=== PATIENT | male | born 1990 | race Caucasian/White ===

== ENCOUNTER 2020-04-12 13:21 | Inpatient (IN) | payer OTHER ==
--- NOTE | 2020-04-12 18:51 | HP ---
COWS - Scale Resting Pulse: 0= TX 80 or Below Sweatin= No chills or Flushing Restless Observation: 0= Sits Still Bone or Joint Aches: 0= None Runny Nose/ Eye Tearin= None GI Upset > 30mins: 0= None Tremor Observation: 0= None Yawning Observation: 0= None Anxiety or Irritability: 1=Feels Anxious/Irritable Goose Flesh Skin: 0=Smooth Skin CIWA Score Nausea/Vomitin Muscle Tremors: 1-None Visible, but [place] Anxiety: 2 Agitation: 1-Slight > Activity Paroxysmal Sweats: 1-Minimal Palms Moist Orientation: 1-Uncertain about Date Tacttile Disturbances: 1-Very Mild Itch/Numbness Auditory Disturbances: 0-None Visual Disturbances: 0-None Headache: 3-Moderate CIWA-Ar Total Score: 12 - Admission Criteria OASAS Guidelines: Admission for Medically Managed Detox: Requires at least one of the followin. CIWA greater than 12 2. Seizures within the past 24 hours 3. Delirium tremens within the past 24 hours 4. Hallucinations within the past 24 hours 5. Acute intervention needed for co occurring medical disorder 6. Acute intervention needed for co occurring psychiatric disorder 7. Severe withdrawal that cannot be handled at a lower level of care (continued vomiting, continued diarrhea, abnormal vital signs) requiring intravenous medication and/or fluids 8. Patient presents the following: CIWA greater than 12 Admission Criteria Met: Admission criteria met Admitting History and Physical - Admission Chief Complaint: Patient is a 30 year old male with history of schizophrenia, depression, benzodiazepine use disorder, opiate use disorder, cocaine dependence, marijuana dependence, nicotine dependence, asthma, presents for detox History of Present Illness: Patient is a 30 year old male with history of schizophrenia, depression, benzodiazepine use disorder, opiate use disorder, cocaine dependence, marijuana dependence, nicotine dependence, asthma, presents for detox PMH: asthma PSH: denies Social: lives in apartment with sister in law. on disability Psych: depression, schizophrenia Legal: denies History Source: Patient Limitations to Obtaining History: No Limitations - Past Medical History Pulmonary: Yes: Asthma - Smoking History Smoking history: Current every day smoker Have you smoked in the past 12 months: Yes Aproximately how many cigarettes per day: 20 - Alcohol/Substance Use Hx Alcohol Use: No History of Substance Use: reports: Cocaine, Heroin, Marijuana Date of Last Use: 04/12/20 - Social History Usual Living Arrangement: Yes: Other (in apartment, with sister in law) ADL: Independent Occupation: on disability History of Recent Travel: No Admission [facility] Chief Complaint: Patient is a 30 year old male with history of schizophrenia, depression, benzodiazepine use disorder, opiate use disorder, cocaine dependence, marijuana dependence, nicotine dependence, asthma, presents for detox History of Present Illness: Patient is a 30 year old male with history of schizophrenia, depression, benzodiazepine use disorder, opiate use disorder, cocaine dependence, marijuana dependence, nicotine dependence, asthma, presents for Detox Patient states that he is in methadone program [facility] [place]. Endorses current dose at 80mg, last taken 04/11. Patient endorses prior detox in [place] one month ago. PMH: asthma PSH: denies Social: lives in apartment with sister in law. on disability Psych: depression, schizophrenia Legal: denies See Medical history for detailed substance use history. Urine toxicology: THC, KASIA, MET, AMP, MOP Exam Limitations: No Limitations - Ebola screening Have you traveled outside of the country in the last 21 days: No Have you been sick,other than usual withdrawal symptoms: No Do you have a fever: No - Review of Systems Constitutional: No Symptoms Reported EENT: denies: Blurred Vision, Hearing Loss Respiratory: denies: Cough, Shortness of Breath Cardiac: denies: Chest Pain, Lightheadedness, Palpitations GI: denies: Nausea, Vomiting, Abdominal cramping : denies: Burning, Dysuria Musculoskeletal: denies: Back Pain, Joint Pain, Joint Swelling Integumentary: denies: Bruising, Lesions, Rash Neuro: denies: Headache, Numbness, Paresthesia, Weakness Hematology: denies: Blood Clots, Easy Bleeding Psychiatric: reports: Depressed (denies suicida, homicidal ideation) Patient History - Patient Medical History Hx Anemia: No Hx Asthma: Yes Hx Chronic Obstructive Pulmonary Disease (COPD): No Hx Cancer: No Hx Cardiac Disorders: No Hx Congestive Heart Failure: No Hx Hypertension: No Hx Hypercholesterolemia: No Hx Pacemaker: No HX Cerebrovascular Accident: No Hx Seizures: Yes (at 13 years old) Hx Dementia: No Hx Diabetes: No Hx Gastrointestinal Disorders: No Hx Liver Disease: No Hx Genitourinary Disorders: No Hx Sexually Transmitted Disorders: No Hx Renal Disease (ESRD): No Hx Thyroid Disease: No Hx Human Immunodeficiency Virus (HIV): No Hx Hepatitis C: No Hx Depression: Yes Hx Suicide Attempt: No Hx Bipolar Disorder: No Hx Schizophrenia: Yes - Patient Surgical History Past Surgical History: No Hx Neurologic Surgery: No Hx Cataract Extraction: No Hx Cardiac Surgery: No Hx Lung Surgery: No Hx Breast Surgery: No Hx Breast Biopsy: No Hx Abdominal Surgery: No Hx Appendectomy: No Hx Cholecystectomy: No Hx Genitourinary Surgery: No Hx Section: No Hx Orthopedic Surgery: No Hx Hysterectomy: No - PPD History Previous Implant?: Yes Documented Results: Negative w/o proof Implanted On Prior [facility] Admission?: No PPD to be Administered?: Yes - Reproductive History Patient is a Female of Child Bearing Age (11 -55 yrs old): No - Smoking Cessation Smoking history: Smoker current status UNK Have you smoked in the past 12 months: No Hx Chewing Tobacco Use: No Initiated information on smoking cessation: Yes 'Breaking Loose' booklet given: 04/12/20 - Substance & Tx. History Hx Alcohol Use: No Hx Substance Use: Yes Substance Use Type: Cocaine, Heroin, Marijuana, Opiates, Tranquilizers Hx Substance Use Treatment: Yes (endorses last detox one month ago in [place]) - Substances abused Alprazolam (Xanax) Substance route: Oral Frequency: Daily Amount used: 5mg x 3 (bars) Age of first use: 25 Date of last use: 04/12/20 Benzodiazepine (Klonopin) Substance route: Oral Frequency: Daily Amount used: 2mg x 10 Age of first use: 25 Date of last use: 04/12/20 Crystal meth Substance route: Injection Frequency: 3-6 times per week Amount used: $20 every two- three days Age of first use: 29 Date of last use: 04/11/20 Heroin Substance route: Injection Frequency: Daily Amount used: 2 bags Age of first use: 26 Date of last use: 04/12/20 Marijuana/Hashish Substance route: Smoking Frequency: Daily Amount used: $10 Age of first use: 13 Date of last use: 04/11/20 Crack Substance route: Smoking Frequency: Daily Amount used: $50 Age of first use: 27 Date of last use: 04/12/20 Admission Physical Exam [facility] - Physical General Appearance: Yes: No Apparent Distress, Nourished HEENTM: Yes: EOMI, Hearing grossly Normal, Normocephalic, TIGRE Respiratory: Yes: Lungs Clear, Normal Breath Sounds, No Respiratory Distress, No Accessory Muscle Use Neck: Yes: Supple Breast: Yes: Breast Exam Deferred Cardiology: Yes: Regular Rhythm, Regular Rate, S1, S2 Abdominal: Yes: Normal Bowel Sounds, Non Tender, Flat, Soft Musculoskeletal: Yes: Within Normal Limits, full range of Motion Extremities: Yes: Within Normal Limits, Normal Range of Motion Neurological: Yes: Alert, Motor Strength 5/5, Normal Response Integumentary: Yes: Dry, Warm - Diagnostic (1) Opiate dependence Current Visit: Yes Status: Chronic Qualifiers: Substance use status: uncomplicated Qualified Code(s): F11.20 - Opioid dependence, uncomplicated (2) Nicotine dependence Current Visit: Yes Status: Chronic Qualifiers: Nicotine product type: cigarettes Substance use status: uncomplicated Qualified Code(s): F17.210 - Nicotine dependence, cigarettes, uncomplicated (3) Cocaine dependence Current Visit: Yes Status: Chronic Qualifiers: Substance use status: uncomplicated Qualified Code(s): F14.20 - Cocaine dependence, uncomplicated (4) Marijuana dependence Current Visit: Yes Status: Acute (5) Methamphetamine dependence Current Visit: Yes Status: Acute (6) Asthma Current Visit: Yes Status: Chronic Qualifiers: Asthma severity: unspecified severity Asthma persistence: unspecified Asthma complication type: unspecified Qualified Code(s): J45.909 - Unspecified asthma, uncomplicated (7) Schizophrenia Current Visit: No Status: Chronic Qualifiers: Schizophrenia type: unspecified Qualified Code(s): F20.9 - Schizophrenia, unspecified (8) Depression Current Visit: No Status: Chronic Qualifiers: Depression Type: unspecified Qualified Code(s): F32.9 - Major depressive disorder, single episode, unspecified (9) Sedative, hypnotic or anxiolytic dependence with withdrawal, uncomplicated Current Visit: Yes Status: Acute (10) Methadone maintenance therapy patient Current Visit: Yes Status: Chronic Cleared for Admission [facility] - Detox or Rehab S Level of Care: Medically Managed Detox Regimen/Protocol: Valium Claeared for Rehab Admission: No Screened but not Admitted - Documentation of Visit Screened but not Admitted: No Inpatient Rehab Admission - Rehab Decision to Admit Inpatient rehab admission?: No
[2020-04-12] MEDS ORDERED: P-EPHED 60MG/TRIPROLIDI 2.5MG TABLET PO PRN (19:13)
[2020-04-12] MEDS ORDERED: ACETAMINOPHEN 325 MG TABLET (FP) PO PRN ×3 (19:13→19:27)
[2020-04-12] MEDS ORDERED: MAG HYDROX/AL HYDROX/SIMETH 30 ML UNIT-DOSE CUP PO PRN ×2 (19:13→19:27)
[2020-04-12] MEDS ORDERED: MAGNESIUM HYDROX 2400MG/30ML ORAL SUSPENSION 30 ML CUP PO PRN ×2 (19:13→19:27)
[2020-04-12] MEDS ORDERED: LOPERAMIDE HCL 2 MG CAPSULE PO PRN (19:13)
[2020-04-12] MEDS ORDERED: MAGNESIUM CITRATE 300 ML BOTTLE PO PRN ×2 (19:13→19:27)
[2020-04-12] MEDS ORDERED: IBUPROFEN 400 MG TABLET (FP) PO PRN ×2 (19:13→19:27)
[2020-04-12] MEDS ORDERED: guaiFENesin 200 MG/10 ML 10 ML UNIT-DOSE CUPS PO PRN (19:13)
[2020-04-12] MEDS ORDERED: NICOTINE POLACRILEX 2 MG GUM BC PRN (19:13)
[2020-04-12] MEDS ORDERED: ALBUTEROL SO4 HFA INHALER IH PRN ×2 (19:14→19:38)
[2020-04-12] MEDS ORDERED: NICOTINE 21 MG/24 HOURS TOPICAL PATCH TD SCH (19:15)
[2020-04-12] MEDS ORDERED: BISMUTH SUBSALICYLATE 524 MG/30 ML UD PO PRN (19:27)
[2020-04-12] MEDS ORDERED: MENTHOL/PHENOL 1 EACH UD MM PRN (19:27)
[2020-04-12] MEDS ORDERED: NICOTINE POLACRILEX 2 MG GUM BUC PRN (19:27)
[2020-04-12] MEDS ORDERED: ONDANSETRON *ODT* 4 MG TABLET SL PRN (19:27)
[2020-04-12 20:21] VITALS: BMI 24.3
[2020-04-12] MEDS ORDERED: PNEUMOC 13-VAL CONJ-DIP CRM/PF 0.5 ML DISP.SYRIN IM ONE (20:39)
[2020-04-12] MEDS: diazePAM 5 MG TABLET PO SCH (21:40)
[2020-04-12] MEDS: hydrOXYzine PAMOATE 25 MG CAPSULE (FP) PO SCH (21:40)
[2020-04-12] MEDS: MELATONIN 5 MG TABLETS PO SCH (21:41)
[2020-04-12] MEDS: THIAMINE HCL 100 MG TABLET (FP) PO SCH (21:41)
[2020-04-12] MEDS: NICOTINE 21 MG/24 HOURS TOPICAL PATCH TD SCH (21:43)
[2020-04-12] MEDS ORDERED: hydrOXYzine PAMOATE 25 MG CAPSULE (FP) PO SCH (22:00)
[2020-04-12] MEDS ORDERED: MELATONIN 5 MG TABLETS PO SCH (22:00)
[2020-04-12] MEDS ORDERED: THIAMINE HCL 100 MG TABLET (FP) PO SCH (22:00)
[2020-04-13] MEDS: hydrOXYzine PAMOATE 25 MG CAPSULE (FP) PO SCH (06:04)
[2020-04-13] MEDS: diazePAM 5 MG TABLET PO SCH ×3 (06:04→22:20)
[2020-04-13] MEDS ORDERED: PRENATAL VITAMINS W/ FOLIC ACID TABLET (FP) PO SCH (10:00)
[2020-04-13] MEDS: PRENATAL VITAMINS W/ FOLIC ACID TABLET (FP) PO SCH (11:04)
[2020-04-13] MEDS: NICOTINE 21 MG/24 HOURS TOPICAL PATCH TD SCH (11:04)
[2020-04-13] MEDS ORDERED: METHADONE HCL 40 MG DISPERSABLE TABLET PO ONE (11:08)
--- NOTE | 2020-04-13 11:50 | PN ---
[facility] CIWA - CIWA Score Nausea/Vomitin-No Nausea/No Vomiting Muscle Tremors: 3 Anxiety: 3 Agitation: 2 Paroxysmal Sweats: 2 Orientation: 0-Oriented Tacttile Disturbances: 0-None Auditory Disturbances: 0-None Visual Disturbances: 0-None Headache: 0-None Present CIWA-Ar Total Score: 10 [facility] Progress Note (SOAP) Subjective: shakes sweats interrupted sleep chills Objective: 04/13/20 11:49 Vital Signs Temperature 97.1 F L 04/13/20 06:36 Pulse Rate 47 L 04/13/20 06:36 Respiratory Rate 20 04/13/20 06:36 Blood Pressure 126/63 04/13/20 06:36 O2 Sat by Pulse Oximetry (%) 99 04/13/20 06:36 labs noted aaox3 ambulating no acute distress Assessment: 04/13/20 11:49 withdrawals Plan: continue detox increase fluids pending labs
[2020-04-13 11:58] LABS: HEMOGLOBIN 13.2 GM/dL (11.7-16.9); MCH 29.4 pg (25.7-33.7); MCHC 32.1 g/dl (32.0-35.9); MEAN CELL VOLUME 91.5 fl (80-96); MEAN PLT VOLUME 9.2 fl (7.5-11.1); PLATELET COUNT 215 K/MM3 (134-434); RBC 4.48 M/mm3 (4.00-5.60); RDW 13.9 % (11.9-15.9); WHITE BLOOD COUNT 6.2 K/mm3 (4.0-10.0)
[2020-04-13] MEDS ORDERED: PNEUMOC 13-VAL CONJ-DIP CRM/PF 0.5 ML DISP.SYRIN IM ONE (12:00)
[2020-04-13] MEDS ORDERED: PNEUMOCOCCAL 23 VACCINE 0.5 ML VIAL IM ONE (12:00)
[2020-04-13 12:06] LABS: ALBUMIN 3.4 g/dl (3.4-5.0); BILIRUBIN,TOTAL 0.2 mg/dL (0.2-1); BLOOD UREA NITROGEN 13.7 mg/dL (7-18); CALCIUM 8.7 mg/dL (8.5-10.1); CREATININE 0.9 mg/dL (0.55-1.3); POTASSIUM 4.6 mmol/L (3.5-5.1); TOT PROT 6.9 g/dl (6.4-8.2)
[2020-04-13] MEDS: METHOCARBAMOL 500 MG TABLET PO PRN (12:31)
[2020-04-13] MEDS: NICOTINE POLACRILEX 4 MG GUM BUC PRN ×2 (13:26→17:54)
--- NOTE | 2020-04-13 14:56 | EKG ---
Test Reason : Blood Pressure : / mmHG Vent. Rate : 055 BPM Atrial Rate : 055 BPM P-R Int : 110 ms QRS Dur : 082 ms QT Int : 432 ms P-R-T Axes : 031 069 027 degrees QTc Int : 413 ms SINUS BRADYCARDIA WITH SHORT MT OTHERWISE NORMAL ECG NO PREVIOUS ECGS AVAILABLE Confirmed by KARLOS ANTONY MD ([id number]) on 04/13/2020 2:56:14 PM Referred By: Confirmed By:KARLOS ANTONY MD
[2020-04-13] MEDS: hydrOXYzine PAMOATE 25 MG CAPSULE (FP) PO PRN (17:08)
[2020-04-13] MEDS: MELATONIN 5 MG TABLETS PO SCH (22:20)
[2020-04-13] MEDS: THIAMINE HCL 100 MG TABLET (FP) PO SCH (22:20)
[2020-04-14] MEDS: METHADONE HCL 40 MG DISPERSABLE TABLET PO SCH (05:53)
[2020-04-14] MEDS: diazePAM 5 MG TABLET PO SCH ×2 (05:53→17:58)
[2020-04-14] MEDS: NICOTINE POLACRILEX 4 MG GUM BUC PRN ×2 (07:35→22:44)
[2020-04-14] MEDS: NICOTINE 21 MG/24 HOURS TOPICAL PATCH TD SCH (10:22)
[2020-04-14] MEDS: PRENATAL VITAMINS W/ FOLIC ACID TABLET (FP) PO SCH (10:22)
[2020-04-14] MEDS: METHOCARBAMOL 500 MG TABLET PO PRN (10:24)
[2020-04-14] MEDS: diazePAM 5 MG TABLET PO PRN ×2 (10:24→22:08)
--- NOTE | 2020-04-14 10:53 | PN ---
S CIWA - CIWA Score Nausea/Vomitin-No Nausea/No Vomiting Muscle Tremors: 3 Anxiety: 2 Agitation: 2 Paroxysmal Sweats: No Perspiration Orientation: 0-Oriented Tacttile Disturbances: 0-None Auditory Disturbances: 0-None Visual Disturbances: 0-None Headache: 0-None Present CIWA-Ar Total Score: 7 [facility] Progress Note (SOAP) Subjective: muscle aches sweats Objective: 04/14/20 10:52 Vital Signs Temperature 97.3 F L 04/14/20 05:39 Pulse Rate 76 04/14/20 05:39 Respiratory Rate 20 04/14/20 05:39 Blood Pressure 108/71 04/14/20 05:39 O2 Sat by Pulse Oximetry (%) 98 04/14/20 05:39 Laboratory Tests 04/12/20 04/13/20 04/13/20 21:45 08:05 08:05 WBC 6.2 RBC 4.48 Hgb 13.2 Hct 41.0 MCV 91.5 MCH 29.4 MCHC 32.1 RDW 13.9 Plt Count 215 MPV 9.2 Sodium Potassium Chloride Carbon Dioxide Anion Gap BUN Creatinine Est GFR (CKD-EPI)AfAm Est GFR (CKD-EPI)NonAf Random Glucose Calcium Total Bilirubin AST ALT Alkaline Phosphatase Total Protein Albumin Syphilis Serology Non-reactive COVID-19 ([facility]) Not detected 04/13/20 08:05 WBC RBC Hgb Hct MCV MCH MCHC RDW Plt Count MPV Sodium 139 Potassium 4.6 Chloride 106 Carbon Dioxide 31 Anion Gap 3 L BUN 13.7 Creatinine 0.9 Est GFR (CKD-EPI)AfAm 130.52 Est GFR (CKD-EPI)NonAf 112.62 Random Glucose 90 Calcium 8.7 Total Bilirubin 0.2 AST 18 ALT 19 Alkaline Phosphatase 78 Total Protein 6.9 Albumin 3.4 Syphilis Serology COVID-19 ([facility]) aaox3 ambulating no acute distress Assessment: 04/14/20 10:53 withdrawals Plan: continue detox
[2020-04-14] MEDS: hydrOXYzine PAMOATE 25 MG CAPSULE (FP) PO PRN (15:28)
[2020-04-14] MEDS: MELATONIN 5 MG TABLETS PO SCH (22:08)
[2020-04-14] MEDS: THIAMINE HCL 100 MG TABLET (FP) PO SCH (22:08)
[2020-04-15] MEDS: METHADONE HCL 40 MG DISPERSABLE TABLET PO SCH (05:50)
[2020-04-15] MEDS ORDERED: diazePAM 5 MG TABLET PO ONE (06:00)
[2020-04-15] MEDS: METHOCARBAMOL 500 MG TABLET PO PRN ×2 (07:55→15:11)
[2020-04-15] MEDS: hydrOXYzine PAMOATE 25 MG CAPSULE (FP) PO PRN (07:56)
[2020-04-15] MEDS: NICOTINE POLACRILEX 4 MG GUM BUC PRN ×2 (07:56→15:11)
[2020-04-15] MEDS: PRENATAL VITAMINS W/ FOLIC ACID TABLET (FP) PO SCH (12:11)
[2020-04-15] MEDS: NICOTINE 21 MG/24 HOURS TOPICAL PATCH TD SCH (12:11)
--- NOTE | 2020-04-15 12:17 | PN ---
[facility] CIWA - CIWA Score Nausea/Vomitin-No Nausea/No Vomiting Muscle Tremors: None Anxiety: 1-Mildly Anxious Agitation: 0-Normal Activity Paroxysmal Sweats: No Perspiration Orientation: 0-Oriented Tacttile Disturbances: 0-None Auditory Disturbances: 0-None Visual Disturbances: 0-None Headache: 0-None Present CIWA-Ar Total Score: 1 S Progress Note (SOAP) Subjective: Complaints of mild anxiety. Objective: 04/15/20 12:13 Vital Signs 04/15/20 04/15/20 05:45 08:59 Temperature 97.1 F L 98.8 F Pulse Rate 51 L 85 Respiratory 20 20 Rate Blood Pressure 114/60 104/61 O2 Sat by Pulse 98 98 Oximetry (%) Laboratory Last Values WBC 6.2 K/mm3 (4.0-10.0) 04/13/20 08:05 RBC 4.48 M/mm3 (4.00-5.60) 04/13/20 08:05 Hgb 13.2 GM/dL (11.7-16.9) 04/13/20 08:05 Hct 41.0 % (35.4-49) 04/13/20 08:05 MCV 91.5 fl (80-96) 04/13/20 08:05 MCH 29.4 pg (25.7-33.7) 04/13/20 08:05 MCHC 32.1 g/dl (32.0-35.9) 04/13/20 08:05 RDW 13.9 % (11.9-15.9) 04/13/20 08:05 Plt Count 215 K/MM3 (134-434) 04/13/20 08:05 MPV 9.2 fl (7.5-11.1) 04/13/20 08:05 Sodium 139 mmol/L (136-145) 04/13/20 08:05 Potassium 4.6 mmol/L (3.5-5.1) 04/13/20 08:05 Chloride 106 mmol/L (98-107) 04/13/20 08:05 Carbon Dioxide 31 mmol/L (21-32) 04/13/20 08:05 Anion Gap 3 MMOL/L (8-16) L 04/13/20 08:05 BUN 13.7 mg/dL (7-18) 04/13/20 08:05 Creatinine 0.9 mg/dL (0.55-1.3) 04/13/20 08:05 Est GFR (CKD-EPI)AfAm 130.52 04/13/20 08:05 Est GFR (CKD-EPI)NonAf 112.62 04/13/20 08:05 Random Glucose 90 mg/dL (74-106) 04/13/20 08:05 Calcium 8.7 mg/dL (8.5-10.1) 04/13/20 08:05 Total Bilirubin 0.2 mg/dL (0.2-1) 04/13/20 08:05 AST 18 U/L (15-37) 04/13/20 08:05 ALT 19 U/L (13-61) 04/13/20 08:05 Alkaline Phosphatase 78 U/L (45-117) 04/13/20 08:05 Total Protein 6.9 g/dl (6.4-8.2) 04/13/20 08:05 Albumin 3.4 g/dl (3.4-5.0) 04/13/20 08:05 Syphilis Serology Non-reactive (NONREACTIVE) 04/13/20 08:05 COVID-19 ([facility]) Not detected (Not Detected) 04/12/20 21:45 Labs noted. Assessment: 04/15/20 12:13 Alert and oriented x3, in no acute respiratory distress. Full ROM, ambulating in hallway with assistance. Skin warm to touch with no lesions noted. For D/C in AM. Plan: Detox protocol completed, patient was scheduled for discharge to rehab today, however no bed available and patient MMTP is closed for today. D/C in AM after methadone administration.
--- NOTE | 2020-04-15 15:45 | DS ---
[facility] Detox Discharge Summary Admission Date: 04/12/20 Discharge Date: 04/15/20 - History Present History: Alcohol Dependence, Cannabis Dependence, Cocaine Dependence, MMTP Additional Comments: Alert and oriented x3, in no acute respiratory distress. Full ROM, ambulating in hallway without assistance. Skin warm to touch with no lesions noted. Detox protocol completed, patient stable for discharge to rehab today. Pertinent Past History: History of asthma , benzo, cocaine opiates, cannabis use disorder. - Physical Exam Results Vital Signs: Vital Signs Temperature 97.1 F L 04/15/20 12:49 Pulse Rate 67 04/15/20 12:49 Respiratory Rate 18 04/15/20 12:49 Blood Pressure 103/60 04/15/20 12:49 O2 Sat by Pulse Oximetry (%) 97 04/15/20 12:49 Vital Signs 04/15/20 04/15/20 08:59 12:49 Temperature 98.8 F 97.1 F L Pulse Rate 85 67 Respiratory 20 18 Rate Blood Pressure 104/61 103/60 O2 Sat by Pulse 98 97 Oximetry (%) Laboratory Last Values WBC 6.2 K/mm3 (4.0-10.0) 04/13/20 08:05 RBC 4.48 M/mm3 (4.00-5.60) 04/13/20 08:05 Hgb 13.2 GM/dL (11.7-16.9) 04/13/20 08:05 Hct 41.0 % (35.4-49) 04/13/20 08:05 MCV 91.5 fl (80-96) 04/13/20 08:05 MCH 29.4 pg (25.7-33.7) 04/13/20 08:05 MCHC 32.1 g/dl (32.0-35.9) 04/13/20 08:05 RDW 13.9 % (11.9-15.9) 04/13/20 08:05 Plt Count 215 K/MM3 (134-434) 04/13/20 08:05 MPV 9.2 fl (7.5-11.1) 04/13/20 08:05 Sodium 139 mmol/L (136-145) 04/13/20 08:05 Potassium 4.6 mmol/L (3.5-5.1) 04/13/20 08:05 Chloride 106 mmol/L (98-107) 04/13/20 08:05 Carbon Dioxide 31 mmol/L (21-32) 04/13/20 08:05 Anion Gap 3 MMOL/L (8-16) L 04/13/20 08:05 BUN 13.7 mg/dL (7-18) 04/13/20 08:05 Creatinine 0.9 mg/dL (0.55-1.3) 04/13/20 08:05 Est GFR (CKD-EPI)AfAm 130.52 04/13/20 08:05 Est GFR (CKD-EPI)NonAf 112.62 04/13/20 08:05 Random Glucose 90 mg/dL (74-106) 04/13/20 08:05 Calcium 8.7 mg/dL (8.5-10.1) 04/13/20 08:05 Total Bilirubin 0.2 mg/dL (0.2-1) 04/13/20 08:05 AST 18 U/L (15-37) 04/13/20 08:05 ALT 19 U/L (13-61) 04/13/20 08:05 Alkaline Phosphatase 78 U/L (45-117) 04/13/20 08:05 Total Protein 6.9 g/dl (6.4-8.2) 04/13/20 08:05 Albumin 3.4 g/dl (3.4-5.0) 04/13/20 08:05 Syphilis Serology Non-reactive (NONREACTIVE) 04/13/20 08:05 COVID-19 ([facility]) Not detected (Not Detected) 04/12/20 21:45 Labs noted. Pertinent Admission Physical Exam Findings: Withdrawal symptoms - Treatment Hospital Course: Detox Protocol Followed, Detoxed Safely, Responded well, Discharged Condition Good, Rehab Referral Accepted Patient has Accepted a Rehab Referral to: [facility] ([facility]) - Medication Discharge Medications: Ambulatory Orders Gabapentin 400 mg PO BID 04/12/20 Oxcarbazepine [Trileptal] 300 mg PO BID 04/12/20 Quetiapine Fumarate [Seroquel -] 400 mg PO HS 04/12/20 - Diagnosis (1) Marijuana dependence Current Visit: Yes Status: Chronic (2) Asthma Current Visit: Yes Status: Chronic Qualifiers: Asthma severity: unspecified severity Asthma persistence: unspecified Asthma complication type: unspecified Qualified Code(s): J45.909 - Unspecified asthma, uncomplicated (3) Cocaine dependence Current Visit: Yes Status: Chronic Qualifiers: Substance use status: uncomplicated Qualified Code(s): F14.20 - Cocaine dependence, uncomplicated (4) Methadone maintenance therapy patient Current Visit: Yes Status: Chronic (5) Nicotine dependence Current Visit: Yes Status: Chronic Qualifiers: Nicotine product type: cigarettes Substance use status: uncomplicated Qualified Code(s): F17.210 - Nicotine dependence, cigarettes, uncomplicated (6) Opiate dependence Current Visit: Yes Status: Chronic Qualifiers: Substance use status: uncomplicated Qualified Code(s): F11.20 - Opioid dependence, uncomplicated (7) Alcohol withdrawal Current Visit: Yes Status: Acute - AMA Did Patient Leave Against Medical Advice: No
[2020-04-15 17:49] VITALS: BP 100/58; PULSE 58; TEMP 97.3
== END 2020-04-15 18:41 | disposition other institution (70) | DRG 897 ==
LOC: YASAS 13:21 → Y6N 19:20
PROVIDERS: ADMIT Allergy & Immunology; ATTEND Allergy & Immunology
PROC: HZ2ZZZZ Detoxification Services for Substance Abuse Treatment (ICD-10-PCS; principal; 2020-04-12)
DX: F10.230 Alcohol dependence with withdrawal, uncomplicated (principal); F11.20 Opioid dependence, uncomplicated; F13.20 Sedative, hypnotic or anxiolytic dependence, uncomplicated; F14.20 Cocaine dependence, uncomplicated; F12.20 Cannabis dependence, uncomplicated; F17.210 Nicotine dependence, cigarettes, uncomplicated; F20.9 Schizophrenia, unspecified; J45.909 Unspecified asthma, uncomplicated; Z86.69 Personal history of other diseases of the nervous system and sense organs
CPT/HCPCS: 36415; 80053; 85027; 86780; 90732; 93005; 93010; G0009; U0003

== ENCOUNTER 2020-04-15 18:54 | Inpatient (IN) | payer OTHER ==
[2020-04-15 19:30] VITALS: BMI 24.0
[2020-04-15] MEDS ORDERED: P-EPHED 60MG/TRIPROLIDI 2.5MG TABLET PO PRN (20:39)
[2020-04-15] MEDS ORDERED: MENTHOL/PHENOL 1 EACH UD MM PRN (20:39)
[2020-04-15] MEDS ORDERED: MAGNESIUM CITRATE 300 ML BOTTLE PO PRN (20:39)
[2020-04-15] MEDS ORDERED: MAG HYDROX/AL HYDROX/SIMETH 30 ML UNIT-DOSE CUP PO PRN (20:39)
[2020-04-15] MEDS ORDERED: guaiFENesin 200 MG/10 ML 10 ML UNIT-DOSE CUPS PO PRN (20:39)
[2020-04-15] MEDS ORDERED: LOPERAMIDE HCL 2 MG CAPSULE PO PRN (20:39)
[2020-04-15] MEDS ORDERED: MAGNESIUM HYDROX 2400MG/30ML ORAL SUSPENSION 30 ML CUP PO PRN (20:39)
--- NOTE | 2020-04-15 20:39 | HP ---
[facility] Rehab Assess/Revision - Admission History Admitted to Rehab from: [address] Date of Admission to Rehab: 04/15/2020 - Vital signs Vital Signs: Vital Signs Period Temp Pulse Resp BP Sys/Jeronimo Pulse Ox Last 24 Hr 96.9 F 72 18 107/66 - Findings Detox History & Physical reviewed: Yes (labs noted- covid neg) Concur with findings: Yes Comments/Additional Findings: transfer from [facility]n after completing alcohol detox safely. client also has hx of cannabis, neda and and opi dep. client is currently on mmtp 80 mg. ldm today on 6n. pmhx- nicotine dep, asthma,. client is a/o x3 nad, vss Inpatient Rehab Admission - Rehab Decision to Admit Inpatient rehab admission?: Yes - Initial Determination Are CD services needed?: Yes Free of communicable disease: Yes Not in need of hospitalization: Yes - Rehab Admission Criteria Previous failed treatment: Yes Poor recovery environment: Yes Comorbidities: Yes Lacks judgement: No Patient is meeting Inpatient Rehab admission criteria:: Yes
[2020-04-15] MEDS: hydrOXYzine PAMOATE 25 MG CAPSULE (FP) PO PRN (21:45)
[2020-04-15] MEDS: MELATONIN 5 MG TABLETS PO SCH (21:45)
[2020-04-15] MEDS: IBUPROFEN 400 MG TABLET (FP) PO PRN (21:45)
[2020-04-15] MEDS: NICOTINE POLACRILEX 2 MG GUM BUC PRN (21:46)
[2020-04-15] MEDS: THIAMINE HCL 100 MG TABLET (FP) PO SCH (22:04)
[2020-04-15] MEDS ORDERED: MASKS NR ONE (22:21)
[2020-04-16] MEDS: METHADONE HCL 40 MG DISPERSABLE TABLET PO SCH (06:21)
[2020-04-16] MEDS: NICOTINE 14 MG/24 HOURS TOPICAL PATCH TD SCH (09:42)
[2020-04-16] MEDS: PRENATAL VITAMINS W/ FOLIC ACID TABLET (FP) PO SCH (09:43)
[2020-04-16] MEDS: hydrOXYzine PAMOATE 25 MG CAPSULE (FP) PO PRN ×2 (09:44→21:38)
--- NOTE | 2020-04-16 09:52 | CONSULT ---
[facility] Psychiatric Consult - Data Date of interview: 04/16/20 Admission source: [facility] Identifying data: Patient is a 30 year old single male, without children, unemployed, domiciled and is supported by [facility]. This is one of multiple admissions for patient. Patient admitted to rehab for treatment of opiate, cocaine, marijuana, and methamphetamine dependence. Substance Abuse History: Smoking Cessation. Smoking history: Smoker current status UNK. Have you smoked in the past 12 months: No. Hx Chewing Tobacco Use: No. Initiated information on smoking cessation: Yes. 'Breaking Loose' booklet given: 04/12/20. - Substance & Tx. History. Hx Alcohol Use: No. Hx Substance Use: Yes. Substance Use Type: Cocaine, Heroin, Marijuana, Opiates, Tranquilizers. Hx Substance Use Treatment: Yes (endorses last detox one month ago in [place]). - Substances abused. Alprazolam (Xanax). Substance route: Oral. Frequency: Daily. Amount used: 5mg x 3 (bars). Age of first use: 25. Date of last use: 04/12/20. Benzodiazepine (Klonopin). Substance route: Oral. Frequency: Daily. Amount used: 2mg x 10. Age of first use: 25. Date of last use: 04/12/20. Crystal meth. Substance route: Injection. Frequency: 3-6 times per week. Amount used: $20 every two- three days. Age of first use: 29. Date of last use: 04/11/20. Heroin. Substance route: Injection. Frequency: Daily. Amount used: 2 bags. Age of first use: 26. Date of last use: 04/12/20. Marijuana/Hashish. Substance route: Smoking. Frequency: Daily. Amount used: $10. Age of first use: 13. Date of last use: 04/11/20. Crack. Substance route: Smoking. Frequency: Daily. Amount used: $50. Age of first use: 27. Date of last use: 04/12/20 Medical History: asthma Psychiatric History: Mr. Ta's first psychiatric contact was in 2013 due to depressed mood, aggressive behavior, and hearing voices. He was admitted to [facility], diagnosed with schizophrenia, and treated with seroquel a nd other psychotropic agents. Mr. Ta reports additional hospitalizations at [facility] and most recently two weeks ago at [facility] for continously removing blood from his anticubital with a syringe although denies it being a suicide attempt and denies hearing voices during that time. Stated that he would remove his blood because he enjoyed it. While at [facility] he reports being treated with seroquel 300mg HS + Gabapentin 400mg BID + trileptal ( for seizures). Stated that he has not taken the medications since discharge. [facility] contacted at [phone] but typewriter tester was unsuccessul in speaking to pharmacy staff. Mr. Ta reports history of several suicide attempts via overdose of illicit substance. At present patient denies suicidal/ homicidal ideation, auditory/ visual hallucinations. No psychosis noted. Physical/Sexual Abuse/Trauma History: Not discussed. Mental Status Exam - Mental Status Exam Alert and Oriented to: Time, Place, Person Cognitive Function: Good Patient Appearance: Well Groomed Mood: Hopeful Affect: Appropriate Patient Behavior: Appropriate, Cooperative Speech Pattern: Appropriate Voice Loudness: Normal Thought Process: Goal Oriented Thought Disorder: Not Present Hallucinations: Denies Suicidal Ideation: Denies Homicidal Ideation: Denies Insight/Judgement: Poor Sleep: Poorly Appetite: Fair Muscle strength/Tone: Normal Gait/Station: Normal Psychiatric Findings - Problem List ([place] 1, 2,3) (1) Methamphetamine dependence Current Visit: Yes Status: Chronic (2) Cocaine dependence Current Visit: Yes Status: Chronic Qualifiers: Substance use status: uncomplicated Qualified Code(s): F14.20 - Cocaine dependence, uncomplicated (3) Marijuana dependence Current Visit: Yes Status: Chronic (4) Nicotine dependence Current Visit: Yes Status: Chronic Qualifiers: Nicotine product type: cigarettes Substance use status: uncomplicated Qualified Code(s): F17.210 - Nicotine dependence, cigarettes, uncomplicated (5) Opiate dependence Current Visit: Yes Status: Chronic Qualifiers: Substance use status: uncomplicated Qualified Code(s): F11.20 - Opioid dependence, uncomplicated (6) Schizophrenia Current Visit: Yes Status: Chronic Qualifiers: Schizophrenia type: unspecified Qualified Code(s): F20.9 - Schizophrenia, unspecified Comment: self reports (7) Methadone maintenance therapy patient Current Visit: Yes Status: Chronic - Initial Treatment Plan Initial Treatment Plan: Psychoeducation provided. Rehab in progress. Will order Seroquel 100mg HS + Gabapentin 300mg BID (Reduced dose for seroquel + Gabapentin. Unable to verify dose. [facility] contacted but unable to speak to pharmacy staff). Benefits and side effects discussed. Verbal consent given.
[2020-04-16] MEDS: GABAPENTIN 300 MG CAPSULE PO SCH (21:36)
[2020-04-16] MEDS: MELATONIN 5 MG TABLETS PO SCH (21:38)
[2020-04-16] MEDS: THIAMINE HCL 100 MG TABLET (FP) PO SCH (21:38)
[2020-04-16] MEDS: QUEtiapine FUMARATE 100 MG TABLET (FP) PO SCH (21:38)
[2020-04-16] MEDS: NICOTINE POLACRILEX 2 MG GUM BUC PRN (21:39)
[2020-04-16] MEDS ORDERED: QUEtiapine FUMARATE 100 MG TABLET (FP) PO SCH (22:00)
[2020-04-17] MEDS: METHADONE HCL 40 MG DISPERSABLE TABLET PO SCH (05:56)
[2020-04-17] MEDS: NICOTINE 14 MG/24 HOURS TOPICAL PATCH TD SCH (09:26)
[2020-04-17] MEDS: PRENATAL VITAMINS W/ FOLIC ACID TABLET (FP) PO SCH (09:26)
[2020-04-17] MEDS: GABAPENTIN 300 MG CAPSULE PO SCH ×2 (09:26→21:35)
[2020-04-17] MEDS: NICOTINE POLACRILEX 2 MG GUM BUC PRN ×4 (09:30→21:37)
[2020-04-17] MEDS: hydrOXYzine PAMOATE 25 MG CAPSULE (FP) PO PRN ×2 (12:04→18:48)
[2020-04-17] MEDS ORDERED: PT OWN MED DRAWER 7, Y5N ONE (21:34)
[2020-04-17] MEDS: MELATONIN 5 MG TABLETS PO SCH (21:35)
[2020-04-17] MEDS: QUEtiapine FUMARATE 100 MG TABLET (FP) PO SCH (21:35)
[2020-04-17] MEDS: THIAMINE HCL 100 MG TABLET (FP) PO SCH (21:35)
[2020-04-17] MEDS: ALBUTEROL SO4 HFA INHALER IH PRN (21:36)
[2020-04-18] MEDS: hydrOXYzine PAMOATE 25 MG CAPSULE (FP) PO PRN ×3 (05:14→21:21)
[2020-04-18] MEDS: METHADONE HCL 40 MG DISPERSABLE TABLET PO SCH (06:09)
[2020-04-18] MEDS: NICOTINE POLACRILEX 2 MG GUM BUC PRN ×3 (07:24→15:06)
[2020-04-18] MEDS: GABAPENTIN 300 MG CAPSULE PO SCH ×2 (09:58→21:22)
[2020-04-18] MEDS: PRENATAL VITAMINS W/ FOLIC ACID TABLET (FP) PO SCH (09:58)
[2020-04-18] MEDS: NICOTINE 14 MG/24 HOURS TOPICAL PATCH TD SCH (09:58)
[2020-04-18] MEDS: IBUPROFEN 400 MG TABLET (FP) PO PRN (09:59)
--- NOTE | 2020-04-18 10:12 | PN ---
[facility] Progress Note Note: Pt states he takes Trileptal for psych and also maybe seizure(not sure as he says his psych provider orders it). Pt is s/p detox 6 north admitted to rehab on 04/15/20. This designer/writer called his home pharmacy and spoke to Mr Sang,[facility] who confirmed Trileptal 300 mg po BID and last prescribed by Dr. Brandin Gonzalez ph:[phone](efforts to contact doctor by phone was unsuccessful as no one picked up). Pharmacist reports pt last picked up on 11/08/19. As per pt's verbal account, he reports he stopped taking it a month ago. As per H/P and pt's verbal report today, pt states last seizure at 13 years old and doesn't think he needs it. But still wants to speak with psych MD today. Vital Signs - 24 hr 04/17/20 04/17/20 04/18/20 15:08 20:32 06:00 Temperature 97.5 F L Pulse Rate 74 Respiratory 18 Rate Blood Pressure 108/69 O2 Sat by Pulse 96 97 100 Oximetry (%) Alert o x 3 nad oob ambulating with steady gait. s/p detox Rehab pt Follow up with psych re-evaluation.
[2020-04-18] MEDS: METHOCARBAMOL 500 MG TABLET PO PRN (15:54)
[2020-04-18] MEDS: MELATONIN 5 MG TABLETS PO SCH (21:20)
[2020-04-18] MEDS: THIAMINE HCL 100 MG TABLET (FP) PO SCH (21:20)
[2020-04-18] MEDS: QUEtiapine FUMARATE 100 MG TABLET (FP) PO SCH (21:21)
[2020-04-19] MEDS: METHADONE HCL 40 MG DISPERSABLE TABLET PO SCH (06:04)
[2020-04-19] MEDS: GABAPENTIN 300 MG CAPSULE PO SCH ×2 (10:24→21:20)
[2020-04-19] MEDS: METHOCARBAMOL 500 MG TABLET PO PRN (10:24)
[2020-04-19] MEDS: PRENATAL VITAMINS W/ FOLIC ACID TABLET (FP) PO SCH (10:24)
[2020-04-19] MEDS: NICOTINE 14 MG/24 HOURS TOPICAL PATCH TD SCH (10:25)
[2020-04-19] MEDS: NICOTINE POLACRILEX 2 MG GUM BUC PRN (10:27)
[2020-04-19] MEDS: QUEtiapine FUMARATE 100 MG TABLET (FP) PO SCH (21:20)
[2020-04-19] MEDS: THIAMINE HCL 100 MG TABLET (FP) PO SCH (21:20)
[2020-04-19] MEDS: MELATONIN 5 MG TABLETS PO SCH (21:20)
[2020-04-20] MEDS: METHADONE HCL 40 MG DISPERSABLE TABLET PO SCH (05:58)
[2020-04-20] MEDS: GABAPENTIN 300 MG CAPSULE PO SCH ×2 (10:48→21:13)
[2020-04-20] MEDS: PRENATAL VITAMINS W/ FOLIC ACID TABLET (FP) PO SCH (10:49)
[2020-04-20] MEDS: NICOTINE 14 MG/24 HOURS TOPICAL PATCH TD SCH (10:50)
[2020-04-20] MEDS: hydrOXYzine PAMOATE 50 MG CAPSULE (FP) PO PRN ×3 (11:30→21:12)
[2020-04-20] MEDS: NICOTINE POLACRILEX 2 MG GUM BUC PRN (19:29)
[2020-04-20] MEDS: ALBUTEROL SO4 HFA INHALER IH PRN (19:29)
[2020-04-20] MEDS: METHOCARBAMOL 500 MG TABLET PO PRN (21:12)
[2020-04-20] MEDS: MELATONIN 5 MG TABLETS PO SCH (21:13)
[2020-04-20] MEDS: THIAMINE HCL 100 MG TABLET (FP) PO SCH (21:13)
[2020-04-20] MEDS: QUEtiapine FUMARATE 100 MG TABLET (FP) PO SCH (21:13)
[2020-04-21] MEDS: hydrOXYzine PAMOATE 50 MG CAPSULE (FP) PO PRN ×4 (05:56→21:02)
[2020-04-21] MEDS: METHADONE HCL 40 MG DISPERSABLE TABLET PO SCH (05:56)
[2020-04-21] MEDS: METHOCARBAMOL 500 MG TABLET PO PRN ×2 (05:58→12:02)
[2020-04-21] MEDS: NICOTINE POLACRILEX 2 MG GUM BUC PRN ×2 (08:42→17:33)
[2020-04-21] MEDS: PRENATAL VITAMINS W/ FOLIC ACID TABLET (FP) PO SCH (10:38)
[2020-04-21] MEDS: GABAPENTIN 300 MG CAPSULE PO SCH (10:38)
[2020-04-21] MEDS: NICOTINE 14 MG/24 HOURS TOPICAL PATCH TD SCH (10:38)
[2020-04-21] MEDS: ACETAMINOPHEN 325 MG TABLET (FP) PO PRN ×2 (10:39→13:32)
--- NOTE | 2020-04-21 17:23 | PN ---
Psychiatric Progress Note Vital Signs: Vital Signs Period Temp Pulse Resp BP Sys/Jeronimo Pulse Ox Last 24 Hr 97.7 F 78 18 102/62 95-98 Date of Session: 04/21/20 Chief Complaint:: " Can i get an increase in seroquel." HPI: Patient admitted to rehab opiate, cocaine, marijuana, and methamphetamine dependence co-morbid schizophrenia disorder. Consultation ordered due to patient requesting an increase in seroquel and worsening anxiety. ROS: Patient is ambulatory, alert +oriented X3. Current Medications: Active Medications Generic Name Dose Route Start Last Admin Trade Name Freq PRN Reason Stop Dose Admin Acetaminophen 650 mg 04/15/20 20:39 04/21/20 13:32 Tylenol - PO 650 mg Q4H PRN Administration FEVER Al Hydroxide/Mg Hydroxide 30 ml 04/15/20 20:39 Mylanta Oral Suspension - PO Q6H PRN DYSPEPSIA Albuterol Sulfate 2 puff 04/15/20 20:41 04/20/20 19:29 Ventolin Hfa Inhaler - IH 2 puff Q4H PRN Administration SHORT OF BREATH/WHEEZING Eucalyptus/Menthol/Phenol/Sorbitol 1 each 04/15/20 20:39 Cepastat Lozenge - MM Q4H PRN SORE THROAT Gabapentin 400 mg 04/21/20 22:00 Neurontin - PO BID ANATOLIY Guaifenesin 10 ml 04/15/20 20:39 Robitussin - PO Q6H PRN COUGH Hydroxyzine Pamoate 50 mg 04/20/20 10:57 04/21/20 16:01 Vistaril - PO 50 mg Q4H PRN Administration ANXIETY Ibuprofen 400 mg 04/15/20 20:39 04/18/20 09:59 Motrin - PO 400 mg Q6H PRN Administration Pain Level 4-6 Loperamide HCl 4 mg 04/15/20 20:39 Imodium - PO Q6H PRN DIARRHEA Magnesium Citrate 300 ml 04/15/20 20:39 Citroma - PO Q48H PRN CONSTIPATION Magnesium Hydroxide 30 ml 04/15/20 20:39 Milk Of Magnesia - PO DAILY PRN CONSTIPATION Melatonin 5 mg 04/15/20 22:00 04/20/20 21:13 Melatonin PO 5 mg HS ANATOLIY Administration Methadone HCl 80 mg 04/22/20 06:00 Dolophine - PO 04/28/20 05:59 DAILY@0600 ANATOLIY Methocarbamol 500 mg 04/18/20 15:06 04/21/20 12:02 Robaxin - PO 500 mg TID PRN Administration MUSCLE SPASMS Nicotine 14 mg 04/16/20 10:00 04/21/20 10:38 Nicoderm Patch - TD 14 mg DAILY ANATOLIY Administration Nicotine Polacrilex 2 mg 04/15/20 20:39 04/21/20 08:42 Nicorette Gum - BUC 2 mg Q2H PRN Administration NICOTINE REPLACEMENT RX Multivit/Folic Acid/Iron 1 tab 04/16/20 10:00 04/21/20 10:38 Vitamins (Sjr) - PO 1 tab DAILY ANATOLIY Administration Pseudoephedrine/Triprolidine 1 combo 04/15/20 20:39 Actifed - PO TID PRN NASAL CONGESTION Quetiapine Fumarate 200 mg 04/21/20 17:19 Seroquel - PO HS ANATOLIY Thiamine HCl 100 mg 04/15/20 22:00 04/20/20 21:13 Vitamin B1 - PO 100 mg HS ANATOLIY Administration Medication(s) Change(s): Yes. 1) Will d/c Seroquel 100mg + Gabapentin 300mg BID. 2) Will order Seroquel 200mg + Gabapentin 400mg BID. Current Side Effect: No Lab tests ordered: No Lab tests reviewed: Yes Provider note:: Mr. Ta reports a history of schizophrenia. Reports receiving Seroquel 300mg + Gabapentin 400mg BID at the rehab program at [facility] several weeks ago. Upon admision seroquel and gabapentin was reduced due to risk of oversedation. At present patient reports worsening anxiety and poor sleep and is requesting an increase in seroquel. Patient denies auditory/ visual hallucinations although did report hearing voices before admission to detox. Seroquel and gabapentin to be increase ( noted on medication changes section). Patient in agreement with plan. Benefits and side effects discussed. Verbal consent given. Total face to face time:: 25 Mental Status Exam - Mental Status Exam Alert and Oriented to: Time, Place, Person Cognitive Function: Good Patient Appearance: Well Groomed Mood: Hopeful Affect: Appropriate Patient Behavior: Appropriate, Cooperative Speech Pattern: Appropriate Voice Loudness: Normal Thought Process: Goal Oriented Hallucinations: Denies Suicidal Ideation: Denies Homicidal Ideation: Denies Insight/Judgement: Poor Sleep: Poorly Appetite: Fair Muscle strength/Tone: Normal Gait/Station: Normal Psychiatric Treatment Plan - Problem List (1) Methamphetamine dependence Current Visit: Yes (2) Cocaine dependence Current Visit: Yes Qualifiers: Substance use status: uncomplicated Qualified Code(s): F14.20 - Cocaine dependence, uncomplicated (3) Marijuana dependence Current Visit: Yes (4) Nicotine dependence Current Visit: Yes Qualifiers: Nicotine product type: cigarettes Substance use status: uncomplicated Qualified Code(s): F17.210 - Nicotine dependence, cigarettes, uncomplicated (5) Opiate dependence Current Visit: Yes Qualifiers: Substance use status: uncomplicated Qualified Code(s): F11.20 - Opioid dependence, uncomplicated (6) Schizophrenia Current Visit: Yes Qualifiers: Schizophrenia type: unspecified Qualified Code(s): F20.9 - Schizophrenia, unspecified Comment: self reports (7) Methadone maintenance therapy patient Current Visit: Yes (8) Insomnia Current Visit: Yes
[2020-04-21] MEDS: QUEtiapine FUMARATE 200 MG TABLET PO SCH (21:00)
[2020-04-21] MEDS: THIAMINE HCL 100 MG TABLET (FP) PO SCH (21:00)
[2020-04-21] MEDS: MELATONIN 5 MG TABLETS PO SCH (22:53)
[2020-04-21] MEDS: GABAPENTIN 400 MG CAPSULE PO SCH (22:54)
[2020-04-22] MEDS: METHADONE HCL 40 MG DISPERSABLE TABLET PO SCH (06:22)
[2020-04-22] MEDS: hydrOXYzine PAMOATE 50 MG CAPSULE (FP) PO PRN ×5 (06:22→22:48)
[2020-04-22] MEDS: NICOTINE POLACRILEX 2 MG GUM BUC PRN ×2 (06:22→19:33)
[2020-04-22] MEDS: PRENATAL VITAMINS W/ FOLIC ACID TABLET (FP) PO SCH (10:16)
[2020-04-22] MEDS: GABAPENTIN 400 MG CAPSULE PO SCH ×2 (10:16→21:26)
[2020-04-22] MEDS: NICOTINE 14 MG/24 HOURS TOPICAL PATCH TD SCH (10:17)
[2020-04-22] MEDS: METHOCARBAMOL 500 MG TABLET PO PRN ×3 (14:40→21:26)
[2020-04-22] MEDS: ACETAMINOPHEN 325 MG TABLET (FP) PO PRN (14:40)
[2020-04-22] MEDS: MELATONIN 5 MG TABLETS PO SCH (21:26)
[2020-04-22] MEDS: THIAMINE HCL 100 MG TABLET (FP) PO SCH (21:26)
[2020-04-22] MEDS: QUEtiapine FUMARATE 200 MG TABLET PO SCH (21:26)
[2020-04-23] MEDS: NICOTINE POLACRILEX 2 MG GUM BUC PRN ×4 (06:35→21:39)
[2020-04-23] MEDS: METHADONE HCL 40 MG DISPERSABLE TABLET PO SCH (06:35)
[2020-04-23] MEDS: GABAPENTIN 400 MG CAPSULE PO SCH ×2 (10:14→21:39)
[2020-04-23] MEDS: hydrOXYzine PAMOATE 50 MG CAPSULE (FP) PO PRN ×3 (10:14→21:39)
[2020-04-23] MEDS: PRENATAL VITAMINS W/ FOLIC ACID TABLET (FP) PO SCH (10:14)
[2020-04-23] MEDS: NICOTINE 14 MG/24 HOURS TOPICAL PATCH TD SCH (10:14)
[2020-04-23] MEDS: METHOCARBAMOL 500 MG TABLET PO PRN ×2 (10:15→18:03)
[2020-04-23] MEDS: ACETAMINOPHEN 325 MG TABLET (FP) PO PRN ×2 (12:35→18:03)
[2020-04-23] MEDS: THIAMINE HCL 100 MG TABLET (FP) PO SCH (21:39)
[2020-04-23] MEDS: QUEtiapine FUMARATE 200 MG TABLET PO SCH (21:39)
[2020-04-23] MEDS: MELATONIN 5 MG TABLETS PO SCH (21:39)
[2020-04-24] MEDS: hydrOXYzine PAMOATE 50 MG CAPSULE (FP) PO PRN ×4 (06:15→21:57)
[2020-04-24] MEDS: METHOCARBAMOL 500 MG TABLET PO PRN ×4 (06:15→17:44)
[2020-04-24] MEDS: METHADONE HCL 40 MG DISPERSABLE TABLET PO SCH (06:15)
[2020-04-24] MEDS: NICOTINE 14 MG/24 HOURS TOPICAL PATCH TD SCH (10:31)
[2020-04-24] MEDS: GABAPENTIN 400 MG CAPSULE PO SCH ×2 (10:31→21:56)
[2020-04-24] MEDS: PRENATAL VITAMINS W/ FOLIC ACID TABLET (FP) PO SCH (10:31)
[2020-04-24] MEDS: NICOTINE POLACRILEX 2 MG GUM BUC PRN ×4 (10:33→21:58)
[2020-04-24] MEDS: ACETAMINOPHEN 325 MG TABLET (FP) PO PRN ×2 (10:33→17:44)
[2020-04-24] MEDS: ALBUTEROL SO4 HFA INHALER IH PRN (21:56)
[2020-04-24] MEDS: MELATONIN 5 MG TABLETS PO SCH (21:56)
[2020-04-24] MEDS: THIAMINE HCL 100 MG TABLET (FP) PO SCH (21:56)
[2020-04-24] MEDS: QUEtiapine FUMARATE 200 MG TABLET PO SCH (21:56)
[2020-04-25] MEDS: METHADONE HCL 40 MG DISPERSABLE TABLET PO SCH (06:42)
[2020-04-25] MEDS: NICOTINE POLACRILEX 2 MG GUM BUC PRN ×4 (08:46→21:50)
[2020-04-25] MEDS: hydrOXYzine PAMOATE 50 MG CAPSULE (FP) PO PRN ×4 (08:46→21:47)
[2020-04-25] MEDS: PRENATAL VITAMINS W/ FOLIC ACID TABLET (FP) PO SCH (10:38)
[2020-04-25] MEDS: NICOTINE 14 MG/24 HOURS TOPICAL PATCH TD SCH (10:38)
[2020-04-25] MEDS: GABAPENTIN 400 MG CAPSULE PO SCH ×2 (10:38→21:45)
[2020-04-25] MEDS: ACETAMINOPHEN 325 MG TABLET (FP) PO PRN (10:39)
[2020-04-25] MEDS: METHOCARBAMOL 500 MG TABLET PO PRN ×3 (10:39→21:47)
[2020-04-25] MEDS: THIAMINE HCL 100 MG TABLET (FP) PO SCH (21:44)
[2020-04-25] MEDS: MELATONIN 5 MG TABLETS PO SCH (21:44)
[2020-04-25] MEDS: QUEtiapine FUMARATE 200 MG TABLET PO SCH (21:45)
[2020-04-26] MEDS: METHADONE HCL 40 MG DISPERSABLE TABLET PO SCH (06:14)
[2020-04-26] MEDS: NICOTINE POLACRILEX 2 MG GUM BUC PRN ×5 (06:16→21:39)
[2020-04-26] MEDS: METHOCARBAMOL 500 MG TABLET PO PRN ×3 (06:16→21:37)
[2020-04-26] MEDS: hydrOXYzine PAMOATE 50 MG CAPSULE (FP) PO PRN ×3 (10:21→21:37)
[2020-04-26] MEDS: GABAPENTIN 400 MG CAPSULE PO SCH ×2 (10:21→21:37)
[2020-04-26] MEDS: PRENATAL VITAMINS W/ FOLIC ACID TABLET (FP) PO SCH (10:21)
[2020-04-26] MEDS: NICOTINE 14 MG/24 HOURS TOPICAL PATCH TD SCH (10:22)
--- NOTE | 2020-04-26 15:01 | PN ---
S Progress Note Note: Psychiatric nurse practitioner note: Patient reports taking seroquel 300mg while at home. Patient is currently accepting seroquel 200mg. No complaints of oversedation. Will d/c seroquel 200mg HS and will order seroquel 300mg HS. Verbal consent given.
[2020-04-26] MEDS: ALBUTEROL SO4 HFA INHALER IH PRN (21:36)
[2020-04-26] MEDS: MELATONIN 5 MG TABLETS PO SCH (21:37)
[2020-04-26] MEDS: THIAMINE HCL 100 MG TABLET (FP) PO SCH (21:37)
[2020-04-26] MEDS: QUEtiapine FUMARATE 300 MG TABLET PO SCH (21:38)
[2020-04-27] MEDS: METHOCARBAMOL 500 MG TABLET PO PRN ×3 (06:33→21:23)
[2020-04-27] MEDS: METHADONE HCL 40 MG DISPERSABLE TABLET PO SCH (06:33)
[2020-04-27] MEDS: NICOTINE POLACRILEX 2 MG GUM BUC PRN ×4 (06:35→21:58)
[2020-04-27] MEDS: PRENATAL VITAMINS W/ FOLIC ACID TABLET (FP) PO SCH (10:43)
[2020-04-27] MEDS: hydrOXYzine PAMOATE 50 MG CAPSULE (FP) PO PRN ×3 (10:43→21:23)
[2020-04-27] MEDS: GABAPENTIN 400 MG CAPSULE PO SCH ×2 (10:43→21:23)
[2020-04-27] MEDS: NICOTINE 14 MG/24 HOURS TOPICAL PATCH TD SCH (10:44)
[2020-04-27] MEDS: THIAMINE HCL 100 MG TABLET (FP) PO SCH (21:23)
[2020-04-27] MEDS: QUEtiapine FUMARATE 300 MG TABLET PO SCH (21:23)
[2020-04-27] MEDS: MELATONIN 5 MG TABLETS PO SCH (21:23)
[2020-04-28] MEDS ORDERED: METHADONE HCL 40 MG DISPERSABLE TABLET PO SCH (06:00)
[2020-04-28] MEDS: METHOCARBAMOL 500 MG TABLET PO PRN (06:36)
[2020-04-28 07:00] VITALS: BP 119/77; PULSE 70; TEMP 97.1
--- NOTE | 2020-04-28 08:27 | DS ---
[facility] Rehab Discharge Summary - [facility] Rehab Discharge Summary Admission Date: 04/15/20 Discharge Date: 04/28/20 - History Present History: Alcohol dependence, Cannabis dependence, MMTP, Sedative dependence Pertinent Past History: Asthma Depression schizophrenia - Discharge Physical Exam Vital Signs: Vital Signs Temperature 97.1 F L 04/28/20 06:24 Pulse Rate 70 04/28/20 06:24 Respiratory Rate 18 04/28/20 06:24 Blood Pressure 119/77 04/28/20 06:24 O2 Sat by Pulse Oximetry (%) 96 04/28/20 06:24 Alert o x 3 nad,no resp difficulty oob ambulating with steady gait cardiac:s1 s2, rrr lungs:ctab abdomen;soft,+bs,nt,nd Extremities:no edema, skin intact;active FROM, all. Pertinent Admission Physical Exam Findings: Unremarkable and stable on admission from detox - Treatment Discharge Condition: Discharge condition good Hospital Course: Pt referred back to [facility] for [facility] aftercare - Medication Discharge Medications: Ambulatory Orders Gabapentin [Neurontin -] 400 mg PO BID #60 capsule 04/28/20 Quetiapine Fumarate [Seroquel -] 300 mg PO HS #30 tablet 04/28/20 - Medication-Assisted Treatment (MAT) Medication-Assisted Treatment (MAT): No - Discharge Instructions Diet, activity, other medical instructions: Diet:Regular Activity:oob ad johan Other medical instructions:follow up with primary care provider at [facility] for medical management. - Diagnosis (1) Alcohol dependence Status: Chronic Qualifiers: Substance use status: uncomplicated Qualified Code(s): F10.20 - Alcohol dependence, uncomplicated (2) Asthma Status: Chronic Qualifiers: Asthma severity: unspecified severity Asthma persistence: unspecified Asthma complication type: unspecified Qualified Code(s): J45.909 - Unspecified asthma, uncomplicated (3) Cocaine dependence Status: Chronic Qualifiers: Substance use status: uncomplicated Qualified Code(s): F14.20 - Cocaine dependence, uncomplicated (4) Methadone maintenance therapy patient Status: Chronic (5) Nicotine dependence Status: Chronic Qualifiers: Nicotine product type: cigarettes Substance use status: uncomplicated Qualified Code(s): F17.210 - Nicotine dependence, cigarettes, uncomplicated (6) Sedative dependence Status: Chronic (7) Marijuana dependence Status: Chronic (8) Methadone maintenance therapy patient Status: Chronic (9) Methamphetamine dependence Status: Chronic (10) Depression Status: Chronic Qualifiers: Depression Type: unspecified Qualified Code(s): F32.9 - Major depressive disorder, single episode, unspecified (11) Schizophrenia Status: Chronic Qualifiers: Schizophrenia type: unspecified Qualified Code(s): F20.9 - Schizophrenia, unspecified - Follow-up Referral Minutes to complete discharge: 20 - AMA Did Patient Leave Against Medical Advice: No
--- NOTE | 2020-04-28 08:48 | PN ---
[facility] Progress Note Note: Patient is scheduled for discharge today. Scripts for 30 days supply of medications(Seroquel 300 mg/hs, Gabapentin 400 mg/bid) are electronically transmitted to [facility], [address] [place] [id number]
== END 2020-04-28 09:05 | disposition home or self-care (01) | DRG 895 ==
LOC: YASAS 18:54 → Y3E 18:56 → Y5N 04-18 14:32
PROVIDERS: ADMIT Allergy & Immunology; ATTEND Allergy & Immunology
PROC: HZ42ZZZ Group Counseling for Substance Abuse Treatment, Cognitive-Behavioral (ICD-10-PCS; principal; 2020-04-15)
DX: F10.20 Alcohol dependence, uncomplicated (principal); F11.20 Opioid dependence, uncomplicated; F14.20 Cocaine dependence, uncomplicated; F15.20 Other stimulant dependence, uncomplicated; F12.20 Cannabis dependence, uncomplicated; F20.9 Schizophrenia, unspecified; F32.9 Major depressive disorder, single episode, unspecified; J45.909 Unspecified asthma, uncomplicated; Z86.69 Personal history of other diseases of the nervous system and sense organs; Z91.5 Personal history of self-harm

== ENCOUNTER 2020-05-19 11:58 | Inpatient (IN) | payer OTHER ==
--- NOTE | 2020-05-19 13:07 | BHS.RME ---
Substance Use & Tx History - Substance Use History Heroin Substance amount: 1 bundle Frequency of use: Daily Substance route: Injection (ex: intravenous or skin popping) Xanax Substance amount: 2mg tabs- 2 tabs Frequency of use: Daily Substance route: Oral Date of Last Use: 05/18/20 Alcohol Substance amount: 3 beers 16 oz Frequency of use: Daily Substance route: Oral Date of Last Use: 05/19/20 (10am) Physical/Psych/Mental Status - Behavior General Behavior: Increased activity (restlessness, agitation) Eye Contact: Normal - Cooperativeness Cooperativeness: Cooperative - Thinking Thought Processes: Tight, Logical, Goal Directed Thought content: Future oriented - Physical Health Problems Is patient presently having any pain?: No Does patient presently have any injuries (include location): No Does patient currently have a fever: No Is patient : No CIWA Nausea/Vomitin Muscle Tremors: 3 Anxiety: 3 Agitation: 3 Paroxysmal Sweats: 4-Forehead w/Sweat Beads Orientation: 0-Oriented Tacttile Disturbances: 0-None Auditory Disturbances: 0-None Visual Disturbances: 0-None Headache: 1-Very Mild CIWA-Ar Total Score: 17
--- NOTE | 2020-05-19 13:34 | HP ---
COWS - Scale Resting Pulse: 0= UT 80 or Below Sweatin= Beads of Sweat on Face Restless Observation: 1= Difficult to Sit Still Pupil Size: 1= Pupils >than Normal Bone or Joint Aches: 2= Severe Diffuse Aches Runny Nose/ Eye Tearin= None GI Upset > 30mins: 1= Stomach Cramp Tremor Observation: 2= Slight Tremor Visible Yawning Observation: 1= 1-2x During Session Anxiety or Irritability: 2=Irritable/Anxious Goose Flesh Skin: 3=Piloerection COWS Score: 16 CIWA Score Nausea/Vomitin Muscle Tremors: 3 Anxiety: 3 Agitation: 3 Paroxysmal Sweats: 4-Forehead w/Sweat Beads Orientation: 0-Oriented Tacttile Disturbances: 0-None Auditory Disturbances: 0-None Visual Disturbances: 0-None Headache: 1-Very Mild CIWA-Ar Total Score: 17 - Admission Criteria OASAS Guidelines: Admission for Medically Managed Detox: Requires at least one of the followin. CIWA greater than 12 2. Seizures within the past 24 hours 3. Delirium tremens within the past 24 hours 4. Hallucinations within the past 24 hours 5. Acute intervention needed for co occurring medical disorder 6. Acute intervention needed for co occurring psychiatric disorder 7. Severe withdrawal that cannot be handled at a lower level of care (continued vomiting, continued diarrhea, abnormal vital signs) requiring intravenous medication and/or fluids 8. Admitting History and Physical - Admission Chief Complaint: Mr. Ta is a 30 yo gentleman who presents to [facility] requesting detox for alcohol, heroin and Xanax use. History of Present Illness: Mr. Ta is a 30 yo gentleman who presents to [facility] requesting detox for alcohol, heroin and Xanax use. He was last here between April 15 and for detox and rehab. He relapsed almost immediately. PMH: seizure disorder on Trileptal, last seizure 2000 at the age of 11y he states due to low blood sugar, asthma PSH: none Psych: schizophrenia: gabapentin, Seroquel for "sleeping", Invega injection one month ago SOC: lives in his own place in [facility] Legal: none Substance Use History Heroin Substance amount: 1 bundle Frequency of use: Daily Substance route: Injection (ex: intravenous or skin popping) First use age 27y No hx OD Has narcan at home Xanax Substance amount: 2mg tabs- 2 tabs Frequency of use: Daily Substance route: Oral Date of Last Use: 05/18/20 Alcohol Substance amount: 3 beers 16 oz Frequency of use: Daily Substance route: Oral Date of Last Use: 05/19/20 (10am) First use age 29 y No seizures related to alcohol withdrawal No blackout 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: 1990 Address: [place] [address] Sex: Male Rx Written Rx Dispensed Drug Quantity Days Supply Prescriber Name 03/02/2020 03/02/2020 chlordiazepoxide 25 mg capsule 10 2 Irma De Jesus MD History Source: Patient Limitations to Obtaining History: No Limitations - Past Medical History Pulmonary: Yes: Asthma - Smoking History Smoking history: Current every day smoker Have you smoked in the past 12 months: No Aproximately how many cigarettes per day: 20 - Alcohol/Substance Use Hx Alcohol Use: No History of Substance Use: reports: Cocaine, Heroin, Marijuana Date of Last Use: 04/12/20 - Social History ADL: Independent Occupation: on disability History of Recent Travel: No Admission [facility] Allergies/Adverse Reactions: Allergies Allergy/AdvReac Type Severity Reaction Status Date / Time No Known Allergies Allergy Verified 05/19/20 13:34 Exam Limitations: No Limitations - Ebola screening Have you traveled outside of the country in the last 21 days: No Have you been sick,other than usual withdrawal symptoms: No Do you have a fever: No - Review of Systems Constitutional: No Symptoms Reported EENT: reports: No Symptoms Reported Respiratory: reports: No Symptoms reported Cardiac: reports: No Symptoms Reported GI: reports: Nausea : reports: No Symptoms Reported Musculoskeletal: reports: No Symptoms Reported Integumentary: reports: No Symptoms Reported Neuro: reports: No Symptoms reported Endocrine: reports: No Symptoms Reported Hematology: reports: No Symptoms Reported Psychiatric: reports: Anxious Patient History - Patient Medical History Hx Anemia: No Hx Asthma: Yes Hx Chronic Obstructive Pulmonary Disease (COPD): No Hx Cancer: No Hx Cardiac Disorders: No Hx Congestive Heart Failure: No Hx Hypertension: No Hx Hypercholesterolemia: No Hx Pacemaker: No HX Cerebrovascular Accident: No Hx Seizures: Yes (last episode @13yrs old.) Hx Dementia: No Hx Diabetes: No Hx Gastrointestinal Disorders: No Hx Liver Disease: No Hx Genitourinary Disorders: No Hx Sexually Transmitted Disorders: No Hx Renal Disease (ESRD): No Hx Thyroid Disease: No Hx Human Immunodeficiency Virus (HIV): No Hx Hepatitis C: No Hx Depression: Yes Hx Suicide Attempt: No Hx Bipolar Disorder: No Hx Schizophrenia: Yes - Patient Surgical History Past Surgical History: No Hx Neurologic Surgery: No Hx Cataract Extraction: No Hx Cardiac Surgery: No Hx Lung Surgery: No Hx Breast Surgery: No Hx Breast Biopsy: No Hx Abdominal Surgery: No Hx Appendectomy: No Hx Cholecystectomy: No Hx Genitourinary Surgery: No Hx Section: No Hx Orthopedic Surgery: No Hx Hysterectomy: No - PPD History Date: 04/14/20 - Smoking Cessation Smoking history: Current every day smoker Have you smoked in the past 12 months: No Aproximately how many cigarettes per day: 40 Hx Chewing Tobacco Use: No Initiated information on smoking cessation: Yes 'Breaking Loose' booklet given: 05/19/20 Admission Physical Exam S - Physical General Appearance: Yes: No Apparent Distress, Nourished, Sweating, Anxious HEENTM: Yes: EOMI, Hearing grossly Normal, Normocephalic, Normal Voice Respiratory: Yes: Lungs Clear, No Respiratory Distress, No Accessory Muscle Use Neck: Yes: Within Normal Limits, Supple Breast: Yes: Breast Exam Deferred Cardiology: Yes: Regular Rhythm, Regular Rate Abdominal: Yes: Normal Bowel Sounds, Non Tender, Flat, Soft Genitourinary: Yes: Other (deferred) Back: Yes: Normal Inspection Musculoskeletal: Yes: Gait Steady Extremities: Yes: Normal Inspection, Non-Tender Neurological: Yes: Alert, Normal Response Integumentary: Yes: Normal Color, Dry, Warm - Diagnostic (1) Alcohol dependence with withdrawal, uncomplicated Current Visit: Yes Status: Acute Comment: 1. admit for alcohol detox 2. plan Librium, prior LFTs normal 3. routine labs pending 4. comfort medication (2) Cocaine dependence Current Visit: No Status: Chronic Qualifiers: Substance use status: uncomplicated Qualified Code(s): F14.20 - Cocaine dependence, uncomplicated Comment: 1. substance use education (3) Methadone maintenance therapy patient Current Visit: No Status: Chronic Comment: 1. program was called and dose verified, has been medicated today, resume dose in am (4) Nicotine dependence Current Visit: No Status: Chronic Qualifiers: Nicotine product type: cigarettes Substance use status: uncomplicated Qualified Code(s): F17.210 - Nicotine dependence, cigarettes, uncomplicated (5) Schizophrenia Current Visit: No Status: Chronic Qualifiers: Schizophrenia type: unspecified Qualified Code(s): F20.9 - Schizophrenia, unspecified Comment: 1. Psychiatry evaluation for med management, pt states he is due for his inje ction of Invega (6) Seizure Current Visit: Yes Status: Chronic Comment: 1. pt states last seizure was years ago, will continue Trileptal Cleared for Admission S - Detox or Rehab [facility] Level of Care: Medically Managed Detox Regimen/Protocol: Librium Breathalyzer - Breathalyzer Breathalyzer: 0 Urine Drug Screen - Test Device Lot number: [id number] Expiration date: 12/14/21 - Control Is test valid?: Yes - Results Drug screen NEGATIVE: No Urine drug screen results: KASIA-Cocaine, MTD-Methadone Inpatient Rehab Admission - Rehab Decision to Admit Inpatient rehab admission?: No
[2020-05-19] MEDS ORDERED: IBUPROFEN 400 MG TABLET (FP) PO PRN (13:56)
[2020-05-19] MEDS ORDERED: MAGNESIUM CITRATE 300 ML BOTTLE PO PRN (13:56)
[2020-05-19] MEDS ORDERED: chlordiazePOXIDE HCL 25 MG CAPSULE PO PRN (13:56)
[2020-05-19] MEDS ORDERED: ONDANSETRON *ODT* 4 MG TABLET SL PRN (13:56)
[2020-05-19] MEDS ORDERED: BISMUTH SUBSALICYLATE 524 MG/30 ML UD PO PRN (13:56)
[2020-05-19] MEDS ORDERED: MENTHOL/PHENOL 1 EACH UD MM PRN (13:56)
[2020-05-19] MEDS ORDERED: MAG HYDROX/AL HYDROX/SIMETH 30 ML UNIT-DOSE CUP PO PRN (13:56)
[2020-05-19] MEDS ORDERED: MAGNESIUM HYDROX 2400MG/30ML ORAL SUSPENSION 30 ML CUP PO PRN (13:56)
[2020-05-19] MEDS ORDERED: ACETAMINOPHEN 325 MG TABLET (FP) PO PRN ×2 (13:56)
[2020-05-19] MEDS ORDERED: hydrOXYzine PAMOATE 25 MG CAPSULE (FP) PO SCH (14:00)
[2020-05-19 14:02] VITALS: BMI 24.7
[2020-05-19] MEDS: GABAPENTIN 400 MG CAPSULE PO SCH ×2 (14:54→22:49)
[2020-05-19] MEDS: hydrOXYzine PAMOATE 25 MG CAPSULE (FP) PO PRN ×2 (14:57→22:48)
[2020-05-19] MEDS: NICOTINE POLACRILEX 2 MG GUM BUC PRN (14:57)
[2020-05-19 16:41] LABS: HEMATOCRIT 40.2 % (35.4-49); HEMOGLOBIN 13.5 GM/dL (11.7-16.9); MCH 30.5 pg (25.7-33.7); MCHC 33.5 g/dl (32.0-35.9); MEAN CELL VOLUME 90.8 fl (80-96); MEAN PLT VOLUME 8.7 fl (7.5-11.1); PLATELET COUNT 267 K/MM3 (134-434); RBC 4.43 M/mm3 (4.00-5.60)
[2020-05-19 16:46] LABS: ALBUMIN 3.9 g/dl (3.4-5.0); BILIRUBIN,TOTAL 0.3 mg/dL (0.2-1); BLOOD UREA NITROGEN 13.4 mg/dL (7-18); CALCIUM 8.7 mg/dL (8.5-10.1); CREATININE 0.9 mg/dL (0.55-1.3); POTASSIUM 4.3 mmol/L (3.5-5.1)
[2020-05-19] MEDS: chlordiazePOXIDE HCL 25 MG CAPSULE PO SCH ×2 (18:06→22:48)
[2020-05-19] MEDS: THIAMINE HCL 100 MG TABLET (FP) PO SCH (22:49)
[2020-05-19] MEDS: MELATONIN 5 MG TABLETS PO SCH (22:49)
[2020-05-20] MEDS ORDERED: METHADONE HCL 10 MG TABLET PO SCH (06:00)
[2020-05-20] MEDS ORDERED: METHADONE HCL 40 MG DISPERSABLE TABLET PO SCH (06:01)
[2020-05-20] MEDS: chlordiazePOXIDE HCL 25 MG CAPSULE PO SCH ×4 (06:01→22:30)
[2020-05-20] MEDS: METHADONE HCL 40 MG DISPERSABLE TABLET PO SCH (06:07)
[2020-05-20] MEDS: hydrOXYzine PAMOATE 25 MG CAPSULE (FP) PO PRN ×2 (10:28→17:43)
[2020-05-20] MEDS: PRENATAL VITAMINS W/ FOLIC ACID TABLET (FP) PO SCH (10:28)
[2020-05-20] MEDS: NICOTINE 7 MG/24 HOURS TOPICAL PATCH TD SCH (10:29)
[2020-05-20] MEDS: GABAPENTIN 400 MG CAPSULE PO SCH ×2 (10:29→22:30)
[2020-05-20] MEDS: NICOTINE POLACRILEX 2 MG GUM BUC PRN (10:29)
--- NOTE | 2020-05-20 11:43 | CONSULT ---
[facility] Psychiatric Consult - Data Date of interview: 05/20/20 Admission source: [facility] Identifying data: Revisit to [facility] and admission to [address] [place] [address] for this 30 y/o male self-referred for detoxification treatment. SCOTTY issues : alcohol, cannabis, cocaine, heroin, benzodiazepine (xanax). Patient is single, no dependents, domiciled, unemployed and supported on [facility] benefits (self-report). Substance Abuse History: Discussed with the patient. SCOTTY profile as follows : Heroin. Substance amount: 1 bundle. Frequency of use: Daily. Substance route: Injection (ex: intravenous or skin popping). First use age 27y. No hx OD. Has narcan at home. Xanax. Substance amount: 2mg tabs- 2 tabs. Frequency of use: Daily. Substance route: Oral. Date of Last Use: 05/18/20. Alcohol. Substance amount: 3 beers 16 oz. Frequency of use: Daily. Substance route: Oral. Date of Last Use: 05/19/20 (10am). First use age 29 y. No seizures related to alcohol withdrawal. No blackout. History of prior SCOTTY treatment failures. Medical History: Medical profile is remarkable for bronchial asthma and history of seizures. Psychiatric History: Recent onset of psychiatric disturbances (2013) : agg ressive behavior, auditory hallucinations and paranoia. Patient got admitted to [facility] where he received the diagnosis of Schizophrenia. History of multiple psychiatric hospitalizations ([facility], [facility], [facility] and other unnamed facilities). Mr Ta indicates that he is currently on methadone maintenance (80 mg/day) at [facility] ([facility]) in [facility]. Current maintenance medications consist of seroquel 300 mg/hs + gabapentin 400 mg/bid + trileptal 300 mg/bid (seizure disorder) + monthly invega injections (not found in [facility] files). Patient is known for a background of non-adherence to OPD care + psychotropic medications. He states that he has been discharged from the [facility] mental health clinic (reason not disclosed) and that he is currently waiting for " intake evaluation " before assignment to a psychiatrist at [facility] program. Patient presents also with a history of several suicide attempts (overdoses). Physical/Sexual Abuse/Trauma History: Patient denies history of abuse. Additional Comment: Urine drug screen results: KASIA-Cocaine, MTD-Methadone. Noted. Mental Status Exam - Mental Status Exam Alert and Oriented to: Time, Place, Person Cognitive Function: Good Patient Appearance: Well Groomed (tattoos seen on upper extremities) Mood: Hopeful Affect: Appropriate, Normal Range Patient Behavior: Fatigued, Appropriate, Cooperative Speech Pattern: Clear, Appropriate Voice Loudness: Normal Thought Process: Intact, Goal Oriented Thought Disorder: Not Present Hallucinations: Denies Suicidal Ideation: Denies Homicidal Ideation: Denies Insight/Judgement: Poor Sleep: Poorly, Difficulty falling asleep Appetite: Good Gait/Station: Normal Psychiatric Findings - Problem List ([place] 1, 2,3) (1) Alcohol dependence Current Visit: Yes Status: Chronic Qualifiers: Substance use status: uncomplicated Qualified Code(s): F10.20 - Alcohol dependence, uncomplicated (2) 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 Current Visit: Yes Status: Chronic (3) Cocaine dependence Current Visit: Yes Status: Chronic Qualifiers: Substance use status: uncomplicated Qualified Code(s): F14.20 - Cocaine dependence, uncomplicated Comment: 1. substance use education (4) Nicotine dependence Current Visit: Yes Status: Chronic Qualifiers: Nicotine product type: cigarettes Substance use status: uncomplicated Qualified Code(s): F17.210 - Nicotine dependence, cigarettes, uncomplicated (5) Schizophrenia Current Visit: Yes Status: Chronic Qualifiers: Schizophrenia type: unspecified Qualified Code(s): F20.9 - Schizophrenia, unspecified (6) Insomnia Current Visit: Yes Status: Chronic (7) Non-compliance Current Visit: Yes Status: Chronic - Initial Treatment Plan Initial Treatment Plan: Psychoeducation. Sleep hygiene. Support. Detoxification in progress. Machinery Engineer spoke to pharmacist ([phone]) at [facility] : seroquel, gabapentin, trilpeptal are confirmed but Invega is not found in the records (paliperidone 6 mg/day is listed as last dispensed in April 2019). Medications are resumed as follows : seroquel 300 mg po hs + gabapentin 400 mg po bid. Side effects/benefits are discussed with the patient. Mr Ta is in agreement with this plan of care. Consent (verbal) granted to MD. Galeano.
--- NOTE | 2020-05-20 15:12 | PN ---
S CIWA - CIWA Score Nausea/Vomitin-No Nausea/No Vomiting Muscle Tremors: 3 Anxiety: 2 Agitation: 1-Slight > Activity Paroxysmal Sweats: No Perspiration Orientation: 0-Oriented Tacttile Disturbances: 0-None Auditory Disturbances: 0-None Visual Disturbances: 2-Mild Sensitivity Headache: 0-None Present CIWA-Ar Total Score: 8 BHS COWS - Scale Resting Pulse: 1= NE 81-100 Sweatin= Chills/Flushing Restless Observation: 1= Difficult to Sit Still Pupil Size: 0= Normal to Room Light Bone or Joint Aches: 1= Mild Discomfort Runny Nose/ Eye Tearin= Nasal Congestion GI Upset > 30mins: 0= None Tremor Observation of Outstretched Hands: 2= Slight Tremor Visible Yawning Observation: 1= 1-2x During Session Anxiety or Irritability: 2=Irritable/Anxious Goose Flesh Skin: 0=Smooth Skin COWS Score: 10 BHS Progress Note (SOAP) Subjective: Anxious, Sweating, Tremors, Poor Appetite, Body Aches. Objective: Patient A & O X 3, Observed Ambulating on Detox Unit Unassisted. In No Acute Distress. 05/20/20 15:14 Vital Signs Temperature 97.7 F 05/20/20 08:58 Pulse Rate 84 05/20/20 08:58 Respiratory Rate 18 05/20/20 08:58 Blood Pressure 123/73 05/20/20 08:58 O2 Sat by Pulse Oximetry (%) 98 05/20/20 05:51 Laboratory Tests 05/19/20 05/19/20 05/19/20 14:00 14:00 14:00 WBC 6.0 RBC 4.43 Hgb 13.5 Hct 40.2 MCV 90.8 MCH 30.5 MCHC 33.5 RDW 15.0 Plt Count 267 D MPV 8.7 Sodium 139 Potassium 4.3 Chloride 104 Carbon Dioxide 29 Anion Gap 5 L BUN 13.4 Creatinine 0.9 Est GFR (CKD-EPI)AfAm 130.52 Est GFR (CKD-EPI)NonAf 112.62 Random Glucose 82 Calcium 8.7 Total Bilirubin 0.3 AST 16 ALT 22 Alkaline Phosphatase 89 Total Protein 8.0 Albumin 3.9 Syphilis Serology Non-reactive COVID-19 ([facility]) 05/19/20 14:15 WBC RBC Hgb Hct MCV MCH MCHC RDW Plt Count MPV Sodium Potassium Chloride Carbon Dioxide Anion Gap BUN Creatinine Est GFR (CKD-EPI)AfAm Est GFR (CKD-EPI)NonAf Random Glucose Calcium Total Bilirubin AST ALT Alkaline Phosphatase Total Protein Albumin Syphilis Serology COVID-19 ([facility]) Not detected Lab Results noted. Assessment: 05/20/20 15:15 WITHDRAWAL SYMPTOMS. Plan: Continue Detox. Ensure for caloric supplementation.
[2020-05-20] MEDS: METHOCARBAMOL 500 MG TABLET PO PRN (17:43)
[2020-05-20] MEDS: MELATONIN 5 MG TABLETS PO SCH (22:30)
[2020-05-20] MEDS: QUEtiapine FUMARATE 300 MG TABLET PO SCH (22:30)
[2020-05-20] MEDS: THIAMINE HCL 100 MG TABLET (FP) PO SCH (22:30)
[2020-05-21] MEDS: chlordiazePOXIDE HCL 25 MG CAPSULE PO SCH ×4 (06:35→22:40)
[2020-05-21] MEDS: METHADONE HCL 40 MG DISPERSABLE TABLET PO SCH (06:35)
[2020-05-21] MEDS: GABAPENTIN 400 MG CAPSULE PO SCH ×2 (11:11→22:39)
[2020-05-21] MEDS: PRENATAL VITAMINS W/ FOLIC ACID TABLET (FP) PO SCH (11:11)
[2020-05-21] MEDS: NICOTINE 7 MG/24 HOURS TOPICAL PATCH TD SCH (11:12)
[2020-05-21] MEDS: hydrOXYzine PAMOATE 25 MG CAPSULE (FP) PO PRN (15:35)
[2020-05-21] MEDS: METHOCARBAMOL 500 MG TABLET PO PRN (15:35)
--- NOTE | 2020-05-21 19:59 | PN ---
S CIWA - CIWA Score Nausea/Vomitin-Mild Nausea/No Vomiting Muscle Tremors: 2 Anxiety: 2 Agitation: 2 Paroxysmal Sweats: 2 Orientation: 0-Oriented Tacttile Disturbances: 1-Very Mild Itch/Numbness Auditory Disturbances: 0-None Visual Disturbances: 0-None Headache: 0-None Present CIWA-Ar Total Score: 10 BHS Progress Note (SOAP) Subjective: Feels ok Objective: 05/21/20 19:58 Last Vital Signs Temp Pulse Resp BP Pulse Ox 97.8 F 96 H 20 105/65 97 05/21/20 09:28 05/21/20 09:28 05/21/20 09:28 05/21/20 09:28 05/21/20 01:29 Laboratory Tests 05/19/20 05/19/20 05/19/20 14:00 14:00 14:00 WBC 6.0 RBC 4.43 Hgb 13.5 Hct 40.2 MCV 90.8 MCH 30.5 MCHC 33.5 RDW 15.0 Plt Count 267 D MPV 8.7 Sodium 139 Potassium 4.3 Chloride 104 Carbon Dioxide 29 Anion Gap 5 L BUN 13.4 Creatinine 0.9 Est GFR (CKD-EPI)AfAm 130.52 Est GFR (CKD-EPI)NonAf 112.62 Random Glucose 82 Calcium 8.7 Total Bilirubin 0.3 AST 16 ALT 22 Alkaline Phosphatase 89 Total Protein 8.0 Albumin 3.9 Syphilis Serology Non-reactive COVID-19 ([facility]) 05/19/20 14:15 WBC RBC Hgb Hct MCV MCH MCHC RDW Plt Count MPV Sodium Potassium Chloride Carbon Dioxide Anion Gap BUN Creatinine Est GFR (CKD-EPI)AfAm Est GFR (CKD-EPI)NonAf Random Glucose Calcium Total Bilirubin AST ALT Alkaline Phosphatase Total Protein Albumin Syphilis Serology COVID-19 ([facility]) Not detected Labs reviewed Assessment: 05/21/20 19:59 Withdrawal sxs Plan: Continue detox Encourage PO water intake
[2020-05-21] MEDS: MELATONIN 5 MG TABLETS PO SCH (22:40)
[2020-05-21] MEDS: QUEtiapine FUMARATE 300 MG TABLET PO SCH (22:40)
[2020-05-21] MEDS: THIAMINE HCL 100 MG TABLET (FP) PO SCH (22:40)
[2020-05-22] MEDS ORDERED: chlordiazePOXIDE HCL 10 MG CAPSULE PO PRN
[2020-05-22] MEDS: METHADONE HCL 40 MG DISPERSABLE TABLET PO SCH (06:03)
[2020-05-22] MEDS: chlordiazePOXIDE HCL 10 MG CAPSULE PO SCH ×4 (06:03→22:29)
[2020-05-22] MEDS: hydrOXYzine PAMOATE 25 MG CAPSULE (FP) PO PRN (06:05)
[2020-05-22] MEDS: NICOTINE 7 MG/24 HOURS TOPICAL PATCH TD SCH (10:35)
[2020-05-22] MEDS: GABAPENTIN 400 MG CAPSULE PO SCH ×2 (10:35→22:29)
[2020-05-22] MEDS: PRENATAL VITAMINS W/ FOLIC ACID TABLET (FP) PO SCH (10:36)
[2020-05-22] MEDS: NICOTINE POLACRILEX 2 MG GUM BUC PRN ×2 (11:12→18:03)
--- NOTE | 2020-05-22 11:45 | EKG ---
Test Reason : Blood Pressure : / mmHG Vent. Rate : 071 BPM Atrial Rate : 071 BPM P-R Int : 126 ms QRS Dur : 088 ms QT Int : 406 ms P-R-T Axes : 071 061 018 degrees QTc Int : 441 ms NORMAL SINUS RHYTHM NORMAL ECG WHEN COMPARED WITH ECG OF 12-APR-2020 19:36, NO SIGNIFICANT CHANGE WAS FOUND Confirmed by MIRIAN ELLIOTT MD ([id number]) on 05/22/2020 11:44:28 AM Referred By: Confirmed By:MIRIAN ELLIOTT MD
--- NOTE | 2020-05-22 12:17 | PN ---
BHS CIWA - CIWA Score Nausea/Vomitin-No Nausea/No Vomiting Muscle Tremors: 2 Anxiety: 1-Mildly Anxious Agitation: 1-Slight > Activity Paroxysmal Sweats: 1-Minimal Palms Moist Orientation: 0-Oriented Tacttile Disturbances: 0-None Auditory Disturbances: 0-None Visual Disturbances: 0-None Headache: 0-None Present CIWA-Ar Total Score: 5 BHS Progress Note (SOAP) Subjective: sweats shakes interrupted sleep Objective: 05/22/20 12:16 Vital Signs Temperature 97.3 F L 05/22/20 09:22 Pulse Rate 98 H 05/22/20 09:22 Respiratory Rate 18 05/22/20 09:22 Blood Pressure 108/63 05/22/20 09:22 O2 Sat by Pulse Oximetry (%) 98 05/22/20 09:22 Laboratory Tests 05/19/20 05/19/20 05/19/20 14:00 14:00 14:00 WBC 6.0 RBC 4.43 Hgb 13.5 Hct 40.2 MCV 90.8 MCH 30.5 MCHC 33.5 RDW 15.0 Plt Count 267 D MPV 8.7 Sodium 139 Potassium 4.3 Chloride 104 Carbon Dioxide 29 Anion Gap 5 L BUN 13.4 Creatinine 0.9 Est GFR (CKD-EPI)AfAm 130.52 Est GFR (CKD-EPI)NonAf 112.62 Random Glucose 82 Calcium 8.7 Total Bilirubin 0.3 AST 16 ALT 22 Alkaline Phosphatase 89 Total Protein 8.0 Albumin 3.9 Syphilis Serology Non-reactive COVID-19 ([facility]) 05/19/20 14:15 WBC RBC Hgb Hct MCV MCH MCHC RDW Plt Count MPV Sodium Potassium Chloride Carbon Dioxide Anion Gap BUN Creatinine Est GFR (CKD-EPI)AfAm Est GFR (CKD-EPI)NonAf Random Glucose Calcium Total Bilirubin AST ALT Alkaline Phosphatase Total Protein Albumin Syphilis Serology COVID-19 ([facility]) Not detected labs noted aaox3 ambulating no acute distress Assessment: 05/22/20 12:16 withdrawal sx Plan: continue detox
[2020-05-22] MEDS: METHOCARBAMOL 500 MG TABLET PO PRN (14:38)
[2020-05-22] MEDS: QUEtiapine FUMARATE 300 MG TABLET PO SCH (22:29)
[2020-05-22] MEDS: THIAMINE HCL 100 MG TABLET (FP) PO SCH (22:29)
[2020-05-22] MEDS: MELATONIN 5 MG TABLETS PO SCH (22:30)
[2020-05-23] MEDS: METHADONE HCL 40 MG DISPERSABLE TABLET PO SCH (06:05)
[2020-05-23] MEDS: chlordiazePOXIDE HCL 10 MG CAPSULE PO SCH ×2 (06:05→17:54)
[2020-05-23] MEDS: GABAPENTIN 400 MG CAPSULE PO SCH ×2 (10:37→22:06)
[2020-05-23] MEDS: NICOTINE 7 MG/24 HOURS TOPICAL PATCH TD SCH (10:37)
[2020-05-23] MEDS: PRENATAL VITAMINS W/ FOLIC ACID TABLET (FP) PO SCH (10:38)
[2020-05-23] MEDS: NICOTINE POLACRILEX 2 MG GUM BUC PRN ×2 (10:44→14:26)
--- NOTE | 2020-05-23 11:11 | PN ---
S CIWA - CIWA Score Nausea/Vomitin-No Nausea/No Vomiting Muscle Tremors: None Anxiety: 1-Mildly Anxious Agitation: 0-Normal Activity Paroxysmal Sweats: 1-Minimal Palms Moist Orientation: 0-Oriented Tacttile Disturbances: 0-None Auditory Disturbances: 0-None Visual Disturbances: 0-None Headache: 0-None Present CIWA-Ar Total Score: 2 BHS Progress Note (SOAP) Subjective: little anxiety tired Objective: 05/23/20 11:10 Vital Signs Temperature 97.8 F 05/23/20 08:58 Pulse Rate 86 05/23/20 08:58 Respiratory Rate 16 05/23/20 08:58 Blood Pressure 106/58 L 05/23/20 08:58 O2 Sat by Pulse Oximetry (%) 99 05/23/20 08:58 aaox3 ambulating no acute distress Assessment: 05/23/20 11:10 withdrawals Plan: continue detox d/c in am
[2020-05-23] MEDS: hydrOXYzine PAMOATE 25 MG CAPSULE (FP) PO PRN (14:29)
[2020-05-23] MEDS: METHOCARBAMOL 500 MG TABLET PO PRN (14:31)
[2020-05-23] MEDS: QUEtiapine FUMARATE 300 MG TABLET PO SCH (22:06)
[2020-05-23] MEDS: THIAMINE HCL 100 MG TABLET (FP) PO SCH (22:06)
[2020-05-23] MEDS: MELATONIN 5 MG TABLETS PO SCH (22:06)
[2020-05-24] MEDS ORDERED: chlordiazePOXIDE 5 MG CAPSULE ONE (04:22)
[2020-05-24] MEDS ORDERED: chlordiazePOXIDE HCL 10 MG CAPSULE PO ONE (05:00)
[2020-05-24] MEDS: METHADONE HCL 40 MG DISPERSABLE TABLET PO SCH (05:51)
--- NOTE | 2020-05-24 09:25 | DS ---
[facility] Detox Discharge Summary Admission Date: 05/19/20 Discharge Date: 05/24/20 - History Present History: Alcohol Dependence, Sedative Dependence, MMTP - Physical Exam Results Vital Signs: Vital Signs Temperature 95.8 F L 05/24/20 05:45 Pulse Rate 91 H 05/24/20 05:45 Respiratory Rate 05/24/20 05:45 Blood Pressure 116/65 05/24/20 05:45 O2 Sat by Pulse Oximetry (%) 96 05/24/20 05:45 Pertinent Admission Physical Exam Findings: Vital Signs Temperature 95.8 F L 05/24/20 05:45 Pulse Rate 91 H 05/24/20 05:45 Respiratory Rate 05/24/20 05:45 Blood Pressure 116/65 05/24/20 05:45 O2 Sat by Pulse Oximetry (%) 96 05/24/20 05:45 Laboratory Tests 05/19/20 05/19/20 05/19/20 14:00 14:00 14:00 WBC 6.0 RBC 4.43 Hgb 13.5 Hct 40.2 MCV 90.8 MCH 30.5 MCHC 33.5 RDW 15.0 Plt Count 267 D MPV 8.7 Sodium 139 Potassium 4.3 Chloride 104 Carbon Dioxide 29 Anion Gap 5 L BUN 13.4 Creatinine 0.9 Est GFR (CKD-EPI)AfAm 130.52 Est GFR (CKD-EPI)NonAf 112.62 Random Glucose 82 Calcium 8.7 Total Bilirubin 0.3 AST 16 ALT 22 Alkaline Phosphatase 89 Total Protein 8.0 Albumin 3.9 Syphilis Serology Non-reactive COVID-19 ([facility]) 05/19/20 14:15 WBC RBC Hgb Hct MCV MCH MCHC RDW Plt Count MPV Sodium Potassium Chloride Carbon Dioxide Anion Gap BUN Creatinine Est GFR (CKD-EPI)AfAm Est GFR (CKD-EPI)NonAf Random Glucose Calcium Total Bilirubin AST ALT Alkaline Phosphatase Total Protein Albumin Syphilis Serology COVID-19 ([facility]) Not detected aaox3 ambulating no acute distress lungs CTA - Treatment Hospital Course: Detox Protocol Followed, Detoxed Safely, Responded well, Discharged Condition Good, Rehab Referral Accepted - Medication Discharge Medications: Ambulatory Orders Gabapentin [Neurontin -] 400 mg PO BID #60 capsule 04/28/20 Quetiapine Fumarate [Seroquel -] 300 mg PO HS #30 tablet 04/28/20 - Diagnosis (1) Alcohol dependence with withdrawal, uncomplicated Current Visit: Yes Status: Chronic (2) Cocaine dependence Current Visit: Yes Status: Chronic Qualifiers: Substance use status: uncomplicated Qualified Code(s): F14.20 - Cocaine dependence, uncomplicated (3) Insomnia Current Visit: Yes Status: Chronic (4) Nicotine dependence Current Visit: Yes Status: Chronic Qualifiers: Nicotine product type: cigarettes Substance use status: uncomplicated Qualified Code(s): F17.210 - Nicotine dependence, cigarettes, uncomplicated (5) Non-compliance Current Visit: Yes Status: Chronic (6) 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 Current Visit: Yes Status: Chronic (7) Schizophrenia Current Visit: Yes Status: Chronic Qualifiers: Schizophrenia type: unspecified Qualified Code(s): F20.9 - Schizophrenia, unspecified (8) Seizure Current Visit: Yes Status: Chronic (9) Sedative, hypnotic or anxiolytic dependence with withdrawal, uncomplicated Current Visit: No Status: Acute (10) Asthma Current Visit: No Status: Chronic Qualifiers: Asthma severity: unspecified severity Asthma persistence: unspecified Asthma complication type: unspecified Qualified Code(s): J45.909 - Unspecified asthma, uncomplicated (11) Depression Current Visit: No Status: Chronic Qualifiers: Depression Type: unspecified Qualified Code(s): F32.9 - Major depressive disorder, single episode, unspecified (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
[2020-05-24 09:30] VITALS: BP 119/69; PULSE 77; TEMP 98.1
== END 2020-05-24 13:10 | disposition home or self-care (01) | DRG 897 ==
LOC: YASAS 11:58 → Y6N 13:52
PROVIDERS: ADMIT Allergy & Immunology; ATTEND Allergy & Immunology
PROC: HZ2ZZZZ Detoxification Services for Substance Abuse Treatment (ICD-10-PCS; principal; 2020-05-19)
DX: F10.230 Alcohol dependence with withdrawal, uncomplicated (principal); F14.20 Cocaine dependence, uncomplicated; F11.20 Opioid dependence, uncomplicated; F13.230 Sedative, hypnotic or anxiolytic dependence with withdrawal, uncomplicated; F17.210 Nicotine dependence, cigarettes, uncomplicated; F20.9 Schizophrenia, unspecified; F32.9 Major depressive disorder, single episode, unspecified; G47.00 Insomnia, unspecified; G40.909 Epilepsy, unspecified, not intractable, without status epilepticus; J45.909 Unspecified asthma, uncomplicated; Z91.19 Patient's noncompliance with other medical treatment and regimen
CPT/HCPCS: 36415; 80053; 85027; 86780; 93005; 93010; U0003

== ENCOUNTER 2020-06-26 11:46 | Inpatient (IN) | payer OTHER ==
[2020-06-26 12:33] VITALS: BMI 25.1
[2020-06-26] MEDS ORDERED: chlordiazePOXIDE HCL 25 MG CAPSULE PO PRN (13:19)
[2020-06-26] MEDS ORDERED: BISMUTH SUBSALICYLATE 524 MG/30 ML UD PO PRN (13:19)
[2020-06-26] MEDS ORDERED: ONDANSETRON *ODT* 4 MG TABLET SL PRN (13:19)
[2020-06-26] MEDS ORDERED: MENTHOL/PHENOL 1 EACH UD MM PRN (13:19)
[2020-06-26] MEDS ORDERED: MAGNESIUM CITRATE 300 ML BOTTLE PO PRN (13:19)
[2020-06-26] MEDS ORDERED: MAGNESIUM HYDROX 2400MG/30ML ORAL SUSPENSION 30 ML CUP PO PRN (13:19)
[2020-06-26] MEDS ORDERED: ACETAMINOPHEN 325 MG TABLET (FP) PO PRN ×2 (13:19)
[2020-06-26] MEDS ORDERED: MAG HYDROX/AL HYDROX/SIMETH 30 ML UNIT-DOSE CUP PO PRN (13:19)
[2020-06-26] MEDS ORDERED: IBUPROFEN 400 MG TABLET (FP) PO PRN (13:19)
[2020-06-26] MEDS ORDERED: ALBUTEROL SO4 HFA INHALER IH PRN (13:27)
[2020-06-26] MEDS: hydrOXYzine PAMOATE 25 MG CAPSULE (FP) PO SCH ×3 (14:05→22:13)
[2020-06-26] MEDS: chlordiazePOXIDE HCL 25 MG CAPSULE PO SCH ×3 (14:06→22:13)
[2020-06-26] MEDS: PRENATAL VITAMINS W/ FOLIC ACID TABLET (FP) PO SCH (14:06)
[2020-06-26] MEDS: NICOTINE 7 MG/24 HOURS TOPICAL PATCH TD SCH (14:08)
[2020-06-26] MEDS: NICOTINE POLACRILEX 2 MG GUM BUC PRN (14:08)
[2020-06-26 17:09] LABS: HEMATOCRIT 42.9 % (35.4-49); MCH 30.3 pg (25.7-33.7); MCHC 32.6 g/dl (32.0-35.9); PLATELET COUNT 243 K/MM3 (134-434); RBC 4.61 M/mm3 (4.00-5.60); RDW 15.5 % (11.9-15.9); WHITE BLOOD COUNT 6.1 K/mm3 (4.0-10.0)
[2020-06-26 17:13] LABS: POTASSIUM 4.1 mmol/L (3.5-5.1)
[2020-06-26 17:16] LABS: CALCIUM 8.9 mg/dL (8.5-10.1)
[2020-06-26 17:17] LABS: ALBUMIN 3.9 g/dl (3.4-5.0); BLOOD UREA NITROGEN 16.7 mg/dL (7-18)
[2020-06-26 17:20] LABS: CREATININE 0.9 mg/dL (0.55-1.3)
[2020-06-26 17:22] LABS: BILIRUBIN,TOTAL 0.6 mg/dL (0.2-1); TOT PROT 7.8 g/dl (6.4-8.2)
[2020-06-26 18:10] LABS: HIV INTERPRETATION NEGATIVE (NEGATIVE)
[2020-06-26] MEDS: MELATONIN 5 MG TABLETS PO SCH (22:13)
[2020-06-26] MEDS: THIAMINE HCL 100 MG TABLET (FP) PO SCH (22:14)
[2020-06-26] MEDS: BUDESONIDE/FORMETEROL FUMARATE 160/4.5 mcg INHALER IH SCH (22:14)
[2020-06-27] MEDS ORDERED: METHADONE HCL 40 MG DISPERSABLE TABLET ONE (04:04)
[2020-06-27] MEDS ORDERED: METHADONE HCL 10 MG TABLET ONE (04:04)
[2020-06-27] MEDS: METHADONE 80 MG, METHADONE 20 MG PO SCH (05:17)
[2020-06-27] MEDS: chlordiazePOXIDE HCL 25 MG CAPSULE PO SCH ×4 (05:17→22:22)
[2020-06-27] MEDS: hydrOXYzine PAMOATE 25 MG CAPSULE (FP) PO SCH ×5 (05:17→22:22)
[2020-06-27] MEDS ORDERED: METHADONE HCL 10 MG TABLET PO SCH (06:00)
[2020-06-27] MEDS: PRENATAL VITAMINS W/ FOLIC ACID TABLET (FP) PO SCH (10:15)
[2020-06-27] MEDS: BUDESONIDE/FORMETEROL FUMARATE 160/4.5 mcg INHALER IH SCH ×2 (10:15→22:36)
[2020-06-27] MEDS: OXcarbazepine 300 MG TABLET (UD) PO SCH (10:15)
[2020-06-27] MEDS: NICOTINE 7 MG/24 HOURS TOPICAL PATCH TD SCH (10:17)
[2020-06-27] MEDS ORDERED: FLU VACCINE (FLULAVAL) PF 60 MCG/0.5 ML SYRINGE 2020-2021 IM ONE (12:00)
[2020-06-27] MEDS: MELATONIN 5 MG TABLETS PO SCH (22:22)
[2020-06-27] MEDS: THIAMINE HCL 100 MG TABLET (FP) PO SCH (22:22)
[2020-06-27] MEDS: QUEtiapine FUMARATE 200 MG TABLET PO SCH (22:22)
[2020-06-28] MEDS ORDERED: METHADONE HCL 40 MG DISPERSABLE TABLET ONE (04:25)
[2020-06-28] MEDS ORDERED: METHADONE HCL 10 MG TABLET ONE (04:25)
[2020-06-28] MEDS: chlordiazePOXIDE HCL 25 MG CAPSULE PO SCH ×4 (05:31→22:11)
[2020-06-28] MEDS: METHADONE 80 MG, METHADONE 20 MG PO SCH (05:31)
[2020-06-28] MEDS: hydrOXYzine PAMOATE 25 MG CAPSULE (FP) PO SCH ×5 (05:31→22:11)
[2020-06-28] MEDS: BUDESONIDE/FORMETEROL FUMARATE 160/4.5 mcg INHALER IH SCH ×2 (10:11→22:10)
[2020-06-28] MEDS: PRENATAL VITAMINS W/ FOLIC ACID TABLET (FP) PO SCH (10:12)
[2020-06-28] MEDS: OXcarbazepine 300 MG TABLET (UD) PO SCH (10:12)
[2020-06-28] MEDS: NICOTINE 7 MG/24 HOURS TOPICAL PATCH TD SCH (10:15)
[2020-06-28] MEDS: NICOTINE POLACRILEX 2 MG GUM BUC PRN ×3 (15:29→22:24)
[2020-06-28] MEDS: METHOCARBAMOL 500 MG TABLET PO PRN (15:33)
[2020-06-28] MEDS ORDERED: MASKS NR ONE (18:35)
[2020-06-28] MEDS: MELATONIN 5 MG TABLETS PO SCH (22:11)
[2020-06-28] MEDS: QUEtiapine FUMARATE 200 MG TABLET PO SCH (22:11)
[2020-06-28] MEDS: THIAMINE HCL 100 MG TABLET (FP) PO SCH (22:11)
[2020-06-29] MEDS ORDERED: chlordiazePOXIDE HCL 10 MG CAPSULE PO PRN
[2020-06-29] MEDS ORDERED: METHADONE HCL 10 MG TABLET ONE (04:02)
[2020-06-29] MEDS ORDERED: METHADONE HCL 40 MG DISPERSABLE TABLET ONE (04:02)
[2020-06-29] MEDS: hydrOXYzine PAMOATE 25 MG CAPSULE (FP) PO SCH ×2 (05:36→10:48)
[2020-06-29] MEDS: METHADONE 80 MG, METHADONE 20 MG PO SCH (05:36)
[2020-06-29] MEDS: chlordiazePOXIDE HCL 10 MG CAPSULE PO SCH ×4 (05:36→22:10)
[2020-06-29] MEDS ORDERED: LOPERAMIDE HCL 2 MG CAPSULE PO ONE (10:03)
[2020-06-29] MEDS: PRENATAL VITAMINS W/ FOLIC ACID TABLET (FP) PO SCH (10:29)
[2020-06-29] MEDS: NICOTINE 7 MG/24 HOURS TOPICAL PATCH TD SCH (10:30)
[2020-06-29] MEDS: BUDESONIDE/FORMETEROL FUMARATE 160/4.5 mcg INHALER IH SCH ×2 (10:30→22:10)
[2020-06-29] MEDS: hydrOXYzine PAMOATE 50 MG CAPSULE (FP) PO SCH ×4 (10:30→22:10)
[2020-06-29] MEDS: OXcarbazepine 300 MG TABLET (UD) PO SCH (10:30)
[2020-06-29] MEDS: NICOTINE POLACRILEX 2 MG GUM BUC PRN ×2 (10:34→15:54)
[2020-06-29] MEDS: METHOCARBAMOL 500 MG TABLET PO PRN ×2 (10:52→17:24)
[2020-06-29] MEDS: THIAMINE HCL 100 MG TABLET (FP) PO SCH (22:10)
[2020-06-29] MEDS: MELATONIN 5 MG TABLETS PO SCH (22:10)
[2020-06-29] MEDS: QUEtiapine FUMARATE 200 MG TABLET PO SCH (22:10)
[2020-06-30] MEDS ORDERED: METHADONE HCL 10 MG TABLET ONE (05:03)
[2020-06-30] MEDS ORDERED: METHADONE HCL 40 MG DISPERSABLE TABLET ONE (05:03)
[2020-06-30] MEDS: METHADONE 80 MG, METHADONE 20 MG PO SCH (05:13)
[2020-06-30] MEDS: hydrOXYzine PAMOATE 50 MG CAPSULE (FP) PO SCH ×5 (05:14→22:18)
[2020-06-30] MEDS: chlordiazePOXIDE HCL 10 MG CAPSULE PO SCH ×2 (05:14→17:29)
[2020-06-30] MEDS: PRENATAL VITAMINS W/ FOLIC ACID TABLET (FP) PO SCH (10:13)
[2020-06-30] MEDS: NICOTINE 7 MG/24 HOURS TOPICAL PATCH TD SCH (10:13)
[2020-06-30] MEDS: OXcarbazepine 300 MG TABLET (UD) PO SCH (10:14)
[2020-06-30] MEDS: BUDESONIDE/FORMETEROL FUMARATE 160/4.5 mcg INHALER IH SCH ×2 (10:14→22:17)
[2020-06-30] MEDS: MELATONIN 5 MG TABLETS PO SCH (22:18)
[2020-06-30] MEDS: QUEtiapine FUMARATE 200 MG TABLET PO SCH (22:18)
[2020-06-30] MEDS: THIAMINE HCL 100 MG TABLET (FP) PO SCH (22:18)
[2020-07-01] MEDS ORDERED: METHADONE HCL 40 MG DISPERSABLE TABLET ONE (03:43)
[2020-07-01] MEDS ORDERED: METHADONE HCL 10 MG TABLET ONE (03:43)
[2020-07-01] MEDS ORDERED: chlordiazePOXIDE HCL 10 MG CAPSULE PO ONE (05:00)
[2020-07-01] MEDS: METHADONE 80 MG, METHADONE 20 MG PO SCH (05:42)
[2020-07-01] MEDS: hydrOXYzine PAMOATE 50 MG CAPSULE (FP) PO SCH ×3 (05:42→13:54)
[2020-07-01 09:19] VITALS: PULSE 96
[2020-07-01] MEDS: OXcarbazepine 300 MG TABLET (UD) PO SCH (09:44)
[2020-07-01] MEDS: PRENATAL VITAMINS W/ FOLIC ACID TABLET (FP) PO SCH (09:44)
[2020-07-01] MEDS: BUDESONIDE/FORMETEROL FUMARATE 160/4.5 mcg INHALER IH SCH (09:44)
[2020-07-01] MEDS: NICOTINE 7 MG/24 HOURS TOPICAL PATCH TD SCH (09:45)
[2020-07-01 13:09] VITALS: BP 129/72; TEMP 97.1
== END 2020-07-01 13:54 | disposition other institution (70) | DRG 897 ==
LOC: YASAS 11:46 → Y3N 13:17
PROVIDERS: ADMIT Allergy & Immunology; ATTEND Allergy & Immunology
PROC: HZ2ZZZZ Detoxification Services for Substance Abuse Treatment (ICD-10-PCS; principal; 2020-06-26)
DX: F10.230 Alcohol dependence with withdrawal, uncomplicated (principal); F14.20 Cocaine dependence, uncomplicated; F11.20 Opioid dependence, uncomplicated; F12.20 Cannabis dependence, uncomplicated; F17.210 Nicotine dependence, cigarettes, uncomplicated; F20.9 Schizophrenia, unspecified; F32.9 Major depressive disorder, single episode, unspecified; J45.909 Unspecified asthma, uncomplicated; G40.909 Epilepsy, unspecified, not intractable, without status epilepticus; G47.00 Insomnia, unspecified; Z86.12 Personal history of poliomyelitis; Z91.19 Patient's noncompliance with other medical treatment and regimen; Z56.0 Unemployment, unspecified; Z59.0 Homelessness
CPT/HCPCS: 36415; 71046-TC-FY; 80053; 85027; 86780; 87389; C9803; G0008; Q2036; U0003

== ENCOUNTER 2020-09-11 11:22 | Inpatient (IN) | payer OTHER ==
[2020-09-11 14:35] VITALS: BMI 24.7
[2020-09-11] MEDS ORDERED: MAGNESIUM CITRATE 300 ML BOTTLE PO PRN (14:38)
[2020-09-11] MEDS ORDERED: ACETAMINOPHEN 325 MG TABLET (FP) PO PRN ×2 (14:38)
[2020-09-11] MEDS ORDERED: chlordiazePOXIDE HCL 25 MG CAPSULE PO PRN (14:38)
[2020-09-11] MEDS ORDERED: MAGNESIUM HYDROX 2400MG/30ML ORAL SUSPENSION 30 ML CUP PO PRN (14:38)
[2020-09-11] MEDS ORDERED: MENTHOL/PHENOL 1 EACH UD MM PRN (14:38)
[2020-09-11] MEDS ORDERED: IBUPROFEN 400 MG TABLET (FP) PO PRN (14:38)
[2020-09-11] MEDS ORDERED: cloNIDine HCL 0.1 MG TABLET PO PRN (14:38)
[2020-09-11] MEDS ORDERED: ONDANSETRON *ODT* 4 MG TABLET SL PRN (14:38)
[2020-09-11] MEDS ORDERED: MAG HYDROX/AL HYDROX/SIMETH 30 ML UNIT-DOSE CUP PO PRN (14:38)
[2020-09-11] MEDS ORDERED: methaDONE HCL 10 MG TABLET (FOR DETOX USE ONLY) PO ONE (14:38)
[2020-09-11] MEDS ORDERED: BISMUTH SUBSALICYLATE 524 MG/30 ML PO PRN (14:38)
[2020-09-11] MEDS: hydrOXYzine PAMOATE 25 MG CAPSULE (FP) PO SCH ×2 (17:31→22:06)
[2020-09-11] MEDS: chlordiazePOXIDE HCL 25 MG CAPSULE PO SCH ×2 (17:31→22:06)
[2020-09-11] MEDS: NICOTINE POLACRILEX 2 MG GUM BUC PRN ×2 (17:31→22:09)
[2020-09-11 18:17] LABS: CALCIUM 7.9 mg/dL (8.5-10.1)
[2020-09-11 18:18] LABS: ALBUMIN 3.8 g/dl (3.4-5.0); BLOOD UREA NITROGEN 23.5 mg/dL (7-18)
[2020-09-11 18:21] LABS: CREATININE 0.9 mg/dL (0.55-1.3)
[2020-09-11 18:23] LABS: BILIRUBIN,TOTAL 0.2 mg/dL (0.2-1); TOT PROT 7.1 g/dl (6.4-8.2)
[2020-09-11 18:25] LABS: HEMATOCRIT 40.6 % (35.4-49); HEMOGLOBIN 13.5 GM/dL (11.7-16.9); MCH 31.1 pg (25.7-33.7); MCHC 33.2 g/dl (32.0-35.9); MEAN CELL VOLUME 93.7 fl (80-96); MEAN PLT VOLUME 9.7 fl (7.5-11.1); PLATELET COUNT 225 K/MM3 (134-434); RBC 4.33 M/mm3 (4.00-5.60); RDW 14.3 % (11.9-15.9); WHITE BLOOD COUNT 6.7 K/mm3 (4.0-10.0)
[2020-09-11] MEDS: MELATONIN 5 MG TABLETS PO SCH (22:06)
[2020-09-11] MEDS: THIAMINE HCL 100 MG TABLET (FP) PO SCH (22:06)
[2020-09-12] MEDS: hydrOXYzine PAMOATE 25 MG CAPSULE (FP) PO SCH (05:27)
[2020-09-12] MEDS: METHOCARBAMOL 500 MG TABLET PO PRN ×2 (05:27→17:16)
[2020-09-12] MEDS: chlordiazePOXIDE HCL 25 MG CAPSULE PO SCH ×4 (05:27→22:10)
[2020-09-12] MEDS ORDERED: methaDONE HCL 40 MG DISPERSABLE TABLET PO ONE (09:05)
[2020-09-12] MEDS: PRENATAL VITAMINS W/ FOLIC ACID TABLET (FP) PO SCH (10:12)
[2020-09-12] MEDS: hydrOXYzine PAMOATE 25 MG CAPSULE (FP) PO PRN (10:12)
[2020-09-12] MEDS: NICOTINE 14 MG/24 HOURS TOPICAL PATCH TD SCH (10:13)
[2020-09-12 12:23] LABS: HIV INTERPRETATION NEGATIVE (NEGATIVE)
[2020-09-12] MEDS: THIAMINE HCL 100 MG TABLET (FP) PO SCH (22:10)
[2020-09-12] MEDS: QUEtiapine FUMARATE 50 MG TABLET PO SCH (22:10)
[2020-09-12] MEDS: MELATONIN 5 MG TABLETS PO SCH (22:10)
[2020-09-12] MEDS: GABAPENTIN 100 MG CAPSULE PO SCH (22:10)
[2020-09-13] MEDS: chlordiazePOXIDE HCL 25 MG CAPSULE PO SCH ×4 (05:48→22:11)
[2020-09-13] MEDS: methaDONE HCL 40 MG DISPERSABLE TABLET PO SCH (05:48)
[2020-09-13] MEDS ORDERED: methaDONE HCL 10 MG TABLET (FOR DETOX USE ONLY) PO ONE (10:00)
[2020-09-13] MEDS: GABAPENTIN 100 MG CAPSULE PO SCH ×2 (10:18→22:12)
[2020-09-13] MEDS: NICOTINE POLACRILEX 2 MG GUM BUC PRN ×2 (10:18→22:14)
[2020-09-13] MEDS: NICOTINE 14 MG/24 HOURS TOPICAL PATCH TD SCH (10:18)
[2020-09-13] MEDS: PRENATAL VITAMINS W/ FOLIC ACID TABLET (FP) PO SCH (10:18)
[2020-09-13] MEDS ORDERED: FLU VACCINE (FLULAVAL) PF 60 MCG/0.5 ML SYRINGE 2020-2021 IM ONE (12:00)
[2020-09-13] MEDS: hydrOXYzine PAMOATE 25 MG CAPSULE (FP) PO PRN ×2 (17:16→22:12)
[2020-09-13] MEDS: METHOCARBAMOL 500 MG TABLET PO PRN (17:17)
[2020-09-13] MEDS: QUEtiapine FUMARATE 50 MG TABLET PO SCH (22:11)
[2020-09-13] MEDS: THIAMINE HCL 100 MG TABLET (FP) PO SCH (22:12)
[2020-09-13] MEDS: MELATONIN 5 MG TABLETS PO SCH (22:13)
[2020-09-14] MEDS ORDERED: chlordiazePOXIDE HCL 10 MG CAPSULE PO PRN
[2020-09-14] MEDS: methaDONE HCL 40 MG DISPERSABLE TABLET PO SCH (05:26)
[2020-09-14] MEDS: chlordiazePOXIDE HCL 10 MG CAPSULE PO SCH ×4 (05:27→22:04)
[2020-09-14] MEDS: METHOCARBAMOL 500 MG TABLET PO PRN ×2 (05:27→14:34)
[2020-09-14] MEDS: hydrOXYzine PAMOATE 25 MG CAPSULE (FP) PO PRN ×3 (09:33→17:43)
[2020-09-14] MEDS: GABAPENTIN 100 MG CAPSULE PO SCH ×2 (10:13→22:01)
[2020-09-14] MEDS: PRENATAL VITAMINS W/ FOLIC ACID TABLET (FP) PO SCH (10:13)
[2020-09-14] MEDS: NICOTINE 14 MG/24 HOURS TOPICAL PATCH TD SCH (10:14)
[2020-09-14 11:19] LABS: BLOOD UREA NITROGEN 9.3 mg/dL (7-18)
[2020-09-14 11:20] LABS: ALBUMIN 3.6 g/dl (3.4-5.0); CALCIUM 8.7 mg/dL (8.5-10.1)
[2020-09-14 11:23] LABS: CREATININE 0.8 mg/dL (0.55-1.3)
[2020-09-14 11:24] LABS: BILIRUBIN,TOTAL 0.4 mg/dL (0.2-1); TOT PROT 7.3 g/dl (6.4-8.2)
[2020-09-14] MEDS ORDERED: ALBUTEROL SO4 HFA INHALER IH PRN (14:18)
[2020-09-14] MEDS: OXcarbazepine 300 MG TABLET (UD) PO SCH (15:42)
[2020-09-14] MEDS: THIAMINE HCL 100 MG TABLET (FP) PO SCH (22:00)
[2020-09-14] MEDS: MELATONIN 5 MG TABLETS PO SCH (22:00)
[2020-09-14] MEDS: QUEtiapine FUMARATE 50 MG TABLET PO SCH (22:03)
[2020-09-14] MEDS: BUDESONIDE/FORMETEROL FUMARATE 160/4.5 mcg INHALER IH SCH (22:03)
[2020-09-15] MEDS: chlordiazePOXIDE HCL 10 MG CAPSULE PO SCH ×2 (05:36→17:21)
[2020-09-15] MEDS: methaDONE HCL 40 MG DISPERSABLE TABLET PO SCH (05:36)
[2020-09-15] MEDS ORDERED: methaDONE HCL 10 MG TABLET (FOR DETOX USE ONLY) PO ONE (10:00)
[2020-09-15] MEDS: NICOTINE 14 MG/24 HOURS TOPICAL PATCH TD SCH (10:08)
[2020-09-15] MEDS: OXcarbazepine 300 MG TABLET (UD) PO SCH (10:08)
[2020-09-15] MEDS: GABAPENTIN 100 MG CAPSULE PO SCH ×2 (10:08→22:01)
[2020-09-15] MEDS: PRENATAL VITAMINS W/ FOLIC ACID TABLET (FP) PO SCH (10:08)
[2020-09-15] MEDS: BUDESONIDE/FORMETEROL FUMARATE 160/4.5 mcg INHALER IH SCH ×2 (10:09→22:02)
[2020-09-15] MEDS: NICOTINE POLACRILEX 2 MG GUM BUC PRN ×3 (10:10→22:04)
[2020-09-15] MEDS: hydrOXYzine PAMOATE 25 MG CAPSULE (FP) PO PRN (17:21)
[2020-09-15] MEDS: METHOCARBAMOL 500 MG TABLET PO PRN (17:21)
[2020-09-15 21:50] VITALS: TEMP 97.5
[2020-09-15] MEDS: MELATONIN 5 MG TABLETS PO SCH (22:01)
[2020-09-15] MEDS: QUEtiapine FUMARATE 50 MG TABLET PO SCH (22:01)
[2020-09-15] MEDS: THIAMINE HCL 100 MG TABLET (FP) PO SCH (22:02)
[2020-09-16] MEDS: hydrOXYzine PAMOATE 25 MG CAPSULE (FP) PO PRN (01:23)
[2020-09-16] MEDS ORDERED: chlordiazePOXIDE HCL 10 MG CAPSULE PO ONE (05:00)
[2020-09-16] MEDS: METHOCARBAMOL 500 MG TABLET PO PRN (05:18)
[2020-09-16] MEDS: methaDONE HCL 40 MG DISPERSABLE TABLET PO SCH (05:18)
[2020-09-16] MEDS: GABAPENTIN 100 MG CAPSULE PO SCH (09:39)
[2020-09-16] MEDS: PRENATAL VITAMINS W/ FOLIC ACID TABLET (FP) PO SCH (09:39)
[2020-09-16] MEDS: OXcarbazepine 300 MG TABLET (UD) PO SCH (09:39)
[2020-09-16] MEDS: BUDESONIDE/FORMETEROL FUMARATE 160/4.5 mcg INHALER IH SCH (09:40)
[2020-09-16] MEDS: NICOTINE 14 MG/24 HOURS TOPICAL PATCH TD SCH (09:40)
[2020-09-16 10:59] VITALS: BP 107/62; PULSE 72
== END 2020-09-16 13:18 | disposition other institution (70) | DRG 897 ==
LOC: YASAS 11:22 → Y3N 14:46
PROVIDERS: ADMIT Allergy & Immunology; ATTEND Allergy & Immunology
PROC: HZ2ZZZZ Detoxification Services for Substance Abuse Treatment (ICD-10-PCS; principal; 2020-09-11)
DX: F10.230 Alcohol dependence with withdrawal, uncomplicated (principal); F11.20 Opioid dependence, uncomplicated; F14.20 Cocaine dependence, uncomplicated; F13.20 Sedative, hypnotic or anxiolytic dependence, uncomplicated; F15.10 Other stimulant abuse, uncomplicated; F12.20 Cannabis dependence, uncomplicated; F17.210 Nicotine dependence, cigarettes, uncomplicated; F20.9 Schizophrenia, unspecified; F41.9 Anxiety disorder, unspecified; F32.9 Major depressive disorder, single episode, unspecified; G40.909 Epilepsy, unspecified, not intractable, without status epilepticus; J45.909 Unspecified asthma, uncomplicated; R79.89 Other specified abnormal findings of blood chemistry; Z86.2 Personal history of diseases of the blood and blood-forming organs and certain disorders involving the immune mechanism; Z91.5 Personal history of self-harm
CPT/HCPCS: 36415; 80053; 82947; 85027; 86780; 87389; C9803; U0003

== ENCOUNTER 2020-09-16 12:38 | Inpatient (IN) | payer OTHER ==
[2020-09-16] MEDS ORDERED: P-EPHED 60MG/TRIPROLIDI 2.5MG TABLET PO PRN (14:41)
[2020-09-16] MEDS ORDERED: MAG HYDROX/AL HYDROX/SIMETH 30 ML UNIT-DOSE CUP PO PRN (14:41)
[2020-09-16] MEDS ORDERED: MENTHOL/PHENOL 1 EACH UD MM PRN (14:41)
[2020-09-16] MEDS ORDERED: MAGNESIUM HYDROX 2400MG/30ML ORAL SUSPENSION 30 ML CUP PO PRN (14:41)
[2020-09-16] MEDS ORDERED: MAGNESIUM CITRATE 300 ML BOTTLE PO PRN (14:41)
[2020-09-16] MEDS ORDERED: LOPERAMIDE HCL 2 MG CAPSULE PO PRN (14:41)
[2020-09-16] MEDS ORDERED: guaiFENesin 200 MG/10 ML 10 ML UNIT-DOSE CUPS PO PRN (14:41)
[2020-09-16] MEDS ORDERED: ALBUTEROL SO4 HFA INHALER IH PRN (14:43)
[2020-09-16] MEDS: QUEtiapine FUMARATE 300 MG TABLET PO SCH (21:27)
[2020-09-16] MEDS: THIAMINE HCL 100 MG TABLET (FP) PO SCH (21:27)
[2020-09-16] MEDS: GABAPENTIN 100 MG CAPSULE PO SCH (21:28)
[2020-09-16] MEDS: MELATONIN 5 MG TABLETS PO SCH (21:28)
[2020-09-16] MEDS: BUDESONIDE/FORMETEROL FUMARATE 160/4.5 mcg INHALER IH SCH (21:28)
[2020-09-16] MEDS: NICOTINE POLACRILEX 2 MG GUM BUC PRN (21:29)
[2020-09-16] MEDS: hydrOXYzine PAMOATE 25 MG CAPSULE (FP) PO PRN (21:29)
[2020-09-17] MEDS: IBUPROFEN 400 MG TABLET (FP) PO PRN ×2 (06:16→17:42)
[2020-09-17] MEDS: hydrOXYzine PAMOATE 25 MG CAPSULE (FP) PO PRN ×2 (06:16→17:42)
[2020-09-17] MEDS: METHADONE HCL 40 MG DISPERSABLE TABLET PO SCH (06:18)
[2020-09-17] MEDS: NICOTINE POLACRILEX 2 MG GUM BUC PRN ×3 (06:19→21:27)
[2020-09-17] MEDS: GABAPENTIN 100 MG CAPSULE PO SCH ×2 (09:29→21:25)
[2020-09-17] MEDS: NICOTINE 14 MG/24 HOURS TOPICAL PATCH TD SCH (09:29)
[2020-09-17] MEDS: PRENATAL VITAMINS W/ FOLIC ACID TABLET (FP) PO SCH (09:29)
[2020-09-17] MEDS: BUDESONIDE/FORMETEROL FUMARATE 160/4.5 mcg INHALER IH SCH ×2 (09:30→21:26)
[2020-09-17] MEDS: OXcarbazepine 300 MG TABLET (UD) PO SCH (09:30)
[2020-09-17] MEDS: ACETAMINOPHEN 325 MG TABLET (FP) PO PRN (09:31)
[2020-09-17] MEDS: THIAMINE HCL 100 MG TABLET (FP) PO SCH (21:25)
[2020-09-17] MEDS: QUEtiapine FUMARATE 300 MG TABLET PO SCH (21:25)
[2020-09-17] MEDS: MELATONIN 5 MG TABLETS PO SCH (21:26)
[2020-09-18] MEDS: METHADONE HCL 40 MG DISPERSABLE TABLET PO SCH (06:33)
[2020-09-18] MEDS: hydrOXYzine PAMOATE 25 MG CAPSULE (FP) PO PRN (06:33)
[2020-09-18] MEDS: NICOTINE POLACRILEX 2 MG GUM BUC PRN ×4 (06:33→21:26)
[2020-09-18] MEDS: IBUPROFEN 400 MG TABLET (FP) PO PRN (06:34)
[2020-09-18] MEDS: GABAPENTIN 100 MG CAPSULE PO SCH ×2 (09:53→21:25)
[2020-09-18] MEDS: PRENATAL VITAMINS W/ FOLIC ACID TABLET (FP) PO SCH (09:54)
[2020-09-18] MEDS: NICOTINE 14 MG/24 HOURS TOPICAL PATCH TD SCH (09:55)
[2020-09-18] MEDS: ACETAMINOPHEN 325 MG TABLET (FP) PO PRN (09:56)
[2020-09-18] MEDS: BUDESONIDE/FORMETEROL FUMARATE 160/4.5 mcg INHALER IH SCH ×2 (09:56→21:25)
[2020-09-18] MEDS: OXcarbazepine 300 MG TABLET (UD) PO SCH (09:56)
[2020-09-18] MEDS: hydrOXYzine PAMOATE 50 MG CAPSULE (FP) PO PRN (17:46)
[2020-09-18] MEDS: METHOCARBAMOL 500 MG TABLET PO PRN (17:46)
[2020-09-18] MEDS ORDERED: QUEtiapine FUMARATE 50 MG TABLET PO SCH (17:50)
[2020-09-18] MEDS: MELATONIN 5 MG TABLETS PO SCH (21:25)
[2020-09-18] MEDS: THIAMINE HCL 100 MG TABLET (FP) PO SCH (21:25)
[2020-09-19] MEDS: hydrOXYzine PAMOATE 50 MG CAPSULE (FP) PO PRN ×3 (01:30→13:11)
[2020-09-19] MEDS: METHADONE HCL 40 MG DISPERSABLE TABLET PO SCH (06:22)
[2020-09-19] MEDS ORDERED: MASKS NR ONE (06:22)
[2020-09-19] MEDS: METHOCARBAMOL 500 MG TABLET PO PRN ×3 (06:23→21:32)
[2020-09-19] MEDS: PRENATAL VITAMINS W/ FOLIC ACID TABLET (FP) PO SCH (09:53)
[2020-09-19] MEDS: NICOTINE 14 MG/24 HOURS TOPICAL PATCH TD SCH (09:53)
[2020-09-19] MEDS: BUDESONIDE/FORMETEROL FUMARATE 160/4.5 mcg INHALER IH SCH ×2 (09:53→21:29)
[2020-09-19] MEDS: OXcarbazepine 300 MG TABLET (UD) PO SCH (09:55)
[2020-09-19] MEDS: NICOTINE POLACRILEX 2 MG GUM BUC PRN ×2 (09:56→13:11)
[2020-09-19] MEDS: MELATONIN 5 MG TABLETS PO SCH (21:29)
[2020-09-19] MEDS: THIAMINE HCL 100 MG TABLET (FP) PO SCH (21:29)
[2020-09-19] MEDS ORDERED: QUEtiapine FUMARATE 50 MG TABLET ONE (21:30)
[2020-09-19] MEDS ORDERED: QUEtiapine FUMARATE 200 MG TABLET ONE (21:30)
[2020-09-19] MEDS: QUETIAPINE FUMARATE 50 MG, QUETIAPINE FUMARATE 200 MG PO SCH (21:31)
[2020-09-19] MEDS: GABAPENTIN 400 MG CAPSULE PO SCH (21:31)
[2020-09-19] MEDS ORDERED: QUEtiapine FUMARATE 50 MG TABLET PO SCH (22:00)
[2020-09-20] MEDS: hydrOXYzine PAMOATE 50 MG CAPSULE (FP) PO PRN ×3 (03:52→21:13)
[2020-09-20] MEDS: METHADONE HCL 40 MG DISPERSABLE TABLET PO SCH (06:05)
[2020-09-20] MEDS: METHOCARBAMOL 500 MG TABLET PO PRN ×3 (06:06→21:12)
[2020-09-20] MEDS: NICOTINE POLACRILEX 2 MG GUM BUC PRN ×5 (06:07→21:14)
[2020-09-20] MEDS: BUDESONIDE/FORMETEROL FUMARATE 160/4.5 mcg INHALER IH SCH ×2 (09:49→21:12)
[2020-09-20] MEDS: GABAPENTIN 400 MG CAPSULE PO SCH ×2 (09:49→21:13)
[2020-09-20] MEDS: PRENATAL VITAMINS W/ FOLIC ACID TABLET (FP) PO SCH (09:49)
[2020-09-20] MEDS: NICOTINE 14 MG/24 HOURS TOPICAL PATCH TD SCH (09:49)
[2020-09-20] MEDS: OXcarbazepine 300 MG TABLET (UD) PO SCH (09:50)
[2020-09-20] MEDS: IBUPROFEN 400 MG TABLET (FP) PO PRN (17:27)
[2020-09-20] MEDS ORDERED: QUEtiapine FUMARATE 50 MG TABLET ONE (19:19)
[2020-09-20] MEDS ORDERED: QUEtiapine FUMARATE 200 MG TABLET ONE (19:19)
[2020-09-20] MEDS: QUETIAPINE FUMARATE 50 MG, QUETIAPINE FUMARATE 200 MG PO SCH (21:13)
[2020-09-20] MEDS: THIAMINE HCL 100 MG TABLET (FP) PO SCH (21:13)
[2020-09-20] MEDS: MELATONIN 5 MG TABLETS PO SCH (21:13)
[2020-09-21] MEDS: METHOCARBAMOL 500 MG TABLET PO PRN ×3 (06:10→21:30)
[2020-09-21] MEDS: METHADONE HCL 40 MG DISPERSABLE TABLET PO SCH (06:10)
[2020-09-21] MEDS: IBUPROFEN 400 MG TABLET (FP) PO PRN (06:12)
[2020-09-21] MEDS: hydrOXYzine PAMOATE 50 MG CAPSULE (FP) PO PRN ×3 (06:12→18:38)
[2020-09-21] MEDS: NICOTINE POLACRILEX 2 MG GUM BUC PRN ×5 (06:14→21:32)
[2020-09-21] MEDS: PRENATAL VITAMINS W/ FOLIC ACID TABLET (FP) PO SCH (09:45)
[2020-09-21] MEDS: OXcarbazepine 300 MG TABLET (UD) PO SCH (09:46)
[2020-09-21] MEDS: BUDESONIDE/FORMETEROL FUMARATE 160/4.5 mcg INHALER IH SCH ×2 (09:46→21:30)
[2020-09-21] MEDS: NICOTINE 14 MG/24 HOURS TOPICAL PATCH TD SCH (09:46)
[2020-09-21] MEDS: GABAPENTIN 400 MG CAPSULE PO SCH ×2 (09:46→21:30)
[2020-09-21] MEDS: ACETAMINOPHEN 325 MG TABLET (FP) PO PRN (09:47)
[2020-09-21] MEDS: QUEtiapine FUMARATE 300 MG TABLET PO SCH (21:30)
[2020-09-21] MEDS: MELATONIN 5 MG TABLETS PO SCH (21:30)
[2020-09-21] MEDS: THIAMINE HCL 100 MG TABLET (FP) PO SCH (21:30)
[2020-09-22] MEDS ORDERED: MASKS NR ONE (06:11)
[2020-09-22] MEDS: hydrOXYzine PAMOATE 50 MG CAPSULE (FP) PO PRN ×3 (06:30→21:33)
[2020-09-22] MEDS: METHADONE HCL 40 MG DISPERSABLE TABLET PO SCH (06:30)
[2020-09-22] MEDS: METHOCARBAMOL 500 MG TABLET PO PRN ×3 (06:30→21:33)
[2020-09-22] MEDS: IBUPROFEN 400 MG TABLET (FP) PO PRN ×3 (06:31→23:20)
[2020-09-22] MEDS: NICOTINE POLACRILEX 2 MG GUM BUC PRN ×4 (06:32→21:35)
[2020-09-22] MEDS: NICOTINE 14 MG/24 HOURS TOPICAL PATCH TD SCH (10:06)
[2020-09-22] MEDS: PRENATAL VITAMINS W/ FOLIC ACID TABLET (FP) PO SCH (10:06)
[2020-09-22] MEDS: BUDESONIDE/FORMETEROL FUMARATE 160/4.5 mcg INHALER IH SCH ×2 (10:07→21:33)
[2020-09-22] MEDS: GABAPENTIN 400 MG CAPSULE PO SCH ×2 (10:07→21:34)
[2020-09-22] MEDS: OXcarbazepine 300 MG TABLET (UD) PO SCH (10:07)
[2020-09-22] MEDS: ACETAMINOPHEN 325 MG TABLET (FP) PO PRN ×2 (10:08→19:07)
[2020-09-22] MEDS: THIAMINE HCL 100 MG TABLET (FP) PO SCH (21:33)
[2020-09-22] MEDS: QUEtiapine FUMARATE 300 MG TABLET PO SCH (21:33)
[2020-09-22] MEDS: MELATONIN 5 MG TABLETS PO SCH (21:34)
[2020-09-23] MEDS: hydrOXYzine PAMOATE 50 MG CAPSULE (FP) PO PRN ×2 (06:08→17:34)
[2020-09-23] MEDS: METHADONE HCL 40 MG DISPERSABLE TABLET PO SCH (06:08)
[2020-09-23] MEDS: METHOCARBAMOL 500 MG TABLET PO PRN ×2 (06:08→21:44)
[2020-09-23] MEDS: IBUPROFEN 400 MG TABLET (FP) PO PRN ×2 (06:09→17:34)
[2020-09-23] MEDS: PRENATAL VITAMINS W/ FOLIC ACID TABLET (FP) PO SCH (09:46)
[2020-09-23] MEDS: GABAPENTIN 400 MG CAPSULE PO SCH ×2 (09:47→21:39)
[2020-09-23] MEDS: BUDESONIDE/FORMETEROL FUMARATE 160/4.5 mcg INHALER IH SCH ×2 (09:47→21:41)
[2020-09-23] MEDS: NICOTINE 14 MG/24 HOURS TOPICAL PATCH TD SCH (09:48)
[2020-09-23] MEDS: NICOTINE POLACRILEX 2 MG GUM BUC PRN ×3 (09:50→21:43)
[2020-09-23] MEDS: OXcarbazepine 300 MG TABLET (UD) PO SCH (09:50)
[2020-09-23] MEDS: ACETAMINOPHEN 325 MG TABLET (FP) PO PRN (09:53)
[2020-09-23] MEDS: QUEtiapine FUMARATE 300 MG TABLET PO SCH (21:39)
[2020-09-23] MEDS: THIAMINE HCL 100 MG TABLET (FP) PO SCH (21:40)
[2020-09-23] MEDS: MELATONIN 5 MG TABLETS PO SCH (21:40)
[2020-09-24] MEDS: hydrOXYzine PAMOATE 50 MG CAPSULE (FP) PO PRN ×3 (02:52→17:22)
[2020-09-24] MEDS: METHOCARBAMOL 500 MG TABLET PO PRN ×2 (06:20→14:44)
[2020-09-24] MEDS: METHADONE HCL 40 MG DISPERSABLE TABLET PO SCH (06:20)
[2020-09-24] MEDS: ACETAMINOPHEN 325 MG TABLET (FP) PO PRN (06:21)
[2020-09-24] MEDS: NICOTINE POLACRILEX 2 MG GUM BUC PRN ×4 (06:22→21:41)
[2020-09-24] MEDS: BUDESONIDE/FORMETEROL FUMARATE 160/4.5 mcg INHALER IH SCH ×2 (09:58→21:40)
[2020-09-24] MEDS: GABAPENTIN 400 MG CAPSULE PO SCH ×2 (09:58→21:39)
[2020-09-24] MEDS: NICOTINE 14 MG/24 HOURS TOPICAL PATCH TD SCH (09:59)
[2020-09-24] MEDS: OXcarbazepine 300 MG TABLET (UD) PO SCH (09:59)
[2020-09-24] MEDS: PRENATAL VITAMINS W/ FOLIC ACID TABLET (FP) PO SCH (09:59)
[2020-09-24] MEDS: THIAMINE HCL 100 MG TABLET (FP) PO SCH (21:39)
[2020-09-24] MEDS: QUEtiapine FUMARATE 300 MG TABLET PO SCH (21:39)
[2020-09-24] MEDS: MELATONIN 5 MG TABLETS PO SCH (21:39)
[2020-09-25] MEDS: METHADONE HCL 40 MG DISPERSABLE TABLET PO SCH (06:38)
[2020-09-25] MEDS: ACETAMINOPHEN 325 MG TABLET (FP) PO PRN (06:38)
[2020-09-25] MEDS: hydrOXYzine PAMOATE 50 MG CAPSULE (FP) PO PRN ×3 (06:38→18:06)
[2020-09-25] MEDS: NICOTINE POLACRILEX 2 MG GUM BUC PRN ×4 (06:38→21:23)
[2020-09-25] MEDS: OXcarbazepine 300 MG TABLET (UD) PO SCH (09:50)
[2020-09-25] MEDS: GABAPENTIN 400 MG CAPSULE PO SCH ×2 (09:50→21:22)
[2020-09-25] MEDS: BUDESONIDE/FORMETEROL FUMARATE 160/4.5 mcg INHALER IH SCH ×2 (09:50→21:21)
[2020-09-25] MEDS: PRENATAL VITAMINS W/ FOLIC ACID TABLET (FP) PO SCH (09:50)
[2020-09-25] MEDS: NICOTINE 14 MG/24 HOURS TOPICAL PATCH TD SCH (09:51)
[2020-09-25] MEDS: METHOCARBAMOL 500 MG TABLET PO PRN (09:52)
[2020-09-25] MEDS: IBUPROFEN 400 MG TABLET (FP) PO PRN (09:52)
[2020-09-25] MEDS: QUEtiapine FUMARATE 300 MG TABLET PO SCH (21:21)
[2020-09-25] MEDS: MELATONIN 5 MG TABLETS PO SCH (21:22)
[2020-09-25] MEDS: THIAMINE HCL 100 MG TABLET (FP) PO SCH (21:22)
[2020-09-26] MEDS: METHOCARBAMOL 500 MG TABLET PO PRN ×2 (01:18→06:24)
[2020-09-26] MEDS: hydrOXYzine PAMOATE 50 MG CAPSULE (FP) PO PRN ×4 (01:18→21:29)
[2020-09-26] MEDS: METHADONE HCL 40 MG DISPERSABLE TABLET PO SCH (06:24)
[2020-09-26] MEDS: ACETAMINOPHEN 325 MG TABLET (FP) PO PRN (06:24)
[2020-09-26] MEDS: NICOTINE POLACRILEX 2 MG GUM BUC PRN ×4 (06:25→21:31)
[2020-09-26] MEDS: OXcarbazepine 300 MG TABLET (UD) PO SCH (10:05)
[2020-09-26] MEDS: NICOTINE 14 MG/24 HOURS TOPICAL PATCH TD SCH (10:05)
[2020-09-26] MEDS: BUDESONIDE/FORMETEROL FUMARATE 160/4.5 mcg INHALER IH SCH ×2 (10:05→21:29)
[2020-09-26] MEDS: GABAPENTIN 400 MG CAPSULE PO SCH ×2 (10:05→21:29)
[2020-09-26] MEDS: PRENATAL VITAMINS W/ FOLIC ACID TABLET (FP) PO SCH (10:05)
[2020-09-26] MEDS: QUEtiapine FUMARATE 400 MG TABLET PO SCH (21:29)
[2020-09-26] MEDS: MELATONIN 5 MG TABLETS PO SCH (21:29)
[2020-09-26] MEDS: THIAMINE HCL 100 MG TABLET (FP) PO SCH (21:29)
[2020-09-26] MEDS: IBUPROFEN 400 MG TABLET (FP) PO PRN (21:30)
[2020-09-27] MEDS: METHOCARBAMOL 500 MG TABLET PO PRN ×2 (06:25→21:22)
[2020-09-27] MEDS: ACETAMINOPHEN 325 MG TABLET (FP) PO PRN (06:25)
[2020-09-27] MEDS: METHADONE HCL 40 MG DISPERSABLE TABLET PO SCH (06:25)
[2020-09-27] MEDS: hydrOXYzine PAMOATE 50 MG CAPSULE (FP) PO PRN ×3 (06:25→19:02)
[2020-09-27] MEDS: BUDESONIDE/FORMETEROL FUMARATE 160/4.5 mcg INHALER IH SCH ×2 (10:23→21:23)
[2020-09-27] MEDS: PRENATAL VITAMINS W/ FOLIC ACID TABLET (FP) PO SCH (10:23)
[2020-09-27] MEDS: GABAPENTIN 400 MG CAPSULE PO SCH ×2 (10:23→21:22)
[2020-09-27] MEDS: NICOTINE 14 MG/24 HOURS TOPICAL PATCH TD SCH (10:24)
[2020-09-27] MEDS: OXcarbazepine 300 MG TABLET (UD) PO SCH (10:24)
[2020-09-27] MEDS: NICOTINE POLACRILEX 2 MG GUM BUC PRN (12:52)
[2020-09-27] MEDS: THIAMINE HCL 100 MG TABLET (FP) PO SCH (21:20)
[2020-09-27] MEDS: MELATONIN 5 MG TABLETS PO SCH (21:20)
[2020-09-27] MEDS: QUEtiapine FUMARATE 400 MG TABLET PO SCH (21:22)
[2020-09-28] MEDS: hydrOXYzine PAMOATE 50 MG CAPSULE (FP) PO PRN ×4 (03:11→21:33)
[2020-09-28] MEDS: METHADONE HCL 40 MG DISPERSABLE TABLET PO SCH (06:24)
[2020-09-28] MEDS: ACETAMINOPHEN 325 MG TABLET (FP) PO PRN (06:24)
[2020-09-28] MEDS: NICOTINE POLACRILEX 2 MG GUM BUC PRN ×4 (09:10→21:34)
[2020-09-28] MEDS: GABAPENTIN 400 MG CAPSULE PO SCH ×2 (10:08→21:33)
[2020-09-28] MEDS: BUDESONIDE/FORMETEROL FUMARATE 160/4.5 mcg INHALER IH SCH ×2 (10:08→21:32)
[2020-09-28] MEDS: PRENATAL VITAMINS W/ FOLIC ACID TABLET (FP) PO SCH (10:08)
[2020-09-28] MEDS: OXcarbazepine 300 MG TABLET (UD) PO SCH (10:09)
[2020-09-28] MEDS: NICOTINE 14 MG/24 HOURS TOPICAL PATCH TD SCH (10:09)
[2020-09-28] MEDS: METHOCARBAMOL 500 MG TABLET PO PRN (17:30)
[2020-09-28] MEDS: MELATONIN 5 MG TABLETS PO SCH (21:32)
[2020-09-28] MEDS: QUEtiapine FUMARATE 400 MG TABLET PO SCH (21:33)
[2020-09-28] MEDS: THIAMINE HCL 100 MG TABLET (FP) PO SCH (21:33)
[2020-09-29] MEDS: ACETAMINOPHEN 325 MG TABLET (FP) PO PRN (06:30)
[2020-09-29] MEDS: METHADONE HCL 40 MG DISPERSABLE TABLET PO SCH (06:30)
[2020-09-29] MEDS: hydrOXYzine PAMOATE 50 MG CAPSULE (FP) PO PRN (06:30)
[2020-09-29] MEDS: METHOCARBAMOL 500 MG TABLET PO PRN (06:33)
[2020-09-29] MEDS: NICOTINE POLACRILEX 2 MG GUM BUC PRN ×2 (06:34→09:08)
[2020-09-29 07:08] VITALS: BP 115/79; PULSE 88; TEMP 98
[2020-09-29] MEDS: BUDESONIDE/FORMETEROL FUMARATE 160/4.5 mcg INHALER IH SCH (09:05)
[2020-09-29] MEDS: GABAPENTIN 400 MG CAPSULE PO SCH (09:05)
[2020-09-29] MEDS: PRENATAL VITAMINS W/ FOLIC ACID TABLET (FP) PO SCH (09:05)
[2020-09-29] MEDS: NICOTINE 14 MG/24 HOURS TOPICAL PATCH TD SCH (09:05)
[2020-09-29] MEDS: OXcarbazepine 300 MG TABLET (UD) PO SCH (09:06)
== END 2020-09-29 09:54 | disposition home or self-care (01) | DRG 895 ==
LOC: YASAS 12:38 → Y5N 12:39
PROVIDERS: ADMIT Allergy & Immunology; ATTEND Allergy & Immunology
PROC: HZ42ZZZ Group Counseling for Substance Abuse Treatment, Cognitive-Behavioral (ICD-10-PCS; principal; 2020-09-16)
DX: F10.20 Alcohol dependence, uncomplicated (principal); F11.20 Opioid dependence, uncomplicated; F14.20 Cocaine dependence, uncomplicated; F12.20 Cannabis dependence, uncomplicated; F29 Unspecified psychosis not due to a substance or known physiological condition; G40.909 Epilepsy, unspecified, not intractable, without status epilepticus; J45.909 Unspecified asthma, uncomplicated

== ENCOUNTER 2020-11-08 13:39 | Inpatient (IN) | payer OTHER ==
[2020-11-08 14:47] VITALS: BMI 23.9
[2020-11-08] MEDS ORDERED: MAG HYDROX/AL HYDROX/SIMETH 30 ML UNIT-DOSE CUP PO PRN (18:04)
[2020-11-08] MEDS ORDERED: ONDANSETRON *ODT* 4 MG TABLET SL PRN (18:04)
[2020-11-08] MEDS ORDERED: MAGNESIUM CITRATE 300 ML BOTTLE PO PRN (18:04)
[2020-11-08] MEDS ORDERED: MENTHOL/PHENOL 1 EACH UD MM PRN (18:04)
[2020-11-08] MEDS ORDERED: MAGNESIUM HYDROX 2400MG/30ML ORAL SUSPENSION 30 ML CUP PO PRN (18:04)
[2020-11-08] MEDS ORDERED: BISMUTH SUBSALICYLATE 524 MG/30 ML UD PO PRN (18:04)
[2020-11-08] MEDS ORDERED: chlordiazePOXIDE HCL 25 MG CAPSULE PO PRN (18:04)
[2020-11-08] MEDS ORDERED: ACETAMINOPHEN 325 MG TABLET (FP) PO PRN (18:04)
[2020-11-08] MEDS: MELATONIN 5 MG TABLETS PO SCH (22:35)
[2020-11-08] MEDS: chlordiazePOXIDE HCL 25 MG CAPSULE PO SCH (22:36)
[2020-11-08] MEDS: THIAMINE HCL 100 MG TABLET (FP) PO SCH (22:36)
[2020-11-08] MEDS: NICOTINE POLACRILEX 2 MG GUM BUC PRN (22:37)
[2020-11-09] MEDS: chlordiazePOXIDE HCL 25 MG CAPSULE PO SCH ×4 (05:26→22:26)
[2020-11-09] MEDS ORDERED: METHADONE HCL 10 MG TABLET PO ONE (09:12)
[2020-11-09] MEDS ORDERED: METHADONE 80 MG, METHADONE 30 MG PO ONE (09:30)
[2020-11-09] MEDS ORDERED: METHADONE HCL 40 MG DISPERSABLE TABLET ONE (10:01)
[2020-11-09] MEDS ORDERED: METHADONE HCL 10 MG TABLET ONE (10:01)
[2020-11-09] MEDS: NICOTINE 21 MG/24 HOURS TOPICAL PATCH TD SCH (10:21)
[2020-11-09] MEDS: PRENATAL VITAMINS W/ FOLIC ACID TABLET (FP) PO SCH (10:21)
[2020-11-09] MEDS: NICOTINE POLACRILEX 2 MG GUM BUC PRN ×4 (10:24→22:32)
[2020-11-09] MEDS ORDERED: ALBUTEROL SO4 HFA INHALER IH PRN (11:02)
[2020-11-09 13:46] LABS: HEMATOCRIT 38.5 % (35.4-49); HEMOGLOBIN 12.6 GM/dL (11.7-16.9); MCH 30.3 pg (25.7-33.7); MCHC 32.7 g/dl (32.0-35.9); MEAN CELL VOLUME 92.6 fl (80-96); MEAN PLT VOLUME 9.3 fl (7.5-11.1); PLATELET COUNT 259 K/MM3 (134-434); POTASSIUM 4.4 mmol/L (3.5-5.1); RBC 4.15 M/mm3 (4.00-5.60); RDW 15.6 % (11.9-15.9); WHITE BLOOD COUNT 5.1 K/mm3 (4.0-10.0)
[2020-11-09 13:57] LABS: ALBUMIN 3.5 g/dl (3.4-5.0); BLOOD UREA NITROGEN 15.1 mg/dL (7-18)
[2020-11-09 13:59] LABS: CREATININE 0.7 mg/dL (0.55-1.3)
[2020-11-09 14:01] LABS: TOT PROT 6.8 g/dl (6.4-8.2)
[2020-11-09 14:08] LABS: BILIRUBIN,TOTAL 0.4 mg/dL (0.2-1); CALCIUM 8.6 mg/dL (8.5-10.1)
[2020-11-09] MEDS: OXcarbazepine 300 MG TABLET (UD) PO SCH (15:56)
[2020-11-09 16:51] LABS: HIV INTERPRETATION NEGATIVE (NEGATIVE)
[2020-11-09] MEDS: ACETAMINOPHEN 325 MG TABLET (FP) PO PRN (18:08)
[2020-11-09] MEDS: MELATONIN 5 MG TABLETS PO SCH (22:26)
[2020-11-09] MEDS: GABAPENTIN 100 MG CAPSULE PO SCH (22:26)
[2020-11-09] MEDS: THIAMINE HCL 100 MG TABLET (FP) PO SCH (22:26)
[2020-11-09] MEDS: QUEtiapine FUMARATE 100 MG TABLET (FP) PO SCH (22:26)
[2020-11-09] MEDS: IBUPROFEN 400 MG TABLET (FP) PO PRN (22:27)
[2020-11-10] MEDS ORDERED: METHADONE HCL 10 MG TABLET ONE (04:44)
[2020-11-10] MEDS ORDERED: METHADONE HCL 40 MG DISPERSABLE TABLET ONE (04:45)
[2020-11-10] MEDS: chlordiazePOXIDE HCL 25 MG CAPSULE PO SCH ×4 (05:38→22:33)
[2020-11-10] MEDS: IBUPROFEN 400 MG TABLET (FP) PO PRN (05:39)
[2020-11-10] MEDS: METHADONE 80 MG, METHADONE 30 MG PO SCH (05:41)
[2020-11-10] MEDS ORDERED: METHADONE HCL 40 MG DISPERSABLE TABLET PO SCH (06:00)
[2020-11-10] MEDS ORDERED: MASKS NR ONE (08:39)
[2020-11-10] MEDS: METHOCARBAMOL 500 MG TABLET PO PRN (10:19)
[2020-11-10] MEDS: OXcarbazepine 300 MG TABLET (UD) PO SCH (10:19)
[2020-11-10] MEDS: GABAPENTIN 100 MG CAPSULE PO SCH ×2 (10:19→22:33)
[2020-11-10] MEDS: PRENATAL VITAMINS W/ FOLIC ACID TABLET (FP) PO SCH (10:19)
[2020-11-10] MEDS: ACETAMINOPHEN 325 MG TABLET (FP) PO PRN (10:20)
[2020-11-10] MEDS: NICOTINE 21 MG/24 HOURS TOPICAL PATCH TD SCH (10:22)
[2020-11-10] MEDS: NICOTINE POLACRILEX 2 MG GUM BUC PRN ×3 (10:22→22:37)
[2020-11-10] MEDS: QUEtiapine FUMARATE 100 MG TABLET (FP) PO SCH (22:33)
[2020-11-10] MEDS: THIAMINE HCL 100 MG TABLET (FP) PO SCH (22:33)
[2020-11-10] MEDS: MELATONIN 5 MG TABLETS PO SCH (22:34)
[2020-11-11] MEDS ORDERED: chlordiazePOXIDE HCL 10 MG CAPSULE PO PRN
[2020-11-11] MEDS ORDERED: METHADONE HCL 10 MG TABLET ONE (04:39)
[2020-11-11] MEDS ORDERED: METHADONE HCL 40 MG DISPERSABLE TABLET ONE (04:40)
[2020-11-11] MEDS: chlordiazePOXIDE HCL 10 MG CAPSULE PO SCH ×4 (05:50→22:16)
[2020-11-11] MEDS: METHADONE 80 MG, METHADONE 30 MG PO SCH (05:50)
[2020-11-11] MEDS: NICOTINE POLACRILEX 2 MG GUM BUC PRN ×3 (05:54→18:17)
[2020-11-11] MEDS: OXcarbazepine 300 MG TABLET (UD) PO SCH (10:30)
[2020-11-11] MEDS: NICOTINE 21 MG/24 HOURS TOPICAL PATCH TD SCH (10:30)
[2020-11-11] MEDS: GABAPENTIN 100 MG CAPSULE PO SCH ×2 (10:30→22:16)
[2020-11-11] MEDS: PRENATAL VITAMINS W/ FOLIC ACID TABLET (FP) PO SCH (10:30)
[2020-11-11] MEDS: METHOCARBAMOL 500 MG TABLET PO PRN ×2 (10:31→18:17)
[2020-11-11] MEDS: ACETAMINOPHEN 325 MG TABLET (FP) PO PRN (18:15)
[2020-11-11] MEDS: MELATONIN 5 MG TABLETS PO SCH (22:16)
[2020-11-11] MEDS: QUEtiapine FUMARATE 100 MG TABLET (FP) PO SCH (22:16)
[2020-11-11] MEDS: THIAMINE HCL 100 MG TABLET (FP) PO SCH (22:17)
[2020-11-11] MEDS: IBUPROFEN 400 MG TABLET (FP) PO PRN (22:18)
[2020-11-12] MEDS ORDERED: METHADONE HCL 10 MG TABLET ONE (03:26)
[2020-11-12] MEDS ORDERED: METHADONE HCL 40 MG DISPERSABLE TABLET ONE (03:26)
[2020-11-12] MEDS: METHADONE 80 MG, METHADONE 30 MG PO SCH (05:27)
[2020-11-12] MEDS: chlordiazePOXIDE HCL 10 MG CAPSULE PO SCH ×2 (05:27→18:04)
[2020-11-12] MEDS: NICOTINE POLACRILEX 2 MG GUM BUC PRN ×3 (05:28→22:32)
[2020-11-12] MEDS: GABAPENTIN 100 MG CAPSULE PO SCH ×2 (10:23→22:31)
[2020-11-12] MEDS: OXcarbazepine 300 MG TABLET (UD) PO SCH (10:23)
[2020-11-12] MEDS: PRENATAL VITAMINS W/ FOLIC ACID TABLET (FP) PO SCH (10:23)
[2020-11-12] MEDS: NICOTINE 21 MG/24 HOURS TOPICAL PATCH TD SCH (10:25)
[2020-11-12] MEDS: THIAMINE HCL 100 MG TABLET (FP) PO SCH (22:31)
[2020-11-12] MEDS: QUEtiapine FUMARATE 100 MG TABLET (FP) PO SCH (22:31)
[2020-11-12] MEDS: MELATONIN 5 MG TABLETS PO SCH (22:31)
[2020-11-13] MEDS ORDERED: METHADONE HCL 10 MG TABLET ONE (04:39)
[2020-11-13] MEDS ORDERED: METHADONE HCL 40 MG DISPERSABLE TABLET ONE (04:39)
[2020-11-13] MEDS ORDERED: chlordiazePOXIDE HCL 10 MG CAPSULE PO ONE (05:00)
[2020-11-13] MEDS: METHADONE 80 MG, METHADONE 30 MG PO SCH (05:47)
[2020-11-13] MEDS: ACETAMINOPHEN 325 MG TABLET (FP) PO PRN (05:47)
[2020-11-13] MEDS: NICOTINE POLACRILEX 2 MG GUM BUC PRN ×2 (05:48→10:23)
[2020-11-13 09:35] VITALS: BP 110/68; PULSE 81; TEMP 98
[2020-11-13] MEDS: GABAPENTIN 100 MG CAPSULE PO SCH (10:17)
[2020-11-13] MEDS: PRENATAL VITAMINS W/ FOLIC ACID TABLET (FP) PO SCH (10:17)
[2020-11-13] MEDS: NICOTINE 21 MG/24 HOURS TOPICAL PATCH TD SCH (10:18)
[2020-11-13] MEDS: IBUPROFEN 400 MG TABLET (FP) PO PRN (10:21)
[2020-11-13] MEDS: OXcarbazepine 300 MG TABLET (UD) PO SCH (12:33)
== END 2020-11-13 12:36 | disposition other institution (70) | DRG 897 ==
LOC: YASAS 13:39 → Y3N 17:46
PROVIDERS: ADMIT Allergy & Immunology; ATTEND Allergy & Immunology
PROC: HZ2ZZZZ Detoxification Services for Substance Abuse Treatment (ICD-10-PCS; principal; 2020-11-08)
DX: F10.230 Alcohol dependence with withdrawal, uncomplicated (principal); F11.20 Opioid dependence, uncomplicated; F14.20 Cocaine dependence, uncomplicated; F15.20 Other stimulant dependence, uncomplicated; F19.280 Other psychoactive substance dependence with psychoactive substance-induced anxiety disorder; F13.230 Sedative, hypnotic or anxiolytic dependence with withdrawal, uncomplicated; F12.20 Cannabis dependence, uncomplicated; F17.210 Nicotine dependence, cigarettes, uncomplicated; F19.24 Other psychoactive substance dependence with psychoactive substance-induced mood disorder; F32.9 Major depressive disorder, single episode, unspecified; F20.9 Schizophrenia, unspecified; F41.9 Anxiety disorder, unspecified; D64.9 Anemia, unspecified; G47.00 Insomnia, unspecified; G40.909 Epilepsy, unspecified, not intractable, without status epilepticus; J45.909 Unspecified asthma, uncomplicated
CPT/HCPCS: 36415; 80053; 85027; 86780; 87389; 93005; 93010; C9803; U0003

== ENCOUNTER 2020-11-13 12:49 | Inpatient (IN) | payer OTHER ==
[2020-11-13] MEDS ORDERED: ACETAMINOPHEN 325 MG TABLET (FP) PO PRN (14:15)
[2020-11-13] MEDS ORDERED: MAG HYDROX/AL HYDROX/SIMETH 30 ML UNIT-DOSE CUP PO PRN (14:15)
[2020-11-13] MEDS ORDERED: MAGNESIUM HYDROX 2400MG/30ML ORAL SUSPENSION 30 ML CUP PO PRN (14:15)
[2020-11-13] MEDS ORDERED: LOPERAMIDE HCL 2 MG CAPSULE PO PRN (14:15)
[2020-11-13] MEDS ORDERED: guaiFENesin 200 MG/10 ML 10 ML UNIT-DOSE CUPS PO PRN (14:15)
[2020-11-13] MEDS ORDERED: MAGNESIUM CITRATE 300 ML BOTTLE PO PRN (14:15)
[2020-11-13] MEDS ORDERED: MENTHOL/PHENOL 1 EACH UD MM PRN (14:15)
[2020-11-13] MEDS ORDERED: P-EPHED 60MG/TRIPROLIDI 2.5MG TABLET PO PRN (14:15)
[2020-11-13] MEDS ORDERED: ALBUTEROL SO4 HFA INHALER IH PRN (14:16)
[2020-11-13] MEDS: QUEtiapine FUMARATE 100 MG TABLET (FP) PO SCH (21:35)
[2020-11-13] MEDS: METHOCARBAMOL 500 MG TABLET PO SCH (21:35)
[2020-11-13] MEDS: GABAPENTIN 100 MG CAPSULE PO SCH (21:35)
[2020-11-13] MEDS: MELATONIN 5 MG TABLETS PO SCH (21:36)
[2020-11-13] MEDS: NICOTINE POLACRILEX 2 MG GUM BUC PRN (21:36)
[2020-11-13] MEDS: THIAMINE HCL 100 MG TABLET (FP) PO SCH (21:36)
[2020-11-14] MEDS ORDERED: METHADONE HCL 40 MG DISPERSABLE TABLET ONE (05:37)
[2020-11-14] MEDS ORDERED: METHADONE HCL 10 MG TABLET ONE (05:38)
[2020-11-14] MEDS: METHADONE 80 MG, METHADONE 30 MG PO SCH (05:44)
[2020-11-14] MEDS ORDERED: METHADONE 80 MG, METHADONE 10 MG PO SCH (06:00)
[2020-11-14] MEDS ORDERED: METHADONE HCL 5 MG TABLET PO SCH (06:00)
[2020-11-14] MEDS ORDERED: METHADONE 80 MG, METHADONE 30 MG PO SCH (06:00)
[2020-11-14] MEDS: METHOCARBAMOL 500 MG TABLET PO SCH ×3 (06:01→21:06)
[2020-11-14] MEDS: OXcarbazepine 300 MG TABLET (UD) PO SCH (09:45)
[2020-11-14] MEDS: NICOTINE 21 MG/24 HOURS TOPICAL PATCH TD SCH (09:45)
[2020-11-14] MEDS: PRENATAL VITAMINS W/ FOLIC ACID TABLET (FP) PO SCH (09:45)
[2020-11-14] MEDS: hydrOXYzine PAMOATE 25 MG CAPSULE (FP) PO PRN ×3 (09:45→21:07)
[2020-11-14] MEDS: GABAPENTIN 100 MG CAPSULE PO SCH ×2 (09:45→21:06)
[2020-11-14] MEDS: IBUPROFEN 400 MG TABLET (FP) PO PRN (09:46)
[2020-11-14] MEDS: NICOTINE POLACRILEX 2 MG GUM BUC PRN ×4 (09:48→21:07)
[2020-11-14] MEDS ORDERED: NICOTINE 7 MG/24 HOURS TOPICAL PATCH TD SCH (10:00)
[2020-11-14] MEDS: THIAMINE HCL 100 MG TABLET (FP) PO SCH (21:06)
[2020-11-14] MEDS: QUEtiapine FUMARATE 100 MG TABLET (FP) PO SCH (21:06)
[2020-11-14] MEDS: MELATONIN 5 MG TABLETS PO SCH (21:06)
[2020-11-15] MEDS ORDERED: METHADONE HCL 40 MG DISPERSABLE TABLET ONE (03:05)
[2020-11-15] MEDS ORDERED: METHADONE HCL 10 MG TABLET ONE (03:06)
[2020-11-15] MEDS: METHOCARBAMOL 500 MG TABLET PO SCH ×3 (06:10→21:30)
[2020-11-15] MEDS: METHADONE 80 MG, METHADONE 30 MG PO SCH (06:10)
[2020-11-15] MEDS: hydrOXYzine PAMOATE 25 MG CAPSULE (FP) PO PRN ×4 (06:12→19:01)
[2020-11-15] MEDS: NICOTINE POLACRILEX 2 MG GUM BUC PRN ×6 (06:13→21:32)
[2020-11-15] MEDS: GABAPENTIN 100 MG CAPSULE PO SCH ×2 (09:43→21:32)
[2020-11-15] MEDS: PRENATAL VITAMINS W/ FOLIC ACID TABLET (FP) PO SCH (09:43)
[2020-11-15] MEDS: OXcarbazepine 300 MG TABLET (UD) PO SCH (09:43)
[2020-11-15] MEDS: NICOTINE 21 MG/24 HOURS TOPICAL PATCH TD SCH (09:43)
[2020-11-15] MEDS ORDERED: GABAPENTIN 100 MG CAPSULE PO ONE (10:00)
[2020-11-15] MEDS: IBUPROFEN 400 MG TABLET (FP) PO PRN (11:31)
[2020-11-15] MEDS: MELATONIN 5 MG TABLETS PO SCH (21:30)
[2020-11-15] MEDS: THIAMINE HCL 100 MG TABLET (FP) PO SCH (21:30)
[2020-11-15] MEDS: QUEtiapine FUMARATE 200 MG TABLET PO SCH (21:31)
[2020-11-16] MEDS ORDERED: METHADONE HCL 40 MG DISPERSABLE TABLET ONE (03:06)
[2020-11-16] MEDS ORDERED: METHADONE HCL 10 MG TABLET ONE (03:06)
[2020-11-16] MEDS: METHOCARBAMOL 500 MG TABLET PO SCH ×3 (06:16→21:44)
[2020-11-16] MEDS: IBUPROFEN 400 MG TABLET (FP) PO PRN ×2 (06:16→13:59)
[2020-11-16] MEDS: hydrOXYzine PAMOATE 25 MG CAPSULE (FP) PO PRN ×2 (06:16→09:39)
[2020-11-16] MEDS: METHADONE 80 MG, METHADONE 30 MG PO SCH (06:16)
[2020-11-16] MEDS: PRENATAL VITAMINS W/ FOLIC ACID TABLET (FP) PO SCH (09:38)
[2020-11-16] MEDS: NICOTINE 21 MG/24 HOURS TOPICAL PATCH TD SCH (09:39)
[2020-11-16] MEDS: GABAPENTIN 100 MG CAPSULE PO SCH ×2 (09:39→21:44)
[2020-11-16] MEDS: OXcarbazepine 300 MG TABLET (UD) PO SCH (09:39)
[2020-11-16] MEDS: NICOTINE POLACRILEX 2 MG GUM BUC PRN ×2 (09:39→21:46)
[2020-11-16] MEDS: MELATONIN 5 MG TABLETS PO SCH (21:44)
[2020-11-16] MEDS: QUEtiapine FUMARATE 200 MG TABLET PO SCH (21:44)
[2020-11-16] MEDS: THIAMINE HCL 100 MG TABLET (FP) PO SCH (21:44)
[2020-11-17] MEDS ORDERED: METHADONE HCL 40 MG DISPERSABLE TABLET ONE (03:20)
[2020-11-17] MEDS ORDERED: METHADONE HCL 10 MG TABLET ONE (03:20)
[2020-11-17] MEDS: METHADONE 80 MG, METHADONE 30 MG PO SCH (06:22)
[2020-11-17] MEDS: hydrOXYzine PAMOATE 25 MG CAPSULE (FP) PO PRN ×4 (06:22→18:27)
[2020-11-17] MEDS: METHOCARBAMOL 500 MG TABLET PO SCH ×3 (06:22→22:27)
[2020-11-17] MEDS: IBUPROFEN 400 MG TABLET (FP) PO PRN (06:23)
[2020-11-17] MEDS: NICOTINE POLACRILEX 2 MG GUM BUC PRN ×3 (08:17→22:34)
[2020-11-17] MEDS: GABAPENTIN 100 MG CAPSULE PO SCH (11:01)
[2020-11-17] MEDS: PRENATAL VITAMINS W/ FOLIC ACID TABLET (FP) PO SCH (11:01)
[2020-11-17] MEDS: OXcarbazepine 300 MG TABLET (UD) PO SCH (11:02)
[2020-11-17] MEDS: NICOTINE 21 MG/24 HOURS TOPICAL PATCH TD SCH (11:02)
[2020-11-17] MEDS: THIAMINE HCL 100 MG TABLET (FP) PO SCH (22:27)
[2020-11-17] MEDS: QUEtiapine FUMARATE 300 MG TABLET PO SCH (22:28)
[2020-11-17] MEDS: MELATONIN 5 MG TABLETS PO SCH (22:28)
[2020-11-17] MEDS: GABAPENTIN 400 MG CAPSULE PO SCH (22:29)
[2020-11-18] MEDS ORDERED: METHADONE HCL 40 MG DISPERSABLE TABLET ONE (03:16)
[2020-11-18] MEDS ORDERED: METHADONE HCL 10 MG TABLET ONE (03:17)
[2020-11-18] MEDS: METHOCARBAMOL 500 MG TABLET PO SCH ×3 (06:38→21:47)
[2020-11-18] MEDS: IBUPROFEN 400 MG TABLET (FP) PO PRN ×2 (06:38→14:46)
[2020-11-18] MEDS: METHADONE 80 MG, METHADONE 30 MG PO SCH (06:38)
[2020-11-18] MEDS: NICOTINE POLACRILEX 2 MG GUM BUC PRN ×3 (06:39→21:52)
[2020-11-18] MEDS: hydrOXYzine PAMOATE 25 MG CAPSULE (FP) PO PRN ×4 (06:39→18:56)
[2020-11-18] MEDS: NICOTINE 21 MG/24 HOURS TOPICAL PATCH TD SCH (10:35)
[2020-11-18] MEDS: GABAPENTIN 400 MG CAPSULE PO SCH ×2 (10:35→21:47)
[2020-11-18] MEDS: PRENATAL VITAMINS W/ FOLIC ACID TABLET (FP) PO SCH (10:35)
[2020-11-18] MEDS: OXcarbazepine 300 MG TABLET (UD) PO SCH (10:35)
[2020-11-18] MEDS ORDERED: QUEtiapine FUMARATE 100 MG TABLET (FP) ONE (18:54)
[2020-11-18] MEDS: MELATONIN 5 MG TABLETS PO SCH (21:47)
[2020-11-18] MEDS: THIAMINE HCL 100 MG TABLET (FP) PO SCH (21:48)
[2020-11-18] MEDS: QUEtiapine FUMARATE 300 MG TABLET PO SCH (21:49)
[2020-11-19] MEDS ORDERED: METHADONE HCL 40 MG DISPERSABLE TABLET ONE (03:40)
[2020-11-19] MEDS ORDERED: METHADONE HCL 10 MG TABLET ONE (03:41)
[2020-11-19] MEDS: METHOCARBAMOL 500 MG TABLET PO SCH ×3 (06:56→21:52)
[2020-11-19] MEDS: METHADONE 80 MG, METHADONE 30 MG PO SCH (06:56)
[2020-11-19] MEDS: hydrOXYzine PAMOATE 25 MG CAPSULE (FP) PO PRN ×4 (06:56→18:52)
[2020-11-19] MEDS: IBUPROFEN 400 MG TABLET (FP) PO PRN (06:57)
[2020-11-19] MEDS: GABAPENTIN 400 MG CAPSULE PO SCH ×2 (09:34→21:52)
[2020-11-19] MEDS: NICOTINE POLACRILEX 2 MG GUM BUC PRN ×4 (09:34→22:49)
[2020-11-19] MEDS: NICOTINE 21 MG/24 HOURS TOPICAL PATCH TD SCH (09:34)
[2020-11-19] MEDS: OXcarbazepine 300 MG TABLET (UD) PO SCH (09:34)
[2020-11-19] MEDS: PRENATAL VITAMINS W/ FOLIC ACID TABLET (FP) PO SCH (09:34)
[2020-11-19] MEDS ORDERED: QUEtiapine FUMARATE 100 MG TABLET (FP) ONE (18:49)
[2020-11-19] MEDS: QUEtiapine FUMARATE 300 MG TABLET PO SCH (21:51)
[2020-11-19] MEDS: MELATONIN 5 MG TABLETS PO SCH (21:52)
[2020-11-19] MEDS: THIAMINE HCL 100 MG TABLET (FP) PO SCH (21:52)
[2020-11-20] MEDS ORDERED: METHADONE HCL 40 MG DISPERSABLE TABLET ONE (03:13)
[2020-11-20] MEDS ORDERED: METHADONE HCL 10 MG TABLET ONE (03:14)
[2020-11-20] MEDS: METHADONE 80 MG, METHADONE 30 MG PO SCH (06:52)
[2020-11-20] MEDS: NICOTINE POLACRILEX 2 MG GUM BUC PRN ×2 (06:53→09:45)
[2020-11-20] MEDS: METHOCARBAMOL 500 MG TABLET PO SCH (06:53)
[2020-11-20] MEDS: hydrOXYzine PAMOATE 25 MG CAPSULE (FP) PO PRN ×2 (06:54→09:38)
[2020-11-20] MEDS: GABAPENTIN 400 MG CAPSULE PO SCH (09:38)
[2020-11-20] MEDS: PRENATAL VITAMINS W/ FOLIC ACID TABLET (FP) PO SCH (09:38)
[2020-11-20] MEDS: OXcarbazepine 300 MG TABLET (UD) PO SCH (09:38)
[2020-11-20] MEDS: NICOTINE 21 MG/24 HOURS TOPICAL PATCH TD SCH (09:38)
[2020-11-20] MEDS: IBUPROFEN 400 MG TABLET (FP) PO PRN (09:44)
[2020-11-20 14:42] VITALS: BP 120/69; PULSE 105; TEMP 97.2
== END 2020-11-20 12:55 | disposition home or self-care (01) | DRG 895 ==
LOC: YASAS 12:49 → Y3W 12:51
PROVIDERS: ADMIT Allergy & Immunology; ATTEND Allergy & Immunology
PROC: HZ42ZZZ Group Counseling for Substance Abuse Treatment, Cognitive-Behavioral (ICD-10-PCS; principal; 2020-11-13)
DX: F10.20 Alcohol dependence, uncomplicated (principal); F11.20 Opioid dependence, uncomplicated; F14.20 Cocaine dependence, uncomplicated; F15.20 Other stimulant dependence, uncomplicated; F19.280 Other psychoactive substance dependence with psychoactive substance-induced anxiety disorder; F12.20 Cannabis dependence, uncomplicated; F17.210 Nicotine dependence, cigarettes, uncomplicated; F19.24 Other psychoactive substance dependence with psychoactive substance-induced mood disorder; F20.9 Schizophrenia, unspecified; F32.9 Major depressive disorder, single episode, unspecified; D64.9 Anemia, unspecified; G40.909 Epilepsy, unspecified, not intractable, without status epilepticus; J45.909 Unspecified asthma, uncomplicated
CPT/HCPCS: C9803; U0003

== ENCOUNTER 2020-12-20 12:33 | Inpatient (IN) | payer OTHER ==
[2020-12-20 13:37] VITALS: BMI 23.9
[2020-12-20] MEDS ORDERED: ALBUTEROL SO4 HFA INHALER IH PRN (14:18)
[2020-12-20] MEDS ORDERED: chlordiazePOXIDE HCL 25 MG CAPSULE PO PRN (14:19)
[2020-12-20] MEDS ORDERED: NALOXONE (NARCAN) HCL 4 MG/0.1 ML SPRAY NS PRN (14:19)
[2020-12-20] MEDS ORDERED: BISMUTH SUBSALICYLATE 524 MG/30 ML UD PO PRN (14:19)
[2020-12-20] MEDS ORDERED: MENTHOL/PHENOL 1 EACH UD MM PRN (14:19)
[2020-12-20] MEDS ORDERED: MAG HYDROX/AL HYDROX/SIMETH 30 ML UNIT-DOSE CUP PO PRN (14:19)
[2020-12-20] MEDS ORDERED: MAGNESIUM HYDROX 2400MG/30ML ORAL SUSPENSION 30 ML CUP PO PRN (14:19)
[2020-12-20] MEDS ORDERED: MAGNESIUM CITRATE 300 ML BOTTLE PO PRN (14:19)
[2020-12-20] MEDS ORDERED: ONDANSETRON *ODT* 4 MG TABLET SL PRN (14:19)
[2020-12-20] MEDS ORDERED: ACETAMINOPHEN 325 MG TABLET (FP) PO PRN (14:19)
[2020-12-20] MEDS: PRENATAL VITAMINS W/ FOLIC ACID TABLET (FP) PO SCH (15:56)
[2020-12-20] MEDS: ACETAMINOPHEN 325 MG TABLET (FP) PO PRN (15:56)
[2020-12-20] MEDS: NICOTINE 21 MG/24 HOURS TOPICAL PATCH TD SCH (15:57)
[2020-12-20] MEDS: NICOTINE POLACRILEX 2 MG GUM BUC PRN (15:58)
[2020-12-20] MEDS: chlordiazePOXIDE HCL 25 MG CAPSULE PO SCH ×2 (17:55→22:08)
[2020-12-20] MEDS: METHOCARBAMOL 500 MG TABLET PO PRN (17:59)
[2020-12-20] MEDS: hydrOXYzine PAMOATE 25 MG CAPSULE (FP) PO SCH ×2 (18:51→22:10)
[2020-12-20] MEDS: THIAMINE HCL 100 MG TABLET (FP) PO SCH (22:08)
[2020-12-20] MEDS: GABAPENTIN 400 MG CAPSULE PO SCH (22:08)
[2020-12-20] MEDS: MELATONIN 5 MG TABLETS PO SCH (22:09)
[2020-12-20] MEDS: BUDESONIDE/FORMETEROL FUMARATE 160/4.5 mcg INHALER IH SCH (22:09)
[2020-12-21] MEDS: chlordiazePOXIDE HCL 25 MG CAPSULE PO SCH ×4 (05:57→22:35)
[2020-12-21] MEDS: METHOCARBAMOL 500 MG TABLET PO PRN ×2 (05:57→18:32)
[2020-12-21] MEDS: hydrOXYzine PAMOATE 25 MG CAPSULE (FP) PO SCH ×6 (05:58→22:36)
[2020-12-21] MEDS: NICOTINE POLACRILEX 2 MG GUM BUC PRN ×5 (05:59→22:36)
[2020-12-21] MEDS ORDERED: METHADONE HCL 10 MG TABLET PO SCH (09:00)
[2020-12-21] MEDS ORDERED: METHADONE 120 MG, METHADONE 10 MG PO ONE (09:15)
[2020-12-21] MEDS ORDERED: METHADONE HCL 10 MG TABLET ONE (09:52)
[2020-12-21] MEDS ORDERED: METHADONE HCL 40 MG DISPERSABLE TABLET ONE (09:54)
[2020-12-21] MEDS: BUDESONIDE/FORMETEROL FUMARATE 160/4.5 mcg INHALER IH SCH ×2 (10:36→22:36)
[2020-12-21] MEDS: OXcarbazepine 300 MG TABLET (UD) PO SCH (10:36)
[2020-12-21] MEDS: GABAPENTIN 400 MG CAPSULE PO SCH ×2 (10:36→22:35)
[2020-12-21] MEDS: PRENATAL VITAMINS W/ FOLIC ACID TABLET (FP) PO SCH (10:37)
[2020-12-21] MEDS: NICOTINE 21 MG/24 HOURS TOPICAL PATCH TD SCH (10:37)
[2020-12-21 11:11] LABS: HEMATOCRIT 40.6 % (35.4-49); HEMOGLOBIN 13.8 GM/dL (11.7-16.9); MCHC 34.1 g/dl (32.0-35.9); MEAN CELL VOLUME 90.9 fl (80-96); MEAN PLT VOLUME 9.2 fl (7.5-11.1); PLATELET COUNT 302 K/MM3 (134-434); RBC 4.46 M/mm3 (4.00-5.60); RDW 14.5 % (11.9-15.9); WHITE BLOOD COUNT 6.5 K/mm3 (4.0-10.0)
[2020-12-21 11:21] LABS: CALCIUM 8.9 mg/dL (8.5-10.1)
[2020-12-21 11:22] LABS: ALBUMIN 3.8 g/dl (3.4-5.0)
[2020-12-21 11:23] LABS: BLOOD UREA NITROGEN 14.5 mg/dL (7-18)
[2020-12-21 11:24] LABS: BILIRUBIN,TOTAL 0.2 mg/dL (0.2-1)
[2020-12-21 11:25] LABS: TOT PROT 7.7 g/dl (6.4-8.2)
[2020-12-21 11:26] LABS: CREATININE 0.8 mg/dL (0.55-1.3)
[2020-12-21 13:21] LABS: HIV INTERPRETATION NEGATIVE (NEGATIVE)
[2020-12-21] MEDS: ACETAMINOPHEN 325 MG TABLET (FP) PO PRN (14:41)
[2020-12-21] MEDS: THIAMINE HCL 100 MG TABLET (FP) PO SCH (22:34)
[2020-12-21] MEDS: QUEtiapine FUMARATE 200 MG TABLET PO SCH (22:34)
[2020-12-21] MEDS: MELATONIN 5 MG TABLETS PO SCH (22:35)
[2020-12-22] MEDS ORDERED: METHADONE HCL 10 MG TABLET ONE (04:16)
[2020-12-22] MEDS ORDERED: METHADONE HCL 40 MG DISPERSABLE TABLET ONE (04:17)
[2020-12-22] MEDS: METHADONE 120 MG, METHADONE 10 MG PO SCH (06:28)
[2020-12-22] MEDS: chlordiazePOXIDE HCL 25 MG CAPSULE PO SCH ×4 (06:29→22:47)
[2020-12-22] MEDS: hydrOXYzine PAMOATE 25 MG CAPSULE (FP) PO SCH ×5 (06:29→22:47)
[2020-12-22] MEDS: OXcarbazepine 300 MG TABLET (UD) PO SCH (10:40)
[2020-12-22] MEDS: PRENATAL VITAMINS W/ FOLIC ACID TABLET (FP) PO SCH (10:40)
[2020-12-22] MEDS: BUDESONIDE/FORMETEROL FUMARATE 160/4.5 mcg INHALER IH SCH ×2 (10:40→22:52)
[2020-12-22] MEDS: GABAPENTIN 400 MG CAPSULE PO SCH ×2 (10:41→22:47)
[2020-12-22] MEDS: NICOTINE 21 MG/24 HOURS TOPICAL PATCH TD SCH (10:41)
[2020-12-22] MEDS: NICOTINE POLACRILEX 2 MG GUM BUC PRN ×3 (15:21→21:03)
[2020-12-22] MEDS: METHOCARBAMOL 500 MG TABLET PO PRN ×2 (15:22→22:49)
[2020-12-22] MEDS: IBUPROFEN 400 MG TABLET (FP) PO PRN (18:34)
[2020-12-22] MEDS: QUEtiapine FUMARATE 200 MG TABLET PO SCH (22:47)
[2020-12-22] MEDS: MELATONIN 5 MG TABLETS PO SCH (22:48)
[2020-12-22] MEDS: THIAMINE HCL 100 MG TABLET (FP) PO SCH (22:48)
[2020-12-22] MEDS: ACETAMINOPHEN 325 MG TABLET (FP) PO PRN (22:49)
[2020-12-23] MEDS ORDERED: chlordiazePOXIDE HCL 10 MG CAPSULE PO PRN
[2020-12-23] MEDS ORDERED: METHADONE HCL 10 MG TABLET ONE (04:58)
[2020-12-23] MEDS ORDERED: METHADONE HCL 40 MG DISPERSABLE TABLET ONE (05:00)
[2020-12-23] MEDS: hydrOXYzine PAMOATE 25 MG CAPSULE (FP) PO SCH ×5 (05:47→22:38)
[2020-12-23] MEDS: chlordiazePOXIDE HCL 10 MG CAPSULE PO SCH ×4 (05:47→22:35)
[2020-12-23] MEDS: METHADONE 120 MG, METHADONE 10 MG PO SCH (05:48)
[2020-12-23] MEDS: NICOTINE POLACRILEX 2 MG GUM BUC PRN ×4 (05:51→21:19)
[2020-12-23] MEDS ORDERED: chlordiazePOXIDE 5 MG CAPSULE ONE (10:01)
[2020-12-23 10:07] LABS: SARS-CoV-2 NAA Not Detected (Not Detected)
[2020-12-23] MEDS: PRENATAL VITAMINS W/ FOLIC ACID TABLET (FP) PO SCH (12:23)
[2020-12-23] MEDS: BUDESONIDE/FORMETEROL FUMARATE 160/4.5 mcg INHALER IH SCH ×2 (12:23→22:37)
[2020-12-23] MEDS: OXcarbazepine 300 MG TABLET (UD) PO SCH (12:24)
[2020-12-23] MEDS: GABAPENTIN 400 MG CAPSULE PO SCH ×2 (12:24→22:34)
[2020-12-23] MEDS: ACETAMINOPHEN 325 MG TABLET (FP) PO PRN ×2 (12:27→21:16)
[2020-12-23] MEDS: METHOCARBAMOL 500 MG TABLET PO PRN ×2 (12:27→21:17)
[2020-12-23] MEDS: NICOTINE 21 MG/24 HOURS TOPICAL PATCH TD SCH (12:30)
[2020-12-23] MEDS: IBUPROFEN 400 MG TABLET (FP) PO PRN ×2 (18:01→23:29)
[2020-12-23] MEDS: THIAMINE HCL 100 MG TABLET (FP) PO SCH (22:34)
[2020-12-23] MEDS: QUEtiapine FUMARATE 200 MG TABLET PO SCH (22:34)
[2020-12-23] MEDS: MELATONIN 5 MG TABLETS PO SCH (22:38)
[2020-12-24] MEDS ORDERED: METHADONE HCL 10 MG TABLET ONE (03:57)
[2020-12-24] MEDS ORDERED: METHADONE HCL 40 MG DISPERSABLE TABLET ONE (04:00)
[2020-12-24] MEDS: METHADONE 120 MG, METHADONE 10 MG PO SCH (05:41)
[2020-12-24] MEDS: chlordiazePOXIDE HCL 10 MG CAPSULE PO SCH ×2 (05:42→18:08)
[2020-12-24] MEDS: METHOCARBAMOL 500 MG TABLET PO PRN ×2 (05:44→15:52)
[2020-12-24] MEDS: hydrOXYzine PAMOATE 25 MG CAPSULE (FP) PO SCH ×5 (05:44→22:25)
[2020-12-24] MEDS: BUDESONIDE/FORMETEROL FUMARATE 160/4.5 mcg INHALER IH SCH ×2 (10:51→22:25)
[2020-12-24] MEDS: GABAPENTIN 400 MG CAPSULE PO SCH ×2 (10:52→22:25)
[2020-12-24] MEDS: PRENATAL VITAMINS W/ FOLIC ACID TABLET (FP) PO SCH (10:52)
[2020-12-24] MEDS: OXcarbazepine 300 MG TABLET (UD) PO SCH (10:52)
[2020-12-24] MEDS: NICOTINE 21 MG/24 HOURS TOPICAL PATCH TD SCH (10:53)
[2020-12-24] MEDS: IBUPROFEN 400 MG TABLET (FP) PO PRN ×2 (10:55→18:09)
[2020-12-24] MEDS: NICOTINE POLACRILEX 2 MG GUM BUC PRN ×4 (10:56→22:28)
[2020-12-24] MEDS: QUEtiapine FUMARATE 200 MG TABLET PO SCH (22:25)
[2020-12-24] MEDS: THIAMINE HCL 100 MG TABLET (FP) PO SCH (22:25)
[2020-12-24] MEDS: MELATONIN 5 MG TABLETS PO SCH (22:25)
[2020-12-25] MEDS ORDERED: METHADONE HCL 40 MG DISPERSABLE TABLET ONE (04:12)
[2020-12-25] MEDS ORDERED: METHADONE HCL 10 MG TABLET ONE (04:12)
[2020-12-25] MEDS ORDERED: chlordiazePOXIDE HCL 10 MG CAPSULE PO ONE (05:00)
[2020-12-25] MEDS: METHOCARBAMOL 500 MG TABLET PO PRN (05:42)
[2020-12-25] MEDS: hydrOXYzine PAMOATE 25 MG CAPSULE (FP) PO SCH ×2 (05:42→11:00)
[2020-12-25] MEDS: METHADONE 120 MG, METHADONE 10 MG PO SCH (05:42)
[2020-12-25] MEDS: NICOTINE POLACRILEX 2 MG GUM BUC PRN ×2 (05:46→12:09)
[2020-12-25 09:35] VITALS: BP 118/82; PULSE 98; TEMP 98.3
[2020-12-25] MEDS: NICOTINE 21 MG/24 HOURS TOPICAL PATCH TD SCH (11:00)
[2020-12-25] MEDS: PRENATAL VITAMINS W/ FOLIC ACID TABLET (FP) PO SCH (11:00)
[2020-12-25] MEDS: OXcarbazepine 300 MG TABLET (UD) PO SCH (11:00)
[2020-12-25] MEDS: GABAPENTIN 400 MG CAPSULE PO SCH (11:00)
[2020-12-25] MEDS: BUDESONIDE/FORMETEROL FUMARATE 160/4.5 mcg INHALER IH SCH (11:01)
[2020-12-25] MEDS: IBUPROFEN 400 MG TABLET (FP) PO PRN (11:04)
== END 2020-12-25 12:16 | disposition other institution (70) | DRG 897 ==
LOC: YASAS 12:33 → Y6N 15:12
PROVIDERS: ADMIT Allergy & Immunology; ATTEND Allergy & Immunology
PROC: HZ2ZZZZ Detoxification Services for Substance Abuse Treatment (ICD-10-PCS; principal; 2020-12-20)
DX: F10.230 Alcohol dependence with withdrawal, uncomplicated (principal); F11.20 Opioid dependence, uncomplicated; F14.20 Cocaine dependence, uncomplicated; F15.20 Other stimulant dependence, uncomplicated; F13.230 Sedative, hypnotic or anxiolytic dependence with withdrawal, uncomplicated; F12.20 Cannabis dependence, uncomplicated; F17.210 Nicotine dependence, cigarettes, uncomplicated; F20.9 Schizophrenia, unspecified; F19.24 Other psychoactive substance dependence with psychoactive substance-induced mood disorder; G40.909 Epilepsy, unspecified, not intractable, without status epilepticus; J45.909 Unspecified asthma, uncomplicated; Z62.810 Personal history of physical and sexual abuse in childhood; Z86.2 Personal history of diseases of the blood and blood-forming organs and certain disorders involving the immune mechanism; Z86.69 Personal history of other diseases of the nervous system and sense organs
CPT/HCPCS: 36415; 80053; 85027; 86780; 87389; C9803; U0003; U0005

== ENCOUNTER 2020-12-25 11:52 | Inpatient (IN) | payer OTHER ==
[2020-12-25] MEDS ORDERED: MAG HYDROX/AL HYDROX/SIMETH 30 ML UNIT-DOSE CUP PO PRN (14:05)
[2020-12-25] MEDS ORDERED: MAGNESIUM CITRATE 300 ML BOTTLE PO PRN (14:05)
[2020-12-25] MEDS ORDERED: P-EPHED 60MG/TRIPROLIDI 2.5MG TABLET PO PRN (14:05)
[2020-12-25] MEDS ORDERED: LOPERAMIDE HCL 2 MG CAPSULE PO PRN (14:05)
[2020-12-25] MEDS ORDERED: MAGNESIUM HYDROX 2400MG/30ML ORAL SUSPENSION 30 ML CUP PO PRN (14:05)
[2020-12-25] MEDS ORDERED: guaiFENesin 200 MG/10 ML 10 ML UNIT-DOSE CUPS PO PRN (14:05)
[2020-12-25] MEDS ORDERED: MENTHOL/PHENOL 1 EACH UD MM PRN (14:05)
[2020-12-25] MEDS ORDERED: ALBUTEROL SO4 HFA INHALER IH PRN (14:06)
[2020-12-25] MEDS: hydrOXYzine PAMOATE 25 MG CAPSULE (FP) PO PRN ×2 (17:19→21:18)
[2020-12-25] MEDS: IBUPROFEN 400 MG TABLET (FP) PO PRN (19:27)
[2020-12-25] MEDS: MELATONIN 5 MG TABLETS PO SCH (21:18)
[2020-12-25] MEDS: THIAMINE HCL 100 MG TABLET (FP) PO SCH (21:18)
[2020-12-25] MEDS: GABAPENTIN 400 MG CAPSULE PO SCH (21:19)
[2020-12-25] MEDS: BUDESONIDE/FORMETEROL FUMARATE 80/4.5 mcg INHALER IH SCH (21:19)
[2020-12-25] MEDS: QUEtiapine FUMARATE 200 MG TABLET PO SCH (21:19)
[2020-12-26] MEDS ORDERED: METHADONE HCL 10 MG TABLET PO SCH (06:00)
[2020-12-26] MEDS: METHADONE 120 MG, METHADONE 10 MG PO SCH (06:22)
[2020-12-26] MEDS ORDERED: METHADONE HCL 40 MG DISPERSABLE TABLET ONE (06:22)
[2020-12-26] MEDS ORDERED: METHADONE HCL 10 MG TABLET ONE (06:22)
[2020-12-26] MEDS: hydrOXYzine PAMOATE 25 MG CAPSULE (FP) PO PRN ×3 (06:23→19:09)
[2020-12-26] MEDS: IBUPROFEN 400 MG TABLET (FP) PO PRN ×2 (06:23→14:51)
[2020-12-26] MEDS: NICOTINE POLACRILEX 2 MG GUM BUC PRN ×3 (06:25→14:51)
[2020-12-26] MEDS ORDERED: PT OWN MED DRAWER 7, Y5N ONE ×2 (08:55→14:49)
[2020-12-26] MEDS: ACETAMINOPHEN 325 MG TABLET (FP) PO PRN (09:17)
[2020-12-26] MEDS: PRENATAL VITAMINS W/ FOLIC ACID TABLET (FP) PO SCH (09:18)
[2020-12-26] MEDS: BUDESONIDE/FORMETEROL FUMARATE 80/4.5 mcg INHALER IH SCH ×2 (09:18→21:16)
[2020-12-26] MEDS: GABAPENTIN 400 MG CAPSULE PO SCH ×2 (09:18→21:15)
[2020-12-26] MEDS: OXcarbazepine 300 MG TABLET (UD) PO SCH (09:19)
[2020-12-26] MEDS: NICOTINE 21 MG/24 HOURS TOPICAL PATCH TD SCH (09:20)
[2020-12-26] MEDS ORDERED: METHADONE HCL 5 MG TABLET (FOR DETOX USE ONLY) PO SCH (10:00)
[2020-12-26] MEDS ORDERED: NICOTINE 7 MG/24 HOURS TOPICAL PATCH TD SCH (10:00)
[2020-12-26] MEDS: QUEtiapine FUMARATE 200 MG TABLET PO SCH (21:15)
[2020-12-26] MEDS: THIAMINE HCL 100 MG TABLET (FP) PO SCH (21:15)
[2020-12-26] MEDS: MELATONIN 5 MG TABLETS PO SCH (21:15)
[2020-12-27] MEDS: NICOTINE POLACRILEX 2 MG GUM BUC PRN ×4 (02:09→13:47)
[2020-12-27] MEDS ORDERED: METHADONE HCL 10 MG TABLET ONE (06:04)
[2020-12-27] MEDS ORDERED: METHADONE HCL 40 MG DISPERSABLE TABLET ONE (06:05)
[2020-12-27] MEDS: METHADONE 120 MG, METHADONE 10 MG PO SCH (06:31)
[2020-12-27] MEDS ORDERED: PT OWN MED DRAWER 7, Y5N ONE (08:42)
[2020-12-27] MEDS: hydrOXYzine PAMOATE 25 MG CAPSULE (FP) PO PRN ×3 (08:49→21:10)
[2020-12-27] MEDS: BUDESONIDE/FORMETEROL FUMARATE 80/4.5 mcg INHALER IH SCH ×2 (09:38→21:11)
[2020-12-27] MEDS: OXcarbazepine 300 MG TABLET (UD) PO SCH (09:38)
[2020-12-27] MEDS: PRENATAL VITAMINS W/ FOLIC ACID TABLET (FP) PO SCH (09:38)
[2020-12-27] MEDS: NICOTINE 21 MG/24 HOURS TOPICAL PATCH TD SCH (09:39)
[2020-12-27] MEDS: GABAPENTIN 400 MG CAPSULE PO SCH ×2 (09:41→21:10)
[2020-12-27] MEDS: ACETAMINOPHEN 325 MG TABLET (FP) PO PRN (09:42)
[2020-12-27] MEDS: METHOCARBAMOL 500 MG TABLET PO SCH ×3 (13:46→21:10)
[2020-12-27] MEDS: QUEtiapine FUMARATE 200 MG TABLET PO SCH (21:10)
[2020-12-27] MEDS: THIAMINE HCL 100 MG TABLET (FP) PO SCH (21:10)
[2020-12-27] MEDS: MELATONIN 5 MG TABLETS PO SCH (21:10)
[2020-12-28] MEDS ORDERED: METHADONE HCL 10 MG TABLET ONE (03:13)
[2020-12-28] MEDS ORDERED: METHADONE HCL 40 MG DISPERSABLE TABLET ONE (03:14)
[2020-12-28] MEDS: METHADONE 120 MG, METHADONE 10 MG PO SCH (06:22)
[2020-12-28] MEDS: IBUPROFEN 400 MG TABLET (FP) PO PRN (06:23)
[2020-12-28] MEDS ORDERED: PT OWN MED DRAWER 7, Y5N ONE ×2 (08:12→19:14)
[2020-12-28] MEDS: BUDESONIDE/FORMETEROL FUMARATE 80/4.5 mcg INHALER IH SCH ×2 (09:05→21:24)
[2020-12-28] MEDS: OXcarbazepine 300 MG TABLET (UD) PO SCH (09:06)
[2020-12-28] MEDS: hydrOXYzine PAMOATE 25 MG CAPSULE (FP) PO PRN ×4 (09:06→21:26)
[2020-12-28] MEDS: GABAPENTIN 400 MG CAPSULE PO SCH ×2 (09:06→21:25)
[2020-12-28] MEDS: METHOCARBAMOL 500 MG TABLET PO SCH ×4 (09:06→21:25)
[2020-12-28] MEDS: NICOTINE 21 MG/24 HOURS TOPICAL PATCH TD SCH (09:06)
[2020-12-28] MEDS: PRENATAL VITAMINS W/ FOLIC ACID TABLET (FP) PO SCH (09:07)
[2020-12-28] MEDS: NICOTINE POLACRILEX 2 MG GUM BUC PRN ×4 (09:08→21:27)
[2020-12-28] MEDS: ACETAMINOPHEN 325 MG TABLET (FP) PO PRN ×2 (13:18→17:16)
[2020-12-28] MEDS: QUEtiapine FUMARATE 200 MG TABLET PO SCH (21:25)
[2020-12-28] MEDS: THIAMINE HCL 100 MG TABLET (FP) PO SCH (21:25)
[2020-12-28] MEDS: MELATONIN 5 MG TABLETS PO SCH (21:25)
[2020-12-29] MEDS ORDERED: METHADONE HCL 40 MG DISPERSABLE TABLET ONE (03:17)
[2020-12-29] MEDS ORDERED: METHADONE HCL 10 MG TABLET ONE (03:17)
[2020-12-29] MEDS: METHADONE 120 MG, METHADONE 10 MG PO SCH (06:35)
[2020-12-29] MEDS: IBUPROFEN 400 MG TABLET (FP) PO PRN (06:36)
[2020-12-29] MEDS ORDERED: PT OWN MED DRAWER 7, Y5N ONE (08:44)
[2020-12-29] MEDS: NICOTINE 21 MG/24 HOURS TOPICAL PATCH TD SCH (09:26)
[2020-12-29] MEDS: OXcarbazepine 300 MG TABLET (UD) PO SCH (09:27)
[2020-12-29] MEDS: GABAPENTIN 400 MG CAPSULE PO SCH ×2 (09:27→21:15)
[2020-12-29] MEDS: METHOCARBAMOL 500 MG TABLET PO SCH ×4 (09:27→21:15)
[2020-12-29] MEDS: PRENATAL VITAMINS W/ FOLIC ACID TABLET (FP) PO SCH (09:28)
[2020-12-29] MEDS: NICOTINE POLACRILEX 2 MG GUM BUC PRN ×2 (09:28→14:11)
[2020-12-29] MEDS: BUDESONIDE/FORMETEROL FUMARATE 80/4.5 mcg INHALER IH SCH ×2 (09:29→21:16)
[2020-12-29] MEDS: hydrOXYzine PAMOATE 25 MG CAPSULE (FP) PO PRN ×3 (09:29→21:15)
[2020-12-29 10:08] LABS: SARS-CoV-2 NAA Not Detected (Not Detected)
[2020-12-29] MEDS: THIAMINE HCL 100 MG TABLET (FP) PO SCH (21:15)
[2020-12-29] MEDS: MELATONIN 5 MG TABLETS PO SCH (21:15)
[2020-12-29] MEDS: QUEtiapine FUMARATE 200 MG TABLET PO SCH (21:15)
[2020-12-30] MEDS ORDERED: METHADONE HCL 40 MG DISPERSABLE TABLET ONE (03:57)
[2020-12-30] MEDS ORDERED: METHADONE HCL 10 MG TABLET ONE (03:57)
[2020-12-30] MEDS: METHADONE 120 MG, METHADONE 10 MG PO SCH (06:23)
[2020-12-30] MEDS: hydrOXYzine PAMOATE 25 MG CAPSULE (FP) PO PRN ×3 (06:26→21:02)
[2020-12-30] MEDS: NICOTINE POLACRILEX 2 MG GUM BUC PRN ×4 (06:28→21:03)
[2020-12-30] MEDS ORDERED: PT OWN MED DRAWER 7, Y5N ONE (08:41)
[2020-12-30] MEDS: METHOCARBAMOL 500 MG TABLET PO SCH ×4 (09:30→21:03)
[2020-12-30] MEDS: GABAPENTIN 400 MG CAPSULE PO SCH ×2 (09:30→21:03)
[2020-12-30] MEDS: BUDESONIDE/FORMETEROL FUMARATE 80/4.5 mcg INHALER IH SCH ×2 (09:31→21:02)
[2020-12-30] MEDS: IBUPROFEN 400 MG TABLET (FP) PO PRN (09:31)
[2020-12-30] MEDS: OXcarbazepine 300 MG TABLET (UD) PO SCH (09:31)
[2020-12-30] MEDS: NICOTINE 21 MG/24 HOURS TOPICAL PATCH TD SCH (09:31)
[2020-12-30] MEDS: PRENATAL VITAMINS W/ FOLIC ACID TABLET (FP) PO SCH (09:31)
[2020-12-30] MEDS: ACETAMINOPHEN 325 MG TABLET (FP) PO PRN (14:05)
[2020-12-30] MEDS: THIAMINE HCL 100 MG TABLET (FP) PO SCH (21:02)
[2020-12-30] MEDS: MELATONIN 5 MG TABLETS PO SCH (21:02)
[2020-12-30] MEDS: QUEtiapine FUMARATE 200 MG TABLET PO SCH (21:02)
[2020-12-31] MEDS ORDERED: METHADONE HCL 10 MG TABLET ONE (05:54)
[2020-12-31] MEDS ORDERED: METHADONE HCL 40 MG DISPERSABLE TABLET ONE (05:55)
[2020-12-31] MEDS: METHADONE 120 MG, METHADONE 10 MG PO SCH (06:21)
[2020-12-31] MEDS: hydrOXYzine PAMOATE 25 MG CAPSULE (FP) PO PRN ×4 (06:22→21:21)
[2020-12-31] MEDS: NICOTINE POLACRILEX 2 MG GUM BUC PRN ×4 (06:22→13:38)
[2020-12-31] MEDS ORDERED: PT OWN MED DRAWER 7, Y5N ONE ×2 (08:56→13:29)
[2020-12-31] MEDS: OXcarbazepine 300 MG TABLET (UD) PO SCH (09:36)
[2020-12-31] MEDS: PRENATAL VITAMINS W/ FOLIC ACID TABLET (FP) PO SCH (09:36)
[2020-12-31] MEDS: GABAPENTIN 400 MG CAPSULE PO SCH ×2 (09:36→21:21)
[2020-12-31] MEDS: IBUPROFEN 400 MG TABLET (FP) PO PRN (09:36)
[2020-12-31] MEDS: BUDESONIDE/FORMETEROL FUMARATE 80/4.5 mcg INHALER IH SCH ×2 (09:38→21:21)
[2020-12-31] MEDS: METHOCARBAMOL 500 MG TABLET PO SCH ×4 (09:38→21:20)
[2020-12-31] MEDS: NICOTINE 21 MG/24 HOURS TOPICAL PATCH TD SCH (09:38)
[2020-12-31] MEDS: MELATONIN 5 MG TABLETS PO SCH (21:20)
[2020-12-31] MEDS: THIAMINE HCL 100 MG TABLET (FP) PO SCH (21:20)
[2020-12-31] MEDS: QUEtiapine FUMARATE 200 MG TABLET PO SCH (21:21)
[2021-01-01] MEDS ORDERED: METHADONE HCL 10 MG TABLET ONE (03:55)
[2021-01-01] MEDS ORDERED: METHADONE HCL 40 MG DISPERSABLE TABLET ONE (03:55)
[2021-01-01] MEDS: METHADONE 120 MG, METHADONE 10 MG PO SCH (06:15)
[2021-01-01] MEDS: NICOTINE POLACRILEX 2 MG GUM BUC PRN ×4 (06:16→17:33)
[2021-01-01] MEDS: IBUPROFEN 400 MG TABLET (FP) PO PRN (06:16)
[2021-01-01] MEDS: hydrOXYzine PAMOATE 25 MG CAPSULE (FP) PO PRN ×3 (06:16→21:01)
[2021-01-01] MEDS ORDERED: PT OWN MED DRAWER 7, Y5N ONE ×2 (08:27→22:30)
[2021-01-01] MEDS: GABAPENTIN 400 MG CAPSULE PO SCH ×2 (09:37→21:01)
[2021-01-01] MEDS: NICOTINE 21 MG/24 HOURS TOPICAL PATCH TD SCH (09:37)
[2021-01-01] MEDS: BUDESONIDE/FORMETEROL FUMARATE 80/4.5 mcg INHALER IH SCH ×2 (09:38→21:02)
[2021-01-01] MEDS: PRENATAL VITAMINS W/ FOLIC ACID TABLET (FP) PO SCH (09:38)
[2021-01-01] MEDS: METHOCARBAMOL 500 MG TABLET PO SCH ×4 (09:38→21:01)
[2021-01-01] MEDS: OXcarbazepine 300 MG TABLET (UD) PO SCH (09:39)
[2021-01-01] MEDS: MELATONIN 5 MG TABLETS PO SCH (21:01)
[2021-01-01] MEDS: THIAMINE HCL 100 MG TABLET (FP) PO SCH (21:01)
[2021-01-01] MEDS: QUEtiapine FUMARATE 200 MG TABLET PO SCH (21:01)
[2021-01-02] MEDS ORDERED: METHADONE HCL 10 MG TABLET ONE (06:16)
[2021-01-02] MEDS ORDERED: METHADONE HCL 40 MG DISPERSABLE TABLET ONE (06:16)
[2021-01-02] MEDS: METHADONE 120 MG, METHADONE 10 MG PO SCH (06:20)
[2021-01-02] MEDS: NICOTINE POLACRILEX 2 MG GUM BUC PRN ×5 (06:22→21:28)
[2021-01-02] MEDS: hydrOXYzine PAMOATE 25 MG CAPSULE (FP) PO PRN ×3 (09:01→21:26)
[2021-01-02] MEDS: OXcarbazepine 300 MG TABLET (UD) PO SCH (09:23)
[2021-01-02] MEDS: NICOTINE 21 MG/24 HOURS TOPICAL PATCH TD SCH (09:23)
[2021-01-02] MEDS: PRENATAL VITAMINS W/ FOLIC ACID TABLET (FP) PO SCH (09:23)
[2021-01-02] MEDS: GABAPENTIN 400 MG CAPSULE PO SCH ×2 (09:23→21:30)
[2021-01-02] MEDS: BUDESONIDE/FORMETEROL FUMARATE 80/4.5 mcg INHALER IH SCH ×2 (09:24→21:26)
[2021-01-02] MEDS: METHOCARBAMOL 500 MG TABLET PO SCH ×4 (09:26→21:26)
[2021-01-02] MEDS: THIAMINE HCL 100 MG TABLET (FP) PO SCH (21:26)
[2021-01-02] MEDS: QUEtiapine FUMARATE 300 MG TABLET PO SCH (21:26)
[2021-01-02] MEDS: MELATONIN 5 MG TABLETS PO SCH (21:26)
[2021-01-02] MEDS ORDERED: PT OWN MED DRAWER 7, Y5N ONE (21:45)
[2021-01-03] MEDS ORDERED: METHADONE HCL 10 MG TABLET ONE (02:09)
[2021-01-03] MEDS ORDERED: METHADONE HCL 40 MG DISPERSABLE TABLET ONE (02:10)
[2021-01-03] MEDS: METHADONE 120 MG, METHADONE 10 MG PO SCH (06:06)
[2021-01-03] MEDS: hydrOXYzine PAMOATE 25 MG CAPSULE (FP) PO PRN ×3 (06:07→17:30)
[2021-01-03] MEDS: NICOTINE POLACRILEX 2 MG GUM BUC PRN ×5 (06:07→22:28)
[2021-01-03] MEDS ORDERED: PT OWN MED DRAWER 7, Y5N ONE (08:35)
[2021-01-03] MEDS: NICOTINE 21 MG/24 HOURS TOPICAL PATCH TD SCH (09:37)
[2021-01-03] MEDS: GABAPENTIN 400 MG CAPSULE PO SCH ×2 (09:37→21:13)
[2021-01-03] MEDS: OXcarbazepine 300 MG TABLET (UD) PO SCH (09:38)
[2021-01-03] MEDS: PRENATAL VITAMINS W/ FOLIC ACID TABLET (FP) PO SCH (09:38)
[2021-01-03] MEDS: METHOCARBAMOL 500 MG TABLET PO SCH ×4 (09:38→21:13)
[2021-01-03] MEDS: BUDESONIDE/FORMETEROL FUMARATE 80/4.5 mcg INHALER IH SCH ×2 (09:38→21:15)
[2021-01-03] MEDS: IBUPROFEN 400 MG TABLET (FP) PO PRN (17:31)
[2021-01-03] MEDS: THIAMINE HCL 100 MG TABLET (FP) PO SCH (21:12)
[2021-01-03] MEDS: QUEtiapine FUMARATE 300 MG TABLET PO SCH (21:12)
[2021-01-03] MEDS: MELATONIN 5 MG TABLETS PO SCH (21:13)
[2021-01-04] MEDS ORDERED: METHADONE HCL 40 MG DISPERSABLE TABLET ONE (03:09)
[2021-01-04] MEDS ORDERED: METHADONE HCL 10 MG TABLET ONE (03:09)
[2021-01-04] MEDS: METHADONE 120 MG, METHADONE 10 MG PO SCH (06:05)
[2021-01-04] MEDS: NICOTINE POLACRILEX 2 MG GUM BUC PRN ×4 (06:06→17:52)
[2021-01-04] MEDS: hydrOXYzine PAMOATE 25 MG CAPSULE (FP) PO PRN ×2 (06:06→12:50)
[2021-01-04] MEDS ORDERED: PT OWN MED DRAWER 7, Y5N ONE ×2 (08:35→09:30)
[2021-01-04] MEDS: NICOTINE 21 MG/24 HOURS TOPICAL PATCH TD SCH (09:32)
[2021-01-04] MEDS: GABAPENTIN 400 MG CAPSULE PO SCH ×2 (09:32→21:10)
[2021-01-04] MEDS: PRENATAL VITAMINS W/ FOLIC ACID TABLET (FP) PO SCH (09:32)
[2021-01-04] MEDS: BUDESONIDE/FORMETEROL FUMARATE 80/4.5 mcg INHALER IH SCH ×2 (09:33→21:11)
[2021-01-04] MEDS: OXcarbazepine 300 MG TABLET (UD) PO SCH (09:33)
[2021-01-04] MEDS: METHOCARBAMOL 500 MG TABLET PO SCH ×4 (09:33→21:10)
[2021-01-04] MEDS: QUEtiapine FUMARATE 300 MG TABLET PO SCH (21:10)
[2021-01-04] MEDS: MELATONIN 5 MG TABLETS PO SCH (21:10)
[2021-01-04] MEDS: THIAMINE HCL 100 MG TABLET (FP) PO SCH (21:10)
[2021-01-04] MEDS ORDERED: INSULIN (NOVOLOG) ASPART 100 UNITS/ML 10ML VIAL ONE (21:37)
[2021-01-05] MEDS ORDERED: METHADONE HCL 10 MG TABLET ONE (05:27)
[2021-01-05] MEDS ORDERED: METHADONE HCL 40 MG DISPERSABLE TABLET ONE (05:28)
[2021-01-05] MEDS: METHADONE 120 MG, METHADONE 10 MG PO SCH (06:31)
[2021-01-05] MEDS: BUDESONIDE/FORMETEROL FUMARATE 80/4.5 mcg INHALER IH SCH ×2 (09:33→21:06)
[2021-01-05] MEDS: PRENATAL VITAMINS W/ FOLIC ACID TABLET (FP) PO SCH (09:33)
[2021-01-05] MEDS: METHOCARBAMOL 500 MG TABLET PO SCH ×4 (09:33→21:06)
[2021-01-05] MEDS: GABAPENTIN 400 MG CAPSULE PO SCH ×2 (09:33→21:06)
[2021-01-05] MEDS: OXcarbazepine 300 MG TABLET (UD) PO SCH (09:33)
[2021-01-05] MEDS: NICOTINE 21 MG/24 HOURS TOPICAL PATCH TD SCH (09:34)
[2021-01-05] MEDS: NICOTINE POLACRILEX 2 MG GUM BUC PRN ×2 (09:37→13:00)
[2021-01-05] MEDS: hydrOXYzine PAMOATE 25 MG CAPSULE (FP) PO PRN ×2 (11:45→21:06)
[2021-01-05] MEDS ORDERED: PT OWN MED DRAWER 7, Y5N ONE (14:24)
[2021-01-05] MEDS: QUEtiapine FUMARATE 300 MG TABLET PO SCH (21:06)
[2021-01-05] MEDS: MELATONIN 5 MG TABLETS PO SCH (21:06)
[2021-01-05] MEDS: THIAMINE HCL 100 MG TABLET (FP) PO SCH (21:06)
[2021-01-06] MEDS ORDERED: METHADONE HCL 10 MG TABLET ONE (02:29)
[2021-01-06] MEDS ORDERED: METHADONE HCL 40 MG DISPERSABLE TABLET ONE (02:30)
[2021-01-06] MEDS: METHADONE 120 MG, METHADONE 10 MG PO SCH (06:08)
[2021-01-06] MEDS: NICOTINE POLACRILEX 2 MG GUM BUC PRN ×4 (06:09→21:01)
[2021-01-06] MEDS: hydrOXYzine PAMOATE 25 MG CAPSULE (FP) PO PRN ×3 (06:09→14:19)
[2021-01-06] MEDS ORDERED: PT OWN MED DRAWER 7, Y5N ONE (08:51)
[2021-01-06] MEDS: PRENATAL VITAMINS W/ FOLIC ACID TABLET (FP) PO SCH (09:30)
[2021-01-06] MEDS: OXcarbazepine 300 MG TABLET (UD) PO SCH (09:30)
[2021-01-06] MEDS: GABAPENTIN 400 MG CAPSULE PO SCH ×2 (09:30→20:59)
[2021-01-06] MEDS: METHOCARBAMOL 500 MG TABLET PO SCH ×5 (09:30→21:56)
[2021-01-06] MEDS: IBUPROFEN 400 MG TABLET (FP) PO PRN ×2 (09:30→21:58)
[2021-01-06] MEDS: NICOTINE 21 MG/24 HOURS TOPICAL PATCH TD SCH (09:31)
[2021-01-06] MEDS: BUDESONIDE/FORMETEROL FUMARATE 80/4.5 mcg INHALER IH SCH ×2 (10:03→21:00)
[2021-01-06] MEDS: QUEtiapine FUMARATE 300 MG TABLET PO SCH (20:59)
[2021-01-06] MEDS: THIAMINE HCL 100 MG TABLET (FP) PO SCH (20:59)
[2021-01-06] MEDS: MELATONIN 5 MG TABLETS PO SCH (20:59)
[2021-01-07] MEDS ORDERED: METHADONE HCL 10 MG TABLET ONE (03:17)
[2021-01-07] MEDS ORDERED: METHADONE HCL 40 MG DISPERSABLE TABLET ONE (03:18)
[2021-01-07] MEDS: METHADONE 120 MG, METHADONE 10 MG PO SCH (06:08)
[2021-01-07] MEDS: NICOTINE POLACRILEX 2 MG GUM BUC PRN ×5 (06:09→21:14)
[2021-01-07] MEDS: hydrOXYzine PAMOATE 25 MG CAPSULE (FP) PO PRN ×4 (06:09→21:09)
[2021-01-07] MEDS: NICOTINE 21 MG/24 HOURS TOPICAL PATCH TD SCH (09:37)
[2021-01-07] MEDS: GABAPENTIN 400 MG CAPSULE PO SCH ×2 (09:37→21:09)
[2021-01-07] MEDS: PRENATAL VITAMINS W/ FOLIC ACID TABLET (FP) PO SCH (09:37)
[2021-01-07] MEDS: BUDESONIDE/FORMETEROL FUMARATE 80/4.5 mcg INHALER IH SCH ×2 (09:37→21:09)
[2021-01-07] MEDS: METHOCARBAMOL 500 MG TABLET PO SCH ×4 (09:37→21:10)
[2021-01-07] MEDS: OXcarbazepine 300 MG TABLET (UD) PO SCH (09:39)
[2021-01-07] MEDS: IBUPROFEN 400 MG TABLET (FP) PO PRN (09:39)
[2021-01-07] MEDS ORDERED: PT OWN MED DRAWER 7, Y5N ONE (09:39)
[2021-01-07] MEDS ORDERED: MASKS NR ONE (15:28)
[2021-01-07] MEDS: QUEtiapine FUMARATE 300 MG TABLET PO SCH (21:09)
[2021-01-07] MEDS: MELATONIN 5 MG TABLETS PO SCH (21:10)
[2021-01-07] MEDS: THIAMINE HCL 100 MG TABLET (FP) PO SCH (21:10)
[2021-01-07] MEDS: ACETAMINOPHEN 325 MG TABLET (FP) PO PRN (21:11)
[2021-01-08] MEDS ORDERED: METHADONE HCL 40 MG DISPERSABLE TABLET ONE (02:24)
[2021-01-08] MEDS ORDERED: METHADONE HCL 10 MG TABLET ONE (02:24)
[2021-01-08] MEDS: METHADONE 120 MG, METHADONE 10 MG PO SCH (06:32)
[2021-01-08] MEDS: hydrOXYzine PAMOATE 25 MG CAPSULE (FP) PO PRN (06:34)
[2021-01-08] MEDS: NICOTINE POLACRILEX 2 MG GUM BUC PRN (06:34)
[2021-01-08 06:47] VITALS: BP 104/71; PULSE 91; TEMP 97.3
[2021-01-08] MEDS ORDERED: PT OWN MED DRAWER 7, Y5N ONE (08:25)
[2021-01-08] MEDS: GABAPENTIN 400 MG CAPSULE PO SCH (09:01)
[2021-01-08] MEDS: METHOCARBAMOL 500 MG TABLET PO SCH (09:02)
[2021-01-08] MEDS: NICOTINE 21 MG/24 HOURS TOPICAL PATCH TD SCH (09:02)
[2021-01-08] MEDS: BUDESONIDE/FORMETEROL FUMARATE 80/4.5 mcg INHALER IH SCH (09:02)
[2021-01-08] MEDS: OXcarbazepine 300 MG TABLET (UD) PO SCH (09:02)
[2021-01-08] MEDS: PRENATAL VITAMINS W/ FOLIC ACID TABLET (FP) PO SCH (09:02)
[2021-01-08] MEDS: IBUPROFEN 400 MG TABLET (FP) PO PRN (09:03)
== END 2021-01-08 09:12 | disposition home or self-care (01) | DRG 895 ==
LOC: YASAS 11:52 → Y3E 11:53
PROVIDERS: ADMIT Allergy & Immunology; ATTEND Allergy & Immunology
PROC: HZ42ZZZ Group Counseling for Substance Abuse Treatment, Cognitive-Behavioral (ICD-10-PCS; principal; 2020-12-25)
DX: F10.20 Alcohol dependence, uncomplicated (principal); F11.20 Opioid dependence, uncomplicated; F14.20 Cocaine dependence, uncomplicated; F13.20 Sedative, hypnotic or anxiolytic dependence, uncomplicated; F12.20 Cannabis dependence, uncomplicated; F17.210 Nicotine dependence, cigarettes, uncomplicated; F25.9 Schizoaffective disorder, unspecified; D64.9 Anemia, unspecified; J45.909 Unspecified asthma, uncomplicated; G40.909 Epilepsy, unspecified, not intractable, without status epilepticus; Z62.810 Personal history of physical and sexual abuse in childhood
CPT/HCPCS: C9803; U0003; U0005

== ENCOUNTER 2021-03-09 15:22 | Inpatient (IN) | payer OTHER ==
[2021-03-09 17:26] VITALS: BMI 27.6
[2021-03-09] MEDS ORDERED: MELATONIN 5 MG TABLETS PO SCH (22:00)
[2021-03-09] MEDS ORDERED: LOPERAMIDE HCL 2 MG CAPSULE PO PRN (23:50)
[2021-03-09] MEDS ORDERED: MAG HYDROX/AL HYDROX/SIMETH 30 ML UNIT-DOSE CUP PO PRN (23:50)
[2021-03-09] MEDS ORDERED: MAGNESIUM CITRATE 300 ML BOTTLE PO PRN (23:50)
[2021-03-09] MEDS ORDERED: ACETAMINOPHEN 325 MG TABLET (FP) PO PRN (23:50)
[2021-03-09] MEDS ORDERED: guaiFENesin 200 MG/10 ML 10 ML UNIT-DOSE CUPS PO PRN (23:50)
[2021-03-09] MEDS ORDERED: MAGNESIUM HYDROX 2400MG/30ML ORAL SUSPENSION 30 ML CUP PO PRN (23:50)
[2021-03-09] MEDS ORDERED: P-EPHED 60MG/TRIPROLIDI 2.5MG TABLET PO PRN (23:50)
[2021-03-10 10:06] LABS: HEMATOCRIT 41.7 % (35.4-49); HEMOGLOBIN 13.6 GM/dL (11.7-16.9); MCH 29.7 pg (25.7-33.7); MCHC 32.6 g/dl (32.0-35.9); MEAN PLT VOLUME 8.8 fl (7.5-11.1); PLATELET COUNT 254 10^3/uL (134-434); RBC 4.59 M/mm3 (4.00-5.60); RDW 14.9 % (11.9-15.9); WHITE BLOOD COUNT 7.3 K/mm3 (4.0-10.0)
[2021-03-10] MEDS: PRENATAL VITAMINS W/ FOLIC ACID TABLET (FP) PO SCH (10:12)
[2021-03-10] MEDS: NICOTINE 7 MG/24 HOURS TOPICAL PATCH TD SCH (10:12)
[2021-03-10] MEDS: NICOTINE 21 MG/24 HOURS TOPICAL PATCH TD SCH (10:13)
[2021-03-10 10:14] LABS: CALCIUM 8.2 mg/dL (8.5-10.1)
[2021-03-10 10:15] LABS: ALBUMIN 3.6 g/dl (3.4-5.0); BLOOD UREA NITROGEN 16.5 mg/dL (7-18)
[2021-03-10 10:17] LABS: CREATININE 0.7 mg/dL (0.55-1.3)
[2021-03-10 10:18] LABS: BILIRUBIN,TOTAL 0.9 mg/dL (0.2-1)
[2021-03-10 10:19] LABS: TOT PROT 7.1 g/dl (6.4-8.2)
[2021-03-10] MEDS ORDERED: ALBUTEROL SO4 HFA INHALER IH PRN (11:06)
[2021-03-10 11:10] LABS: HIV INTERPRETATION NEGATIVE (NEGATIVE)
[2021-03-10] MEDS ORDERED: METHADONE HCL 10 MG TABLET PO SCH ×2 (11:15→12:00)
[2021-03-10] MEDS ORDERED: METHADONE HCL 10 MG TABLET ONE (12:12)
[2021-03-10] MEDS ORDERED: METHADONE HCL 40 MG DISPERSABLE TABLET ONE (12:13)
[2021-03-10] MEDS: METHADONE 120 MG, METHADONE 10 MG PO SCH (12:16)
[2021-03-10] MEDS: IBUPROFEN 400 MG TABLET (FP) PO PRN (18:47)
[2021-03-10 19:36] LABS: PH,URINE 8.5 (5.0-8.0); URINE APPEARANCE Clear; URINE BILIRUBIN Negative (NEGATIVE); URINE COLOR Yellow; URINE GLUCOSE (UA) Negative (NEGATIVE); URINE KETONE Negative (NEGATIVE); URINE LEUK ESTERASE Negative (NEGATIVE); URINE NITRITE Negative (NEGATIVE); URINE PROTEIN Negative (NEGATIVE); URINE UROBILINOGEN 0.2 mg/dL (0.2-1.0)
[2021-03-10] MEDS: THIAMINE HCL 100 MG TABLET (FP) PO SCH (22:02)
[2021-03-10] MEDS: BUDESONIDE/FORMETEROL FUMARATE 80/4.5 mcg INHALER IH SCH (22:02)
[2021-03-10] MEDS: QUEtiapine FUMARATE 100 MG TABLET (FP) PO SCH (22:02)
[2021-03-11] MEDS ORDERED: METHADONE HCL 40 MG DISPERSABLE TABLET ONE (03:43)
[2021-03-11] MEDS ORDERED: METHADONE HCL 10 MG TABLET ONE (03:43)
[2021-03-11] MEDS: METHADONE 120 MG, METHADONE 10 MG PO SCH (06:17)
[2021-03-11] MEDS: PRENATAL VITAMINS W/ FOLIC ACID TABLET (FP) PO SCH (10:21)
[2021-03-11] MEDS: NICOTINE 7 MG/24 HOURS TOPICAL PATCH TD SCH (10:21)
[2021-03-11] MEDS: NICOTINE 21 MG/24 HOURS TOPICAL PATCH TD SCH (10:22)
[2021-03-11] MEDS: BUDESONIDE/FORMETEROL FUMARATE 80/4.5 mcg INHALER IH SCH ×2 (10:22→23:08)
[2021-03-11] MEDS: IBUPROFEN 400 MG TABLET (FP) PO PRN (10:23)
[2021-03-11] MEDS: NICOTINE POLACRILEX 2 MG GUM BUC PRN ×3 (10:24→21:31)
[2021-03-11] MEDS: hydrOXYzine PAMOATE 25 MG CAPSULE (FP) PO PRN ×2 (17:24→21:31)
[2021-03-11] MEDS: METHOCARBAMOL 500 MG TABLET PO PRN (19:16)
[2021-03-11] MEDS: QUEtiapine FUMARATE 100 MG TABLET (FP) PO SCH (21:29)
[2021-03-11] MEDS: THIAMINE HCL 100 MG TABLET (FP) PO SCH (21:29)
[2021-03-12] MEDS ORDERED: METHADONE HCL 40 MG DISPERSABLE TABLET ONE (06:17)
[2021-03-12] MEDS ORDERED: METHADONE HCL 10 MG TABLET ONE (06:17)
[2021-03-12] MEDS: hydrOXYzine PAMOATE 25 MG CAPSULE (FP) PO PRN ×4 (06:18→21:50)
[2021-03-12] MEDS: METHADONE 120 MG, METHADONE 10 MG PO SCH (06:18)
[2021-03-12] MEDS: NICOTINE POLACRILEX 2 MG GUM BUC PRN ×4 (06:20→20:17)
[2021-03-12] MEDS: NICOTINE 7 MG/24 HOURS TOPICAL PATCH TD SCH (10:12)
[2021-03-12] MEDS: PRENATAL VITAMINS W/ FOLIC ACID TABLET (FP) PO SCH (10:12)
[2021-03-12] MEDS: NICOTINE 21 MG/24 HOURS TOPICAL PATCH TD SCH (10:12)
[2021-03-12] MEDS: BUDESONIDE/FORMETEROL FUMARATE 80/4.5 mcg INHALER IH SCH ×2 (10:14→21:48)
[2021-03-12] MEDS: METHOCARBAMOL 500 MG TABLET PO PRN ×2 (10:16→20:16)
[2021-03-12] MEDS ORDERED: PT OWN MED DRAWER 7, Y5N ONE (19:19)
[2021-03-12] MEDS: THIAMINE HCL 100 MG TABLET (FP) PO SCH (21:49)
[2021-03-12] MEDS: QUEtiapine FUMARATE 100 MG TABLET (FP) PO SCH (21:49)
[2021-03-13] MEDS: METHADONE 120 MG, METHADONE 10 MG PO SCH (06:11)
[2021-03-13] MEDS ORDERED: METHADONE HCL 40 MG DISPERSABLE TABLET ONE (06:11)
[2021-03-13] MEDS: hydrOXYzine PAMOATE 25 MG CAPSULE (FP) PO PRN ×4 (06:11→22:32)
[2021-03-13] MEDS ORDERED: METHADONE HCL 10 MG TABLET ONE (06:11)
[2021-03-13] MEDS: PRENATAL VITAMINS W/ FOLIC ACID TABLET (FP) PO SCH (10:00)
[2021-03-13] MEDS: NICOTINE 21 MG/24 HOURS TOPICAL PATCH TD SCH (10:00)
[2021-03-13] MEDS: BUDESONIDE/FORMETEROL FUMARATE 80/4.5 mcg INHALER IH SCH ×2 (10:00→22:31)
[2021-03-13] MEDS: NICOTINE POLACRILEX 2 MG GUM BUC PRN ×3 (10:02→22:32)
[2021-03-13] MEDS: NICOTINE 7 MG/24 HOURS TOPICAL PATCH TD SCH (11:08)
[2021-03-13] MEDS: OXcarbazepine 300 MG TABLET (UD) PO SCH (12:08)
[2021-03-13] MEDS ORDERED: PT OWN MED DRAWER 7, Y5N ONE (18:56)
[2021-03-13] MEDS: METHOCARBAMOL 500 MG TABLET PO PRN (20:10)
[2021-03-13] MEDS: QUEtiapine FUMARATE 100 MG TABLET (FP) PO SCH (22:30)
[2021-03-13] MEDS: THIAMINE HCL 100 MG TABLET (FP) PO SCH (22:30)
[2021-03-14] MEDS ORDERED: METHADONE HCL 10 MG TABLET ONE (03:04)
[2021-03-14] MEDS ORDERED: METHADONE HCL 40 MG DISPERSABLE TABLET ONE (03:05)
[2021-03-14] MEDS: METHADONE 120 MG, METHADONE 10 MG PO SCH (06:20)
[2021-03-14] MEDS: hydrOXYzine PAMOATE 25 MG CAPSULE (FP) PO PRN ×4 (06:20→21:13)
[2021-03-14] MEDS: NICOTINE POLACRILEX 2 MG GUM BUC PRN ×4 (06:22→21:13)
[2021-03-14] MEDS ORDERED: MELATONIN 5 MG TABLETS PO PRN (09:34)
[2021-03-14] MEDS: OXcarbazepine 300 MG TABLET (UD) PO SCH (09:38)
[2021-03-14] MEDS: PRENATAL VITAMINS W/ FOLIC ACID TABLET (FP) PO SCH (09:38)
[2021-03-14] MEDS: BUDESONIDE/FORMETEROL FUMARATE 80/4.5 mcg INHALER IH SCH ×2 (09:39→21:13)
[2021-03-14] MEDS: NICOTINE 7 MG/24 HOURS TOPICAL PATCH TD SCH (09:40)
[2021-03-14] MEDS: NICOTINE 21 MG/24 HOURS TOPICAL PATCH TD SCH (09:40)
[2021-03-14] MEDS: METHOCARBAMOL 500 MG TABLET PO PRN ×2 (09:43→17:08)
[2021-03-14] MEDS: GABAPENTIN 100 MG CAPSULE PO SCH ×2 (09:43→21:13)
[2021-03-14] MEDS ORDERED: PT OWN MED DRAWER 7, Y5N ONE (18:30)
[2021-03-14] MEDS: QUEtiapine FUMARATE 300 MG TABLET PO SCH (21:13)
[2021-03-14] MEDS: THIAMINE HCL 100 MG TABLET (FP) PO SCH (21:13)
[2021-03-14] MEDS: HALOPERIDOL 5 MG TABLET PO SCH (21:22)
[2021-03-15] MEDS ORDERED: METHADONE HCL 10 MG TABLET ONE (02:31)
[2021-03-15] MEDS ORDERED: METHADONE HCL 40 MG DISPERSABLE TABLET ONE (02:31)
[2021-03-15 05:55] VITALS: BP 114/76
[2021-03-15] MEDS: METHADONE 120 MG, METHADONE 10 MG PO SCH (06:08)
[2021-03-15] MEDS: hydrOXYzine PAMOATE 25 MG CAPSULE (FP) PO PRN ×4 (06:08→18:31)
[2021-03-15] MEDS: NICOTINE POLACRILEX 2 MG GUM BUC PRN ×5 (06:10→21:15)
[2021-03-15] MEDS: PRENATAL VITAMINS W/ FOLIC ACID TABLET (FP) PO SCH (09:33)
[2021-03-15] MEDS: BUDESONIDE/FORMETEROL FUMARATE 80/4.5 mcg INHALER IH SCH ×2 (09:34→21:12)
[2021-03-15] MEDS: GABAPENTIN 100 MG CAPSULE PO SCH ×2 (09:34→21:13)
[2021-03-15] MEDS: DULoxetine HCL 20 MG CAPSULE.DR PO SCH (09:35)
[2021-03-15] MEDS: OXcarbazepine 300 MG TABLET (UD) PO SCH (09:35)
[2021-03-15] MEDS: NICOTINE 21 MG/24 HOURS TOPICAL PATCH TD SCH (09:36)
[2021-03-15] MEDS: QUEtiapine FUMARATE 300 MG TABLET PO SCH (21:13)
[2021-03-15] MEDS: THIAMINE HCL 100 MG TABLET (FP) PO SCH (21:13)
[2021-03-15] MEDS: HALOPERIDOL 5 MG TABLET PO SCH (21:13)
[2021-03-16] MEDS ORDERED: METHADONE HCL 10 MG TABLET ONE (04:11)
[2021-03-16] MEDS ORDERED: METHADONE HCL 40 MG DISPERSABLE TABLET ONE (04:12)
[2021-03-16] MEDS: hydrOXYzine PAMOATE 25 MG CAPSULE (FP) PO PRN ×2 (06:29→09:28)
[2021-03-16] MEDS: METHADONE 120 MG, METHADONE 10 MG PO SCH (06:29)
[2021-03-16] MEDS: NICOTINE POLACRILEX 2 MG GUM BUC PRN ×2 (06:32→09:29)
[2021-03-16 07:24] VITALS: PULSE 97; TEMP 97.3
[2021-03-16] MEDS: PRENATAL VITAMINS W/ FOLIC ACID TABLET (FP) PO SCH (09:27)
[2021-03-16] MEDS: GABAPENTIN 100 MG CAPSULE PO SCH (09:27)
[2021-03-16] MEDS: BUDESONIDE/FORMETEROL FUMARATE 80/4.5 mcg INHALER IH SCH (09:28)
[2021-03-16] MEDS: NICOTINE 21 MG/24 HOURS TOPICAL PATCH TD SCH (09:29)
[2021-03-16] MEDS: DULoxetine HCL 20 MG CAPSULE.DR PO SCH (09:29)
[2021-03-16] MEDS: OXcarbazepine 300 MG TABLET (UD) PO SCH (09:29)
== END 2021-03-16 10:25 | disposition home or self-care (01) | DRG 895 ==
LOC: YASAS 15:22 → Y5N 23:53
PROVIDERS: ADMIT Allergy & Immunology; ATTEND Allergy & Immunology
PROC: HZ42ZZZ Group Counseling for Substance Abuse Treatment, Cognitive-Behavioral (ICD-10-PCS; principal; 2021-03-09)
DX: F11.20 Opioid dependence, uncomplicated (principal); F14.20 Cocaine dependence, uncomplicated; F13.20 Sedative, hypnotic or anxiolytic dependence, uncomplicated; F15.20 Other stimulant dependence, uncomplicated; F19.280 Other psychoactive substance dependence with psychoactive substance-induced anxiety disorder; F10.20 Alcohol dependence, uncomplicated; F12.20 Cannabis dependence, uncomplicated; F17.210 Nicotine dependence, cigarettes, uncomplicated; F19.24 Other psychoactive substance dependence with psychoactive substance-induced mood disorder; F25.9 Schizoaffective disorder, unspecified; F41.8 Other specified anxiety disorders; F32.9 Major depressive disorder, single episode, unspecified; G40.909 Epilepsy, unspecified, not intractable, without status epilepticus; J45.909 Unspecified asthma, uncomplicated; Z91.19 Patient's noncompliance with other medical treatment and regimen
CPT/HCPCS: 36415; 80053; 81003; 85027; 86780; 87389; 93005; 93010; C9803; U0003; U0005

== ENCOUNTER 2021-04-27 12:58 | Inpatient (IN) | payer OTHER ==
[2021-04-27 13:06] VITALS: BMI 28.1
[2021-04-27] MEDS ORDERED: BISMUTH SUBSALICYLATE 524 MG/30 ML PO PRN (19:19)
[2021-04-27] MEDS ORDERED: ACETAMINOPHEN 325 MG TABLET (FP) PO PRN ×2 (19:19)
[2021-04-27] MEDS ORDERED: hydrOXYzine PAMOATE 25 MG CAPSULE (FP) PO PRN (19:19)
[2021-04-27] MEDS ORDERED: MAGNESIUM HYDROX 2400MG/30ML ORAL SUSPENSION 30 ML CUP PO PRN (19:19)
[2021-04-27] MEDS ORDERED: MAG HYDROX/AL HYDROX/SIMETH 30 ML UNIT-DOSE CUP PO PRN (19:19)
[2021-04-27] MEDS ORDERED: diazePAM 5 MG TABLET PO PRN (19:19)
[2021-04-27] MEDS ORDERED: MENTHOL/PHENOL 1 EACH UD MM PRN (19:19)
[2021-04-27] MEDS ORDERED: MAGNESIUM CITRATE 300 ML BOTTLE PO PRN (19:19)
[2021-04-27] MEDS ORDERED: IBUPROFEN 400 MG TABLET (FP) PO PRN (19:19)
[2021-04-27] MEDS ORDERED: NALOXONE HCL 0.4 MG/ML VIAL IM PRN (19:19)
[2021-04-27] MEDS ORDERED: NICOTINE 10 MG CARTRIDGE (INHALER) IH PRN (19:19)
[2021-04-27] MEDS ORDERED: ONDANSETRON *ODT* 4 MG TABLET SL PRN (19:19)
[2021-04-27] MEDS ORDERED: ALBUTEROL SO4 HFA INHALER IH PRN (19:23)
[2021-04-27] MEDS ORDERED: diazePAM 5 MG TABLET ONE (21:52)
[2021-04-27] MEDS: MELATONIN 5 MG TABLETS PO SCH (21:56)
[2021-04-27] MEDS: THIAMINE HCL 100 MG TABLET (FP) PO SCH (21:57)
[2021-04-27] MEDS: diazePAM 5 MG TABLET PO SCH (22:40)
[2021-04-27] MEDS: BUDESONIDE/FORMETEROL FUMARATE 80/4.5 mcg INHALER IH SCH (23:56)
[2021-04-27] MEDS: QUEtiapine FUMARATE 100 MG TABLET (FP) PO SCH (23:56)
[2021-04-28] MEDS: diazePAM 5 MG TABLET PO SCH ×4 (05:57→22:18)
[2021-04-28] MEDS ORDERED: methaDONE HCL 10 MG TABLET PO SCH (09:15)
[2021-04-28] MEDS ORDERED: methaDONE HCL 40 MG DISPERSABLE TABLET ONE (11:28)
[2021-04-28] MEDS ORDERED: methaDONE HCL 10 MG TABLET ONE (11:28)
[2021-04-28] MEDS: PRENATAL VITAMINS W/ FOLIC ACID TABLET (FP) PO SCH (11:36)
[2021-04-28] MEDS: BUDESONIDE/FORMETEROL FUMARATE 80/4.5 mcg INHALER IH SCH ×2 (11:37→22:19)
[2021-04-28] MEDS: NICOTINE POLACRILEX 4 MG GUM BUC PRN ×3 (11:41→19:31)
[2021-04-28] MEDS: DULoxetine HCL 20 MG CAPSULE.DR PO SCH (16:41)
[2021-04-28 18:37] LABS: HEMATOCRIT 38.7 % (35.4-49); HEMOGLOBIN 13.1 GM/dL (11.7-16.9); MCH 31.2 pg (25.7-33.7); MCHC 33.8 g/dl (32.0-35.9); MEAN CELL VOLUME 92.3 fl (80-96); MEAN PLT VOLUME 8.5 fl (7.5-11.1); PLATELET COUNT 240 10^3/uL (134-434); RDW 15.2 % (11.9-15.9)
[2021-04-28 19:04] LABS: CALCIUM 8.7 mg/dL (8.5-10.1)
[2021-04-28 19:05] LABS: ALBUMIN 3.7 g/dl (3.4-5.0); BLOOD UREA NITROGEN 13.6 mg/dL (7-18)
[2021-04-28 19:08] LABS: CREATININE 0.7 mg/dL (0.55-1.3)
[2021-04-28 19:09] LABS: BILIRUBIN,TOTAL 0.3 mg/dL (0.2-1)
[2021-04-28 19:10] LABS: TOT PROT 7.6 g/dl (6.4-8.2)
[2021-04-28] MEDS: METHOCARBAMOL 500 MG TABLET PO PRN (19:30)
[2021-04-28] MEDS: QUEtiapine FUMARATE 100 MG TABLET (FP) PO SCH (22:18)
[2021-04-28] MEDS: THIAMINE HCL 100 MG TABLET (FP) PO SCH (22:19)
[2021-04-28] MEDS: MELATONIN 5 MG TABLETS PO SCH (22:19)
[2021-04-29] MEDS ORDERED: methaDONE HCL 10 MG TABLET ONE (04:38)
[2021-04-29] MEDS ORDERED: methaDONE HCL 40 MG DISPERSABLE TABLET ONE (04:38)
[2021-04-29] MEDS: diazePAM 5 MG TABLET PO SCH ×3 (05:07→22:23)
[2021-04-29] MEDS: NICOTINE POLACRILEX 4 MG GUM BUC PRN ×4 (05:10→22:24)
[2021-04-29] MEDS: BUDESONIDE/FORMETEROL FUMARATE 80/4.5 mcg INHALER IH SCH ×2 (09:42→22:23)
[2021-04-29] MEDS: DULoxetine HCL 20 MG CAPSULE.DR PO SCH (09:42)
[2021-04-29] MEDS: PRENATAL VITAMINS W/ FOLIC ACID TABLET (FP) PO SCH (09:44)
[2021-04-29] MEDS: QUEtiapine FUMARATE 100 MG TABLET (FP) PO SCH (22:23)
[2021-04-29] MEDS: THIAMINE HCL 100 MG TABLET (FP) PO SCH (22:23)
[2021-04-29] MEDS: MELATONIN 5 MG TABLETS PO SCH (22:23)
[2021-04-30] MEDS ORDERED: methaDONE HCL 40 MG DISPERSABLE TABLET ONE (04:43)
[2021-04-30] MEDS ORDERED: methaDONE HCL 10 MG TABLET ONE (04:43)
[2021-04-30] MEDS: diazePAM 5 MG TABLET PO SCH ×2 (05:33→17:15)
[2021-04-30] MEDS: NICOTINE POLACRILEX 4 MG GUM BUC PRN ×4 (07:10→22:22)
[2021-04-30] MEDS: METHOCARBAMOL 500 MG TABLET PO PRN (07:10)
[2021-04-30] MEDS: PRENATAL VITAMINS W/ FOLIC ACID TABLET (FP) PO SCH (10:15)
[2021-04-30] MEDS: DULoxetine HCL 20 MG CAPSULE.DR PO SCH (10:15)
[2021-04-30] MEDS: BUDESONIDE/FORMETEROL FUMARATE 80/4.5 mcg INHALER IH SCH ×2 (10:16→22:22)
[2021-04-30] MEDS: LIDOCAINE 5% TOPICAL PATCH TP SCH (11:16)
[2021-04-30] MEDS ORDERED: LIDOCAINE PATCH REMOVAL MC SCH (22:00)
[2021-04-30] MEDS: THIAMINE HCL 100 MG TABLET (FP) PO SCH (22:22)
[2021-04-30] MEDS: QUEtiapine FUMARATE 100 MG TABLET (FP) PO SCH (22:22)
[2021-04-30] MEDS: MELATONIN 5 MG TABLETS PO SCH (22:22)
[2021-05-01] MEDS ORDERED: methaDONE HCL 10 MG TABLET ONE (04:15)
[2021-05-01] MEDS ORDERED: methaDONE HCL 40 MG DISPERSABLE TABLET ONE (04:15)
[2021-05-01] MEDS: NICOTINE POLACRILEX 4 MG GUM BUC PRN ×2 (05:12→10:08)
[2021-05-01] MEDS ORDERED: diazePAM 5 MG TABLET PO ONE (06:00)
[2021-05-01] MEDS: BUDESONIDE/FORMETEROL FUMARATE 80/4.5 mcg INHALER IH SCH (10:06)
[2021-05-01] MEDS: LIDOCAINE 5% TOPICAL PATCH TP SCH (10:06)
[2021-05-01] MEDS: DULoxetine HCL 20 MG CAPSULE.DR PO SCH (10:07)
[2021-05-01] MEDS: PRENATAL VITAMINS W/ FOLIC ACID TABLET (FP) PO SCH (10:07)
[2021-05-01] MEDS: METHOCARBAMOL 500 MG TABLET PO PRN (10:09)
[2021-05-01 13:07] VITALS: BP 120/65; PULSE 90; TEMP 96.4
== END 2021-05-01 16:25 | disposition home or self-care (01) | DRG 897 ==
LOC: YASAS 12:58 → Y3N 04-28 10:04
PROVIDERS: ADMIT Allergy & Immunology; ATTEND Allergy & Immunology
PROC: HZ2ZZZZ Detoxification Services for Substance Abuse Treatment (ICD-10-PCS; principal; 2021-04-28)
DX: F10.230 Alcohol dependence with withdrawal, uncomplicated (principal); F11.20 Opioid dependence, uncomplicated; F14.20 Cocaine dependence, uncomplicated; F13.20 Sedative, hypnotic or anxiolytic dependence, uncomplicated; F15.20 Other stimulant dependence, uncomplicated; F12.20 Cannabis dependence, uncomplicated; F17.210 Nicotine dependence, cigarettes, uncomplicated; F25.9 Schizoaffective disorder, unspecified; F19.24 Other psychoactive substance dependence with psychoactive substance-induced mood disorder; G40.909 Epilepsy, unspecified, not intractable, without status epilepticus; J45.909 Unspecified asthma, uncomplicated
CPT/HCPCS: 36415; 80053; 85027; 86780; 93005; 93010; C9803; U0003; U0005

== ENCOUNTER 2021-05-01 16:27 | Inpatient (IN) | payer OTHER ==
[2021-05-01] MEDS ORDERED: MENTHOL/PHENOL 1 EACH UD MM PRN (18:51)
[2021-05-01] MEDS ORDERED: ACETAMINOPHEN 325 MG TABLET (FP) PO PRN (18:51)
[2021-05-01] MEDS ORDERED: MAGNESIUM CITRATE 300 ML BOTTLE PO PRN (18:51)
[2021-05-01] MEDS ORDERED: LOPERAMIDE HCL 2 MG CAPSULE PO PRN (18:51)
[2021-05-01] MEDS ORDERED: MAG HYDROX/AL HYDROX/SIMETH 30 ML UNIT-DOSE CUP PO PRN (18:51)
[2021-05-01] MEDS ORDERED: P-EPHED 60MG/TRIPROLIDI 2.5MG TABLET PO PRN (18:51)
[2021-05-01] MEDS ORDERED: MAGNESIUM HYDROX 2400MG/30ML ORAL SUSPENSION 30 ML CUP PO PRN (18:51)
[2021-05-01] MEDS ORDERED: guaiFENesin 200 MG/10 ML 10 ML UNIT-DOSE CUPS PO PRN (18:51)
[2021-05-01] MEDS ORDERED: ALBUTEROL SO4 HFA INHALER IH PRN (18:52)
[2021-05-01] MEDS: MELATONIN 5 MG TABLETS PO SCH (21:07)
[2021-05-01] MEDS: THIAMINE HCL 100 MG TABLET (FP) PO SCH (21:07)
[2021-05-01] MEDS: hydrOXYzine PAMOATE 25 MG CAPSULE (FP) PO SCH (21:08)
[2021-05-01] MEDS: NICOTINE 10 MG CARTRIDGE (INHALER) IH PRN (21:08)
[2021-05-02] MEDS ORDERED: methaDONE HCL 10 MG TABLET PO SCH (06:00)
[2021-05-02] MEDS ORDERED: methaDONE HCL 10 MG TABLET ONE (06:23)
[2021-05-02] MEDS: hydrOXYzine PAMOATE 25 MG CAPSULE (FP) PO SCH ×5 (06:23→21:46)
[2021-05-02] MEDS ORDERED: methaDONE HCL 40 MG DISPERSABLE TABLET ONE (06:23)
[2021-05-02] MEDS: NICOTINE 10 MG CARTRIDGE (INHALER) IH PRN (06:24)
[2021-05-02] MEDS: PRENATAL VITAMINS W/ FOLIC ACID TABLET (FP) PO SCH (09:55)
[2021-05-02] MEDS: NICOTINE 7 MG/24 HOURS TOPICAL PATCH TD SCH (09:56)
[2021-05-02] MEDS ORDERED: cloNIDine HCL 0.1 MG TABLET PO PRN (10:29)
[2021-05-02] MEDS: DULoxetine HCL 60 MG CAPSULE.DR PO SCH (13:14)
[2021-05-02] MEDS: GABAPENTIN 100 MG CAPSULE PO SCH ×2 (13:16→21:46)
[2021-05-02] MEDS ORDERED: QUEtiapine FUMARATE 100 MG TABLET (FP) ONE (21:00)
[2021-05-02] MEDS: MELATONIN 5 MG TABLETS PO SCH (21:45)
[2021-05-02] MEDS: HALOPERIDOL 5 MG TABLET PO SCH (21:45)
[2021-05-02] MEDS: BENZTROPINE MESYLATE 1 MG TABLET PO SCH (21:47)
[2021-05-02] MEDS: THIAMINE HCL 100 MG TABLET (FP) PO SCH (21:48)
[2021-05-02] MEDS: QUEtiapine FUMARATE 300 MG TABLET PO SCH (21:48)
[2021-05-02] MEDS ORDERED: QUEtiapine FUMARATE 300 MG TABLET PO SCH (22:00)
[2021-05-03] MEDS ORDERED: methaDONE HCL 40 MG DISPERSABLE TABLET ONE (03:03)
[2021-05-03] MEDS ORDERED: methaDONE HCL 10 MG TABLET ONE (03:03)
[2021-05-03] MEDS: GABAPENTIN 100 MG CAPSULE PO SCH ×3 (06:29→21:05)
[2021-05-03] MEDS: hydrOXYzine PAMOATE 25 MG CAPSULE (FP) PO SCH ×5 (06:29→21:06)
[2021-05-03] MEDS: BENZTROPINE MESYLATE 1 MG TABLET PO SCH ×2 (10:25→21:06)
[2021-05-03] MEDS: DULoxetine HCL 60 MG CAPSULE.DR PO SCH (10:25)
[2021-05-03] MEDS: PRENATAL VITAMINS W/ FOLIC ACID TABLET (FP) PO SCH (10:26)
[2021-05-03] MEDS: NICOTINE 7 MG/24 HOURS TOPICAL PATCH TD SCH (10:26)
[2021-05-03] MEDS: NICOTINE 10 MG CARTRIDGE (INHALER) IH PRN ×2 (13:47→21:07)
[2021-05-03] MEDS: MELATONIN 5 MG TABLETS PO SCH (21:04)
[2021-05-03] MEDS: THIAMINE HCL 100 MG TABLET (FP) PO SCH (21:04)
[2021-05-03] MEDS ORDERED: QUEtiapine FUMARATE 100 MG TABLET (FP) ONE (21:05)
[2021-05-03] MEDS: QUEtiapine FUMARATE 300 MG TABLET PO SCH (21:06)
[2021-05-03] MEDS: HALOPERIDOL 5 MG TABLET PO SCH (21:06)
[2021-05-04] MEDS ORDERED: methaDONE HCL 40 MG DISPERSABLE TABLET ONE (03:09)
[2021-05-04] MEDS ORDERED: methaDONE HCL 10 MG TABLET ONE (03:09)
[2021-05-04] MEDS: hydrOXYzine PAMOATE 25 MG CAPSULE (FP) PO SCH ×5 (06:09→21:34)
[2021-05-04] MEDS: GABAPENTIN 100 MG CAPSULE PO SCH ×3 (06:09→21:34)
[2021-05-04] MEDS: PRENATAL VITAMINS W/ FOLIC ACID TABLET (FP) PO SCH (10:47)
[2021-05-04] MEDS: BENZTROPINE MESYLATE 1 MG TABLET PO SCH ×2 (10:47→21:34)
[2021-05-04] MEDS: DULoxetine HCL 60 MG CAPSULE.DR PO SCH (10:48)
[2021-05-04] MEDS: NICOTINE 7 MG/24 HOURS TOPICAL PATCH TD SCH (10:48)
[2021-05-04] MEDS: BUDESONIDE/FORMETEROL FUMARATE 80/4.5 mcg INHALER IH SCH ×2 (10:51→21:38)
[2021-05-04] MEDS: OXcarbazepine 300 MG TABLET (UD) PO SCH (12:27)
[2021-05-04] MEDS: NICOTINE POLACRILEX 2 MG GUM BUC PRN ×3 (12:28→21:35)
[2021-05-04] MEDS: IBUPROFEN 400 MG TABLET (FP) PO PRN (14:22)
[2021-05-04] MEDS ORDERED: QUEtiapine FUMARATE 100 MG TABLET (FP) ONE (18:57)
[2021-05-04] MEDS: QUEtiapine FUMARATE 300 MG TABLET PO SCH (21:34)
[2021-05-04] MEDS: THIAMINE HCL 100 MG TABLET (FP) PO SCH (21:34)
[2021-05-04] MEDS: MELATONIN 5 MG TABLETS PO SCH (21:34)
[2021-05-04] MEDS: HALOPERIDOL 5 MG TABLET PO SCH (21:34)
[2021-05-05] MEDS ORDERED: methaDONE HCL 40 MG DISPERSABLE TABLET ONE (03:28)
[2021-05-05] MEDS ORDERED: methaDONE HCL 10 MG TABLET ONE (03:29)
[2021-05-05] MEDS: GABAPENTIN 100 MG CAPSULE PO SCH ×3 (06:04→21:07)
[2021-05-05] MEDS: hydrOXYzine PAMOATE 25 MG CAPSULE (FP) PO SCH ×5 (06:04→21:07)
[2021-05-05] MEDS: NICOTINE POLACRILEX 2 MG GUM BUC PRN ×5 (06:07→21:09)
[2021-05-05] MEDS: PRENATAL VITAMINS W/ FOLIC ACID TABLET (FP) PO SCH (10:31)
[2021-05-05] MEDS: DULoxetine HCL 60 MG CAPSULE.DR PO SCH (10:31)
[2021-05-05] MEDS: NICOTINE 7 MG/24 HOURS TOPICAL PATCH TD SCH (10:32)
[2021-05-05] MEDS: OXcarbazepine 300 MG TABLET (UD) PO SCH (10:32)
[2021-05-05] MEDS: BUDESONIDE/FORMETEROL FUMARATE 80/4.5 mcg INHALER IH SCH ×2 (10:32→21:09)
[2021-05-05] MEDS: LIDOCAINE 5% TOPICAL PATCH TP SCH (10:32)
[2021-05-05] MEDS: BENZTROPINE MESYLATE 1 MG TABLET PO SCH ×2 (10:32→21:07)
[2021-05-05] MEDS ORDERED: QUEtiapine FUMARATE 100 MG TABLET (FP) ONE (19:18)
[2021-05-05] MEDS: THIAMINE HCL 100 MG TABLET (FP) PO SCH (21:06)
[2021-05-05] MEDS: HALOPERIDOL 5 MG TABLET PO SCH (21:07)
[2021-05-05] MEDS: QUEtiapine FUMARATE 300 MG TABLET PO SCH (21:07)
[2021-05-05] MEDS: MELATONIN 5 MG TABLETS PO SCH (21:08)
[2021-05-05] MEDS: LIDOCAINE PATCH REMOVAL MC SCH (21:08)
[2021-05-06] MEDS ORDERED: methaDONE HCL 40 MG DISPERSABLE TABLET ONE (05:26)
[2021-05-06] MEDS ORDERED: methaDONE HCL 10 MG TABLET ONE (05:26)
[2021-05-06] MEDS: GABAPENTIN 100 MG CAPSULE PO SCH ×3 (06:20→21:27)
[2021-05-06] MEDS: NICOTINE POLACRILEX 2 MG GUM BUC PRN ×4 (06:24→21:29)
[2021-05-06] MEDS: hydrOXYzine PAMOATE 25 MG CAPSULE (FP) PO SCH ×5 (07:03→21:27)
[2021-05-06] MEDS: LIDOCAINE 5% TOPICAL PATCH TP SCH (09:50)
[2021-05-06] MEDS: BUDESONIDE/FORMETEROL FUMARATE 80/4.5 mcg INHALER IH SCH ×2 (09:50→21:28)
[2021-05-06] MEDS: OXcarbazepine 300 MG TABLET (UD) PO SCH (09:50)
[2021-05-06] MEDS: NICOTINE 7 MG/24 HOURS TOPICAL PATCH TD SCH (09:50)
[2021-05-06] MEDS: BENZTROPINE MESYLATE 1 MG TABLET PO SCH ×2 (09:50→21:28)
[2021-05-06] MEDS: DULoxetine HCL 60 MG CAPSULE.DR PO SCH (09:50)
[2021-05-06] MEDS: PRENATAL VITAMINS W/ FOLIC ACID TABLET (FP) PO SCH (09:51)
[2021-05-06] MEDS: QUEtiapine FUMARATE 300 MG TABLET PO SCH (21:27)
[2021-05-06] MEDS: HALOPERIDOL 5 MG TABLET PO SCH (21:27)
[2021-05-06] MEDS: THIAMINE HCL 100 MG TABLET (FP) PO SCH (21:28)
[2021-05-06] MEDS: MELATONIN 5 MG TABLETS PO SCH (21:28)
[2021-05-06] MEDS: LIDOCAINE PATCH REMOVAL MC SCH (21:43)
[2021-05-07] MEDS ORDERED: methaDONE HCL 40 MG DISPERSABLE TABLET ONE (03:26)
[2021-05-07] MEDS ORDERED: methaDONE HCL 10 MG TABLET ONE (03:26)
[2021-05-07] MEDS: GABAPENTIN 100 MG CAPSULE PO SCH ×3 (06:22→21:20)
[2021-05-07] MEDS: hydrOXYzine PAMOATE 25 MG CAPSULE (FP) PO SCH ×5 (06:22→21:21)
[2021-05-07] MEDS: BUDESONIDE/FORMETEROL FUMARATE 80/4.5 mcg INHALER IH SCH ×2 (09:57→21:22)
[2021-05-07] MEDS: BENZTROPINE MESYLATE 1 MG TABLET PO SCH ×2 (09:57→21:20)
[2021-05-07] MEDS: LIDOCAINE 5% TOPICAL PATCH TP SCH (09:57)
[2021-05-07] MEDS: DULoxetine HCL 60 MG CAPSULE.DR PO SCH (09:57)
[2021-05-07] MEDS: OXcarbazepine 300 MG TABLET (UD) PO SCH (09:57)
[2021-05-07] MEDS: NICOTINE 7 MG/24 HOURS TOPICAL PATCH TD SCH (09:58)
[2021-05-07] MEDS: NICOTINE POLACRILEX 2 MG GUM BUC PRN ×4 (09:58→21:22)
[2021-05-07] MEDS: PRENATAL VITAMINS W/ FOLIC ACID TABLET (FP) PO SCH (09:58)
[2021-05-07] MEDS: IBUPROFEN 400 MG TABLET (FP) PO PRN ×2 (11:18→16:28)
[2021-05-07] MEDS ORDERED: QUEtiapine FUMARATE 100 MG TABLET (FP) ONE (18:52)
[2021-05-07] MEDS: QUEtiapine FUMARATE 300 MG TABLET PO SCH (21:20)
[2021-05-07] MEDS: THIAMINE HCL 100 MG TABLET (FP) PO SCH (21:20)
[2021-05-07] MEDS: MELATONIN 5 MG TABLETS PO SCH (21:20)
[2021-05-07] MEDS: HALOPERIDOL 5 MG TABLET PO SCH (21:20)
[2021-05-07] MEDS: LIDOCAINE PATCH REMOVAL MC SCH (21:22)
[2021-05-08] MEDS ORDERED: methaDONE HCL 10 MG TABLET ONE (03:07)
[2021-05-08] MEDS ORDERED: methaDONE HCL 40 MG DISPERSABLE TABLET ONE (03:07)
[2021-05-08] MEDS: GABAPENTIN 100 MG CAPSULE PO SCH ×3 (06:10→21:10)
[2021-05-08] MEDS: hydrOXYzine PAMOATE 25 MG CAPSULE (FP) PO SCH ×5 (06:10→21:10)
[2021-05-08] MEDS: NICOTINE 7 MG/24 HOURS TOPICAL PATCH TD SCH (10:05)
[2021-05-08] MEDS: BENZTROPINE MESYLATE 1 MG TABLET PO SCH ×2 (10:06→21:10)
[2021-05-08] MEDS: DULoxetine HCL 60 MG CAPSULE.DR PO SCH (10:06)
[2021-05-08] MEDS: OXcarbazepine 300 MG TABLET (UD) PO SCH (10:06)
[2021-05-08] MEDS: BUDESONIDE/FORMETEROL FUMARATE 80/4.5 mcg INHALER IH SCH ×2 (10:08→21:12)
[2021-05-08] MEDS: NICOTINE POLACRILEX 2 MG GUM BUC PRN ×4 (10:08→21:11)
[2021-05-08] MEDS: PRENATAL VITAMINS W/ FOLIC ACID TABLET (FP) PO SCH (10:09)
[2021-05-08] MEDS: LIDOCAINE 5% TOPICAL PATCH TP SCH (10:09)
[2021-05-08] MEDS ORDERED: QUEtiapine FUMARATE 100 MG TABLET (FP) ONE (18:54)
[2021-05-08] MEDS: HALOPERIDOL 5 MG TABLET PO SCH (21:10)
[2021-05-08] MEDS: QUEtiapine FUMARATE 300 MG TABLET PO SCH (21:10)
[2021-05-08] MEDS: MELATONIN 5 MG TABLETS PO SCH (21:10)
[2021-05-08] MEDS: THIAMINE HCL 100 MG TABLET (FP) PO SCH (21:10)
[2021-05-08] MEDS: IBUPROFEN 400 MG TABLET (FP) PO PRN (21:11)
[2021-05-08] MEDS: LIDOCAINE PATCH REMOVAL MC SCH (21:12)
[2021-05-09] MEDS ORDERED: methaDONE HCL 10 MG TABLET ONE (03:14)
[2021-05-09] MEDS ORDERED: methaDONE HCL 40 MG DISPERSABLE TABLET ONE (03:14)
[2021-05-09] MEDS: hydrOXYzine PAMOATE 25 MG CAPSULE (FP) PO SCH ×5 (06:02→21:41)
[2021-05-09] MEDS: GABAPENTIN 100 MG CAPSULE PO SCH ×3 (06:02→21:39)
[2021-05-09] MEDS: NICOTINE POLACRILEX 2 MG GUM BUC PRN ×5 (06:03→21:42)
[2021-05-09] MEDS ORDERED: PT OWN MED DRAWER 7, Y5N ONE ×2 (09:48→21:41)
[2021-05-09] MEDS: OXcarbazepine 300 MG TABLET (UD) PO SCH (10:15)
[2021-05-09] MEDS: BENZTROPINE MESYLATE 1 MG TABLET PO SCH ×2 (10:15→21:39)
[2021-05-09] MEDS: DULoxetine HCL 60 MG CAPSULE.DR PO SCH (10:15)
[2021-05-09] MEDS: LIDOCAINE 5% TOPICAL PATCH TP SCH (10:15)
[2021-05-09] MEDS: PRENATAL VITAMINS W/ FOLIC ACID TABLET (FP) PO SCH (10:15)
[2021-05-09] MEDS: NICOTINE 7 MG/24 HOURS TOPICAL PATCH TD SCH (10:15)
[2021-05-09] MEDS: BUDESONIDE/FORMETEROL FUMARATE 80/4.5 mcg INHALER IH SCH ×2 (10:18→21:41)
[2021-05-09] MEDS ORDERED: QUEtiapine FUMARATE 100 MG TABLET (FP) ONE (20:25)
[2021-05-09] MEDS: HALOPERIDOL 5 MG TABLET PO SCH (21:38)
[2021-05-09] MEDS: MELATONIN 5 MG TABLETS PO SCH (21:38)
[2021-05-09] MEDS: QUEtiapine FUMARATE 300 MG TABLET PO SCH (21:39)
[2021-05-09] MEDS: LIDOCAINE PATCH REMOVAL MC SCH (21:39)
[2021-05-09] MEDS: THIAMINE HCL 100 MG TABLET (FP) PO SCH (21:42)
[2021-05-10] MEDS ORDERED: methaDONE HCL 40 MG DISPERSABLE TABLET ONE (02:56)
[2021-05-10] MEDS ORDERED: methaDONE HCL 10 MG TABLET ONE (02:56)
[2021-05-10] MEDS: GABAPENTIN 100 MG CAPSULE PO SCH (06:08)
[2021-05-10] MEDS: hydrOXYzine PAMOATE 25 MG CAPSULE (FP) PO SCH ×2 (06:09→09:51)
[2021-05-10 06:56] VITALS: BP 98/68; PULSE 88; TEMP 97
[2021-05-10] MEDS ORDERED: PT OWN MED DRAWER 7, Y5N ONE (09:03)
[2021-05-10] MEDS: DULoxetine HCL 60 MG CAPSULE.DR PO SCH (09:50)
[2021-05-10] MEDS: PRENATAL VITAMINS W/ FOLIC ACID TABLET (FP) PO SCH (09:50)
[2021-05-10] MEDS: OXcarbazepine 300 MG TABLET (UD) PO SCH (09:51)
[2021-05-10] MEDS: NICOTINE POLACRILEX 2 MG GUM BUC PRN (09:52)
[2021-05-10] MEDS: BENZTROPINE MESYLATE 1 MG TABLET PO SCH (10:46)
[2021-05-10] MEDS: LIDOCAINE 5% TOPICAL PATCH TP SCH (10:46)
[2021-05-10] MEDS: BUDESONIDE/FORMETEROL FUMARATE 80/4.5 mcg INHALER IH SCH (10:46)
[2021-05-10] MEDS: NICOTINE 7 MG/24 HOURS TOPICAL PATCH TD SCH (10:46)
== END 2021-05-10 10:08 | disposition home or self-care (01) | DRG 895 ==
LOC: YASAS 16:27 → Y3W 16:29
PROVIDERS: ADMIT Allergy & Immunology; ATTEND Allergy & Immunology
PROC: HZ42ZZZ Group Counseling for Substance Abuse Treatment, Cognitive-Behavioral (ICD-10-PCS; principal; 2021-05-01)
DX: F10.20 Alcohol dependence, uncomplicated (principal); F11.20 Opioid dependence, uncomplicated; F14.20 Cocaine dependence, uncomplicated; F15.20 Other stimulant dependence, uncomplicated; F19.282 Other psychoactive substance dependence with psychoactive substance-induced sleep disorder; F12.20 Cannabis dependence, uncomplicated; F17.210 Nicotine dependence, cigarettes, uncomplicated; G40.909 Epilepsy, unspecified, not intractable, without status epilepticus; J45.909 Unspecified asthma, uncomplicated; G89.29 Other chronic pain; Z62.810 Personal history of physical and sexual abuse in childhood; Z56.0 Unemployment, unspecified

== ENCOUNTER 2021-06-08 12:45 | Inpatient (IN) | payer OTHER ==
[2021-06-08 13:46] VITALS: BMI 27.7
[2021-06-08] MEDS ORDERED: IBUPROFEN 400 MG TABLET (FP) PO PRN (14:17)
[2021-06-08] MEDS ORDERED: MAGNESIUM CITRATE 300 ML BOTTLE PO PRN (14:17)
[2021-06-08] MEDS ORDERED: MENTHOL/PHENOL 1 EACH UD MM PRN (14:17)
[2021-06-08] MEDS ORDERED: NICOTINE 10 MG CARTRIDGE (INHALER) IH PRN (14:17)
[2021-06-08] MEDS ORDERED: MAG HYDROX/AL HYDROX/SIMETH 30 ML UNIT-DOSE CUP PO PRN (14:17)
[2021-06-08] MEDS ORDERED: BISMUTH SUBSALICYLATE 524 MG/30 ML PO PRN (14:17)
[2021-06-08] MEDS ORDERED: MAGNESIUM HYDROX 2400MG/30ML ORAL SUSPENSION 30 ML CUP PO PRN (14:17)
[2021-06-08] MEDS ORDERED: ACETAMINOPHEN 325 MG TABLET (FP) PO PRN (14:17)
[2021-06-08] MEDS ORDERED: cloNIDine HCL 0.1 MG TABLET PO PRN (14:17)
[2021-06-08] MEDS ORDERED: methaDONE HCL 10 MG TABLET (FOR DETOX USE ONLY) PO ONE (15:00)
[2021-06-08] MEDS ORDERED: NICOTINE 21 MG/24 HOURS TOPICAL PATCH TD PRN (15:00)
[2021-06-08] MEDS: METHOCARBAMOL 500 MG TABLET PO PRN (15:51)
[2021-06-08] MEDS: diazePAM 5 MG TABLET PO PRN (15:51)
[2021-06-08 17:21] LABS: HEMATOCRIT 38.5 % (35.4-49); HEMOGLOBIN 13.1 GM/dL (11.7-16.9); MCHC 34.1 g/dl (32.0-35.9); MEAN CELL VOLUME 93.8 fl (80-96); MEAN PLT VOLUME 8.7 fl (7.5-11.1); PLATELET COUNT 289 10^3/uL (134-434); RDW 15.1 % (11.9-15.9); WHITE BLOOD COUNT 9.4 K/mm3 (4.0-10.0)
[2021-06-08 17:28] LABS: CALCIUM 8.2 mg/dL (8.5-10.1)
[2021-06-08 17:29] LABS: ALBUMIN 3.9 g/dl (3.4-5.0); BLOOD UREA NITROGEN 14.1 mg/dL (7-18)
[2021-06-08 17:32] LABS: CREATININE 0.9 mg/dL (0.55-1.3)
[2021-06-08] MEDS: hydrOXYzine PAMOATE 25 MG CAPSULE (FP) PO SCH ×2 (17:32→23:17)
[2021-06-08] MEDS: diazePAM 5 MG TABLET PO SCH ×2 (17:32→22:43)
[2021-06-08 17:33] LABS: BILIRUBIN,TOTAL 0.4 mg/dL (0.2-1)
[2021-06-08] MEDS ORDERED: QUEtiapine FUMARATE 200 MG TABLET PO SCH (22:00)
[2021-06-08] MEDS: THIAMINE HCL 100 MG TABLET (FP) PO SCH (22:43)
[2021-06-08] MEDS: QUEtiapine FUMARATE 100 MG TABLET (FP) PO SCH (22:44)
[2021-06-08] MEDS: MELATONIN 5 MG TABLETS PO SCH (22:45)
[2021-06-09] MEDS: hydrOXYzine PAMOATE 25 MG CAPSULE (FP) PO SCH (05:55)
[2021-06-09] MEDS: diazePAM 5 MG TABLET PO SCH ×4 (05:55→22:09)
[2021-06-09] MEDS: NICOTINE POLACRILEX 4 MG GUM BUC PRN ×3 (05:56→18:05)
[2021-06-09] MEDS ORDERED: methaDONE HCL 10 MG TABLET PO SCH (09:45)
[2021-06-09] MEDS ORDERED: PNEUMOC 13-VAL CONJ-DIP CRM/PF 0.5 ML DISP.SYRIN IM ONE (10:00)
[2021-06-09] MEDS ORDERED: methaDONE HCL 10 MG TABLET ONE (10:25)
[2021-06-09] MEDS ORDERED: methaDONE HCL 40 MG DISPERSABLE TABLET ONE (10:26)
[2021-06-09] MEDS: MELATONIN 5 MG TABLETS PO SCH (22:09)
[2021-06-09] MEDS: THIAMINE HCL 100 MG TABLET (FP) PO SCH (22:09)
[2021-06-09] MEDS: QUEtiapine FUMARATE 100 MG TABLET (FP) PO SCH (22:09)
[2021-06-10] MEDS ORDERED: methaDONE HCL 10 MG TABLET ONE (03:59)
[2021-06-10] MEDS ORDERED: methaDONE HCL 40 MG DISPERSABLE TABLET ONE (03:59)
[2021-06-10] MEDS: diazePAM 5 MG TABLET PO SCH ×3 (06:00→22:38)
[2021-06-10] MEDS: NICOTINE POLACRILEX 4 MG GUM BUC PRN ×3 (06:03→22:40)
[2021-06-10] MEDS ORDERED: methaDONE HCL 10 MG TABLET (FOR DETOX USE ONLY) PO ONE (10:00)
[2021-06-10] MEDS: diazePAM 5 MG TABLET PO PRN (11:15)
[2021-06-10] MEDS: METHOCARBAMOL 500 MG TABLET PO PRN (11:15)
[2021-06-10] MEDS ORDERED: ONDANSETRON *ODT* 4 MG TABLET SL ONE (15:42)
[2021-06-10 15:43] LABS: HIV INTERPRETATION NEGATIVE (NEGATIVE)
[2021-06-10] MEDS ORDERED: ALBUTEROL SO4 HFA INHALER IH PRN (15:43)
[2021-06-10] MEDS: ONDANSETRON *ODT* 4 MG TABLET SL PRN (16:02)
[2021-06-10] MEDS: QUEtiapine FUMARATE 100 MG TABLET (FP) PO SCH (22:37)
[2021-06-10] MEDS: THIAMINE HCL 100 MG TABLET (FP) PO SCH (22:37)
[2021-06-10] MEDS: MELATONIN 5 MG TABLETS PO SCH (22:38)
[2021-06-10] MEDS: BUDESONIDE/FORMETEROL FUMARATE 80/4.5 mcg INHALER IH SCH (22:38)
[2021-06-11] MEDS ORDERED: methaDONE HCL 10 MG TABLET ONE (05:02)
[2021-06-11] MEDS ORDERED: methaDONE HCL 40 MG DISPERSABLE TABLET ONE (05:02)
[2021-06-11] MEDS: diazePAM 5 MG TABLET PO SCH ×2 (06:20→18:06)
[2021-06-11] MEDS: NICOTINE POLACRILEX 4 MG GUM BUC PRN ×3 (06:23→21:54)
[2021-06-11] MEDS: ACETAMINOPHEN 325 MG TABLET (FP) PO PRN (10:19)
[2021-06-11] MEDS: BUDESONIDE/FORMETEROL FUMARATE 80/4.5 mcg INHALER IH SCH ×2 (10:20→22:07)
[2021-06-11] MEDS ORDERED: ONDANSETRON *ODT* 4 MG TABLET SL ONE (11:52)
[2021-06-11] MEDS ORDERED: MENTHOL/PHENOL 1 EACH UD MM ONE (11:53)
[2021-06-11] MEDS: ONDANSETRON *ODT* 4 MG TABLET SL PRN (12:22)
[2021-06-11] MEDS: THIAMINE HCL 100 MG TABLET (FP) PO SCH (22:06)
[2021-06-11] MEDS: MELATONIN 5 MG TABLETS PO SCH (22:07)
[2021-06-11] MEDS: QUEtiapine FUMARATE 100 MG TABLET (FP) PO SCH (22:07)
[2021-06-12] MEDS ORDERED: methaDONE HCL 10 MG TABLET ONE (04:16)
[2021-06-12] MEDS ORDERED: methaDONE HCL 40 MG DISPERSABLE TABLET ONE (04:16)
[2021-06-12] MEDS: NICOTINE POLACRILEX 4 MG GUM BUC PRN ×2 (05:51→10:07)
[2021-06-12] MEDS ORDERED: diazePAM 5 MG TABLET PO ONE (06:00)
[2021-06-12 09:50] VITALS: BP 118/62; PULSE 91; TEMP 96.9
[2021-06-12] MEDS ORDERED: methaDONE HCL 10 MG TABLET (FOR DETOX USE ONLY) PO ONE (10:00)
[2021-06-12] MEDS: BUDESONIDE/FORMETEROL FUMARATE 80/4.5 mcg INHALER IH SCH (10:04)
[2021-06-12] MEDS: ACETAMINOPHEN 325 MG TABLET (FP) PO PRN (10:05)
== END 2021-06-12 11:22 | disposition other institution (70) | DRG 897 ==
LOC: YASAS 12:45 → Y6N 14:28
PROVIDERS: ADMIT Allergy & Immunology; ATTEND Allergy & Immunology
PROC: HZ2ZZZZ Detoxification Services for Substance Abuse Treatment (ICD-10-PCS; principal; 2021-06-08)
DX: F10.230 Alcohol dependence with withdrawal, uncomplicated (principal); F11.20 Opioid dependence, uncomplicated; F15.20 Other stimulant dependence, uncomplicated; F14.20 Cocaine dependence, uncomplicated; F13.230 Sedative, hypnotic or anxiolytic dependence with withdrawal, uncomplicated; F12.20 Cannabis dependence, uncomplicated; F17.213 Nicotine dependence, cigarettes, with withdrawal; F25.9 Schizoaffective disorder, unspecified; F19.24 Other psychoactive substance dependence with psychoactive substance-induced mood disorder; G47.00 Insomnia, unspecified; G40.909 Epilepsy, unspecified, not intractable, without status epilepticus; Z91.51 Personal history of suicidal behavior
CPT/HCPCS: 36415; 80053; 85027; 86780; 87389; C9803; Q0162; U0003; U0005

== ENCOUNTER 2021-06-12 11:19 | Inpatient (IN) | payer OTHER ==
[2021-06-12] MEDS ORDERED: ACETAMINOPHEN 325 MG TABLET (FP) PO PRN (11:57)
[2021-06-12] MEDS ORDERED: P-EPHED 60MG/TRIPROLIDI 2.5MG TABLET PO PRN (11:57)
[2021-06-12] MEDS ORDERED: guaiFENesin 200 MG/10 ML 10 ML UNIT-DOSE CUPS PO PRN (11:57)
[2021-06-12] MEDS ORDERED: MENTHOL/PHENOL 1 EACH UD MM PRN (11:57)
[2021-06-12] MEDS ORDERED: NICOTINE POLACRILEX 2 MG GUM BUC PRN (11:57)
[2021-06-12] MEDS ORDERED: MAGNESIUM CITRATE 300 ML BOTTLE PO PRN (11:57)
[2021-06-12] MEDS ORDERED: IBUPROFEN 400 MG TABLET (FP) PO PRN (11:57)
[2021-06-12] MEDS ORDERED: MAGNESIUM HYDROX 2400MG/30ML ORAL SUSPENSION 30 ML CUP PO PRN (11:57)
[2021-06-12] MEDS ORDERED: MAG HYDROX/AL HYDROX/SIMETH 30 ML UNIT-DOSE CUP PO PRN (11:57)
[2021-06-12] MEDS ORDERED: LOPERAMIDE HCL 2 MG CAPSULE PO PRN (11:57)
[2021-06-12] MEDS ORDERED: ALBUTEROL SO4 HFA INHALER IH PRN (11:58)
[2021-06-12] MEDS: NICOTINE 10 MG CARTRIDGE (INHALER) IH PRN (19:07)
[2021-06-12] MEDS ORDERED: PT OWN MED DRAWER 7, Y5N ONE (21:12)
[2021-06-12] MEDS: THIAMINE HCL 100 MG TABLET (FP) PO SCH (21:13)
[2021-06-12] MEDS: hydrOXYzine PAMOATE 25 MG CAPSULE (FP) PO PRN (21:14)
[2021-06-12] MEDS: BUDESONIDE/FORMETEROL FUMARATE 80/4.5 mcg INHALER IH SCH (21:14)
[2021-06-12] MEDS ORDERED: BUDESONIDE/FORMETEROL FUMARATE 80/4.5 mcg INHALER IH SCH (22:00)
[2021-06-12] MEDS ORDERED: MELATONIN 5 MG TABLETS PO SCH (22:00)
[2021-06-12] MEDS ORDERED: QUEtiapine FUMARATE 50 MG TABLET PO SCH (22:00)
[2021-06-13] MEDS ORDERED: methaDONE HCL 40 MG DISPERSABLE TABLET PO SCH (06:00)
[2021-06-13] MEDS ORDERED: methaDONE HCL 40 MG DISPERSABLE TABLET ONE (06:15)
[2021-06-13] MEDS ORDERED: methaDONE HCL 10 MG TABLET ONE (06:15)
[2021-06-13] MEDS: hydrOXYzine PAMOATE 25 MG CAPSULE (FP) PO PRN ×2 (06:16→16:39)
[2021-06-13] MEDS: NICOTINE 10 MG CARTRIDGE (INHALER) IH PRN ×2 (09:35→21:21)
[2021-06-13] MEDS: BUDESONIDE/FORMETEROL FUMARATE 80/4.5 mcg INHALER IH SCH ×2 (09:35→21:20)
[2021-06-13] MEDS ORDERED: NICOTINE 21 MG/24 HOURS TOPICAL PATCH TD SCH (10:00)
[2021-06-13] MEDS ORDERED: PRENATAL VITAMINS W/ FOLIC ACID TABLET (FP) PO SCH (10:00)
[2021-06-13] MEDS: NICOTINE POLACRILEX 4 MG GUM BUC PRN ×2 (12:13→16:39)
[2021-06-13] MEDS: OXcarbazepine 300 MG TABLET (UD) PO SCH ×2 (14:03→21:19)
[2021-06-13] MEDS: GABAPENTIN 100 MG CAPSULE PO SCH ×2 (14:03→21:19)
[2021-06-13] MEDS ORDERED: PT OWN MED DRAWER 7, Y5N ONE (20:11)
[2021-06-13] MEDS: THIAMINE HCL 100 MG TABLET (FP) PO SCH (21:19)
[2021-06-13] MEDS ORDERED: BENZTROPINE MESYLATE 1 MG TABLET PO SCH (22:00)
[2021-06-13] MEDS ORDERED: DULoxetine HCL 30 MG CAPSULE.DR PO SCH (22:00)
[2021-06-13] MEDS ORDERED: QUEtiapine FUMARATE 200 MG TABLET PO SCH (22:00)
[2021-06-14] MEDS ORDERED: methaDONE HCL 10 MG TABLET ONE (06:10)
[2021-06-14] MEDS: GABAPENTIN 100 MG CAPSULE PO SCH (06:11)
[2021-06-14] MEDS ORDERED: methaDONE HCL 40 MG DISPERSABLE TABLET ONE (06:11)
[2021-06-14] MEDS: hydrOXYzine PAMOATE 25 MG CAPSULE (FP) PO PRN (06:11)
[2021-06-14 07:02] VITALS: BP 102/89; PULSE 89; TEMP 97.4
[2021-06-21] MEDS ORDERED: HALOPERIDOL DECANOATE 100 MG/ML IM ONE ×2 (10:00)
== END 2021-06-14 09:04 | disposition home or self-care (01) | DRG 895 ==
LOC: YASAS 11:19 → Y3E 11:20
PROVIDERS: ADMIT Allergy & Immunology; ATTEND Allergy & Immunology
PROC: HZ42ZZZ Group Counseling for Substance Abuse Treatment, Cognitive-Behavioral (ICD-10-PCS; principal; 2021-06-12)
DX: F10.20 Alcohol dependence, uncomplicated (principal); F11.20 Opioid dependence, uncomplicated; F14.20 Cocaine dependence, uncomplicated; F19.282 Other psychoactive substance dependence with psychoactive substance-induced sleep disorder; F17.210 Nicotine dependence, cigarettes, uncomplicated; F19.24 Other psychoactive substance dependence with psychoactive substance-induced mood disorder; F20.9 Schizophrenia, unspecified; F41.9 Anxiety disorder, unspecified; F32.9 Major depressive disorder, single episode, unspecified; Z86.69 Personal history of other diseases of the nervous system and sense organs; Z86.2 Personal history of diseases of the blood and blood-forming organs and certain disorders involving the immune mechanism

== ENCOUNTER 2021-07-13 13:16 | Inpatient (IN) | payer OTHER ==
[2021-07-13] MEDS ORDERED: MAGNESIUM CITRATE 300 ML BOTTLE PO PRN (15:04)
[2021-07-13] MEDS ORDERED: ACETAMINOPHEN 325 MG TABLET (FP) PO PRN (15:04)
[2021-07-13] MEDS ORDERED: MAGNESIUM HYDROX 2400MG/30ML ORAL SUSPENSION 30 ML CUP PO PRN (15:04)
[2021-07-13] MEDS ORDERED: MAG HYDROX/AL HYDROX/SIMETH 30 ML UNIT-DOSE CUP PO PRN (15:04)
[2021-07-13] MEDS ORDERED: BISMUTH SUBSALICYLATE 524 MG/30 ML PO PRN (15:04)
[2021-07-13] MEDS ORDERED: ONDANSETRON *ODT* 4 MG TABLET SL PRN (15:04)
[2021-07-13] MEDS ORDERED: diazePAM 5 MG TABLET PO PRN (15:04)
[2021-07-13] MEDS ORDERED: MENTHOL/PHENOL 1 EACH UD MM PRN (15:04)
[2021-07-13 15:27] VITALS: BMI 27.0
[2021-07-13] MEDS ORDERED: ALBUTEROL SO4 HFA INHALER IH PRN (16:54)
[2021-07-13] MEDS: NICOTINE 10 MG CARTRIDGE (INHALER) IH PRN (17:32)
[2021-07-13] MEDS: diazePAM 5 MG TABLET PO SCH ×2 (17:32→22:33)
[2021-07-13] MEDS: hydrOXYzine PAMOATE 25 MG CAPSULE (FP) PO SCH ×2 (17:33→22:33)
[2021-07-13] MEDS ORDERED: GABAPENTIN 300 MG CAPSULE PO SCH (22:00)
[2021-07-13] MEDS: BENZTROPINE MESYLATE 1 MG TABLET PO SCH (22:32)
[2021-07-13] MEDS: DULoxetine HCL 30 MG CAPSULE.DR PO SCH (22:32)
[2021-07-13] MEDS: THIAMINE HCL 100 MG TABLET (FP) PO SCH (22:33)
[2021-07-13] MEDS: QUEtiapine FUMARATE 50 MG TABLET PO SCH (22:33)
[2021-07-13] MEDS: GABAPENTIN 300 MG CAPSULE PO SCH (22:33)
[2021-07-13] MEDS: MELATONIN 5 MG TABLETS PO SCH (22:34)
[2021-07-13] MEDS: IBUPROFEN 400 MG TABLET (FP) PO PRN (22:36)
[2021-07-13] MEDS: BUDESONIDE/FORMETEROL FUMARATE 80/4.5 mcg INHALER IH SCH (22:36)
[2021-07-14] MEDS: diazePAM 5 MG TABLET PO SCH ×4 (05:36→22:05)
[2021-07-14] MEDS: GABAPENTIN 300 MG CAPSULE PO SCH ×3 (05:36→22:04)
[2021-07-14] MEDS: hydrOXYzine PAMOATE 25 MG CAPSULE (FP) PO SCH ×5 (05:36→22:05)
[2021-07-14] MEDS: METHOCARBAMOL 500 MG TABLET PO PRN ×2 (05:36→20:38)
[2021-07-14] MEDS ORDERED: methaDONE HCL 40 MG DISPERSABLE TABLET PO SCH (06:00)
[2021-07-14] MEDS ORDERED: methaDONE HCL 10 MG TABLET PO ONE (10:15)
[2021-07-14] MEDS ORDERED: methaDONE HCL 10 MG TABLET PO SCH (10:15)
[2021-07-14] MEDS ORDERED: methaDONE HCL 40 MG DISPERSABLE TABLET ONE (10:20)
[2021-07-14] MEDS ORDERED: methaDONE HCL 10 MG TABLET ONE (10:20)
[2021-07-14] MEDS: DULoxetine HCL 30 MG CAPSULE.DR PO SCH ×2 (10:21→22:04)
[2021-07-14] MEDS: PRENATAL VITAMINS W/ FOLIC ACID TABLET (FP) PO SCH (10:22)
[2021-07-14] MEDS: BENZTROPINE MESYLATE 1 MG TABLET PO SCH ×2 (10:22→22:05)
[2021-07-14] MEDS: BUDESONIDE/FORMETEROL FUMARATE 80/4.5 mcg INHALER IH SCH ×2 (10:25→22:08)
[2021-07-14] MEDS: NICOTINE POLACRILEX 2 MG GUM BUC PRN ×3 (13:58→20:39)
[2021-07-14] MEDS: QUEtiapine FUMARATE 50 MG TABLET PO SCH (22:04)
[2021-07-14] MEDS: MELATONIN 5 MG TABLETS PO SCH (22:05)
[2021-07-14] MEDS: THIAMINE HCL 100 MG TABLET (FP) PO SCH (22:05)
[2021-07-14] MEDS: ACETAMINOPHEN 325 MG TABLET (FP) PO PRN (22:08)
[2021-07-15] MEDS: NICOTINE POLACRILEX 2 MG GUM BUC PRN ×4 (02:10→22:26)
[2021-07-15] MEDS ORDERED: methaDONE HCL 10 MG TABLET ONE (04:49)
[2021-07-15] MEDS ORDERED: methaDONE HCL 40 MG DISPERSABLE TABLET ONE (04:49)
[2021-07-15] MEDS: GABAPENTIN 300 MG CAPSULE PO SCH ×3 (05:38→22:22)
[2021-07-15] MEDS: METHOCARBAMOL 500 MG TABLET PO PRN ×2 (05:38→18:36)
[2021-07-15] MEDS: diazePAM 5 MG TABLET PO SCH ×3 (05:38→22:23)
[2021-07-15] MEDS: hydrOXYzine PAMOATE 25 MG CAPSULE (FP) PO SCH ×5 (05:38→22:23)
[2021-07-15] MEDS: BUDESONIDE/FORMETEROL FUMARATE 80/4.5 mcg INHALER IH SCH ×2 (10:07→22:24)
[2021-07-15] MEDS: DULoxetine HCL 30 MG CAPSULE.DR PO SCH ×2 (10:07→22:25)
[2021-07-15] MEDS: BENZTROPINE MESYLATE 1 MG TABLET PO SCH ×2 (10:07→22:22)
[2021-07-15] MEDS: PRENATAL VITAMINS W/ FOLIC ACID TABLET (FP) PO SCH (10:07)
[2021-07-15 14:54] LABS: HEMATOCRIT 37.8 % (35.4-49); HEMOGLOBIN 12.9 GM/dL (11.7-16.9); MCHC 34.1 g/dl (32.0-35.9); MEAN CELL VOLUME 91.1 fl (80-96); MEAN PLT VOLUME 8.6 fl (7.5-11.1); PLATELET COUNT 283 10^3/uL (134-434); RBC 4.15 M/mm3 (4.00-5.60); RDW 14.6 % (11.9-15.9); WHITE BLOOD COUNT 4.6 K/mm3 (4.0-10.0)
[2021-07-15 14:57] LABS: CALCIUM 8.3 mg/dL (8.5-10.1)
[2021-07-15 14:58] LABS: ALBUMIN 3.3 g/dl (3.4-5.0); BLOOD UREA NITROGEN 3.5 mg/dL (7-18)
[2021-07-15 15:01] LABS: CREATININE 0.7 mg/dL (0.55-1.3)
[2021-07-15 15:02] LABS: BILIRUBIN,TOTAL 0.1 mg/dL (0.2-1)
[2021-07-15 15:04] LABS: TOT PROT 7.1 g/dl (6.4-8.2)
[2021-07-15] MEDS: NICOTINE 10 MG CARTRIDGE (INHALER) IH PRN (18:36)
[2021-07-15] MEDS: ACETAMINOPHEN 325 MG TABLET (FP) PO PRN (22:21)
[2021-07-15] MEDS: MELATONIN 5 MG TABLETS PO SCH (22:22)
[2021-07-15] MEDS: THIAMINE HCL 100 MG TABLET (FP) PO SCH (22:22)
[2021-07-15] MEDS: QUEtiapine FUMARATE 50 MG TABLET PO SCH (22:23)
[2021-07-15] MEDS: CALCIUM CARBONATE 650 MG TABLET PO SCH (23:04)
[2021-07-16] MEDS ORDERED: methaDONE HCL 10 MG TABLET ONE (04:34)
[2021-07-16] MEDS ORDERED: methaDONE HCL 40 MG DISPERSABLE TABLET ONE (04:34)
[2021-07-16] MEDS: GABAPENTIN 300 MG CAPSULE PO SCH ×3 (05:38→22:30)
[2021-07-16] MEDS: hydrOXYzine PAMOATE 25 MG CAPSULE (FP) PO SCH ×5 (05:38→22:30)
[2021-07-16] MEDS: ACETAMINOPHEN 325 MG TABLET (FP) PO PRN (05:39)
[2021-07-16] MEDS: diazePAM 5 MG TABLET PO SCH ×2 (05:39→17:44)
[2021-07-16] MEDS: PRENATAL VITAMINS W/ FOLIC ACID TABLET (FP) PO SCH (10:08)
[2021-07-16] MEDS: BUDESONIDE/FORMETEROL FUMARATE 80/4.5 mcg INHALER IH SCH ×2 (10:08→22:29)
[2021-07-16] MEDS: CALCIUM CARBONATE 650 MG TABLET PO SCH ×2 (10:08→22:29)
[2021-07-16] MEDS: BENZTROPINE MESYLATE 1 MG TABLET PO SCH ×2 (11:08→22:29)
[2021-07-16] MEDS: DULoxetine HCL 30 MG CAPSULE.DR PO SCH ×2 (11:08→22:30)
[2021-07-16] MEDS: METHOCARBAMOL 500 MG TABLET PO PRN (17:44)
[2021-07-16] MEDS: NICOTINE 10 MG CARTRIDGE (INHALER) IH PRN (17:46)
[2021-07-16] MEDS: NICOTINE POLACRILEX 2 MG GUM BUC PRN ×2 (17:47→22:31)
[2021-07-16] MEDS: THIAMINE HCL 100 MG TABLET (FP) PO SCH (22:29)
[2021-07-16] MEDS: MELATONIN 5 MG TABLETS PO SCH (22:29)
[2021-07-16] MEDS: QUEtiapine FUMARATE 50 MG TABLET PO SCH (22:30)
[2021-07-16] MEDS: IBUPROFEN 400 MG TABLET (FP) PO PRN (22:32)
[2021-07-17] MEDS ORDERED: methaDONE HCL 10 MG TABLET ONE (05:13)
[2021-07-17] MEDS ORDERED: methaDONE HCL 40 MG DISPERSABLE TABLET ONE (05:14)
[2021-07-17] MEDS: GABAPENTIN 300 MG CAPSULE PO SCH (05:38)
[2021-07-17] MEDS: hydrOXYzine PAMOATE 25 MG CAPSULE (FP) PO SCH ×2 (05:38→10:43)
[2021-07-17] MEDS: NICOTINE POLACRILEX 2 MG GUM BUC PRN ×2 (05:41→10:45)
[2021-07-17] MEDS ORDERED: diazePAM 5 MG TABLET PO ONE (06:00)
[2021-07-17 09:44] VITALS: BP 129/76; PULSE 100; TEMP 97.3
[2021-07-17] MEDS: PRENATAL VITAMINS W/ FOLIC ACID TABLET (FP) PO SCH (10:43)
[2021-07-17] MEDS: DULoxetine HCL 30 MG CAPSULE.DR PO SCH (10:43)
[2021-07-17] MEDS: CALCIUM CARBONATE 650 MG TABLET PO SCH (10:43)
[2021-07-17] MEDS: BUDESONIDE/FORMETEROL FUMARATE 80/4.5 mcg INHALER IH SCH (10:43)
[2021-07-17] MEDS: METHOCARBAMOL 500 MG TABLET PO PRN (10:43)
[2021-07-17] MEDS: BENZTROPINE MESYLATE 1 MG TABLET PO SCH (10:43)
== END 2021-07-17 12:50 | disposition other institution (70) | DRG 897 ==
LOC: YASAS 13:16 → Y3N 16:34
PROVIDERS: ADMIT Allergy & Immunology; ATTEND Allergy & Immunology
PROC: HZ2ZZZZ Detoxification Services for Substance Abuse Treatment (ICD-10-PCS; principal; 2021-07-13)
DX: F10.230 Alcohol dependence with withdrawal, uncomplicated (principal); F11.20 Opioid dependence, uncomplicated; F14.20 Cocaine dependence, uncomplicated; F15.20 Other stimulant dependence, uncomplicated; F19.282 Other psychoactive substance dependence with psychoactive substance-induced sleep disorder; F13.230 Sedative, hypnotic or anxiolytic dependence with withdrawal, uncomplicated; F17.210 Nicotine dependence, cigarettes, uncomplicated; F25.9 Schizoaffective disorder, unspecified; F19.24 Other psychoactive substance dependence with psychoactive substance-induced mood disorder; E88.09 Other disorders of plasma-protein metabolism, not elsewhere classified; G40.909 Epilepsy, unspecified, not intractable, without status epilepticus; J45.20 Mild intermittent asthma, uncomplicated; R73.9 Hyperglycemia, unspecified; R74.01 Elevation of levels of liver transaminase levels
CPT/HCPCS: 36415; 80053; 85027; 86780; C9803; U0003; U0005

== ENCOUNTER 2021-07-17 12:51 | Inpatient (IN) | payer OTHER ==
[2021-07-17] MEDS ORDERED: guaiFENesin 200 MG/10 ML 10 ML UNIT-DOSE CUPS PO PRN (14:04)
[2021-07-17] MEDS ORDERED: P-EPHED 60MG/TRIPROLIDI 2.5MG TABLET PO PRN (14:04)
[2021-07-17] MEDS ORDERED: MAGNESIUM CITRATE 300 ML BOTTLE PO PRN (14:04)
[2021-07-17] MEDS ORDERED: LOPERAMIDE HCL 2 MG CAPSULE PO PRN (14:04)
[2021-07-17] MEDS ORDERED: MAG HYDROX/AL HYDROX/SIMETH 30 ML UNIT-DOSE CUP PO PRN (14:04)
[2021-07-17] MEDS ORDERED: MAGNESIUM HYDROX 2400MG/30ML ORAL SUSPENSION 30 ML CUP PO PRN (14:04)
[2021-07-17] MEDS ORDERED: HALOPERIDOL DECANOATE 500 MG/5ML MDV IM ONE (15:17)
[2021-07-17] MEDS: BUDESONIDE/FORMETEROL FUMARATE 80/4.5 mcg INHALER IH SCH (21:14)
[2021-07-17] MEDS: DULoxetine HCL 30 MG CAPSULE.DR PO SCH (21:15)
[2021-07-17] MEDS: BENZTROPINE MESYLATE 1 MG TABLET PO SCH (21:15)
[2021-07-17] MEDS: GABAPENTIN 300 MG CAPSULE PO SCH (21:15)
[2021-07-17] MEDS: QUEtiapine FUMARATE 200 MG TABLET PO SCH (21:15)
[2021-07-17] MEDS ORDERED: MELATONIN 5 MG TABLETS PO SCH (22:00)
[2021-07-17] MEDS ORDERED: BUDESONIDE/FORMETEROL FUMARATE 80/4.5 mcg INHALER IH SCH (22:00)
[2021-07-17] MEDS: IBUPROFEN 400 MG TABLET (FP) PO PRN (22:26)
[2021-07-17] MEDS: THIAMINE HCL 100 MG TABLET (FP) PO SCH (22:26)
[2021-07-18] MEDS ORDERED: methaDONE HCL 40 MG DISPERSABLE TABLET PO SCH (06:00)
[2021-07-18] MEDS ORDERED: methaDONE HCL 10 MG TABLET ONE (06:25)
[2021-07-18] MEDS ORDERED: methaDONE HCL 40 MG DISPERSABLE TABLET ONE (06:25)
[2021-07-18] MEDS: GABAPENTIN 300 MG CAPSULE PO SCH ×3 (06:27→21:24)
[2021-07-18] MEDS: DULoxetine HCL 30 MG CAPSULE.DR PO SCH ×2 (09:34→21:23)
[2021-07-18] MEDS: BUDESONIDE/FORMETEROL FUMARATE 80/4.5 mcg INHALER IH SCH ×2 (09:35→21:26)
[2021-07-18] MEDS: BENZTROPINE MESYLATE 1 MG TABLET PO SCH ×2 (09:35→21:24)
[2021-07-18] MEDS: PRENATAL VITAMINS W/ FOLIC ACID TABLET (FP) PO SCH (09:35)
[2021-07-18] MEDS: OXcarbazepine 300 MG TABLET (UD) PO SCH ×2 (13:14→21:23)
[2021-07-18] MEDS: CALCIUM 500MG/VIT-D 200 UNITS COMBO TABLET (FP) PO SCH (13:14)
[2021-07-18] MEDS: MENTHOL/PHENOL 1 EACH UD MM PRN ×2 (13:15→16:57)
[2021-07-18] MEDS: NICOTINE POLACRILEX 2 MG GUM BUC PRN ×2 (16:57→21:26)
[2021-07-18] MEDS: QUEtiapine FUMARATE 200 MG TABLET PO SCH (21:23)
[2021-07-18] MEDS: THIAMINE HCL 100 MG TABLET (FP) PO SCH (21:24)
[2021-07-19] MEDS ORDERED: methaDONE HCL 10 MG TABLET ONE (04:10)
[2021-07-19] MEDS ORDERED: methaDONE HCL 40 MG DISPERSABLE TABLET ONE (04:10)
[2021-07-19] MEDS: GABAPENTIN 300 MG CAPSULE PO SCH ×3 (06:48→21:07)
[2021-07-19] MEDS: NICOTINE 10 MG CARTRIDGE (INHALER) IH PRN ×2 (06:50→09:51)
[2021-07-19] MEDS: NICOTINE 21 MG/24 HOURS TOPICAL PATCH TD SCH (09:52)
[2021-07-19] MEDS: BENZTROPINE MESYLATE 1 MG TABLET PO SCH ×2 (09:52→21:07)
[2021-07-19] MEDS: CALCIUM 500MG/VIT-D 200 UNITS COMBO TABLET (FP) PO SCH (09:52)
[2021-07-19] MEDS: OXcarbazepine 300 MG TABLET (UD) PO SCH ×2 (09:52→21:07)
[2021-07-19] MEDS: DULoxetine HCL 30 MG CAPSULE.DR PO SCH ×2 (09:52→21:07)
[2021-07-19] MEDS: PRENATAL VITAMINS W/ FOLIC ACID TABLET (FP) PO SCH (09:52)
[2021-07-19] MEDS: BUDESONIDE/FORMETEROL FUMARATE 80/4.5 mcg INHALER IH SCH ×2 (09:53→21:09)
[2021-07-19] MEDS: ACETAMINOPHEN 325 MG TABLET (FP) PO PRN (13:23)
[2021-07-19] MEDS: NICOTINE POLACRILEX 2 MG GUM BUC PRN ×2 (13:26→21:09)
[2021-07-19] MEDS: THIAMINE HCL 100 MG TABLET (FP) PO SCH (21:05)
[2021-07-19] MEDS ORDERED: PT OWN MED DRAWER 7, Y5N ONE (21:07)
[2021-07-19] MEDS: QUEtiapine FUMARATE 200 MG TABLET PO SCH (21:07)
[2021-07-20] MEDS ORDERED: methaDONE HCL 10 MG TABLET ONE (04:15)
[2021-07-20] MEDS ORDERED: methaDONE HCL 40 MG DISPERSABLE TABLET ONE (04:16)
[2021-07-20] MEDS: NICOTINE 10 MG CARTRIDGE (INHALER) IH PRN (06:41)
[2021-07-20] MEDS: GABAPENTIN 300 MG CAPSULE PO SCH ×3 (06:41→21:02)
[2021-07-20] MEDS: ACETAMINOPHEN 325 MG TABLET (FP) PO PRN (06:42)
[2021-07-20] MEDS ORDERED: PT OWN MED DRAWER 7, Y5N ONE ×2 (08:44→19:50)
[2021-07-20] MEDS: OXcarbazepine 300 MG TABLET (UD) PO SCH ×2 (09:56→21:02)
[2021-07-20] MEDS: BENZTROPINE MESYLATE 1 MG TABLET PO SCH ×2 (09:56→21:02)
[2021-07-20] MEDS: DULoxetine HCL 30 MG CAPSULE.DR PO SCH ×2 (09:56→21:02)
[2021-07-20] MEDS: PRENATAL VITAMINS W/ FOLIC ACID TABLET (FP) PO SCH (09:56)
[2021-07-20] MEDS: CALCIUM 500MG/VIT-D 200 UNITS COMBO TABLET (FP) PO SCH (09:56)
[2021-07-20] MEDS: NICOTINE 21 MG/24 HOURS TOPICAL PATCH TD SCH (09:57)
[2021-07-20] MEDS: BUDESONIDE/FORMETEROL FUMARATE 80/4.5 mcg INHALER IH SCH ×2 (09:57→21:12)
[2021-07-20] MEDS: MENTHOL/PHENOL 1 EACH UD MM PRN (12:14)
[2021-07-20] MEDS ORDERED: ONDANSETRON *ODT* 4 MG TABLET SL PRN (13:55)
[2021-07-20] MEDS: THIAMINE HCL 100 MG TABLET (FP) PO SCH (21:02)
[2021-07-20] MEDS: QUEtiapine FUMARATE 200 MG TABLET PO SCH (21:02)
[2021-07-20] MEDS: IBUPROFEN 400 MG TABLET (FP) PO PRN (21:08)
[2021-07-21] MEDS ORDERED: methaDONE HCL 10 MG TABLET ONE (03:51)
[2021-07-21] MEDS ORDERED: methaDONE HCL 40 MG DISPERSABLE TABLET ONE (03:51)
[2021-07-21] MEDS: GABAPENTIN 300 MG CAPSULE PO SCH ×3 (06:31→21:39)
[2021-07-21] MEDS: ACETAMINOPHEN 325 MG TABLET (FP) PO PRN ×2 (06:32→18:27)
[2021-07-21] MEDS: NICOTINE POLACRILEX 2 MG GUM BUC PRN ×2 (06:33→13:13)
[2021-07-21] MEDS: CALCIUM 500MG/VIT-D 200 UNITS COMBO TABLET (FP) PO SCH (09:24)
[2021-07-21] MEDS: BENZTROPINE MESYLATE 1 MG TABLET PO SCH ×2 (09:24→21:39)
[2021-07-21] MEDS: DULoxetine HCL 30 MG CAPSULE.DR PO SCH ×2 (09:24→21:39)
[2021-07-21] MEDS: NICOTINE 21 MG/24 HOURS TOPICAL PATCH TD SCH (09:24)
[2021-07-21] MEDS: OXcarbazepine 300 MG TABLET (UD) PO SCH ×2 (09:25→21:39)
[2021-07-21] MEDS: BUDESONIDE/FORMETEROL FUMARATE 80/4.5 mcg INHALER IH SCH ×2 (09:25→21:40)
[2021-07-21] MEDS: PRENATAL VITAMINS W/ FOLIC ACID TABLET (FP) PO SCH (09:25)
[2021-07-21] MEDS: IBUPROFEN 400 MG TABLET (FP) PO PRN (13:13)
[2021-07-21] MEDS: MENTHOL/PHENOL 1 EACH UD MM PRN (15:33)
[2021-07-21] MEDS ORDERED: MASKS NR ONE (18:49)
[2021-07-21] MEDS ORDERED: PT OWN MED DRAWER 7, Y5N ONE (19:31)
[2021-07-21] MEDS: QUEtiapine FUMARATE 200 MG TABLET PO SCH (21:39)
[2021-07-21] MEDS: THIAMINE HCL 100 MG TABLET (FP) PO SCH (21:40)
[2021-07-22] MEDS ORDERED: methaDONE HCL 10 MG TABLET ONE (02:47)
[2021-07-22] MEDS ORDERED: methaDONE HCL 40 MG DISPERSABLE TABLET ONE (02:48)
[2021-07-22] MEDS: GABAPENTIN 300 MG CAPSULE PO SCH ×3 (06:13→21:05)
[2021-07-22] MEDS: MENTHOL/PHENOL 1 EACH UD MM PRN ×3 (06:16→21:08)
[2021-07-22] MEDS: BENZTROPINE MESYLATE 1 MG TABLET PO SCH ×2 (09:53→21:05)
[2021-07-22] MEDS: PRENATAL VITAMINS W/ FOLIC ACID TABLET (FP) PO SCH (09:53)
[2021-07-22] MEDS: DULoxetine HCL 30 MG CAPSULE.DR PO SCH ×2 (09:53→21:05)
[2021-07-22] MEDS: BUDESONIDE/FORMETEROL FUMARATE 80/4.5 mcg INHALER IH SCH ×2 (09:53→21:04)
[2021-07-22] MEDS: CALCIUM 500MG/VIT-D 200 UNITS COMBO TABLET (FP) PO SCH (09:54)
[2021-07-22] MEDS: NICOTINE 21 MG/24 HOURS TOPICAL PATCH TD SCH (09:54)
[2021-07-22] MEDS: OXcarbazepine 300 MG TABLET (UD) PO SCH ×2 (09:54→21:05)
[2021-07-22] MEDS: NICOTINE 10 MG CARTRIDGE (INHALER) IH PRN (09:54)
[2021-07-22] MEDS: NICOTINE POLACRILEX 2 MG GUM BUC PRN ×3 (14:14→21:08)
[2021-07-22] MEDS: ACETAMINOPHEN 325 MG TABLET (FP) PO PRN (16:56)
[2021-07-22] MEDS ORDERED: PT OWN MED DRAWER 7, Y5N ONE (20:38)
[2021-07-22] MEDS: QUEtiapine FUMARATE 200 MG TABLET PO SCH (21:05)
[2021-07-22] MEDS: THIAMINE HCL 100 MG TABLET (FP) PO SCH (21:05)
[2021-07-22] MEDS: IBUPROFEN 400 MG TABLET (FP) PO PRN (21:07)
[2021-07-23] MEDS ORDERED: methaDONE HCL 40 MG DISPERSABLE TABLET ONE (03:31)
[2021-07-23] MEDS ORDERED: methaDONE HCL 10 MG TABLET ONE (03:31)
[2021-07-23] MEDS: GABAPENTIN 300 MG CAPSULE PO SCH ×3 (06:31→21:17)
[2021-07-23] MEDS: NICOTINE POLACRILEX 2 MG GUM BUC PRN ×2 (06:33→21:17)
[2021-07-23] MEDS ORDERED: PT OWN MED DRAWER 7, Y5N ONE ×2 (08:54→19:42)
[2021-07-23] MEDS: OXcarbazepine 300 MG TABLET (UD) PO SCH ×2 (09:55→21:17)
[2021-07-23] MEDS: BENZTROPINE MESYLATE 1 MG TABLET PO SCH ×2 (09:55→21:19)
[2021-07-23] MEDS: BUDESONIDE/FORMETEROL FUMARATE 80/4.5 mcg INHALER IH SCH ×2 (09:55→21:20)
[2021-07-23] MEDS: PRENATAL VITAMINS W/ FOLIC ACID TABLET (FP) PO SCH (09:56)
[2021-07-23] MEDS: DULoxetine HCL 30 MG CAPSULE.DR PO SCH ×2 (09:56→21:17)
[2021-07-23] MEDS: CALCIUM 500MG/VIT-D 200 UNITS COMBO TABLET (FP) PO SCH (09:56)
[2021-07-23] MEDS: MENTHOL/PHENOL 1 EACH UD MM PRN ×2 (09:57→14:06)
[2021-07-23] MEDS: NICOTINE 10 MG CARTRIDGE (INHALER) IH PRN (09:58)
[2021-07-23] MEDS: NICOTINE 21 MG/24 HOURS TOPICAL PATCH TD SCH (09:59)
[2021-07-23] MEDS: ACETAMINOPHEN 325 MG TABLET (FP) PO PRN (12:19)
[2021-07-23] MEDS: QUEtiapine FUMARATE 200 MG TABLET PO SCH (21:17)
[2021-07-23] MEDS: THIAMINE HCL 100 MG TABLET (FP) PO SCH (21:17)
[2021-07-24] MEDS ORDERED: methaDONE HCL 10 MG TABLET ONE (04:15)
[2021-07-24] MEDS ORDERED: methaDONE HCL 40 MG DISPERSABLE TABLET ONE (04:16)
[2021-07-24] MEDS: GABAPENTIN 300 MG CAPSULE PO SCH ×3 (06:28→21:16)
[2021-07-24] MEDS: NICOTINE POLACRILEX 2 MG GUM BUC PRN ×2 (06:29→12:15)
[2021-07-24] MEDS ORDERED: PT OWN MED DRAWER 7, Y5N ONE ×2 (09:11→19:41)
[2021-07-24] MEDS: NICOTINE 21 MG/24 HOURS TOPICAL PATCH TD SCH (09:56)
[2021-07-24] MEDS: BENZTROPINE MESYLATE 1 MG TABLET PO SCH ×2 (09:56→21:15)
[2021-07-24] MEDS: DULoxetine HCL 30 MG CAPSULE.DR PO SCH ×2 (09:56→21:15)
[2021-07-24] MEDS: CALCIUM 500MG/VIT-D 200 UNITS COMBO TABLET (FP) PO SCH (09:57)
[2021-07-24] MEDS: OXcarbazepine 300 MG TABLET (UD) PO SCH ×2 (09:57→21:16)
[2021-07-24] MEDS: BUDESONIDE/FORMETEROL FUMARATE 80/4.5 mcg INHALER IH SCH ×2 (09:58→21:16)
[2021-07-24] MEDS: PRENATAL VITAMINS W/ FOLIC ACID TABLET (FP) PO SCH (09:58)
[2021-07-24] MEDS: MENTHOL/PHENOL 1 EACH UD MM PRN (10:00)
[2021-07-24] MEDS: ACETAMINOPHEN 325 MG TABLET (FP) PO PRN (12:16)
[2021-07-24] MEDS ORDERED: hydrOXYzine PAMOATE 25 MG CAPSULE (FP) PO ONE (14:28)
[2021-07-24] MEDS: QUEtiapine FUMARATE 200 MG TABLET PO SCH (21:16)
[2021-07-24] MEDS: THIAMINE HCL 100 MG TABLET (FP) PO SCH (21:16)
[2021-07-25] MEDS ORDERED: methaDONE HCL 10 MG TABLET ONE (03:45)
[2021-07-25] MEDS ORDERED: methaDONE HCL 40 MG DISPERSABLE TABLET ONE (03:45)
[2021-07-25] MEDS: GABAPENTIN 300 MG CAPSULE PO SCH (06:23)
[2021-07-25 06:29] VITALS: BP 118/78; PULSE 89; TEMP 97.1
[2021-07-25] MEDS: PRENATAL VITAMINS W/ FOLIC ACID TABLET (FP) PO SCH (09:06)
[2021-07-25] MEDS: BENZTROPINE MESYLATE 1 MG TABLET PO SCH (09:06)
[2021-07-25] MEDS: CALCIUM 500MG/VIT-D 200 UNITS COMBO TABLET (FP) PO SCH (09:06)
[2021-07-25] MEDS: NICOTINE 21 MG/24 HOURS TOPICAL PATCH TD SCH (09:06)
[2021-07-25] MEDS: DULoxetine HCL 30 MG CAPSULE.DR PO SCH (09:06)
[2021-07-25] MEDS: OXcarbazepine 300 MG TABLET (UD) PO SCH (09:06)
[2021-07-25] MEDS: BUDESONIDE/FORMETEROL FUMARATE 80/4.5 mcg INHALER IH SCH (09:07)
[2021-07-25] MEDS: IBUPROFEN 400 MG TABLET (FP) PO PRN (09:08)
[2021-07-25] MEDS: NICOTINE POLACRILEX 2 MG GUM BUC PRN (09:09)
[2021-07-25] MEDS: NICOTINE 10 MG CARTRIDGE (INHALER) IH PRN (09:09)
== END 2021-07-25 10:42 | disposition home or self-care (01) | DRG 895 ==
LOC: YASAS 12:51 → Y3E 12:52
PROVIDERS: ADMIT Allergy & Immunology; ATTEND Allergy & Immunology
PROC: HZ42ZZZ Group Counseling for Substance Abuse Treatment, Cognitive-Behavioral (ICD-10-PCS; principal; 2021-07-17)
DX: F10.20 Alcohol dependence, uncomplicated (principal); F14.20 Cocaine dependence, uncomplicated; F11.20 Opioid dependence, uncomplicated; F15.20 Other stimulant dependence, uncomplicated; F19.282 Other psychoactive substance dependence with psychoactive substance-induced sleep disorder; F12.20 Cannabis dependence, uncomplicated; F17.210 Nicotine dependence, cigarettes, uncomplicated; F25.9 Schizoaffective disorder, unspecified; F41.9 Anxiety disorder, unspecified; F32.A Depression, unspecified; D64.9 Anemia, unspecified; G40.909 Epilepsy, unspecified, not intractable, without status epilepticus; J45.909 Unspecified asthma, uncomplicated; M54.50 Low back pain, unspecified; G89.29 Other chronic pain; Z91.19 Patient's noncompliance with other medical treatment and regimen
CPT/HCPCS: Q0162

== ENCOUNTER 2021-08-20 14:19 | Inpatient (IN) | payer OTHER ==
[2021-08-20] MEDS ORDERED: MAG HYDROX/AL HYDROX/SIMETH 30 ML UNIT-DOSE CUP PO PRN (17:44)
[2021-08-20] MEDS ORDERED: diazePAM 5 MG TABLET PO ONE (17:44)
[2021-08-20] MEDS ORDERED: MAGNESIUM HYDROX 2400MG/30ML ORAL SUSPENSION 30 ML CUP PO PRN (17:44)
[2021-08-20] MEDS ORDERED: IBUPROFEN 400 MG TABLET (FP) PO PRN (17:44)
[2021-08-20] MEDS ORDERED: MENTHOL/PHENOL 1 EACH UD MM PRN (17:44)
[2021-08-20] MEDS ORDERED: MAGNESIUM CITRATE 300 ML BOTTLE PO PRN (17:44)
[2021-08-20] MEDS ORDERED: diazePAM 5 MG TABLET PO PRN (17:44)
[2021-08-20] MEDS ORDERED: NICOTINE 10 MG CARTRIDGE (INHALER) IH PRN (17:44)
[2021-08-20] MEDS ORDERED: ACETAMINOPHEN 325 MG TABLET (FP) PO PRN (17:44)
[2021-08-20] MEDS ORDERED: ONDANSETRON *ODT* 4 MG TABLET SL PRN (17:44)
[2021-08-20] MEDS ORDERED: BISMUTH SUBSALICYLATE 524 MG/30 ML PO PRN (17:44)
[2021-08-20] MEDS ORDERED: ALBUTEROL SO4 HFA INHALER IH PRN (17:47)
[2021-08-20 18:56] VITALS: BMI 27.3
[2021-08-20] MEDS: hydrOXYzine PAMOATE 25 MG CAPSULE (FP) PO SCH ×2 (20:56→22:34)
[2021-08-20] MEDS: NICOTINE POLACRILEX 4 MG GUM BUC PRN (20:58)
[2021-08-20] MEDS: OXcarbazepine 300 MG TABLET (UD) PO SCH (22:34)
[2021-08-20] MEDS: BUDESONIDE/FORMETEROL FUMARATE 160/4.5 mcg INHALER IH SCH (22:34)
[2021-08-20] MEDS: THIAMINE HCL 100 MG TABLET (FP) PO SCH (22:34)
[2021-08-20] MEDS: MELATONIN 5 MG TABLETS PO SCH (22:34)
[2021-08-20] MEDS: GABAPENTIN 300 MG CAPSULE PO SCH (22:34)
[2021-08-20] MEDS: BENZTROPINE MESYLATE 1 MG TABLET PO SCH (22:35)
[2021-08-20] MEDS: diazePAM 5 MG TABLET PO SCH (22:36)
[2021-08-20] MEDS: DULoxetine HCL 30 MG CAPSULE.DR PO SCH (23:13)
[2021-08-20] MEDS: QUEtiapine FUMARATE 200 MG TABLET PO SCH (23:13)
[2021-08-21] MEDS: diazePAM 5 MG TABLET PO SCH ×4 (05:25→22:21)
[2021-08-21] MEDS: hydrOXYzine PAMOATE 25 MG CAPSULE (FP) PO SCH ×5 (05:26→22:21)
[2021-08-21] MEDS: GABAPENTIN 300 MG CAPSULE PO SCH ×3 (05:26→22:21)
[2021-08-21] MEDS: NICOTINE POLACRILEX 4 MG GUM BUC PRN ×2 (05:27→10:45)
[2021-08-21] MEDS ORDERED: methaDONE HCL 40 MG DISPERSABLE TABLET PO SCH (10:00)
[2021-08-21] MEDS ORDERED: methaDONE HCL 10 MG TABLET ONE (10:34)
[2021-08-21] MEDS ORDERED: methaDONE HCL 40 MG DISPERSABLE TABLET ONE (10:36)
[2021-08-21] MEDS: BENZTROPINE MESYLATE 1 MG TABLET PO SCH ×2 (10:39→22:21)
[2021-08-21] MEDS: DULoxetine HCL 30 MG CAPSULE.DR PO SCH ×2 (10:39→22:20)
[2021-08-21] MEDS: OXcarbazepine 300 MG TABLET (UD) PO SCH ×2 (10:39→22:21)
[2021-08-21] MEDS: PRENATAL VITAMINS W/ FOLIC ACID TABLET (FP) PO SCH (10:40)
[2021-08-21] MEDS: BUDESONIDE/FORMETEROL FUMARATE 160/4.5 mcg INHALER IH SCH ×2 (10:40→22:22)
[2021-08-21 12:19] LABS: ALBUMIN 3.5 g/dl (3.4-5.0); BLOOD UREA NITROGEN 11.8 mg/dL (7-18); CALCIUM 9.2 mg/dL (8.5-10.1)
[2021-08-21 12:20] LABS: HEMATOCRIT 36.6 % (35.4-49); HEMOGLOBIN 12.3 GM/dL (11.7-16.9); MCH 27.4 pg (25.7-33.7); MCHC 33.5 g/dl (32.0-35.9); MEAN CELL VOLUME 81.9 fl (80-96); MEAN PLT VOLUME 9.6 fl (7.5-11.1); PLATELET COUNT 276 10^3/uL (134-434); RBC 4.47 M/mm3 (4.00-5.60); RDW 16.2 % (11.9-15.9); WHITE BLOOD COUNT 5.6 K/mm3 (4.0-10.0)
[2021-08-21 12:22] LABS: CREATININE 0.9 mg/dL (0.55-1.3)
[2021-08-21 12:24] LABS: BILIRUBIN,TOTAL 0.4 mg/dL (0.2-1); TOT PROT 7.2 g/dl (6.4-8.2)
[2021-08-21] MEDS: THIAMINE HCL 100 MG TABLET (FP) PO SCH (22:20)
[2021-08-21] MEDS: MELATONIN 5 MG TABLETS PO SCH (22:20)
[2021-08-21] MEDS: QUEtiapine FUMARATE 200 MG TABLET PO SCH (22:21)
[2021-08-21] MEDS: METHOCARBAMOL 500 MG TABLET PO PRN (22:22)
[2021-08-22] MEDS ORDERED: methaDONE HCL 10 MG TABLET ONE (04:18)
[2021-08-22] MEDS ORDERED: methaDONE HCL 40 MG DISPERSABLE TABLET ONE (04:19)
[2021-08-22] MEDS: diazePAM 5 MG TABLET PO SCH ×3 (05:35→22:41)
[2021-08-22] MEDS: GABAPENTIN 300 MG CAPSULE PO SCH ×3 (05:35→22:42)
[2021-08-22] MEDS: hydrOXYzine PAMOATE 25 MG CAPSULE (FP) PO SCH ×5 (05:35→22:42)
[2021-08-22] MEDS: NICOTINE POLACRILEX 4 MG GUM BUC PRN ×5 (05:38→22:44)
[2021-08-22] MEDS: METHOCARBAMOL 500 MG TABLET PO PRN (10:52)
[2021-08-22] MEDS: DULoxetine HCL 30 MG CAPSULE.DR PO SCH ×2 (10:55→22:42)
[2021-08-22] MEDS: BUDESONIDE/FORMETEROL FUMARATE 160/4.5 mcg INHALER IH SCH ×2 (10:55→22:42)
[2021-08-22] MEDS: PRENATAL VITAMINS W/ FOLIC ACID TABLET (FP) PO SCH (10:55)
[2021-08-22] MEDS: BENZTROPINE MESYLATE 1 MG TABLET PO SCH ×2 (10:55→22:42)
[2021-08-22] MEDS: OXcarbazepine 300 MG TABLET (UD) PO SCH ×2 (13:43→22:42)
[2021-08-22] MEDS: ACETAMINOPHEN 325 MG TABLET (FP) PO PRN (17:53)
[2021-08-22] MEDS: MELATONIN 5 MG TABLETS PO SCH (22:42)
[2021-08-22] MEDS: QUEtiapine FUMARATE 200 MG TABLET PO SCH (22:42)
[2021-08-22] MEDS: THIAMINE HCL 100 MG TABLET (FP) PO SCH (22:42)
[2021-08-23] MEDS ORDERED: methaDONE HCL 10 MG TABLET ONE (04:20)
[2021-08-23] MEDS ORDERED: methaDONE HCL 40 MG DISPERSABLE TABLET ONE (04:21)
[2021-08-23] MEDS: hydrOXYzine PAMOATE 25 MG CAPSULE (FP) PO SCH ×5 (06:22→22:12)
[2021-08-23] MEDS: GABAPENTIN 300 MG CAPSULE PO SCH ×3 (06:23→22:12)
[2021-08-23] MEDS: diazePAM 5 MG TABLET PO SCH ×2 (06:23→18:09)
[2021-08-23] MEDS: BENZTROPINE MESYLATE 1 MG TABLET PO SCH ×2 (10:18→22:12)
[2021-08-23] MEDS: OXcarbazepine 300 MG TABLET (UD) PO SCH ×2 (10:18→22:12)
[2021-08-23] MEDS: PRENATAL VITAMINS W/ FOLIC ACID TABLET (FP) PO SCH (10:18)
[2021-08-23] MEDS: BUDESONIDE/FORMETEROL FUMARATE 160/4.5 mcg INHALER IH SCH ×2 (10:19→22:14)
[2021-08-23] MEDS: DULoxetine HCL 30 MG CAPSULE.DR PO SCH ×2 (10:59→22:13)
[2021-08-23] MEDS ORDERED: HALOPERIDOL DECANOATE 500 MG/5ML MDV IM ONE (13:40)
[2021-08-23] MEDS: ACETAMINOPHEN 325 MG TABLET (FP) PO PRN (18:10)
[2021-08-23] MEDS: NICOTINE POLACRILEX 4 MG GUM BUC PRN ×2 (18:11→21:08)
[2021-08-23] MEDS: THIAMINE HCL 100 MG TABLET (FP) PO SCH (22:12)
[2021-08-23] MEDS: QUEtiapine FUMARATE 200 MG TABLET PO SCH (22:12)
[2021-08-23] MEDS: MELATONIN 5 MG TABLETS PO SCH (22:13)
[2021-08-24] MEDS ORDERED: methaDONE HCL 40 MG DISPERSABLE TABLET ONE (04:15)
[2021-08-24] MEDS ORDERED: methaDONE HCL 10 MG TABLET ONE (04:15)
[2021-08-24] MEDS: GABAPENTIN 300 MG CAPSULE PO SCH (05:33)
[2021-08-24] MEDS: hydrOXYzine PAMOATE 25 MG CAPSULE (FP) PO SCH (05:33)
[2021-08-24] MEDS ORDERED: diazePAM 5 MG TABLET PO ONE (06:00)
[2021-08-24 09:53] VITALS: BP 121/69; PULSE 95; TEMP 96.9
== END 2021-08-24 09:58 | disposition home or self-care (01) | DRG 897 ==
LOC: YASAS 14:19 → Y3N 18:38
PROVIDERS: ADMIT Allergy & Immunology; ATTEND Allergy & Immunology
PROC: HZ2ZZZZ Detoxification Services for Substance Abuse Treatment (ICD-10-PCS; principal; 2021-08-20)
DX: F10.230 Alcohol dependence with withdrawal, uncomplicated (principal); F11.20 Opioid dependence, uncomplicated; F13.20 Sedative, hypnotic or anxiolytic dependence, uncomplicated; F15.20 Other stimulant dependence, uncomplicated; F14.20 Cocaine dependence, uncomplicated; F19.282 Other psychoactive substance dependence with psychoactive substance-induced sleep disorder; F12.20 Cannabis dependence, uncomplicated; F17.210 Nicotine dependence, cigarettes, uncomplicated; F20.9 Schizophrenia, unspecified; F19.24 Other psychoactive substance dependence with psychoactive substance-induced mood disorder; J45.909 Unspecified asthma, uncomplicated; G40.909 Epilepsy, unspecified, not intractable, without status epilepticus; G47.00 Insomnia, unspecified; M54.59 Other low back pain; G89.29 Other chronic pain; Z91.51 Personal history of suicidal behavior; Z56.0 Unemployment, unspecified
CPT/HCPCS: 36415; 80053; 82947; 85027; 86780; C9803; U0003; U0005

== ENCOUNTER 2021-10-17 12:16 | Inpatient (IN) | payer OTHER ==
[2021-10-17] MEDS ORDERED: IBUPROFEN 400 MG TABLET (FP) PO PRN (12:44)
[2021-10-17] MEDS ORDERED: ACETAMINOPHEN 325 MG TABLET (FP) PO PRN (12:44)
[2021-10-17] MEDS ORDERED: MAG HYDROX/AL HYDROX/SIMETH 30 ML UNIT-DOSE CUP PO PRN (12:44)
[2021-10-17] MEDS ORDERED: MAGNESIUM HYDROX 2400MG/30ML ORAL SUSPENSION 30 ML CUP PO PRN (12:44)
[2021-10-17] MEDS ORDERED: BISMUTH SUBSALICYLATE 524 MG/30 ML PO PRN (12:44)
[2021-10-17] MEDS ORDERED: NICOTINE 10 MG CARTRIDGE (INHALER) IH PRN (12:44)
[2021-10-17] MEDS ORDERED: ONDANSETRON *ODT* 4 MG TABLET SL PRN (12:44)
[2021-10-17] MEDS ORDERED: MENTHOL/PHENOL 1 EACH UD MM PRN (12:44)
[2021-10-17] MEDS ORDERED: MAGNESIUM CITRATE 300 ML BOTTLE PO PRN (12:44)
[2021-10-17 13:30] VITALS: BMI 24.3
[2021-10-17] MEDS ORDERED: ALBUTEROL SO4 HFA INHALER IH PRN (14:22)
[2021-10-17] MEDS ORDERED: GABAPENTIN 300 MG CAPSULE PO SCH (14:30)
[2021-10-17] MEDS ORDERED: hydrOXYzine PAMOATE 25 MG CAPSULE (FP) PO ONE (15:13)
[2021-10-17] MEDS ORDERED: NICOTINE 14 MG/24 HOURS TOPICAL PATCH TD ONE (15:14)
[2021-10-17] MEDS: NICOTINE 14 MG/24 HOURS TOPICAL PATCH TD SCH (15:16)
[2021-10-17] MEDS: PRENATAL VITAMINS W/ FOLIC ACID TABLET (FP) PO SCH (15:16)
[2021-10-17] MEDS: hydrOXYzine PAMOATE 25 MG CAPSULE (FP) PO SCH ×3 (15:16→22:30)
[2021-10-17] MEDS: METHOCARBAMOL 500 MG TABLET PO PRN (17:50)
[2021-10-17] MEDS: diazePAM 5 MG TABLET PO SCH ×2 (17:50→22:32)
[2021-10-17] MEDS ORDERED: DULoxetine HCL 60 MG CAPSULE.DR PO SCH (22:00)
[2021-10-17] MEDS ORDERED: OXcarbazepine 300 MG TABLET (UD) PO SCH (22:00)
[2021-10-17] MEDS ORDERED: QUEtiapine FUMARATE 200 MG TABLET PO SCH (22:00)
[2021-10-17] MEDS: THIAMINE HCL 100 MG TABLET (FP) PO SCH (22:30)
[2021-10-17] MEDS: MELATONIN 5 MG TABLETS PO SCH (22:30)
[2021-10-17] MEDS: BUDESONIDE/FORMETEROL FUMARATE 160/4.5 mcg INHALER IH SCH (22:31)
[2021-10-18] MEDS: hydrOXYzine PAMOATE 25 MG CAPSULE (FP) PO SCH ×5 (06:21→22:27)
[2021-10-18] MEDS: diazePAM 5 MG TABLET PO SCH ×4 (06:22→22:27)
[2021-10-18] MEDS ORDERED: methaDONE HCL 40 MG DISPERSABLE TABLET PO ONE (10:00)
[2021-10-18] MEDS ORDERED: methaDONE HCL 10 MG TABLET PO ONE (10:00)
[2021-10-18] MEDS: METHOCARBAMOL 500 MG TABLET PO PRN (10:44)
[2021-10-18] MEDS: PRENATAL VITAMINS W/ FOLIC ACID TABLET (FP) PO SCH (10:44)
[2021-10-18 10:45] LABS: HEMATOCRIT 40.3 % (35.4-49); HEMOGLOBIN 13.7 GM/dL (11.7-16.9); MCH 31.2 pg (25.7-33.7); MEAN CELL VOLUME 91.7 fl (80-96); MEAN PLT VOLUME 9.3 fl (7.5-11.1); PLATELET COUNT 252 10^3/uL (134-434); RDW 16.7 % (11.9-15.9); WHITE BLOOD COUNT 7.6 K/mm3 (4.0-10.0)
[2021-10-18] MEDS: BUDESONIDE/FORMETEROL FUMARATE 160/4.5 mcg INHALER IH SCH ×2 (10:45→22:28)
[2021-10-18] MEDS: NICOTINE 14 MG/24 HOURS TOPICAL PATCH TD SCH (10:46)
[2021-10-18 10:47] LABS: ALBUMIN 4.2 g/dl (3.4-5.0); BLOOD UREA NITROGEN 14.7 mg/dL (7-18)
[2021-10-18 10:50] LABS: CREATININE 0.9 mg/dL (0.55-1.3)
[2021-10-18 10:51] LABS: BILIRUBIN,TOTAL 0.2 mg/dL (0.2-1)
[2021-10-18] MEDS ORDERED: HALOPERIDOL 5 MG TABLET PO PRN (12:59)
[2021-10-18] MEDS ORDERED: OXcarbazepine 300 MG/5 ML UNIT DOSE CUPS PO SCH (14:00)
[2021-10-18] MEDS: GABAPENTIN 100 MG CAPSULE PO SCH ×2 (14:38→22:27)
[2021-10-18] MEDS: OXcarbazepine 300 MG TABLET (UD) PO SCH ×2 (14:39→22:29)
[2021-10-18] MEDS: DULoxetine HCL 30 MG CAPSULE.DR PO SCH ×2 (14:39→22:27)
[2021-10-18] MEDS: HALOPERIDOL 5 MG TABLET PO SCH ×2 (14:39→22:27)
[2021-10-18 15:31] LABS: HIV INTERPRETATION NEGATIVE (NEGATIVE)
[2021-10-18] MEDS: MELATONIN 5 MG TABLETS PO SCH (22:26)
[2021-10-18] MEDS: THIAMINE HCL 100 MG TABLET (FP) PO SCH (22:27)
[2021-10-18] MEDS: BENZTROPINE MESYLATE 1 MG TABLET PO SCH (22:28)
[2021-10-19] MEDS: hydrOXYzine PAMOATE 25 MG CAPSULE (FP) PO SCH ×5 (06:15→22:20)
[2021-10-19] MEDS: GABAPENTIN 100 MG CAPSULE PO SCH ×3 (06:15→22:20)
[2021-10-19] MEDS: diazePAM 5 MG TABLET PO SCH ×3 (06:15→22:20)
[2021-10-19] MEDS: methaDONE HCL 40 MG DISPERSABLE TABLET PO SCH (06:15)
[2021-10-19] MEDS: PRENATAL VITAMINS W/ FOLIC ACID TABLET (FP) PO SCH (10:35)
[2021-10-19] MEDS: diazePAM 5 MG TABLET PO PRN ×2 (10:36→17:32)
[2021-10-19] MEDS: METHOCARBAMOL 500 MG TABLET PO PRN (10:36)
[2021-10-19] MEDS: BENZTROPINE MESYLATE 1 MG TABLET PO SCH ×2 (10:36→22:21)
[2021-10-19] MEDS: DULoxetine HCL 30 MG CAPSULE.DR PO SCH ×2 (10:37→22:41)
[2021-10-19] MEDS: OXcarbazepine 300 MG TABLET (UD) PO SCH ×2 (10:38→22:22)
[2021-10-19] MEDS: BUDESONIDE/FORMETEROL FUMARATE 160/4.5 mcg INHALER IH SCH ×2 (10:38→22:41)
[2021-10-19] MEDS: HALOPERIDOL 5 MG TABLET PO SCH ×2 (10:38→22:21)
[2021-10-19] MEDS: NICOTINE 14 MG/24 HOURS TOPICAL PATCH TD SCH (10:38)
[2021-10-19] MEDS: ACETAMINOPHEN 325 MG TABLET (FP) PO PRN (17:32)
[2021-10-19] MEDS: THIAMINE HCL 100 MG TABLET (FP) PO SCH (22:20)
[2021-10-19] MEDS: MELATONIN 5 MG TABLETS PO SCH (22:20)
[2021-10-20] MEDS: GABAPENTIN 100 MG CAPSULE PO SCH ×3 (06:03→22:25)
[2021-10-20] MEDS: hydrOXYzine PAMOATE 25 MG CAPSULE (FP) PO SCH ×5 (06:03→22:26)
[2021-10-20] MEDS: methaDONE HCL 40 MG DISPERSABLE TABLET PO SCH (06:03)
[2021-10-20] MEDS: diazePAM 5 MG TABLET PO SCH ×2 (06:04→17:54)
[2021-10-20] MEDS: PRENATAL VITAMINS W/ FOLIC ACID TABLET (FP) PO SCH (10:33)
[2021-10-20] MEDS: BUDESONIDE/FORMETEROL FUMARATE 160/4.5 mcg INHALER IH SCH ×2 (10:33→22:30)
[2021-10-20] MEDS: HALOPERIDOL 5 MG TABLET PO SCH ×2 (10:33→22:26)
[2021-10-20] MEDS: OXcarbazepine 300 MG TABLET (UD) PO SCH ×2 (10:33→22:27)
[2021-10-20] MEDS: BENZTROPINE MESYLATE 1 MG TABLET PO SCH ×2 (10:34→22:25)
[2021-10-20] MEDS: METHOCARBAMOL 500 MG TABLET PO PRN (10:34)
[2021-10-20] MEDS: diazePAM 5 MG TABLET PO PRN (10:34)
[2021-10-20] MEDS: NICOTINE 14 MG/24 HOURS TOPICAL PATCH TD SCH (10:37)
[2021-10-20] MEDS: DULoxetine HCL 30 MG CAPSULE.DR PO SCH ×2 (11:04→22:26)
[2021-10-20] MEDS: THIAMINE HCL 100 MG TABLET (FP) PO SCH (22:26)
[2021-10-20] MEDS: MELATONIN 5 MG TABLETS PO SCH (22:27)
[2021-10-20] MEDS: ACETAMINOPHEN 325 MG TABLET (FP) PO PRN (22:28)
[2021-10-21] MEDS ORDERED: diazePAM 5 MG TABLET PO ONE (06:00)
[2021-10-21] MEDS: GABAPENTIN 100 MG CAPSULE PO SCH (06:11)
[2021-10-21] MEDS: hydrOXYzine PAMOATE 25 MG CAPSULE (FP) PO SCH ×2 (06:11→10:16)
[2021-10-21] MEDS: methaDONE HCL 40 MG DISPERSABLE TABLET PO SCH (06:11)
[2021-10-21 09:04] VITALS: BP 114/82; PULSE 97; TEMP 96.9
[2021-10-21] MEDS: BUDESONIDE/FORMETEROL FUMARATE 160/4.5 mcg INHALER IH SCH (10:13)
[2021-10-21] MEDS: OXcarbazepine 300 MG TABLET (UD) PO SCH (10:13)
[2021-10-21] MEDS: METHOCARBAMOL 500 MG TABLET PO PRN (10:13)
[2021-10-21] MEDS: BENZTROPINE MESYLATE 1 MG TABLET PO SCH (10:14)
[2021-10-21] MEDS: HALOPERIDOL 5 MG TABLET PO SCH (10:14)
[2021-10-21] MEDS: DULoxetine HCL 30 MG CAPSULE.DR PO SCH (10:14)
[2021-10-21] MEDS: PRENATAL VITAMINS W/ FOLIC ACID TABLET (FP) PO SCH (10:16)
[2021-10-21] MEDS: NICOTINE 14 MG/24 HOURS TOPICAL PATCH TD SCH (10:16)
== END 2021-10-21 10:58 | disposition home or self-care (01) | DRG 897 ==
LOC: YASAS 12:16 → Y6N 15:07
PROVIDERS: ADMIT Allergy & Immunology; ATTEND Allergy & Immunology
PROC: HZ2ZZZZ Detoxification Services for Substance Abuse Treatment (ICD-10-PCS; principal; 2021-10-17)
DX: F10.230 Alcohol dependence with withdrawal, uncomplicated (principal); F15.20 Other stimulant dependence, uncomplicated; F11.20 Opioid dependence, uncomplicated; F13.230 Sedative, hypnotic or anxiolytic dependence with withdrawal, uncomplicated; F12.20 Cannabis dependence, uncomplicated; F17.210 Nicotine dependence, cigarettes, uncomplicated; F20.9 Schizophrenia, unspecified; F41.8 Other specified anxiety disorders; F32.A Depression, unspecified; G40.909 Epilepsy, unspecified, not intractable, without status epilepticus; M54.50 Low back pain, unspecified; G89.29 Other chronic pain; Z62.810 Personal history of physical and sexual abuse in childhood; Z86.2 Personal history of diseases of the blood and blood-forming organs and certain disorders involving the immune mechanism
CPT/HCPCS: 36415; 80053; 85027; 86780; 87389; C9803; U0003; U0005

== ENCOUNTER 2021-11-20 12:58 | Inpatient (IN) | payer OTHER ==
[2021-11-20] MEDS ORDERED: MAG HYDROX/AL HYDROX/SIMETH 30 ML UNIT-DOSE CUP PO PRN (14:34)
[2021-11-20] MEDS ORDERED: NICOTINE 10 MG CARTRIDGE (INHALER) IH PRN (14:34)
[2021-11-20] MEDS ORDERED: MAGNESIUM CITRATE 300 ML BOTTLE PO PRN (14:34)
[2021-11-20] MEDS ORDERED: MAGNESIUM HYDROX 2400MG/30ML ORAL SUSPENSION 30 ML CUP PO PRN (14:34)
[2021-11-20] MEDS ORDERED: LOPERAMIDE HCL 2 MG CAPSULE PO PRN (14:34)
[2021-11-20] MEDS ORDERED: guaiFENesin 200 MG/10 ML 10 ML UNIT-DOSE CUPS PO PRN (14:34)
[2021-11-20] MEDS ORDERED: P-EPHED 60MG/TRIPROLIDI 2.5MG TABLET PO PRN (14:34)
[2021-11-20 19:48] VITALS: BMI 23.6
[2021-11-20] MEDS: MELATONIN 5 MG TABLETS PO SCH (22:06)
[2021-11-20] MEDS: THIAMINE HCL 100 MG TABLET (FP) PO SCH (22:06)
[2021-11-20] MEDS: hydrOXYzine PAMOATE 25 MG CAPSULE (FP) PO SCH ×2 (22:07)
[2021-11-21] MEDS: hydrOXYzine PAMOATE 25 MG CAPSULE (FP) PO SCH ×5 (06:32→21:29)
[2021-11-21] MEDS ORDERED: methaDONE HCL 40 MG DISPERSABLE TABLET PO SCH (07:45)
[2021-11-21] MEDS: IBUPROFEN 400 MG TABLET (FP) PO PRN (08:57)
[2021-11-21] MEDS ORDERED: methaDONE HCL 10 MG TABLET ONE (09:42)
[2021-11-21] MEDS ORDERED: methaDONE HCL 40 MG DISPERSABLE TABLET ONE (09:43)
[2021-11-21] MEDS ORDERED: OXcarbazepine 300 MG TABLET (UD) PO SCH (10:00)
[2021-11-21] MEDS: BENZTROPINE MESYLATE 1 MG TABLET PO SCH ×2 (10:07→21:28)
[2021-11-21] MEDS: DULoxetine HCL 30 MG CAPSULE.DR PO SCH ×2 (10:07→21:29)
[2021-11-21] MEDS: HALOPERIDOL 5 MG TABLET PO SCH ×2 (10:07→21:29)
[2021-11-21] MEDS: PRENATAL VITAMINS W/ FOLIC ACID TABLET (FP) PO SCH (10:07)
[2021-11-21] MEDS: NICOTINE 7 MG/24 HOURS TOPICAL PATCH TD SCH (10:08)
[2021-11-21] MEDS: ACETAMINOPHEN 325 MG TABLET (FP) PO PRN ×2 (10:08→17:40)
[2021-11-21 11:06] LABS: HEMATOCRIT 41.5 % (35.4-49); HEMOGLOBIN 13.5 GM/dL (11.7-16.9); MCH 30.1 pg (25.7-33.7); MCHC 32.6 g/dl (32.0-35.9); MEAN CELL VOLUME 92.2 fl (80-96); MEAN PLT VOLUME 9.1 fl (7.5-11.1); PLATELET COUNT 215 10^3/uL (134-434); RDW 15.3 % (11.9-15.9); WHITE BLOOD COUNT 4.5 K/mm3 (4.0-10.0)
[2021-11-21 11:15] LABS: ALBUMIN 3.7 g/dl (3.4-5.0); BLOOD UREA NITROGEN 11.2 mg/dL (7-18); CALCIUM 8.8 mg/dL (8.5-10.1)
[2021-11-21 11:18] LABS: BILIRUBIN,TOTAL 0.2 mg/dL (0.2-1); CREATININE 0.8 mg/dL (0.55-1.3)
[2021-11-21 11:19] LABS: TOT PROT 7.1 g/dl (6.4-8.2)
[2021-11-21] MEDS ORDERED: FLU VACC QS2021-22(6MOS UP)/PF 60 MCG/0.5 ML SYRINGE IM ONE (12:00)
[2021-11-21 12:05] LABS: SYPHILIS W/ RPR CONF NON-REACTIVE (NONREACTIVE)
[2021-11-21] MEDS: THIAMINE HCL 100 MG TABLET (FP) PO SCH (21:29)
[2021-11-21] MEDS: MELATONIN 5 MG TABLETS PO SCH (21:29)
[2021-11-22] MEDS ORDERED: methaDONE HCL 10 MG TABLET ONE (04:53)
[2021-11-22] MEDS ORDERED: methaDONE HCL 40 MG DISPERSABLE TABLET ONE (04:54)
[2021-11-22] MEDS: hydrOXYzine PAMOATE 25 MG CAPSULE (FP) PO SCH ×2 (05:46→10:25)
[2021-11-22] MEDS: PRENATAL VITAMINS W/ FOLIC ACID TABLET (FP) PO SCH (10:25)
[2021-11-22] MEDS: HALOPERIDOL 5 MG TABLET PO SCH ×2 (10:25→21:37)
[2021-11-22] MEDS: NICOTINE 7 MG/24 HOURS TOPICAL PATCH TD SCH (10:25)
[2021-11-22] MEDS: BENZTROPINE MESYLATE 1 MG TABLET PO SCH ×2 (10:25→21:37)
[2021-11-22] MEDS: DULoxetine HCL 30 MG CAPSULE.DR PO SCH ×2 (10:25→21:37)
[2021-11-22] MEDS: ACETAMINOPHEN 325 MG TABLET (FP) PO PRN (10:26)
[2021-11-22] MEDS ORDERED: ALBUTEROL SO4 HFA INHALER IH PRN (12:08)
[2021-11-22] MEDS: hydrOXYzine PAMOATE 25 MG CAPSULE (FP) PO PRN (14:22)
[2021-11-22] MEDS: OXcarbazepine 300 MG TABLET (UD) PO SCH ×2 (14:22→21:37)
[2021-11-22] MEDS: BUDESONIDE/FORMETEROL FUMARATE 160/4.5 mcg INHALER IH SCH (21:36)
[2021-11-22] MEDS: THIAMINE HCL 100 MG TABLET (FP) PO SCH (21:37)
[2021-11-22] MEDS: SUVOREXANT 10 MG TABLET PO PRN (21:38)
[2021-11-23] MEDS ORDERED: methaDONE HCL 10 MG TABLET ONE (03:58)
[2021-11-23] MEDS ORDERED: methaDONE HCL 40 MG DISPERSABLE TABLET ONE (03:58)
[2021-11-23] MEDS: HALOPERIDOL 5 MG TABLET PO SCH ×2 (09:40→21:33)
[2021-11-23] MEDS: BUDESONIDE/FORMETEROL FUMARATE 160/4.5 mcg INHALER IH SCH ×2 (09:40→21:32)
[2021-11-23] MEDS: OXcarbazepine 300 MG TABLET (UD) PO SCH ×2 (09:40→21:33)
[2021-11-23] MEDS: PRENATAL VITAMINS W/ FOLIC ACID TABLET (FP) PO SCH (09:40)
[2021-11-23] MEDS: DULoxetine HCL 30 MG CAPSULE.DR PO SCH ×2 (09:40→21:33)
[2021-11-23] MEDS: hydrOXYzine PAMOATE 25 MG CAPSULE (FP) PO PRN ×3 (09:40→21:32)
[2021-11-23] MEDS: BENZTROPINE MESYLATE 1 MG TABLET PO SCH ×2 (09:41→21:31)
[2021-11-23] MEDS: NICOTINE 7 MG/24 HOURS TOPICAL PATCH TD SCH (09:41)
[2021-11-23] MEDS: IBUPROFEN 400 MG TABLET (FP) PO PRN (11:09)
[2021-11-23] MEDS: METHOCARBAMOL 500 MG TABLET PO PRN (15:54)
[2021-11-23] MEDS: SUVOREXANT 10 MG TABLET PO PRN (21:31)
[2021-11-23] MEDS: THIAMINE HCL 100 MG TABLET (FP) PO SCH (21:33)
[2021-11-24] MEDS ORDERED: methaDONE HCL 10 MG TABLET ONE (02:54)
[2021-11-24] MEDS ORDERED: methaDONE HCL 40 MG DISPERSABLE TABLET ONE (02:55)
[2021-11-24] MEDS: BUDESONIDE/FORMETEROL FUMARATE 160/4.5 mcg INHALER IH SCH ×2 (09:49→21:16)
[2021-11-24] MEDS: PRENATAL VITAMINS W/ FOLIC ACID TABLET (FP) PO SCH (09:49)
[2021-11-24] MEDS: NICOTINE 7 MG/24 HOURS TOPICAL PATCH TD SCH (09:49)
[2021-11-24] MEDS: DULoxetine HCL 30 MG CAPSULE.DR PO SCH ×2 (09:50→21:17)
[2021-11-24] MEDS: BENZTROPINE MESYLATE 1 MG TABLET PO SCH ×2 (09:50→21:17)
[2021-11-24] MEDS: hydrOXYzine PAMOATE 25 MG CAPSULE (FP) PO PRN ×3 (09:50→18:19)
[2021-11-24] MEDS: OXcarbazepine 300 MG TABLET (UD) PO SCH ×2 (09:50→21:17)
[2021-11-24] MEDS: HALOPERIDOL 5 MG TABLET PO SCH ×2 (09:50→21:17)
[2021-11-24] MEDS: METHOCARBAMOL 500 MG TABLET PO PRN (21:17)
[2021-11-24] MEDS: THIAMINE HCL 100 MG TABLET (FP) PO SCH (21:17)
[2021-11-24] MEDS: SUVOREXANT 10 MG TABLET PO PRN (21:18)
[2021-11-25] MEDS ORDERED: methaDONE HCL 40 MG DISPERSABLE TABLET ONE (04:38)
[2021-11-25] MEDS ORDERED: methaDONE HCL 10 MG TABLET ONE (04:38)
[2021-11-25] MEDS: PRENATAL VITAMINS W/ FOLIC ACID TABLET (FP) PO SCH (09:43)
[2021-11-25] MEDS: HALOPERIDOL 5 MG TABLET PO SCH ×2 (09:44→21:19)
[2021-11-25] MEDS: BUDESONIDE/FORMETEROL FUMARATE 160/4.5 mcg INHALER IH SCH ×2 (09:44→21:17)
[2021-11-25] MEDS: OXcarbazepine 300 MG TABLET (UD) PO SCH ×2 (09:44→21:18)
[2021-11-25] MEDS: BENZTROPINE MESYLATE 1 MG TABLET PO SCH ×2 (09:44→21:19)
[2021-11-25] MEDS: DULoxetine HCL 30 MG CAPSULE.DR PO SCH ×2 (09:44→21:18)
[2021-11-25] MEDS: hydrOXYzine PAMOATE 25 MG CAPSULE (FP) PO PRN ×3 (09:44→21:19)
[2021-11-25] MEDS: NICOTINE 7 MG/24 HOURS TOPICAL PATCH TD SCH (10:51)
[2021-11-25] MEDS: SUVOREXANT 10 MG TABLET PO PRN (21:18)
[2021-11-25] MEDS: THIAMINE HCL 100 MG TABLET (FP) PO SCH (21:20)
[2021-11-25] MEDS ORDERED: SUVOREXANT 10 MG TABLET PO PRN (22:00)
[2021-11-26 00:06] LABS: SARS-CoV-2 NAA Not Detected (Not Detected)
[2021-11-26] MEDS ORDERED: methaDONE HCL 10 MG TABLET ONE (02:59)
[2021-11-26] MEDS ORDERED: methaDONE HCL 40 MG DISPERSABLE TABLET ONE (02:59)
[2021-11-26] MEDS: PRENATAL VITAMINS W/ FOLIC ACID TABLET (FP) PO SCH (09:55)
[2021-11-26] MEDS: BENZTROPINE MESYLATE 1 MG TABLET PO SCH ×2 (09:57→21:15)
[2021-11-26] MEDS: HALOPERIDOL 5 MG TABLET PO SCH ×2 (09:57→21:14)
[2021-11-26] MEDS: OXcarbazepine 300 MG TABLET (UD) PO SCH ×2 (09:57→21:14)
[2021-11-26] MEDS: ACETAMINOPHEN 325 MG TABLET (FP) PO PRN (09:57)
[2021-11-26] MEDS: BUDESONIDE/FORMETEROL FUMARATE 160/4.5 mcg INHALER IH SCH ×2 (09:58→21:14)
[2021-11-26] MEDS: NICOTINE 7 MG/24 HOURS TOPICAL PATCH TD SCH (09:58)
[2021-11-26] MEDS: DULoxetine HCL 30 MG CAPSULE.DR PO SCH ×2 (12:03→21:15)
[2021-11-26] MEDS ORDERED: BENZOCAINE/MENTH/CETYLPYRD CL 1 EACH LOZENGE MM PRN (14:13)
[2021-11-26] MEDS: hydrOXYzine PAMOATE 25 MG CAPSULE (FP) PO PRN (18:39)
[2021-11-26] MEDS: THIAMINE HCL 100 MG TABLET (FP) PO SCH (21:14)
[2021-11-27] MEDS ORDERED: methaDONE HCL 10 MG TABLET ONE (03:06)
[2021-11-27] MEDS ORDERED: methaDONE HCL 40 MG DISPERSABLE TABLET ONE (03:06)
[2021-11-27 07:32] VITALS: BP 103/64; PULSE 81; TEMP 98
[2021-11-27] MEDS: PRENATAL VITAMINS W/ FOLIC ACID TABLET (FP) PO SCH (09:06)
[2021-11-27] MEDS: BUDESONIDE/FORMETEROL FUMARATE 160/4.5 mcg INHALER IH SCH (09:06)
[2021-11-27] MEDS: HALOPERIDOL 5 MG TABLET PO SCH (09:07)
[2021-11-27] MEDS: DULoxetine HCL 30 MG CAPSULE.DR PO SCH (09:07)
[2021-11-27] MEDS: BENZTROPINE MESYLATE 1 MG TABLET PO SCH (09:07)
[2021-11-27] MEDS: NICOTINE 7 MG/24 HOURS TOPICAL PATCH TD SCH (09:07)
[2021-11-27] MEDS: OXcarbazepine 300 MG TABLET (UD) PO SCH (09:08)
== END 2021-11-27 10:05 | disposition home or self-care (01) | DRG 895 ==
LOC: YASAS 12:58 → Y5N 19:42
PROVIDERS: ADMIT Allergy & Immunology; ATTEND Allergy & Immunology
PROC: HZ42ZZZ Group Counseling for Substance Abuse Treatment, Cognitive-Behavioral (ICD-10-PCS; principal; 2021-11-20)
DX: F10.20 Alcohol dependence, uncomplicated (principal); F11.20 Opioid dependence, uncomplicated; F14.20 Cocaine dependence, uncomplicated; F15.20 Other stimulant dependence, uncomplicated; F12.20 Cannabis dependence, uncomplicated; F17.210 Nicotine dependence, cigarettes, uncomplicated; F25.9 Schizoaffective disorder, unspecified; F41.8 Other specified anxiety disorders; F32.A Depression, unspecified; G40.909 Epilepsy, unspecified, not intractable, without status epilepticus; J45.909 Unspecified asthma, uncomplicated; M54.50 Low back pain, unspecified; G89.29 Other chronic pain; Z86.2 Personal history of diseases of the blood and blood-forming organs and certain disorders involving the immune mechanism
CPT/HCPCS: 36415; 80053; 85027; 86780; 86803; 90686; C9803-CS; G0008; U0003; U0005

== ENCOUNTER 2022-01-29 13:27 | Inpatient (IN) | payer OTHER ==
[2022-01-29] MEDS ORDERED: BISMUTH SUBSALICYLATE 262 MG/15 ML BTL PO PRN (14:23)
[2022-01-29] MEDS ORDERED: NALOXONE HCL (KLOXXADO) 8 MG SPRAY NS PRN (14:23)
[2022-01-29] MEDS ORDERED: MAGNESIUM HYDROX 2400MG/30ML ORAL SUSPENSION 30 ML CUP PO PRN (14:23)
[2022-01-29] MEDS ORDERED: NICOTINE 10 MG CARTRIDGE (INHALER) IH PRN (14:23)
[2022-01-29] MEDS ORDERED: MAGNESIUM CITRATE 300 ML BOTTLE PO PRN (14:23)
[2022-01-29] MEDS ORDERED: LOPERAMIDE HCL 2 MG CAPSULE PO PRN (14:23)
[2022-01-29] MEDS ORDERED: chlordiazePOXIDE HCL 25 MG CAPSULE PO PRN (14:23)
[2022-01-29] MEDS ORDERED: ACETAMINOPHEN 325 MG TABLET (FP) PO PRN (14:23)
[2022-01-29] MEDS ORDERED: DICYCLOMINE HCL 10 MG CAPSULE PO PRN (14:23)
[2022-01-29] MEDS ORDERED: ONDANSETRON *ODT* 4 MG TABLET SL PRN (14:23)
[2022-01-29] MEDS ORDERED: IBUPROFEN 400 MG TABLET (FP) PO PRN (14:23)
[2022-01-29] MEDS ORDERED: BENZOCAINE/MENTHOL (CHLORASEPTIC ) LOZENGE MM PRN (14:23)
[2022-01-29] MEDS ORDERED: MAG HYDROX/AL HYDROX/SIMETH 30 ML UNIT-DOSE CUP PO PRN (14:23)
[2022-01-29] MEDS ORDERED: ALBUTEROL SO4 HFA INHALER IH PRN (14:27)
[2022-01-29 15:06] VITALS: BMI 25.8
[2022-01-29] MEDS: hydrOXYzine PAMOATE 25 MG CAPSULE (FP) PO SCH ×2 (18:24→22:57)
[2022-01-29] MEDS: chlordiazePOXIDE HCL 25 MG CAPSULE PO SCH ×2 (18:25→22:56)
[2022-01-29] MEDS: NICOTINE 21 MG/24 HOURS TOPICAL PATCH TD SCH (18:30)
[2022-01-29] MEDS ORDERED: QUEtiapine FUMARATE 200 MG TABLET PO ONE (22:00)
[2022-01-29] MEDS: THIAMINE HCL 100 MG TABLET (FP) PO SCH (22:57)
[2022-01-29] MEDS: MELATONIN 5 MG TABLETS PO SCH (22:57)
[2022-01-29] MEDS: BUDESONIDE/FORMETEROL FUMARATE 160/4.5 mcg INHALER IH SCH (22:58)
[2022-01-30] MEDS: chlordiazePOXIDE HCL 25 MG CAPSULE PO SCH ×4 (05:23→22:29)
[2022-01-30] MEDS: hydrOXYzine PAMOATE 25 MG CAPSULE (FP) PO SCH ×5 (05:23→22:26)
[2022-01-30] MEDS: METHOCARBAMOL 500 MG TABLET PO PRN (05:25)
[2022-01-30] MEDS: NICOTINE POLACRILEX 2 MG GUM BUC PRN ×4 (05:28→22:32)
[2022-01-30] MEDS ORDERED: methaDONE HCL 10 MG TABLET PO ONE (09:08)
[2022-01-30] MEDS ORDERED: methaDONE HCL 40 MG DISPERSABLE TABLET ONE (09:40)
[2022-01-30] MEDS ORDERED: methaDONE HCL 10 MG TABLET ONE (09:40)
[2022-01-30] MEDS: PRENATAL VITAMINS W/ FOLIC ACID TABLET (FP) PO SCH (10:33)
[2022-01-30] MEDS: BUDESONIDE/FORMETEROL FUMARATE 160/4.5 mcg INHALER IH SCH ×2 (10:33→22:26)
[2022-01-30] MEDS: NICOTINE 21 MG/24 HOURS TOPICAL PATCH TD SCH (10:37)
[2022-01-30 10:57] LABS: HEMATOCRIT 39.8 % (35.4-49); MCH 30.5 pg (25.7-33.7); MCHC 32.7 g/dl (32.0-35.9); MEAN CELL VOLUME 93.2 fl (80-96); MEAN PLT VOLUME 8.8 fl (7.5-11.1); PLATELET COUNT 217 10^3/uL (134-434); RBC 4.27 M/mm3 (4.00-5.60); RDW 14.2 % (11.9-15.9)
[2022-01-30 11:10] LABS: CALCIUM 8.8 mg/dL (8.5-10.1)
[2022-01-30 11:11] LABS: ALBUMIN 3.5 g/dl (3.4-5.0); BLOOD UREA NITROGEN 11.1 mg/dL (7-18)
[2022-01-30 11:14] LABS: CREATININE 0.6 mg/dL (0.55-1.3)
[2022-01-30 11:15] LABS: BILIRUBIN,TOTAL 0.4 mg/dL (0.2-1); TOT PROT 6.8 g/dl (6.4-8.2)
[2022-01-30] MEDS: ACETAMINOPHEN 325 MG TABLET (FP) PO PRN (17:58)
[2022-01-30] MEDS ORDERED: HALOPERIDOL 5 MG TABLET PO PRN (18:55)
[2022-01-30] MEDS: HALOPERIDOL 5 MG TABLET PO SCH (22:25)
[2022-01-30] MEDS: MELATONIN 5 MG TABLETS PO SCH (22:25)
[2022-01-30] MEDS: BENZTROPINE MESYLATE 0.5 MG TABLET (FP) PO SCH (22:25)
[2022-01-30] MEDS: OXcarbazepine 300 MG TABLET (UD) PO SCH (22:26)
[2022-01-30] MEDS: THIAMINE HCL 100 MG TABLET (FP) PO SCH (22:28)
[2022-01-31] MEDS ORDERED: methaDONE HCL 10 MG TABLET ONE (04:44)
[2022-01-31] MEDS ORDERED: methaDONE HCL 40 MG DISPERSABLE TABLET ONE (04:44)
[2022-01-31] MEDS: hydrOXYzine PAMOATE 25 MG CAPSULE (FP) PO SCH ×5 (05:47→22:18)
[2022-01-31] MEDS: chlordiazePOXIDE HCL 25 MG CAPSULE PO SCH ×4 (05:48→22:19)
[2022-01-31] MEDS: NICOTINE POLACRILEX 2 MG GUM BUC PRN ×4 (05:52→22:23)
[2022-01-31] MEDS ORDERED: methaDONE HCL 10 MG TABLET PO SCH (06:00)
[2022-01-31] MEDS: PRENATAL VITAMINS W/ FOLIC ACID TABLET (FP) PO SCH (10:05)
[2022-01-31] MEDS: HALOPERIDOL 5 MG TABLET PO SCH ×2 (10:05→22:18)
[2022-01-31] MEDS: BUDESONIDE/FORMETEROL FUMARATE 160/4.5 mcg INHALER IH SCH ×2 (10:05→22:17)
[2022-01-31] MEDS: BENZTROPINE MESYLATE 0.5 MG TABLET (FP) PO SCH ×2 (10:05→22:18)
[2022-01-31] MEDS: NICOTINE 21 MG/24 HOURS TOPICAL PATCH TD SCH (10:06)
[2022-01-31] MEDS: OXcarbazepine 300 MG TABLET (UD) PO SCH ×2 (10:06→23:50)
[2022-01-31] MEDS: MELATONIN 5 MG TABLETS PO SCH (22:18)
[2022-01-31] MEDS: THIAMINE HCL 100 MG TABLET (FP) PO SCH (22:18)
[2022-01-31] MEDS: ACETAMINOPHEN 325 MG TABLET (FP) PO PRN (22:20)
[2022-02-01] MEDS ORDERED: chlordiazePOXIDE HCL 10 MG CAPSULE PO PRN
[2022-02-01] MEDS ORDERED: methaDONE HCL 40 MG DISPERSABLE TABLET ONE (04:23)
[2022-02-01] MEDS ORDERED: methaDONE HCL 10 MG TABLET ONE (04:23)
[2022-02-01] MEDS: NICOTINE POLACRILEX 2 MG GUM BUC PRN ×3 (05:29→17:49)
[2022-02-01] MEDS: chlordiazePOXIDE HCL 10 MG CAPSULE PO SCH ×4 (05:30→22:30)
[2022-02-01] MEDS: hydrOXYzine PAMOATE 25 MG CAPSULE (FP) PO SCH ×5 (05:30→22:29)
[2022-02-01] MEDS: OXcarbazepine 300 MG TABLET (UD) PO SCH ×2 (10:50→22:29)
[2022-02-01] MEDS: HALOPERIDOL 5 MG TABLET PO SCH ×2 (10:50→22:29)
[2022-02-01] MEDS: PRENATAL VITAMINS W/ FOLIC ACID TABLET (FP) PO SCH (10:51)
[2022-02-01] MEDS: BENZTROPINE MESYLATE 0.5 MG TABLET (FP) PO SCH ×2 (10:51→22:29)
[2022-02-01] MEDS: NICOTINE 21 MG/24 HOURS TOPICAL PATCH TD SCH (10:51)
[2022-02-01] MEDS: BUDESONIDE/FORMETEROL FUMARATE 160/4.5 mcg INHALER IH SCH ×2 (10:52→22:30)
[2022-02-01] MEDS: MELATONIN 5 MG TABLETS PO SCH (22:29)
[2022-02-01] MEDS: THIAMINE HCL 100 MG TABLET (FP) PO SCH (22:29)
[2022-02-02] MEDS ORDERED: methaDONE HCL 10 MG TABLET ONE (04:09)
[2022-02-02] MEDS ORDERED: methaDONE HCL 40 MG DISPERSABLE TABLET ONE (04:10)
[2022-02-02] MEDS: hydrOXYzine PAMOATE 25 MG CAPSULE (FP) PO SCH ×5 (05:34→22:15)
[2022-02-02] MEDS: NICOTINE POLACRILEX 2 MG GUM BUC PRN ×3 (05:34→17:34)
[2022-02-02] MEDS: chlordiazePOXIDE HCL 10 MG CAPSULE PO SCH ×2 (05:34→17:33)
[2022-02-02] MEDS: HALOPERIDOL 5 MG TABLET PO SCH ×2 (10:26→22:15)
[2022-02-02] MEDS: BUDESONIDE/FORMETEROL FUMARATE 160/4.5 mcg INHALER IH SCH ×2 (10:26→22:14)
[2022-02-02] MEDS: OXcarbazepine 300 MG TABLET (UD) PO SCH ×2 (10:26→22:15)
[2022-02-02] MEDS: BENZTROPINE MESYLATE 0.5 MG TABLET (FP) PO SCH ×2 (10:26→22:15)
[2022-02-02] MEDS: PRENATAL VITAMINS W/ FOLIC ACID TABLET (FP) PO SCH (10:26)
[2022-02-02] MEDS: ACETAMINOPHEN 325 MG TABLET (FP) PO PRN (10:27)
[2022-02-02] MEDS: NICOTINE 21 MG/24 HOURS TOPICAL PATCH TD SCH (10:27)
[2022-02-02] MEDS: MELATONIN 5 MG TABLETS PO SCH (22:15)
[2022-02-02] MEDS: THIAMINE HCL 100 MG TABLET (FP) PO SCH (22:16)
[2022-02-03] MEDS ORDERED: methaDONE HCL 40 MG DISPERSABLE TABLET ONE (04:00)
[2022-02-03] MEDS ORDERED: methaDONE HCL 10 MG TABLET ONE (04:00)
[2022-02-03] MEDS ORDERED: chlordiazePOXIDE HCL 10 MG CAPSULE PO ONE (05:00)
[2022-02-03] MEDS: hydrOXYzine PAMOATE 25 MG CAPSULE (FP) PO SCH ×3 (05:11→15:00)
[2022-02-03] MEDS: NICOTINE POLACRILEX 2 MG GUM BUC PRN ×2 (06:42→10:14)
[2022-02-03] MEDS: METHOCARBAMOL 500 MG TABLET PO PRN (06:42)
[2022-02-03 09:49] VITALS: BP 102/60; PULSE 84; TEMP 98
[2022-02-03] MEDS: BENZTROPINE MESYLATE 0.5 MG TABLET (FP) PO SCH (10:12)
[2022-02-03] MEDS: OXcarbazepine 300 MG TABLET (UD) PO SCH (10:12)
[2022-02-03] MEDS: PRENATAL VITAMINS W/ FOLIC ACID TABLET (FP) PO SCH (10:12)
[2022-02-03] MEDS: HALOPERIDOL 5 MG TABLET PO SCH (10:12)
[2022-02-03] MEDS: BUDESONIDE/FORMETEROL FUMARATE 160/4.5 mcg INHALER IH SCH (10:12)
[2022-02-03] MEDS: NICOTINE 21 MG/24 HOURS TOPICAL PATCH TD SCH (10:13)
== END 2022-02-03 12:30 | disposition home or self-care (01) | DRG 897 ==
LOC: YASAS 13:27 → Y3N 16:22 → Y6N 17:17 → Y3N 17:46
PROVIDERS: ADMIT Allergy & Immunology; ATTEND Surgery
PROC: HZ2ZZZZ Detoxification Services for Substance Abuse Treatment (ICD-10-PCS; principal; 2022-01-29)
DX: F10.230 Alcohol dependence with withdrawal, uncomplicated (principal); F11.20 Opioid dependence, uncomplicated; F14.20 Cocaine dependence, uncomplicated; F15.20 Other stimulant dependence, uncomplicated; F12.20 Cannabis dependence, uncomplicated; F41.8 Other specified anxiety disorders; F32.A Depression, unspecified; F17.210 Nicotine dependence, cigarettes, uncomplicated; G40.909 Epilepsy, unspecified, not intractable, without status epilepticus; J45.20 Mild intermittent asthma, uncomplicated
CPT/HCPCS: 36415; 80053; 80183; 85027; 86780; C9803-CS; U0003; U0005

== ENCOUNTER 2022-02-03 11:45 | Inpatient (IN) | payer OTHER ==
[2022-02-03] MEDS ORDERED: LOPERAMIDE HCL 2 MG CAPSULE PO PRN (13:09)
[2022-02-03] MEDS ORDERED: BENZOCAINE/MENTHOL (CHLORASEPTIC ) LOZENGE MM PRN (13:09)
[2022-02-03] MEDS ORDERED: guaiFENesin 200 MG/10 ML 10 ML UNIT-DOSE CUPS PO PRN (13:09)
[2022-02-03] MEDS ORDERED: MAGNESIUM HYDROX 2400MG/30ML ORAL SUSPENSION 30 ML CUP PO PRN (13:09)
[2022-02-03] MEDS ORDERED: MAGNESIUM CITRATE 300 ML BOTTLE PO PRN (13:09)
[2022-02-03] MEDS ORDERED: ACETAMINOPHEN 325 MG TABLET (FP) PO PRN (13:09)
[2022-02-03] MEDS ORDERED: NICOTINE 10 MG CARTRIDGE (INHALER) IH PRN (13:09)
[2022-02-03] MEDS ORDERED: MAG HYDROX/AL HYDROX/SIMETH 30 ML UNIT-DOSE CUP PO PRN (13:09)
[2022-02-03] MEDS ORDERED: P-EPHED 60MG/TRIPROLIDI 2.5MG TABLET PO PRN (13:09)
[2022-02-03] MEDS ORDERED: ALBUTEROL SO4 HFA INHALER IH PRN (13:12)
[2022-02-03] MEDS: IBUPROFEN 400 MG TABLET (FP) PO PRN (18:23)
[2022-02-03] MEDS: hydrOXYzine PAMOATE 25 MG CAPSULE (FP) PO PRN (18:24)
[2022-02-03] MEDS: THIAMINE HCL 100 MG TABLET (FP) PO SCH (21:23)
[2022-02-03] MEDS: MELATONIN 5 MG TABLETS PO SCH (21:23)
[2022-02-03] MEDS: BENZTROPINE MESYLATE 0.5 MG TABLET (FP) PO SCH (21:24)
[2022-02-03] MEDS: HALOPERIDOL 5 MG TABLET PO SCH (21:24)
[2022-02-03] MEDS: BUDESONIDE/FORMETEROL FUMARATE 160/4.5 mcg INHALER IH SCH (21:25)
[2022-02-03] MEDS: OXcarbazepine 300 MG TABLET (UD) PO SCH (21:25)
[2022-02-04] MEDS ORDERED: methaDONE HCL 40 MG DISPERSABLE TABLET ONE (06:15)
[2022-02-04] MEDS ORDERED: methaDONE HCL 10 MG TABLET ONE (06:15)
[2022-02-04] MEDS: NICOTINE POLACRILEX 2 MG GUM BUC PRN ×3 (06:18→16:46)
[2022-02-04] MEDS: HALOPERIDOL 5 MG TABLET PO SCH ×2 (09:54→21:11)
[2022-02-04] MEDS: NICOTINE 21 MG/24 HOURS TOPICAL PATCH TD SCH (09:55)
[2022-02-04] MEDS: BENZTROPINE MESYLATE 0.5 MG TABLET (FP) PO SCH ×2 (09:55→21:11)
[2022-02-04] MEDS: OXcarbazepine 300 MG TABLET (UD) PO SCH ×2 (09:55→21:11)
[2022-02-04] MEDS: PRENATAL VITAMINS W/ FOLIC ACID TABLET (FP) PO SCH (09:55)
[2022-02-04] MEDS: BUDESONIDE/FORMETEROL FUMARATE 160/4.5 mcg INHALER IH SCH ×2 (09:56→21:12)
[2022-02-04] MEDS ORDERED: methaDONE HCL 40 MG DISPERSABLE TABLET PO SCH (10:00)
[2022-02-04] MEDS: hydrOXYzine PAMOATE 25 MG CAPSULE (FP) PO PRN ×2 (11:24→16:46)
[2022-02-04] MEDS: IBUPROFEN 400 MG TABLET (FP) PO PRN (18:58)
[2022-02-04] MEDS ORDERED: METHOCARBAMOL 500 MG TABLET PO PRN (19:36)
[2022-02-04] MEDS: THIAMINE HCL 100 MG TABLET (FP) PO SCH (21:11)
[2022-02-04] MEDS: MELATONIN 5 MG TABLETS PO SCH (21:12)
[2022-02-05] MEDS ORDERED: methaDONE HCL 10 MG TABLET ONE (03:10)
[2022-02-05] MEDS ORDERED: methaDONE HCL 40 MG DISPERSABLE TABLET ONE (03:10)
[2022-02-05] MEDS: NICOTINE POLACRILEX 2 MG GUM BUC PRN ×2 (06:17→11:23)
[2022-02-05 06:51] VITALS: BP 102/70; PULSE 83; TEMP 97.1
[2022-02-05] MEDS: OXcarbazepine 300 MG TABLET (UD) PO SCH (09:55)
[2022-02-05] MEDS: BENZTROPINE MESYLATE 0.5 MG TABLET (FP) PO SCH (09:55)
[2022-02-05] MEDS: HALOPERIDOL 5 MG TABLET PO SCH (09:55)
[2022-02-05] MEDS: BUDESONIDE/FORMETEROL FUMARATE 160/4.5 mcg INHALER IH SCH (09:55)
[2022-02-05] MEDS: PRENATAL VITAMINS W/ FOLIC ACID TABLET (FP) PO SCH (09:55)
[2022-02-05] MEDS: IBUPROFEN 400 MG TABLET (FP) PO PRN (09:56)
[2022-02-05] MEDS: hydrOXYzine PAMOATE 25 MG CAPSULE (FP) PO PRN (09:57)
[2022-02-05] MEDS: NICOTINE 21 MG/24 HOURS TOPICAL PATCH TD SCH (09:57)
== END 2022-02-05 16:10 | disposition home or self-care (01) | DRG 895 ==
LOC: YASAS 11:45 → Y3E 11:46
PROVIDERS: ADMIT Allergy & Immunology; ATTEND Psychiatry & Neurology Pain Medicine
PROC: HZ42ZZZ Group Counseling for Substance Abuse Treatment, Cognitive-Behavioral (ICD-10-PCS; principal; 2022-02-03)
DX: F10.20 Alcohol dependence, uncomplicated (principal); F11.20 Opioid dependence, uncomplicated; F14.20 Cocaine dependence, uncomplicated; F15.20 Other stimulant dependence, uncomplicated; F13.20 Sedative, hypnotic or anxiolytic dependence, uncomplicated; F12.20 Cannabis dependence, uncomplicated; F17.210 Nicotine dependence, cigarettes, uncomplicated; J45.909 Unspecified asthma, uncomplicated; F25.9 Schizoaffective disorder, unspecified; Z91.51 Personal history of suicidal behavior

== ENCOUNTER 2022-02-26 14:32 | Inpatient (IN) | payer OTHER ==
[2022-02-26 16:36] VITALS: BMI 23.6
[2022-02-26] MEDS ORDERED: ALBUTEROL SO4 HFA INHALER IH PRN (16:45)
[2022-02-26] MEDS ORDERED: IBUPROFEN 600 MG TABLET (FP) PO PRN (16:46)
[2022-02-26] MEDS ORDERED: BENZOCAINE/MENTHOL (CHLORASEPTIC ) LOZENGE MM PRN (16:46)
[2022-02-26] MEDS ORDERED: BISMUTH SUBSALICYLATE 524 MG/30 ML PO PRN (16:46)
[2022-02-26] MEDS ORDERED: P-EPHED 60MG/TRIPROLIDI 2.5MG TABLET PO PRN (16:46)
[2022-02-26] MEDS ORDERED: IBUPROFEN 400 MG TABLET (FP) PO PRN (16:46)
[2022-02-26] MEDS ORDERED: MAGNESIUM HYDROX 2400MG/30ML ORAL SUSPENSION 30 ML CUP PO PRN (16:46)
[2022-02-26] MEDS ORDERED: MAG HYDROX/AL HYDROX/SIMETH 30 ML UNIT-DOSE CUP PO PRN (16:46)
[2022-02-26] MEDS ORDERED: LOPERAMIDE HCL 2 MG CAPSULE PO PRN (16:46)
[2022-02-26] MEDS ORDERED: DICYCLOMINE HCL 10 MG CAPSULE PO PRN (16:46)
[2022-02-26] MEDS ORDERED: MAGNESIUM CITRATE 300 ML BOTTLE PO PRN (16:46)
[2022-02-26] MEDS ORDERED: ONDANSETRON *ODT* 4 MG TABLET SL PRN (16:46)
[2022-02-26] MEDS ORDERED: ACETAMINOPHEN 325 MG TABLET (FP) PO PRN ×2 (16:46)
[2022-02-26] MEDS: diazePAM 5 MG TABLET PO SCH (22:12)
[2022-02-26] MEDS: hydrOXYzine PAMOATE 25 MG CAPSULE (FP) PO PRN (22:12)
[2022-02-26] MEDS: MELATONIN 5 MG TABLETS PO PRN (22:13)
[2022-02-26] MEDS: THIAMINE HCL 100 MG TABLET (FP) PO SCH (22:13)
[2022-02-26] MEDS: NICOTINE POLACRILEX 2 MG GUM BUC PRN (22:13)
[2022-02-26] MEDS: BUDESONIDE/FORMETEROL FUMARATE 160/4.5 mcg INHALER IH SCH (22:15)
[2022-02-27] MEDS: diazePAM 5 MG TABLET PO SCH ×4 (05:31→22:33)
[2022-02-27] MEDS: NICOTINE POLACRILEX 2 MG GUM BUC PRN ×2 (05:32→17:52)
[2022-02-27] MEDS ORDERED: methaDONE HCL 10 MG TABLET PO SCH (08:45)
[2022-02-27] MEDS ORDERED: methaDONE HCL 10 MG TABLET ONE (09:41)
[2022-02-27] MEDS ORDERED: methaDONE HCL 40 MG DISPERSABLE TABLET ONE (09:41)
[2022-02-27] MEDS: BUDESONIDE/FORMETEROL FUMARATE 160/4.5 mcg INHALER IH SCH ×2 (09:44→22:32)
[2022-02-27] MEDS: PRENATAL VITAMINS W/ FOLIC ACID TABLET (FP) PO SCH (09:44)
[2022-02-27] MEDS: METHOCARBAMOL 500 MG TABLET PO PRN (10:08)
[2022-02-27] MEDS: HALOPERIDOL 5 MG TABLET PO SCH ×2 (12:16→22:32)
[2022-02-27] MEDS: BENZTROPINE MESYLATE 1 MG TABLET PO SCH ×2 (12:16→22:33)
[2022-02-27] MEDS: OXcarbazepine 300 MG TABLET (UD) PO SCH ×2 (12:16→22:32)
[2022-02-27] MEDS: diazePAM 5 MG TABLET PO PRN (15:58)
[2022-02-27] MEDS: THIAMINE HCL 100 MG TABLET (FP) PO SCH (22:31)
[2022-02-28] MEDS ORDERED: methaDONE HCL 10 MG TABLET ONE (04:10)
[2022-02-28] MEDS ORDERED: methaDONE HCL 40 MG DISPERSABLE TABLET ONE (04:11)
[2022-02-28] MEDS: hydrOXYzine PAMOATE 25 MG CAPSULE (FP) PO PRN ×2 (05:36→18:02)
[2022-02-28] MEDS: NICOTINE POLACRILEX 2 MG GUM BUC PRN ×5 (05:37→22:30)
[2022-02-28] MEDS: diazePAM 5 MG TABLET PO SCH ×3 (05:37→22:31)
[2022-02-28] MEDS: BENZTROPINE MESYLATE 1 MG TABLET PO SCH ×2 (10:31→22:30)
[2022-02-28] MEDS: HALOPERIDOL 5 MG TABLET PO SCH ×2 (10:31→22:30)
[2022-02-28] MEDS: OXcarbazepine 300 MG TABLET (UD) PO SCH ×2 (10:31→22:30)
[2022-02-28] MEDS: diazePAM 5 MG TABLET PO PRN (10:31)
[2022-02-28] MEDS: PRENATAL VITAMINS W/ FOLIC ACID TABLET (FP) PO SCH (10:31)
[2022-02-28] MEDS: BUDESONIDE/FORMETEROL FUMARATE 160/4.5 mcg INHALER IH SCH ×2 (10:32→22:32)
[2022-02-28] MEDS: THIAMINE HCL 100 MG TABLET (FP) PO SCH (22:30)
[2022-03-01] MEDS ORDERED: methaDONE HCL 10 MG TABLET ONE (04:11)
[2022-03-01] MEDS ORDERED: methaDONE HCL 40 MG DISPERSABLE TABLET ONE (04:11)
[2022-03-01] MEDS: diazePAM 5 MG TABLET PO SCH ×2 (05:28→17:49)
[2022-03-01 10:20] LABS: HEMATOCRIT 40.9 % (35.4-49); HEMOGLOBIN 13.3 GM/dL (11.7-16.9); MCH 30.4 pg (25.7-33.7); MCHC 32.6 g/dl (32.0-35.9); MEAN CELL VOLUME 93.4 fl (80-96); MEAN PLT VOLUME 8.3 fl (7.5-11.1); PLATELET COUNT 237 10^3/uL (134-434); RBC 4.38 M/mm3 (4.00-5.60); RDW 14.3 % (11.9-15.9); WHITE BLOOD COUNT 6.4 K/mm3 (4.0-10.0)
[2022-03-01] MEDS: BUDESONIDE/FORMETEROL FUMARATE 160/4.5 mcg INHALER IH SCH ×2 (10:27→22:18)
[2022-03-01] MEDS: PRENATAL VITAMINS W/ FOLIC ACID TABLET (FP) PO SCH (10:27)
[2022-03-01] MEDS: BENZTROPINE MESYLATE 1 MG TABLET PO SCH ×2 (10:27→22:18)
[2022-03-01] MEDS: diazePAM 5 MG TABLET PO PRN (10:27)
[2022-03-01] MEDS: HALOPERIDOL 5 MG TABLET PO SCH ×2 (10:28→22:18)
[2022-03-01] MEDS: OXcarbazepine 300 MG TABLET (UD) PO SCH ×2 (10:28→22:18)
[2022-03-01 10:29] LABS: ALBUMIN 3.7 g/dl (3.4-5.0); BLOOD UREA NITROGEN 8.8 mg/dL (7-18); CALCIUM 8.7 mg/dL (8.5-10.1)
[2022-03-01 10:32] LABS: CREATININE 0.7 mg/dL (0.55-1.3)
[2022-03-01 10:33] LABS: TOT PROT 7.2 g/dl (6.4-8.2)
[2022-03-01 10:45] LABS: BILIRUBIN,TOTAL 0.3 mg/dL (0.2-1)
[2022-03-01] MEDS: hydrOXYzine PAMOATE 25 MG CAPSULE (FP) PO PRN ×2 (17:50→22:29)
[2022-03-01] MEDS: NICOTINE POLACRILEX 2 MG GUM BUC PRN ×3 (17:51→22:19)
[2022-03-01] MEDS: METHOCARBAMOL 500 MG TABLET PO PRN (20:00)
[2022-03-01] MEDS: THIAMINE HCL 100 MG TABLET (FP) PO SCH (22:18)
[2022-03-01] MEDS: MELATONIN 5 MG TABLETS PO PRN (22:29)
[2022-03-02] MEDS ORDERED: methaDONE HCL 10 MG TABLET ONE (04:02)
[2022-03-02] MEDS ORDERED: methaDONE HCL 40 MG DISPERSABLE TABLET ONE (04:02)
[2022-03-02] MEDS ORDERED: diazePAM 5 MG TABLET PO ONE (06:00)
[2022-03-02] MEDS: NICOTINE POLACRILEX 2 MG GUM BUC PRN ×2 (06:00→09:38)
[2022-03-02 08:52] VITALS: BP 102/53; PULSE 74; TEMP 98
[2022-03-02] MEDS: OXcarbazepine 300 MG TABLET (UD) PO SCH (09:34)
[2022-03-02] MEDS: HALOPERIDOL 5 MG TABLET PO SCH (09:34)
[2022-03-02] MEDS: BENZTROPINE MESYLATE 1 MG TABLET PO SCH (09:34)
[2022-03-02] MEDS: BUDESONIDE/FORMETEROL FUMARATE 160/4.5 mcg INHALER IH SCH (09:35)
[2022-03-02] MEDS: PRENATAL VITAMINS W/ FOLIC ACID TABLET (FP) PO SCH (09:36)
== END 2022-03-02 11:32 | disposition home or self-care (01) | DRG 897 ==
LOC: YASAS 14:32 → Y6N 18:11
PROVIDERS: ADMIT Allergy & Immunology; ATTEND Surgery
PROC: HZ2ZZZZ Detoxification Services for Substance Abuse Treatment (ICD-10-PCS; principal; 2022-02-26)
DX: F10.230 Alcohol dependence with withdrawal, uncomplicated (principal); F11.20 Opioid dependence, uncomplicated; F13.20 Sedative, hypnotic or anxiolytic dependence, uncomplicated; F14.20 Cocaine dependence, uncomplicated; F15.20 Other stimulant dependence, uncomplicated; F12.20 Cannabis dependence, uncomplicated; F17.210 Nicotine dependence, cigarettes, uncomplicated; F25.1 Schizoaffective disorder, depressive type; G40.909 Epilepsy, unspecified, not intractable, without status epilepticus; J45.30 Mild persistent asthma, uncomplicated; M54.50 Low back pain, unspecified; G89.29 Other chronic pain
CPT/HCPCS: 36415; 80053; 85027; 86780; 87811; C9803-CS; U0003; U0005

== ENCOUNTER 2022-03-09 15:54 | Inpatient (IN) | payer OTHER ==
[2022-03-09 16:23] VITALS: BMI 24.7
[2022-03-09] MEDS ORDERED: DICYCLOMINE HCL 10 MG CAPSULE PO PRN (17:52)
[2022-03-09] MEDS ORDERED: MAG HYDROX/AL HYDROX/SIMETH 30 ML UNIT-DOSE CUP PO PRN (17:52)
[2022-03-09] MEDS ORDERED: BISMUTH SUBSALICYLATE 524 MG/30 ML PO PRN (17:52)
[2022-03-09] MEDS ORDERED: ACETAMINOPHEN 325 MG TABLET (FP) PO PRN (17:52)
[2022-03-09] MEDS ORDERED: ONDANSETRON *ODT* 4 MG TABLET SL PRN (17:52)
[2022-03-09] MEDS ORDERED: IBUPROFEN 400 MG TABLET (FP) PO PRN (17:52)
[2022-03-09] MEDS ORDERED: LOPERAMIDE HCL 2 MG CAPSULE PO PRN (17:52)
[2022-03-09] MEDS ORDERED: IBUPROFEN 600 MG TABLET (FP) PO PRN (17:52)
[2022-03-09] MEDS ORDERED: MAGNESIUM CITRATE 300 ML BOTTLE PO PRN (17:52)
[2022-03-09] MEDS ORDERED: BENZOCAINE/MENTHOL (CHLORASEPTIC ) LOZENGE MM PRN (17:52)
[2022-03-09] MEDS ORDERED: MAGNESIUM HYDROX 2400MG/30ML ORAL SUSPENSION 30 ML CUP PO PRN (17:52)
[2022-03-09] MEDS: THIAMINE HCL 100 MG TABLET (FP) PO SCH (22:19)
[2022-03-09] MEDS: diazePAM 5 MG TABLET PO SCH (22:20)
[2022-03-09] MEDS: METHOCARBAMOL 500 MG TABLET PO PRN (22:20)
[2022-03-09] MEDS: MELATONIN 5 MG TABLETS PO SCH (22:20)
[2022-03-09] MEDS: NICOTINE POLACRILEX 2 MG GUM BUC PRN (22:36)
[2022-03-10] MEDS: diazePAM 5 MG TABLET PO SCH ×4 (05:07→22:04)
[2022-03-10] MEDS: NICOTINE POLACRILEX 2 MG GUM BUC PRN ×5 (05:08→22:06)
[2022-03-10] MEDS: PRENATAL VITAMINS W/ FOLIC ACID TABLET (FP) PO SCH (10:19)
[2022-03-10] MEDS: METHOCARBAMOL 500 MG TABLET PO PRN (10:19)
[2022-03-10] MEDS: ACETAMINOPHEN 325 MG TABLET (FP) PO PRN (10:20)
[2022-03-10] MEDS: NICOTINE 21 MG/24 HOURS TOPICAL PATCH TD SCH (10:20)
[2022-03-10 10:21] LABS: HEMATOCRIT 38.1 % (35.4-49); HEMOGLOBIN 12.6 GM/dL (11.7-16.9); MCH 30.9 pg (25.7-33.7); MEAN CELL VOLUME 93.6 fl (80-96); MEAN PLT VOLUME 8.9 fl (7.5-11.1); PLATELET COUNT 266 10^3/uL (134-434); RBC 4.06 M/mm3 (4.00-5.60); RDW 14.6 % (11.9-15.9); WHITE BLOOD COUNT 7.2 K/mm3 (4.0-10.0)
[2022-03-10 10:46] LABS: ALBUMIN 3.6 g/dl (3.4-5.0); BLOOD UREA NITROGEN 9.7 mg/dL (7-18); CALCIUM 8.5 mg/dL (8.5-10.1)
[2022-03-10 10:47] LABS: CREATININE 0.7 mg/dL (0.55-1.3)
[2022-03-10 10:49] LABS: BILIRUBIN,TOTAL 0.6 mg/dL (0.2-1)
[2022-03-10] MEDS ORDERED: methaDONE HCL 10 MG TABLET PO ONE (11:43)
[2022-03-10] MEDS: HALOPERIDOL 5 MG TABLET PO SCH ×2 (11:54→22:03)
[2022-03-10] MEDS: BENZTROPINE MESYLATE 0.5 MG TABLET (FP) PO SCH ×2 (11:54→22:03)
[2022-03-10] MEDS: OXcarbazepine 300 MG TABLET (UD) PO SCH ×2 (11:54→22:03)
[2022-03-10] MEDS: THIAMINE HCL 100 MG TABLET (FP) PO SCH (22:03)
[2022-03-10] MEDS: MELATONIN 5 MG TABLETS PO SCH (22:06)
[2022-03-11] MEDS: diazePAM 5 MG TABLET PO SCH ×3 (05:25→22:48)
[2022-03-11] MEDS ORDERED: methaDONE HCL 10 MG TABLET PO ONE (06:00)
[2022-03-11] MEDS: diazePAM 5 MG TABLET PO PRN ×2 (10:11→18:12)
[2022-03-11] MEDS: OXcarbazepine 300 MG TABLET (UD) PO SCH ×2 (10:12→22:47)
[2022-03-11] MEDS: HALOPERIDOL 5 MG TABLET PO SCH ×2 (10:12→22:47)
[2022-03-11] MEDS: NICOTINE 21 MG/24 HOURS TOPICAL PATCH TD SCH (10:12)
[2022-03-11] MEDS: PRENATAL VITAMINS W/ FOLIC ACID TABLET (FP) PO SCH (10:12)
[2022-03-11] MEDS: BENZTROPINE MESYLATE 0.5 MG TABLET (FP) PO SCH (10:12)
[2022-03-11] MEDS: NICOTINE POLACRILEX 2 MG GUM BUC PRN ×2 (18:13→22:51)
[2022-03-11] MEDS: THIAMINE HCL 100 MG TABLET (FP) PO SCH (22:47)
[2022-03-11] MEDS: BENZTROPINE MESYLATE 1 MG TABLET PO SCH (22:48)
[2022-03-11] MEDS: ACETAMINOPHEN 325 MG TABLET (FP) PO PRN (22:49)
[2022-03-11] MEDS: MELATONIN 5 MG TABLETS PO SCH (22:51)
[2022-03-12] MEDS: diazePAM 5 MG TABLET PO SCH ×2 (05:13→17:39)
[2022-03-12] MEDS: NICOTINE POLACRILEX 2 MG GUM BUC PRN ×4 (05:15→22:21)
[2022-03-12] MEDS ORDERED: methaDONE HCL 10 MG TABLET PO SCH (08:45)
[2022-03-12] MEDS ORDERED: methaDONE HCL 10 MG TABLET ONE (10:41)
[2022-03-12] MEDS ORDERED: methaDONE HCL 40 MG DISPERSABLE TABLET ONE (10:41)
[2022-03-12] MEDS: BENZTROPINE MESYLATE 1 MG TABLET PO SCH ×2 (10:44→22:19)
[2022-03-12] MEDS: METHOCARBAMOL 500 MG TABLET PO PRN (10:45)
[2022-03-12] MEDS: diazePAM 5 MG TABLET PO PRN (10:45)
[2022-03-12] MEDS: PRENATAL VITAMINS W/ FOLIC ACID TABLET (FP) PO SCH (10:45)
[2022-03-12] MEDS: OXcarbazepine 300 MG TABLET (UD) PO SCH ×2 (10:47→22:19)
[2022-03-12] MEDS: HALOPERIDOL 5 MG TABLET PO SCH ×2 (10:47→22:19)
[2022-03-12] MEDS: NICOTINE 21 MG/24 HOURS TOPICAL PATCH TD SCH (10:50)
[2022-03-12] MEDS: THIAMINE HCL 100 MG TABLET (FP) PO SCH (22:19)
[2022-03-12] MEDS: MELATONIN 5 MG TABLETS PO SCH (22:19)
[2022-03-13] MEDS ORDERED: methaDONE HCL 10 MG TABLET ONE (04:07)
[2022-03-13] MEDS ORDERED: methaDONE HCL 40 MG DISPERSABLE TABLET ONE (04:08)
[2022-03-13] MEDS: NICOTINE POLACRILEX 2 MG GUM BUC PRN ×2 (05:24→10:29)
[2022-03-13] MEDS ORDERED: diazePAM 5 MG TABLET PO ONE (06:00)
[2022-03-13 09:45] VITALS: BP 120/62; PULSE 85; TEMP 97.4
[2022-03-13] MEDS: PRENATAL VITAMINS W/ FOLIC ACID TABLET (FP) PO SCH (10:26)
[2022-03-13] MEDS: BENZTROPINE MESYLATE 1 MG TABLET PO SCH (10:26)
[2022-03-13] MEDS: HALOPERIDOL 5 MG TABLET PO SCH (10:27)
[2022-03-13] MEDS: OXcarbazepine 300 MG TABLET (UD) PO SCH (10:27)
[2022-03-13] MEDS: NICOTINE 21 MG/24 HOURS TOPICAL PATCH TD SCH (10:28)
[2022-03-13] MEDS ORDERED: ALBUTEROL SO4 HFA INHALER IH PRN (10:35)
== END 2022-03-13 11:31 | disposition other institution (70) | DRG 897 ==
LOC: YASAS 15:54 → Y6N 18:29
PROVIDERS: ADMIT Allergy & Immunology; ATTEND Surgery
PROC: HZ2ZZZZ Detoxification Services for Substance Abuse Treatment (ICD-10-PCS; principal; 2022-03-09)
DX: F10.230 Alcohol dependence with withdrawal, uncomplicated (principal); F11.20 Opioid dependence, uncomplicated; F14.20 Cocaine dependence, uncomplicated; F15.20 Other stimulant dependence, uncomplicated; F19.282 Other psychoactive substance dependence with psychoactive substance-induced sleep disorder; F13.230 Sedative, hypnotic or anxiolytic dependence with withdrawal, uncomplicated; F12.20 Cannabis dependence, uncomplicated; F17.210 Nicotine dependence, cigarettes, uncomplicated; F25.1 Schizoaffective disorder, depressive type; F41.8 Other specified anxiety disorders; G40.909 Epilepsy, unspecified, not intractable, without status epilepticus; J45.20 Mild intermittent asthma, uncomplicated; M54.50 Low back pain, unspecified; G89.29 Other chronic pain
CPT/HCPCS: 36415; 80053; 85027; 86780; 93005; 93010; C9803-CS; U0003; U0005

== ENCOUNTER 2022-03-13 11:25 | Inpatient (IN) | payer OTHER ==
[2022-03-13] MEDS ORDERED: MAGNESIUM CITRATE 300 ML BOTTLE PO PRN (14:48)
[2022-03-13] MEDS ORDERED: ACETAMINOPHEN 325 MG TABLET (FP) PO PRN (14:48)
[2022-03-13] MEDS ORDERED: LOPERAMIDE HCL 2 MG CAPSULE PO PRN (14:48)
[2022-03-13] MEDS ORDERED: MAG HYDROX/AL HYDROX/SIMETH 30 ML UNIT-DOSE CUP PO PRN (14:48)
[2022-03-13] MEDS ORDERED: BENZOCAINE/MENTHOL (CHLORASEPTIC ) LOZENGE MM PRN (14:48)
[2022-03-13] MEDS ORDERED: P-EPHED 60MG/TRIPROLIDI 2.5MG TABLET PO PRN (14:48)
[2022-03-13] MEDS ORDERED: NICOTINE 10 MG CARTRIDGE (INHALER) IH PRN (14:48)
[2022-03-13] MEDS ORDERED: guaiFENesin 200 MG/10 ML 10 ML UNIT-DOSE CUPS PO PRN (14:48)
[2022-03-13] MEDS ORDERED: MAGNESIUM HYDROX 2400MG/30ML ORAL SUSPENSION 30 ML CUP PO PRN (14:48)
[2022-03-13] MEDS ORDERED: ALBUTEROL SO4 HFA INHALER IH PRN (14:49)
[2022-03-13] MEDS: hydrOXYzine PAMOATE 25 MG CAPSULE (FP) PO PRN ×2 (15:46→19:46)
[2022-03-13] MEDS: IBUPROFEN 400 MG TABLET (FP) PO PRN (15:49)
[2022-03-13] MEDS: HALOPERIDOL 5 MG TABLET PO SCH (21:13)
[2022-03-13] MEDS: OXcarbazepine 300 MG TABLET (UD) PO SCH (21:13)
[2022-03-13] MEDS: BENZTROPINE MESYLATE 1 MG TABLET PO SCH (21:13)
[2022-03-13] MEDS ORDERED: MELATONIN 5 MG TABLETS PO SCH (22:00)
[2022-03-13] MEDS ORDERED: THIAMINE HCL 100 MG TABLET (FP) PO SCH (22:00)
[2022-03-14] MEDS ORDERED: methaDONE HCL 10 MG TABLET ONE (05:56)
[2022-03-14] MEDS ORDERED: methaDONE HCL 40 MG DISPERSABLE TABLET ONE (05:57)
[2022-03-14] MEDS ORDERED: methaDONE HCL 40 MG DISPERSABLE TABLET PO SCH (06:00)
[2022-03-14 06:30] VITALS: BP 102/69; PULSE 63; TEMP 98.2
[2022-03-14] MEDS ORDERED: PRENATAL VITAMINS W/ FOLIC ACID TABLET (FP) PO SCH (10:00)
[2022-03-14] MEDS ORDERED: NICOTINE 7 MG/24 HOURS TOPICAL PATCH TD SCH (10:00)
[2022-03-14] MEDS: OXcarbazepine 300 MG TABLET (UD) PO SCH (10:06)
[2022-03-14] MEDS: HALOPERIDOL 5 MG TABLET PO SCH (10:06)
[2022-03-14] MEDS: BENZTROPINE MESYLATE 1 MG TABLET PO SCH (10:07)
[2022-03-14] MEDS: IBUPROFEN 400 MG TABLET (FP) PO PRN (10:55)
[2022-03-14] MEDS: hydrOXYzine PAMOATE 25 MG CAPSULE (FP) PO PRN (10:57)
[2022-03-14] MEDS ORDERED: NICOTINE POLACRILEX 2 MG GUM BUC PRN (14:00)
[2022-03-15] MEDS ORDERED: NICOTINE 14 MG/24 HOURS TOPICAL PATCH TD SCH (10:00)
== END 2022-03-14 16:30 | disposition left against medical advice (07) | DRG 894 ==
LOC: YASAS 11:25 → Y3E 11:28
PROVIDERS: ADMIT Allergy & Immunology; ATTEND Psychiatry & Neurology Pain Medicine
PROC: HZ42ZZZ Group Counseling for Substance Abuse Treatment, Cognitive-Behavioral (ICD-10-PCS; principal; 2022-03-13)
DX: F11.20 Opioid dependence, uncomplicated (principal); F14.20 Cocaine dependence, uncomplicated; F13.20 Sedative, hypnotic or anxiolytic dependence, uncomplicated; F15.20 Other stimulant dependence, uncomplicated; F10.20 Alcohol dependence, uncomplicated; F12.20 Cannabis dependence, uncomplicated; F17.210 Nicotine dependence, cigarettes, uncomplicated; F20.9 Schizophrenia, unspecified; F41.9 Anxiety disorder, unspecified; F32.A Depression, unspecified; D50.9 Iron deficiency anemia, unspecified; J45.20 Mild intermittent asthma, uncomplicated; M54.50 Low back pain, unspecified; G89.29 Other chronic pain

== ENCOUNTER 2022-04-12 15:55 | Inpatient (IN) | payer OTHER ==
[2022-04-12 19:45] VITALS: BMI 24.0
[2022-04-12] MEDS ORDERED: guaiFENesin 200 MG/10 ML 10 ML UNIT-DOSE CUPS PO PRN (21:04)
[2022-04-12] MEDS ORDERED: IBUPROFEN 600 MG TABLET (FP) PO PRN (21:04)
[2022-04-12] MEDS ORDERED: BISMUTH SUBSALICYLATE 524 MG/30 ML PO PRN (21:04)
[2022-04-12] MEDS ORDERED: IBUPROFEN 400 MG TABLET (FP) PO PRN (21:04)
[2022-04-12] MEDS ORDERED: P-EPHED 60MG/TRIPROLIDI 2.5MG TABLET PO PRN (21:04)
[2022-04-12] MEDS ORDERED: NALOXONE HCL (KLOXXADO) 8 MG SPRAY NS PRN (21:04)
[2022-04-12] MEDS ORDERED: MAGNESIUM HYDROX 2400MG/30ML ORAL SUSPENSION 30 ML CUP PO PRN (21:04)
[2022-04-12] MEDS ORDERED: BENZOCAINE/MENTHOL (CHLORASEPTIC ) LOZENGE MM PRN (21:04)
[2022-04-12] MEDS ORDERED: METHOCARBAMOL 500 MG TABLET PO PRN (21:04)
[2022-04-12] MEDS ORDERED: MAG HYDROX/AL HYDROX/SIMETH 30 ML UNIT-DOSE CUP PO PRN (21:04)
[2022-04-12] MEDS ORDERED: ACETAMINOPHEN 325 MG TABLET (FP) PO PRN ×2 (21:04)
[2022-04-12] MEDS ORDERED: MAGNESIUM CITRATE 300 ML BOTTLE PO PRN (21:04)
[2022-04-12] MEDS ORDERED: PROCHLORPERAZINE MALEATE 5 MG TABLET PO PRN (21:04)
[2022-04-12] MEDS ORDERED: DICYCLOMINE HCL 10 MG CAPSULE PO PRN (21:04)
[2022-04-12] MEDS ORDERED: NALOXONE HCL 0.4 MG/ML VIAL IM PRN (21:04)
[2022-04-12] MEDS ORDERED: LOPERAMIDE HCL 2 MG CAPSULE PO PRN (21:04)
[2022-04-12] MEDS ORDERED: diazePAM 5 MG TABLET PO PRN (21:08)
[2022-04-12] MEDS: MELATONIN 5 MG TABLETS PO SCH (23:05)
[2022-04-12] MEDS: THIAMINE HCL 100 MG TABLET (FP) PO SCH (23:07)
[2022-04-13] MEDS ORDERED: methaDONE HCL 10 MG TABLET PO ONE (08:20)
[2022-04-13] MEDS: PRENATAL VITAMINS W/ FOLIC ACID TABLET (FP) PO SCH (10:26)
[2022-04-13] MEDS: NICOTINE 21 MG/24 HOURS TOPICAL PATCH TD SCH (10:26)
[2022-04-13] MEDS: NICOTINE POLACRILEX 4 MG GUM BUC PRN ×2 (10:27→22:16)
[2022-04-13 12:07] LABS: HEMATOCRIT 43.2 % (35.4-49); HEMOGLOBIN 14.4 GM/dL (11.7-16.9); MCH 30.7 pg (25.7-33.7); MCHC 33.2 g/dl (32.0-35.9); MEAN CELL VOLUME 92.4 fl (80-96); MEAN PLT VOLUME 8.1 fl (7.5-11.1); PLATELET COUNT 262 10^3/uL (134-434); RBC 4.68 M/mm3 (4.00-5.60); RDW 14.4 % (11.9-15.9)
[2022-04-13 12:15] LABS: CREATININE 0.8 mg/dL (0.55-1.3)
[2022-04-13 12:16] LABS: BLOOD UREA NITROGEN 7.4 mg/dL (7-18)
[2022-04-13 12:17] LABS: ALBUMIN 3.5 g/dl (3.4-5.0); BILIRUBIN,TOTAL 0.2 mg/dL (0.2-1); TOT PROT 7.2 g/dl (6.4-8.2)
[2022-04-13 12:18] LABS: CALCIUM 9.1 mg/dL (8.5-10.1)
[2022-04-13] MEDS: HALOPERIDOL 5 MG TABLET PO SCH ×2 (13:48→22:15)
[2022-04-13] MEDS: BENZTROPINE MESYLATE 0.5 MG TABLET (FP) PO SCH ×2 (13:48→22:15)
[2022-04-13] MEDS: THIAMINE HCL 100 MG TABLET (FP) PO SCH (22:15)
[2022-04-13] MEDS: MELATONIN 5 MG TABLETS PO SCH (22:15)
[2022-04-14] MEDS ORDERED: methaDONE HCL 10 MG TABLET PO SCH (06:00)
[2022-04-14 06:14] VITALS: RESP 18
[2022-04-14] MEDS: HALOPERIDOL 5 MG TABLET PO SCH (09:33)
[2022-04-14] MEDS: PRENATAL VITAMINS W/ FOLIC ACID TABLET (FP) PO SCH (09:33)
[2022-04-14] MEDS: BENZTROPINE MESYLATE 0.5 MG TABLET (FP) PO SCH (09:33)
[2022-04-14] MEDS: NICOTINE 21 MG/24 HOURS TOPICAL PATCH TD SCH (09:34)
[2022-04-14 09:36] VITALS: BP 101/64; PULSE 65; TEMP 97.7
[2022-04-14] MEDS: NICOTINE POLACRILEX 4 MG GUM BUC PRN (09:42)
== END 2022-04-14 09:48 | disposition home or self-care (01) | DRG 897 ==
LOC: YASAS 15:55 → Y6N 22:18
PROVIDERS: ADMIT Allergy & Immunology; ATTEND Surgery
PROC: HZ2ZZZZ Detoxification Services for Substance Abuse Treatment (ICD-10-PCS; principal; 2022-04-12)
DX: F10.230 Alcohol dependence with withdrawal, uncomplicated (principal); F11.20 Opioid dependence, uncomplicated; F13.20 Sedative, hypnotic or anxiolytic dependence, uncomplicated; F15.20 Other stimulant dependence, uncomplicated; F14.20 Cocaine dependence, uncomplicated; F19.282 Other psychoactive substance dependence with psychoactive substance-induced sleep disorder; F12.20 Cannabis dependence, uncomplicated; F17.213 Nicotine dependence, cigarettes, with withdrawal; F25.1 Schizoaffective disorder, depressive type; G40.909 Epilepsy, unspecified, not intractable, without status epilepticus; J45.909 Unspecified asthma, uncomplicated; M54.59 Other low back pain; G89.29 Other chronic pain; Z56.0 Unemployment, unspecified
CPT/HCPCS: 36415; 80053; 85027; 86780; 87811; C9803-CS; U0003; U0005

== ENCOUNTER 2022-05-10 12:18 | Inpatient (IN) | payer OTHER ==
[2022-05-10 13:16] VITALS: BMI 21.6
[2022-05-10] MEDS ORDERED: IBUPROFEN 400 MG TABLET (FP) PO PRN (17:33)
[2022-05-10] MEDS ORDERED: NICOTINE 10 MG CARTRIDGE (INHALER) IH PRN (17:33)
[2022-05-10] MEDS ORDERED: LOPERAMIDE HCL 2 MG CAPSULE PO PRN (17:33)
[2022-05-10] MEDS ORDERED: MAGNESIUM HYDROX 2400MG/30ML ORAL SUSPENSION 30 ML CUP PO PRN (17:33)
[2022-05-10] MEDS ORDERED: ACETAMINOPHEN 325 MG TABLET (FP) PO PRN (17:33)
[2022-05-10] MEDS ORDERED: hydrOXYzine PAMOATE 25 MG CAPSULE (FP) PO PRN (17:33)
[2022-05-10] MEDS ORDERED: MAGNESIUM CITRATE 300 ML BOTTLE PO PRN (17:33)
[2022-05-10] MEDS ORDERED: P-EPHED 60MG/TRIPROLIDI 2.5MG TABLET PO PRN (17:33)
[2022-05-10] MEDS ORDERED: MAG HYDROX/AL HYDROX/SIMETH 30 ML UNIT-DOSE CUP PO PRN (17:33)
[2022-05-10] MEDS ORDERED: guaiFENesin 200 MG/10 ML 10 ML UNIT-DOSE CUPS PO PRN (17:33)
[2022-05-10] MEDS: MELATONIN 5 MG TABLETS PO SCH (23:16)
[2022-05-10] MEDS: THIAMINE HCL 100 MG TABLET (FP) PO SCH (23:17)
[2022-05-11] MEDS ORDERED: methaDONE HCL 40 MG DISPERSABLE TABLET PO SCH (07:00)
[2022-05-11] MEDS: PRENATAL VITAMINS W/ FOLIC ACID TABLET (FP) PO SCH (09:23)
[2022-05-11] MEDS: NICOTINE 7 MG/24 HOURS TOPICAL PATCH TD SCH (09:23)
[2022-05-11 15:37] LABS: PH,URINE 7.5 (5.0-8.0); URINE APPEARANCE CLEAR; URINE BILIRUBIN NEGATIVE (NEGATIVE); URINE COLOR YELLOW; URINE GLUCOSE (UA) NEGATIVE (NEGATIVE); URINE KETONE NEGATIVE (NEGATIVE); URINE LEUK ESTERASE NEGATIVE (NEGATIVE); URINE NITRITE NEGATIVE (NEGATIVE); URINE PROTEIN NEGATIVE (NEGATIVE); URINE UROBILINOGEN 0.2 mg/dL (0.2-1.0)
[2022-05-11] MEDS: MELATONIN 5 MG TABLETS PO SCH (21:09)
[2022-05-11] MEDS: THIAMINE HCL 100 MG TABLET (FP) PO SCH (21:09)
[2022-05-12 08:17] VITALS: TEMP 97.7
[2022-05-12] MEDS: NICOTINE 7 MG/24 HOURS TOPICAL PATCH TD SCH (09:39)
[2022-05-12] MEDS: PRENATAL VITAMINS W/ FOLIC ACID TABLET (FP) PO SCH (09:39)
[2022-05-12] MEDS: MELATONIN 5 MG TABLETS PO SCH (21:18)
[2022-05-12] MEDS: THIAMINE HCL 100 MG TABLET (FP) PO SCH (21:18)
[2022-05-12] MEDS ORDERED: ALBUTEROL SO4 HFA INHALER IH ONE (22:34)
[2022-05-12] MEDS ORDERED: ALBUTEROL SO4 HFA INHALER IH PRN (22:59)
[2022-05-13 06:41] VITALS: BP 104/70; PULSE 81; RESP 20
[2022-05-13] MEDS: NICOTINE 7 MG/24 HOURS TOPICAL PATCH TD SCH (09:55)
[2022-05-13] MEDS: PRENATAL VITAMINS W/ FOLIC ACID TABLET (FP) PO SCH (09:55)
[2022-05-13 11:56] LABS: HEMATOCRIT 45.5 % (35.4-49); HEMOGLOBIN 14.8 GM/dL (11.7-16.9); MCH 30.5 pg (25.7-33.7); MCHC 32.6 g/dl (32.0-35.9); MEAN CELL VOLUME 93.6 fl (80-96); MEAN PLT VOLUME 9.5 fl (7.5-11.1); PLATELET COUNT 236 10^3/uL (134-434); RBC 4.87 M/mm3 (4.00-5.60); RDW 14.1 % (11.9-15.9); WHITE BLOOD COUNT 5.3 K/mm3 (4.0-10.0)
[2022-05-13 11:59] LABS: BLOOD UREA NITROGEN 15.8 mg/dL (7-18); CALCIUM 8.9 mg/dL (8.5-10.1)
[2022-05-13 12:02] LABS: CREATININE 0.8 mg/dL (0.55-1.3)
[2022-05-13 12:04] LABS: BILIRUBIN,TOTAL 0.2 mg/dL (0.2-1); TOT PROT 8.1 g/dl (6.4-8.2)
[2022-05-13 12:07] LABS: ALBUMIN 3.9 g/dl (3.4-5.0)
[2022-05-13] MEDS ORDERED: HALOPERIDOL 5 MG TABLET PO PRN (12:48)
[2022-05-13] MEDS ORDERED: OXcarbazepine 300 MG TABLET (UD) PO SCH (22:00)
[2022-05-13] MEDS ORDERED: HALOPERIDOL 5 MG TABLET PO SCH (22:00)
[2022-05-13] MEDS ORDERED: BENZTROPINE MESYLATE 1 MG TABLET PO SCH (22:00)
== END 2022-05-13 17:48 | disposition left against medical advice (07) | DRG 894 ==
LOC: YASAS 12:18 → Y3E 16:56
PROVIDERS: ADMIT Allergy & Immunology; ATTEND Psychiatry & Neurology Pain Medicine
PROC: HZ42ZZZ Group Counseling for Substance Abuse Treatment, Cognitive-Behavioral (ICD-10-PCS; principal; 2022-05-10)
DX: F13.20 Sedative, hypnotic or anxiolytic dependence, uncomplicated (principal); F11.20 Opioid dependence, uncomplicated; F14.20 Cocaine dependence, uncomplicated; F15.20 Other stimulant dependence, uncomplicated; F12.20 Cannabis dependence, uncomplicated; F17.210 Nicotine dependence, cigarettes, uncomplicated; F20.9 Schizophrenia, unspecified; J45.909 Unspecified asthma, uncomplicated; G40.909 Epilepsy, unspecified, not intractable, without status epilepticus; Z91.51 Personal history of suicidal behavior; Z56.0 Unemployment, unspecified
CPT/HCPCS: 36415; 80053; 81003; 85027; 86780; C9803-CS; U0003; U0005

== ENCOUNTER 2022-05-23 11:03 | Inpatient (IN) | payer OTHER ==
[2022-05-23 11:57] VITALS: BMI 22.8
[2022-05-23] MEDS ORDERED: DICYCLOMINE HCL 10 MG CAPSULE PO PRN (12:52)
[2022-05-23] MEDS ORDERED: BENZOCAINE/MENTHOL (CHLORASEPTIC ) LOZENGE MM PRN (12:52)
[2022-05-23] MEDS ORDERED: NALOXONE HCL (KLOXXADO) 8 MG SPRAY NS PRN (12:52)
[2022-05-23] MEDS ORDERED: IBUPROFEN 400 MG TABLET (FP) PO PRN (12:52)
[2022-05-23] MEDS ORDERED: ONDANSETRON *ODT* 4 MG TABLET SL PRN (12:52)
[2022-05-23] MEDS ORDERED: MAGNESIUM HYDROX 2400MG/30ML ORAL SUSPENSION 30 ML CUP PO PRN (12:52)
[2022-05-23] MEDS ORDERED: LOPERAMIDE HCL 2 MG CAPSULE PO PRN (12:52)
[2022-05-23] MEDS ORDERED: IBUPROFEN 600 MG TABLET (FP) PO PRN (12:52)
[2022-05-23] MEDS ORDERED: MAGNESIUM CITRATE 300 ML BOTTLE PO PRN (12:52)
[2022-05-23] MEDS ORDERED: ACETAMINOPHEN 325 MG TABLET (FP) PO PRN ×2 (12:52)
[2022-05-23] MEDS ORDERED: BISMUTH SUBSALICYLATE 524 MG/30 ML PO PRN (12:52)
[2022-05-23] MEDS ORDERED: METHOCARBAMOL 500 MG TABLET PO PRN (12:52)
[2022-05-23] MEDS ORDERED: MAG HYDROX/AL HYDROX/SIMETH 30 ML UNIT-DOSE CUP PO PRN (12:52)
[2022-05-23] MEDS ORDERED: NICOTINE 10 MG CARTRIDGE (INHALER) IH PRN (12:52)
[2022-05-23] MEDS ORDERED: ALBUTEROL SO4 HFA INHALER IH PRN (13:01)
[2022-05-23 14:44] LABS: BLOOD UREA NITROGEN 15.4 mg/dL (7-18)
[2022-05-23 14:46] LABS: CREATININE 0.9 mg/dL (0.55-1.3)
[2022-05-23 14:49] LABS: BILIRUBIN,TOTAL 0.2 mg/dL (0.2-1); TOT PROT 7.9 g/dl (6.4-8.2)
[2022-05-23 14:53] LABS: HEMATOCRIT 41.6 % (35.4-49); HEMOGLOBIN 13.9 GM/dL (11.7-16.9); MCH 31.1 pg (25.7-33.7); MCHC 33.4 g/dl (32.0-35.9); MEAN PLT VOLUME 8.5 fl (7.5-11.1); PLATELET COUNT 257 10^3/uL (134-434); RBC 4.48 M/mm3 (4.00-5.60); RDW 14.3 % (11.9-15.9); WHITE BLOOD COUNT 5.3 K/mm3 (4.0-10.0)
[2022-05-23] MEDS: hydrOXYzine PAMOATE 25 MG CAPSULE (FP) PO SCH ×3 (14:54→22:36)
[2022-05-23] MEDS: NICOTINE 21 MG/24 HOURS TOPICAL PATCH TD SCH (14:54)
[2022-05-23] MEDS: diazePAM 5 MG TABLET PO SCH ×2 (18:03→22:36)
[2022-05-23] MEDS: NICOTINE POLACRILEX 4 MG GUM BUC PRN (18:03)
[2022-05-23 18:51] LABS: HIV INTERPRETATION NEGATIVE (NEGATIVE)
[2022-05-23] MEDS: THIAMINE HCL 100 MG TABLET (FP) PO SCH (22:36)
[2022-05-23] MEDS: MELATONIN 5 MG TABLETS PO SCH (22:36)
[2022-05-24] MEDS: diazePAM 5 MG TABLET PO SCH ×4 (06:02→22:12)
[2022-05-24] MEDS: NICOTINE POLACRILEX 4 MG GUM BUC PRN ×3 (06:03→17:30)
[2022-05-24] MEDS: hydrOXYzine PAMOATE 25 MG CAPSULE (FP) PO SCH ×5 (06:03→22:14)
[2022-05-24] MEDS ORDERED: methaDONE HCL 10 MG TABLET PO SCH (08:45)
[2022-05-24] MEDS: PRENATAL VITAMINS W/ FOLIC ACID TABLET (FP) PO SCH (10:21)
[2022-05-24] MEDS: NICOTINE 21 MG/24 HOURS TOPICAL PATCH TD SCH (10:22)
[2022-05-24] MEDS: THIAMINE HCL 100 MG TABLET (FP) PO SCH (22:13)
[2022-05-24] MEDS: MELATONIN 5 MG TABLETS PO SCH (22:13)
[2022-05-24] MEDS: HALOPERIDOL 5 MG TABLET PO SCH (23:06)
[2022-05-24] MEDS: BENZTROPINE MESYLATE 1 MG TABLET PO SCH (23:08)
[2022-05-25] MEDS: diazePAM 5 MG TABLET PO SCH ×3 (05:29→22:09)
[2022-05-25] MEDS: hydrOXYzine PAMOATE 25 MG CAPSULE (FP) PO SCH ×5 (05:30→22:10)
[2022-05-25] MEDS: OXcarbazepine 300 MG TABLET (UD) PO SCH ×3 (07:44→22:10)
[2022-05-25] MEDS: BENZTROPINE MESYLATE 1 MG TABLET PO SCH ×2 (10:12→22:10)
[2022-05-25] MEDS: NICOTINE 21 MG/24 HOURS TOPICAL PATCH TD SCH (10:13)
[2022-05-25] MEDS: PRENATAL VITAMINS W/ FOLIC ACID TABLET (FP) PO SCH (10:13)
[2022-05-25] MEDS: HALOPERIDOL 5 MG TABLET PO SCH ×2 (10:14→22:10)
[2022-05-25] MEDS: NICOTINE POLACRILEX 4 MG GUM BUC PRN ×4 (10:15→22:12)
[2022-05-25] MEDS: diazePAM 5 MG TABLET PO PRN ×2 (10:15→17:46)
[2022-05-25] MEDS: THIAMINE HCL 100 MG TABLET (FP) PO SCH (22:10)
[2022-05-25] MEDS: MELATONIN 5 MG TABLETS PO SCH (22:10)
[2022-05-26] MEDS: diazePAM 5 MG TABLET PO SCH ×2 (05:53→17:50)
[2022-05-26] MEDS: hydrOXYzine PAMOATE 25 MG CAPSULE (FP) PO SCH ×2 (05:54→10:18)
[2022-05-26] MEDS: OXcarbazepine 300 MG TABLET (UD) PO SCH ×2 (10:18→22:33)
[2022-05-26] MEDS: HALOPERIDOL 5 MG TABLET PO SCH ×2 (10:18→22:33)
[2022-05-26] MEDS: BENZTROPINE MESYLATE 1 MG TABLET PO SCH ×2 (10:18→22:33)
[2022-05-26] MEDS: NICOTINE 21 MG/24 HOURS TOPICAL PATCH TD SCH (10:19)
[2022-05-26] MEDS: PRENATAL VITAMINS W/ FOLIC ACID TABLET (FP) PO SCH (10:19)
[2022-05-26] MEDS: hydrOXYzine PAMOATE 25 MG CAPSULE (FP) PO PRN (17:50)
[2022-05-26] MEDS: NICOTINE POLACRILEX 4 MG GUM BUC PRN ×2 (17:52→22:34)
[2022-05-26 21:45] VITALS: RESP 18
[2022-05-26] MEDS: THIAMINE HCL 100 MG TABLET (FP) PO SCH (22:33)
[2022-05-26] MEDS: MELATONIN 5 MG TABLETS PO SCH (22:33)
[2022-05-27] MEDS: hydrOXYzine PAMOATE 25 MG CAPSULE (FP) PO PRN (05:36)
[2022-05-27] MEDS ORDERED: diazePAM 5 MG TABLET PO ONE (06:00)
[2022-05-27 09:17] VITALS: BP 106/64; PULSE 76; TEMP 98.2
[2022-05-27] MEDS: BENZTROPINE MESYLATE 1 MG TABLET PO SCH (10:33)
[2022-05-27] MEDS: PRENATAL VITAMINS W/ FOLIC ACID TABLET (FP) PO SCH (10:33)
[2022-05-27] MEDS: NICOTINE 21 MG/24 HOURS TOPICAL PATCH TD SCH (10:33)
[2022-05-27] MEDS: OXcarbazepine 300 MG TABLET (UD) PO SCH (10:34)
[2022-05-27] MEDS: HALOPERIDOL 5 MG TABLET PO SCH (10:34)
[2022-05-27] MEDS: NICOTINE POLACRILEX 4 MG GUM BUC PRN (10:37)
== END 2022-05-27 11:32 | disposition home or self-care (01) | DRG 897 ==
LOC: YASAS 11:03 → Y3N 13:01
PROVIDERS: ADMIT Allergy & Immunology; ATTEND Surgery
PROC: HZ2ZZZZ Detoxification Services for Substance Abuse Treatment (ICD-10-PCS; principal; 2022-05-23)
DX: F11.23 Opioid dependence with withdrawal (principal); F13.20 Sedative, hypnotic or anxiolytic dependence, uncomplicated; F14.20 Cocaine dependence, uncomplicated; F15.20 Other stimulant dependence, uncomplicated; F10.230 Alcohol dependence with withdrawal, uncomplicated; F17.210 Nicotine dependence, cigarettes, uncomplicated; F25.1 Schizoaffective disorder, depressive type; F19.24 Other psychoactive substance dependence with psychoactive substance-induced mood disorder; G40.909 Epilepsy, unspecified, not intractable, without status epilepticus; J45.909 Unspecified asthma, uncomplicated; M54.50 Low back pain, unspecified; G89.29 Other chronic pain
CPT/HCPCS: 36415; 80053; 85027; 86780; 87389; C9803-CS; U0003; U0005

== ENCOUNTER 2022-06-11 12:31 | Inpatient (IN) | payer OTHER ==
[2022-06-11] MEDS: ALBUTEROL SO4 HFA INHALER IH SCH ×3 (11:30→23:14)
[2022-06-11 14:40] VITALS: BMI 21.5
[2022-06-11] MEDS ORDERED: IBUPROFEN 600 MG TABLET (FP) PO PRN (15:28)
[2022-06-11] MEDS ORDERED: BISMUTH SUBSALICYLATE 524 MG/30 ML PO PRN (15:28)
[2022-06-11] MEDS ORDERED: NICOTINE 10 MG CARTRIDGE (INHALER) IH PRN (15:28)
[2022-06-11] MEDS ORDERED: LOPERAMIDE HCL 2 MG CAPSULE PO PRN (15:28)
[2022-06-11] MEDS ORDERED: ONDANSETRON *ODT* 4 MG TABLET SL PRN (15:28)
[2022-06-11] MEDS ORDERED: ACETAMINOPHEN 325 MG TABLET (FP) PO PRN ×2 (15:28)
[2022-06-11] MEDS ORDERED: MAG HYDROX/AL HYDROX/SIMETH 30 ML UNIT-DOSE CUP PO PRN (15:28)
[2022-06-11] MEDS ORDERED: DICYCLOMINE HCL 10 MG CAPSULE PO PRN (15:28)
[2022-06-11] MEDS ORDERED: MAGNESIUM CITRATE 300 ML BOTTLE PO PRN (15:28)
[2022-06-11] MEDS ORDERED: BENZOCAINE/MENTHOL (CHLORASEPTIC ) LOZENGE MM PRN (15:28)
[2022-06-11] MEDS ORDERED: MAGNESIUM HYDROX 2400MG/30ML ORAL SUSPENSION 30 ML CUP PO PRN (15:28)
[2022-06-11] MEDS ORDERED: IBUPROFEN 400 MG TABLET (FP) PO PRN (15:28)
[2022-06-11] MEDS ORDERED: NALOXONE HCL (KLOXXADO) 8 MG SPRAY NS PRN (15:28)
[2022-06-11] MEDS: diazePAM 5 MG TABLET PO ONE (18:18)
[2022-06-11] MEDS: METHOCARBAMOL 500 MG TABLET PO PRN (18:19)
[2022-06-11] MEDS: PRENATAL VITAMINS W/ FOLIC ACID TABLET (FP) PO SCH (18:19)
[2022-06-11] MEDS: BACITRACIN 0.9 GM PACKET TP SCH (18:19)
[2022-06-11] MEDS: hydrOXYzine PAMOATE 25 MG CAPSULE (FP) PO SCH ×2 (18:19→23:13)
[2022-06-11] MEDS: diazePAM 5 MG TABLET PO SCH ×2 (18:28→23:14)
[2022-06-11] MEDS: THIAMINE HCL 100 MG TABLET (FP) PO SCH (23:13)
[2022-06-11] MEDS: MELATONIN 5 MG TABLETS PO SCH (23:14)
[2022-06-11] MEDS: GABAPENTIN 100 MG CAPSULE PO SCH (23:14)
[2022-06-12] MEDS: diazePAM 5 MG TABLET PO SCH ×4 (05:19→22:07)
[2022-06-12] MEDS: ALBUTEROL SO4 HFA INHALER IH SCH ×2 (05:19→10:51)
[2022-06-12] MEDS: hydrOXYzine PAMOATE 25 MG CAPSULE (FP) PO SCH (05:20)
[2022-06-12] MEDS: NICOTINE POLACRILEX 2 MG GUM BUC PRN ×3 (05:21→22:08)
[2022-06-12] MEDS ORDERED: methaDONE HCL 10 MG TABLET PO SCH (09:15)
[2022-06-12] MEDS: GABAPENTIN 100 MG CAPSULE PO SCH ×2 (10:44→22:07)
[2022-06-12] MEDS: BACITRACIN 0.9 GM PACKET TP SCH (10:44)
[2022-06-12] MEDS: PRENATAL VITAMINS W/ FOLIC ACID TABLET (FP) PO SCH (10:45)
[2022-06-12] MEDS: METHOCARBAMOL 500 MG TABLET PO PRN (10:45)
[2022-06-12 15:10] LABS: HEMATOCRIT 40.7 % (35.4-49); HEMOGLOBIN 13.1 GM/dL (11.7-16.9); MCH 30.2 pg (25.7-33.7); MCHC 32.1 g/dl (32.0-35.9); MEAN CELL VOLUME 94.1 fl (80-96); MEAN PLT VOLUME 9.1 fl (7.5-11.1); PLATELET COUNT 226 10^3/uL (134-434); RBC 4.33 M/mm3 (4.00-5.60); RDW 14.8 % (11.9-15.9); WHITE BLOOD COUNT 4.9 K/mm3 (4.0-10.0)
[2022-06-12 15:15] LABS: ALBUMIN 3.3 g/dl (3.4-5.0); BLOOD UREA NITROGEN 8.6 mg/dL (7-18); CALCIUM 8.6 mg/dL (8.5-10.1)
[2022-06-12 15:19] LABS: CREATININE 0.7 mg/dL (0.55-1.3)
[2022-06-12 15:20] LABS: BILIRUBIN,TOTAL 0.2 mg/dL (0.2-1); TOT PROT 6.5 g/dl (6.4-8.2)
[2022-06-12] MEDS: MELATONIN 5 MG TABLETS PO SCH (22:07)
[2022-06-12] MEDS: THIAMINE HCL 100 MG TABLET (FP) PO SCH (22:07)
[2022-06-13] MEDS: diazePAM 5 MG TABLET PO SCH ×3 (05:19→22:10)
[2022-06-13] MEDS: diazePAM 5 MG TABLET PO PRN ×3 (07:34→18:40)
[2022-06-13] MEDS ORDERED: HALOPERIDOL DECANOATE 100 MG/ML IM ONE (10:16)
[2022-06-13] MEDS: BACITRACIN 0.9 GM PACKET TP SCH (10:23)
[2022-06-13] MEDS: GABAPENTIN 100 MG CAPSULE PO SCH ×2 (10:24→22:10)
[2022-06-13] MEDS: PRENATAL VITAMINS W/ FOLIC ACID TABLET (FP) PO SCH (10:24)
[2022-06-13] MEDS: NICOTINE POLACRILEX 2 MG GUM BUC PRN ×3 (10:25→20:41)
[2022-06-13] MEDS: BENZTROPINE MESYLATE 1 MG TABLET PO SCH ×2 (12:02→22:10)
[2022-06-13] MEDS: MELATONIN 5 MG TABLETS PO SCH (22:11)
[2022-06-13] MEDS: THIAMINE HCL 100 MG TABLET (FP) PO SCH (22:11)
[2022-06-13] MEDS: METHOCARBAMOL 500 MG TABLET PO PRN (22:11)
[2022-06-14] MEDS: diazePAM 5 MG TABLET PO SCH ×2 (05:29→17:40)
[2022-06-14] MEDS: ALBUTEROL SO4 HFA INHALER IH PRN ×2 (10:20→17:42)
[2022-06-14] MEDS: PRENATAL VITAMINS W/ FOLIC ACID TABLET (FP) PO SCH (10:21)
[2022-06-14] MEDS: BENZTROPINE MESYLATE 1 MG TABLET PO SCH ×2 (10:21→22:29)
[2022-06-14] MEDS: GABAPENTIN 100 MG CAPSULE PO SCH ×2 (10:21→22:29)
[2022-06-14] MEDS: BACITRACIN 0.9 GM PACKET TP SCH (10:22)
[2022-06-14] MEDS: diazePAM 5 MG TABLET PO PRN ×2 (10:22→14:52)
[2022-06-14] MEDS: NICOTINE POLACRILEX 2 MG GUM BUC PRN ×3 (10:24→22:30)
[2022-06-14] MEDS: METHOCARBAMOL 500 MG TABLET PO PRN ×2 (17:40→22:44)
[2022-06-14] MEDS: THIAMINE HCL 100 MG TABLET (FP) PO SCH (22:29)
[2022-06-14] MEDS: MELATONIN 5 MG TABLETS PO SCH (22:29)
[2022-06-15] MEDS: diazePAM 5 MG TABLET PO ONE (05:12)
[2022-06-15 09:04] VITALS: BP 101/52; PULSE 72; RESP 17; TEMP 97.4
[2022-06-15] MEDS: BACITRACIN 0.9 GM PACKET TP SCH (10:26)
[2022-06-15] MEDS: PRENATAL VITAMINS W/ FOLIC ACID TABLET (FP) PO SCH (10:26)
[2022-06-15] MEDS: BENZTROPINE MESYLATE 1 MG TABLET PO SCH (10:27)
[2022-06-15] MEDS: NICOTINE POLACRILEX 2 MG GUM BUC PRN (10:27)
[2022-06-15] MEDS: GABAPENTIN 100 MG CAPSULE PO SCH (10:27)
== END 2022-06-15 12:36 | disposition other institution (70) | DRG 897 ==
LOC: YASAS 12:31 → Y3N 15:34
PROVIDERS: ADMIT Allergy & Immunology; ATTEND Surgery
PROC: HZ2ZZZZ Detoxification Services for Substance Abuse Treatment (ICD-10-PCS; principal; 2022-06-11)
DX: F11.23 Opioid dependence with withdrawal (principal); F13.20 Sedative, hypnotic or anxiolytic dependence, uncomplicated; F14.20 Cocaine dependence, uncomplicated; F10.230 Alcohol dependence with withdrawal, uncomplicated; F17.210 Nicotine dependence, cigarettes, uncomplicated; F25.1 Schizoaffective disorder, depressive type; G40.909 Epilepsy, unspecified, not intractable, without status epilepticus; J45.909 Unspecified asthma, uncomplicated; M54.50 Low back pain, unspecified; G89.29 Other chronic pain; Z86.2 Personal history of diseases of the blood and blood-forming organs and certain disorders involving the immune mechanism
CPT/HCPCS: 36415; 80053; 85027; 86780; 93005; 93010; C9803-CS; U0003; U0005

== ENCOUNTER 2022-07-11 12:19 | Inpatient (IN) | payer OTHER ==
[2022-07-11 13:23] VITALS: BMI 24.3
[2022-07-11] MEDS ORDERED: MAGNESIUM CITRATE 300 ML BOTTLE PO PRN (15:20)
[2022-07-11] MEDS ORDERED: ACETAMINOPHEN 325 MG TABLET (FP) PO PRN ×2 (15:20)
[2022-07-11] MEDS ORDERED: cloNIDine HCL 0.1 MG TABLET PO PRN (15:20)
[2022-07-11] MEDS ORDERED: MAGNESIUM HYDROX 2400MG/30ML ORAL SUSPENSION 30 ML CUP PO PRN (15:20)
[2022-07-11] MEDS ORDERED: MAG HYDROX/AL HYDROX/SIMETH 30 ML UNIT-DOSE CUP PO PRN (15:20)
[2022-07-11] MEDS ORDERED: BISMUTH SUBSALICYLATE 524 MG/30 ML PO PRN (15:20)
[2022-07-11] MEDS ORDERED: BENZOCAINE/MENTHOL (CHLORASEPTIC ) LOZENGE MM PRN (15:20)
[2022-07-11] MEDS ORDERED: NALOXONE HCL (KLOXXADO) 8 MG SPRAY NS PRN (15:20)
[2022-07-11] MEDS ORDERED: DICYCLOMINE HCL 10 MG CAPSULE PO PRN (15:20)
[2022-07-11] MEDS ORDERED: IBUPROFEN 400 MG TABLET (FP) PO PRN (15:20)
[2022-07-11] MEDS ORDERED: ONDANSETRON *ODT* 4 MG TABLET SL PRN (15:20)
[2022-07-11] MEDS ORDERED: LOPERAMIDE HCL 2 MG CAPSULE PO PRN (15:20)
[2022-07-11] MEDS ORDERED: ALBUTEROL SO4 HFA INHALER IH PRN (15:22)
[2022-07-11] MEDS: diazePAM 5 MG TABLET PO SCH ×2 (17:59→22:59)
[2022-07-11] MEDS: METHOCARBAMOL 500 MG TABLET PO PRN (22:58)
[2022-07-11] MEDS: THIAMINE HCL 100 MG TABLET (FP) PO SCH (22:58)
[2022-07-11] MEDS: MELATONIN 5 MG TABLETS PO SCH (22:58)
[2022-07-11] MEDS: OXcarbazepine 300 MG TABLET (UD) PO SCH (23:43)
[2022-07-12] MEDS: diazePAM 5 MG TABLET PO SCH ×4 (05:38→22:09)
[2022-07-12] MEDS: NICOTINE 7 MG/24 HOURS TOPICAL PATCH TD SCH (10:06)
[2022-07-12] MEDS: OXcarbazepine 300 MG TABLET (UD) PO SCH ×2 (10:06→22:09)
[2022-07-12] MEDS: PRENATAL VITAMINS W/ FOLIC ACID TABLET (FP) PO SCH (10:06)
[2022-07-12] MEDS ORDERED: HALOPERIDOL DECANOATE 100 MG/ML IM ONE (10:58)
[2022-07-12] MEDS ORDERED: methaDONE HCL 10 MG TABLET PO ONE (11:19)
[2022-07-12] MEDS: BENZTROPINE MESYLATE 1 MG TABLET PO SCH ×2 (11:38→22:09)
[2022-07-12 12:05] LABS: HEMATOCRIT 39.8 % (35.4-49); HEMOGLOBIN 13.5 GM/dL (11.7-16.9); MCH 31.4 pg (25.7-33.7); MCHC 33.9 g/dl (32.0-35.9); MEAN CELL VOLUME 92.7 fl (80-96); MEAN PLT VOLUME 8.7 fl (7.5-11.1); PLATELET COUNT 200 10^3/uL (134-434); RBC 4.29 M/mm3 (4.00-5.60); RDW 14.5 % (11.9-15.9)
[2022-07-12 12:14] LABS: ALBUMIN 3.5 g/dl (3.4-5.0); BLOOD UREA NITROGEN 12.2 mg/dL (7-18); CALCIUM 8.5 mg/dL (8.5-10.1)
[2022-07-12 12:18] LABS: BILIRUBIN,TOTAL 0.3 mg/dL (0.2-1); CREATININE 0.7 mg/dL (0.55-1.3)
[2022-07-12 12:20] LABS: TOT PROT 6.8 g/dl (6.4-8.2)
[2022-07-12] MEDS: GABAPENTIN 100 MG CAPSULE PO SCH ×2 (13:53→22:09)
[2022-07-12] MEDS: NICOTINE 10 MG CARTRIDGE (INHALER) IH PRN (15:52)
[2022-07-12] MEDS: IBUPROFEN 600 MG TABLET (FP) PO PRN (15:53)
[2022-07-12] MEDS: hydrOXYzine PAMOATE 25 MG CAPSULE (FP) PO PRN (17:48)
[2022-07-12] MEDS: METHOCARBAMOL 500 MG TABLET PO PRN (17:48)
[2022-07-12] MEDS: THIAMINE HCL 100 MG TABLET (FP) PO SCH (22:09)
[2022-07-12] MEDS: MELATONIN 5 MG TABLETS PO SCH (22:09)
[2022-07-13] MEDS: diazePAM 5 MG TABLET PO SCH ×3 (05:33→22:45)
[2022-07-13] MEDS: methaDONE HCL 40 MG DISPERSABLE TABLET PO SCH (05:34)
[2022-07-13] MEDS: GABAPENTIN 100 MG CAPSULE PO SCH ×3 (05:34→22:45)
[2022-07-13] MEDS: NICOTINE 10 MG CARTRIDGE (INHALER) IH PRN (07:56)
[2022-07-13] MEDS: NICOTINE 7 MG/24 HOURS TOPICAL PATCH TD SCH (10:38)
[2022-07-13] MEDS: PRENATAL VITAMINS W/ FOLIC ACID TABLET (FP) PO SCH (10:38)
[2022-07-13] MEDS: IBUPROFEN 600 MG TABLET (FP) PO PRN ×2 (10:39→22:47)
[2022-07-13] MEDS: BENZTROPINE MESYLATE 1 MG TABLET PO SCH ×2 (10:40→22:45)
[2022-07-13] MEDS: OXcarbazepine 300 MG TABLET (UD) PO SCH ×2 (10:41→22:45)
[2022-07-13] MEDS: diazePAM 5 MG TABLET PO PRN (10:42)
[2022-07-13] MEDS: METHOCARBAMOL 500 MG TABLET PO PRN (10:45)
[2022-07-13] MEDS: NICOTINE POLACRILEX 2 MG GUM BUC PRN (15:05)
[2022-07-13] MEDS: THIAMINE HCL 100 MG TABLET (FP) PO SCH (22:45)
[2022-07-13] MEDS: MELATONIN 5 MG TABLETS PO SCH (22:45)
[2022-07-14] MEDS: methaDONE HCL 40 MG DISPERSABLE TABLET PO SCH (05:49)
[2022-07-14] MEDS: GABAPENTIN 100 MG CAPSULE PO SCH ×3 (05:50→22:19)
[2022-07-14] MEDS: diazePAM 5 MG TABLET PO SCH ×2 (05:51→18:26)
[2022-07-14] MEDS: NICOTINE POLACRILEX 2 MG GUM BUC PRN ×3 (05:52→13:06)
[2022-07-14] MEDS: OXcarbazepine 300 MG TABLET (UD) PO SCH ×2 (10:20→22:18)
[2022-07-14] MEDS: BENZTROPINE MESYLATE 1 MG TABLET PO SCH ×2 (10:20→22:19)
[2022-07-14] MEDS: METHOCARBAMOL 500 MG TABLET PO PRN (10:20)
[2022-07-14] MEDS: PRENATAL VITAMINS W/ FOLIC ACID TABLET (FP) PO SCH (10:20)
[2022-07-14] MEDS: hydrOXYzine PAMOATE 25 MG CAPSULE (FP) PO PRN ×2 (10:21→22:17)
[2022-07-14] MEDS: diazePAM 5 MG TABLET PO PRN (13:04)
[2022-07-14 21:05] VITALS: RESP 18
[2022-07-14] MEDS: THIAMINE HCL 100 MG TABLET (FP) PO SCH (22:17)
[2022-07-14] MEDS: MELATONIN 5 MG TABLETS PO SCH (22:17)
[2022-07-14] MEDS: IBUPROFEN 600 MG TABLET (FP) PO PRN (22:18)
[2022-07-15] MEDS: GABAPENTIN 100 MG CAPSULE PO SCH (05:44)
[2022-07-15] MEDS: methaDONE HCL 40 MG DISPERSABLE TABLET PO SCH (05:44)
[2022-07-15] MEDS: METHOCARBAMOL 500 MG TABLET PO PRN (05:47)
[2022-07-15] MEDS: hydrOXYzine PAMOATE 25 MG CAPSULE (FP) PO PRN (05:47)
[2022-07-15] MEDS: NICOTINE POLACRILEX 2 MG GUM BUC PRN (05:50)
[2022-07-15] MEDS ORDERED: diazePAM 5 MG TABLET PO ONE (06:00)
[2022-07-15 09:38] VITALS: BP 125/74; PULSE 78; TEMP 97.3
[2022-07-15] MEDS: PRENATAL VITAMINS W/ FOLIC ACID TABLET (FP) PO SCH (10:08)
[2022-07-15] MEDS: OXcarbazepine 300 MG TABLET (UD) PO SCH (10:09)
[2022-07-15] MEDS: BENZTROPINE MESYLATE 1 MG TABLET PO SCH (10:09)
== END 2022-07-15 14:09 | disposition home or self-care (01) | DRG 897 ==
LOC: YASAS 12:19 → Y6N 17:41
PROVIDERS: ADMIT Allergy & Immunology; ATTEND Surgery
PROC: HZ2ZZZZ Detoxification Services for Substance Abuse Treatment (ICD-10-PCS; principal; 2022-07-11)
DX: F10.230 Alcohol dependence with withdrawal, uncomplicated (principal); F14.20 Cocaine dependence, uncomplicated; F13.20 Sedative, hypnotic or anxiolytic dependence, uncomplicated; F15.20 Other stimulant dependence, uncomplicated; F19.282 Other psychoactive substance dependence with psychoactive substance-induced sleep disorder; F12.20 Cannabis dependence, uncomplicated; F17.210 Nicotine dependence, cigarettes, uncomplicated; F25.1 Schizoaffective disorder, depressive type; G40.909 Epilepsy, unspecified, not intractable, without status epilepticus; J45.909 Unspecified asthma, uncomplicated; M54.50 Low back pain, unspecified; G89.29 Other chronic pain; Z62.810 Personal history of physical and sexual abuse in childhood
CPT/HCPCS: 36415; 80053; 80183; 85027; 86780; 93005; 93010; C9803-CS; U0003; U0005

== ENCOUNTER 2022-07-31 13:41 | Inpatient (IN) | payer OTHER ==
[2022-07-31 16:48] VITALS: BMI 23.1
[2022-07-31] MEDS ORDERED: NALOXONE HCL (KLOXXADO) 8 MG SPRAY NS PRN (18:37)
[2022-07-31] MEDS ORDERED: IBUPROFEN 600 MG TABLET (FP) PO PRN (18:37)
[2022-07-31] MEDS ORDERED: BISMUTH SUBSALICYLATE 524 MG/30 ML PO PRN (18:37)
[2022-07-31] MEDS ORDERED: IBUPROFEN 400 MG TABLET (FP) PO PRN (18:37)
[2022-07-31] MEDS ORDERED: MAGNESIUM HYDROX 2400MG/30ML ORAL SUSPENSION 30 ML CUP PO PRN (18:37)
[2022-07-31] MEDS ORDERED: ACETAMINOPHEN 325 MG TABLET (FP) PO PRN ×2 (18:37)
[2022-07-31] MEDS ORDERED: POLYETHYLENE GLYCOL (HEALTHYLAX) 3350 17 GM PACKET PO PRN (18:37)
[2022-07-31] MEDS ORDERED: diazePAM 5 MG TABLET PO PRN (18:37)
[2022-07-31] MEDS ORDERED: LOPERAMIDE HCL 2 MG CAPSULE PO PRN (18:37)
[2022-07-31] MEDS ORDERED: MAG HYDROX/AL HYDROX/SIMETH 30 ML UNIT-DOSE CUP PO PRN (18:37)
[2022-07-31] MEDS ORDERED: BENZOCAINE/MENTHOL (CHLORASEPTIC ) LOZENGE MM PRN (18:37)
[2022-07-31] MEDS ORDERED: DICYCLOMINE HCL 10 MG CAPSULE PO PRN (18:37)
[2022-07-31] MEDS ORDERED: NICOTINE 10 MG CARTRIDGE (INHALER) IH PRN (18:37)
[2022-07-31] MEDS ORDERED: ONDANSETRON *ODT* 4 MG TABLET SL PRN (18:41)
[2022-07-31] MEDS: hydrOXYzine PAMOATE 25 MG CAPSULE (FP) PO PRN (19:58)
[2022-07-31] MEDS: METHOCARBAMOL 500 MG TABLET PO PRN (19:58)
[2022-07-31] MEDS: ALBUTEROL SO4 HFA INHALER IH SCH ×2 (21:15→22:39)
[2022-07-31] MEDS ORDERED: GABAPENTIN 100 MG CAPSULE PO SCH (22:00)
[2022-07-31] MEDS: diazePAM 5 MG TABLET PO SCH (22:35)
[2022-07-31] MEDS: THIAMINE HCL 100 MG TABLET (FP) PO SCH (22:36)
[2022-07-31] MEDS: MELATONIN 5 MG TABLETS PO SCH (22:38)
[2022-08-01] MEDS: ALBUTEROL SO4 HFA INHALER IH SCH ×6 (03:33→22:56)
[2022-08-01] MEDS: diazePAM 5 MG TABLET PO SCH ×4 (05:33→22:15)
[2022-08-01] MEDS: METHOCARBAMOL 500 MG TABLET PO PRN ×3 (05:34→17:46)
[2022-08-01] MEDS: NICOTINE POLACRILEX 2 MG GUM BUC PRN ×4 (05:35→22:12)
[2022-08-01] MEDS ORDERED: GABAPENTIN 100 MG CAPSULE PO SCH (09:49)
[2022-08-01] MEDS: GABAPENTIN 300 MG CAPSULE PO SCH ×2 (10:08→22:15)
[2022-08-01] MEDS: PRENATAL VITAMINS W/ FOLIC ACID TABLET (FP) PO SCH (10:09)
[2022-08-01] MEDS: NICOTINE 7 MG/24 HOURS TOPICAL PATCH TD SCH (10:09)
[2022-08-01] MEDS: hydrOXYzine PAMOATE 25 MG CAPSULE (FP) PO PRN ×2 (10:09→22:15)
[2022-08-01 10:13] LABS: HEMATOCRIT 38.7 % (35.4-49); HEMOGLOBIN 12.9 GM/dL (11.7-16.9); MCHC 33.3 g/dl (32.0-35.9); MEAN PLT VOLUME 8.7 fl (7.5-11.1); PLATELET COUNT 226 10^3/uL (134-434); RBC 4.16 M/mm3 (4.00-5.60); RDW 14.7 % (11.9-15.9); WHITE BLOOD COUNT 5.8 K/mm3 (4.0-10.0)
[2022-08-01 10:22] LABS: CALCIUM 8.5 mg/dL (8.5-10.1)
[2022-08-01 10:23] LABS: ALBUMIN 3.4 g/dl (3.4-5.0); BLOOD UREA NITROGEN 12.7 mg/dL (7-18)
[2022-08-01 10:26] LABS: CREATININE 0.8 mg/dL (0.55-1.3)
[2022-08-01 10:28] LABS: BILIRUBIN,TOTAL 0.3 mg/dL (0.2-1); TOT PROT 6.5 g/dl (6.4-8.2)
[2022-08-01] MEDS: MELATONIN 5 MG TABLETS PO SCH (22:12)
[2022-08-01] MEDS: THIAMINE HCL 100 MG TABLET (FP) PO SCH (22:15)
[2022-08-02] MEDS: ALBUTEROL SO4 HFA INHALER IH SCH ×7 (03:30→22:48)
[2022-08-02] MEDS: diazePAM 5 MG TABLET PO SCH ×3 (05:26→22:05)
[2022-08-02] MEDS: NICOTINE POLACRILEX 2 MG GUM BUC PRN ×4 (05:27→17:12)
[2022-08-02] MEDS: METHOCARBAMOL 500 MG TABLET PO PRN ×3 (05:27→17:10)
[2022-08-02] MEDS: methaDONE HCL 40 MG DISPERSABLE TABLET PO SCH (08:52)
[2022-08-02] MEDS: NICOTINE 7 MG/24 HOURS TOPICAL PATCH TD SCH (10:08)
[2022-08-02] MEDS: PRENATAL VITAMINS W/ FOLIC ACID TABLET (FP) PO SCH (10:08)
[2022-08-02] MEDS: GABAPENTIN 300 MG CAPSULE PO SCH ×2 (10:08→22:05)
[2022-08-02] MEDS: hydrOXYzine PAMOATE 25 MG CAPSULE (FP) PO PRN ×3 (10:08→22:05)
[2022-08-02] MEDS: MELATONIN 5 MG TABLETS PO SCH (22:05)
[2022-08-02] MEDS: THIAMINE HCL 100 MG TABLET (FP) PO SCH (22:05)
[2022-08-03] MEDS: ALBUTEROL SO4 HFA INHALER IH SCH ×6 (05:24→19:58)
[2022-08-03] MEDS: methaDONE HCL 40 MG DISPERSABLE TABLET PO SCH (05:25)
[2022-08-03] MEDS: diazePAM 5 MG TABLET PO SCH ×2 (05:26→17:33)
[2022-08-03] MEDS: NICOTINE POLACRILEX 2 MG GUM BUC PRN ×4 (05:31→22:12)
[2022-08-03] MEDS: NICOTINE 7 MG/24 HOURS TOPICAL PATCH TD SCH (10:15)
[2022-08-03] MEDS: PRENATAL VITAMINS W/ FOLIC ACID TABLET (FP) PO SCH (10:15)
[2022-08-03] MEDS: GABAPENTIN 300 MG CAPSULE PO SCH ×2 (10:15→22:10)
[2022-08-03] MEDS: hydrOXYzine PAMOATE 25 MG CAPSULE (FP) PO PRN ×2 (10:16→22:10)
[2022-08-03] MEDS: METHOCARBAMOL 500 MG TABLET PO PRN ×2 (10:18→22:10)
[2022-08-03] MEDS: MELATONIN 5 MG TABLETS PO SCH (22:10)
[2022-08-04] MEDS: THIAMINE HCL 100 MG TABLET (FP) PO SCH (00:06)
[2022-08-04] MEDS: ALBUTEROL SO4 HFA INHALER IH SCH ×4 (00:09→12:05)
[2022-08-04] MEDS: methaDONE HCL 40 MG DISPERSABLE TABLET PO SCH (05:34)
[2022-08-04 05:59] VITALS: PULSE 80
[2022-08-04] MEDS ORDERED: diazePAM 5 MG TABLET PO ONE (06:00)
[2022-08-04] MEDS ORDERED: CEPHALEXIN MONOHYDRATE 500 MG CAPSULE (UD) PO SCH (08:00)
[2022-08-04 09:47] VITALS: BP 110/63; RESP 19; TEMP 98.1
[2022-08-04] MEDS: PRENATAL VITAMINS W/ FOLIC ACID TABLET (FP) PO SCH (10:38)
[2022-08-04] MEDS: GABAPENTIN 300 MG CAPSULE PO SCH (10:39)
[2022-08-04] MEDS: NICOTINE 7 MG/24 HOURS TOPICAL PATCH TD SCH (10:39)
[2022-08-04] MEDS: hydrOXYzine PAMOATE 25 MG CAPSULE (FP) PO PRN (10:41)
[2022-08-04] MEDS: NICOTINE POLACRILEX 2 MG GUM BUC PRN (12:14)
== END 2022-08-04 13:10 | disposition home or self-care (01) | DRG 897 ==
LOC: YASAS 13:41 → Y6N 19:38
PROVIDERS: ADMIT Allergy & Immunology; ATTEND Surgery
PROC: HZ2ZZZZ Detoxification Services for Substance Abuse Treatment (ICD-10-PCS; principal; 2022-07-31)
DX: F10.230 Alcohol dependence with withdrawal, uncomplicated (principal); F11.20 Opioid dependence, uncomplicated; F14.20 Cocaine dependence, uncomplicated; F13.230 Sedative, hypnotic or anxiolytic dependence with withdrawal, uncomplicated; F17.210 Nicotine dependence, cigarettes, uncomplicated; F25.1 Schizoaffective disorder, depressive type; F25.0 Schizoaffective disorder, bipolar type; J45.20 Mild intermittent asthma, uncomplicated; L03.011 Cellulitis of right finger; M54.50 Low back pain, unspecified; G89.29 Other chronic pain
CPT/HCPCS: 36415; 80053; 82947; 85027; 86780; C9803-CS; U0003; U0005

== ENCOUNTER 2022-08-16 15:25 | Inpatient (IN) | payer OTHER ==
[2022-08-16 17:59] VITALS: BMI 23.6
[2022-08-16] MEDS ORDERED: LOPERAMIDE HCL 2 MG CAPSULE PO PRN (19:41)
[2022-08-16] MEDS ORDERED: diazePAM 5 MG TABLET PO ONE (19:41)
[2022-08-16] MEDS ORDERED: ACETAMINOPHEN 325 MG TABLET (FP) PO PRN ×2 (19:41)
[2022-08-16] MEDS ORDERED: BISMUTH SUBSALICYLATE 524 MG/30 ML PO PRN (19:41)
[2022-08-16] MEDS ORDERED: POLYETHYLENE GLYCOL (HEALTHYLAX) 3350 17 GM PACKET PO PRN (19:41)
[2022-08-16] MEDS ORDERED: BENZOCAINE/MENTHOL (CHLORASEPTIC ) LOZENGE MM PRN (19:41)
[2022-08-16] MEDS ORDERED: ONDANSETRON *ODT* 4 MG TABLET SL PRN (19:41)
[2022-08-16] MEDS ORDERED: MAGNESIUM HYDROX 2400MG/30ML ORAL SUSPENSION 30 ML CUP PO PRN (19:41)
[2022-08-16] MEDS ORDERED: NICOTINE 10 MG CARTRIDGE (INHALER) IH PRN (19:41)
[2022-08-16] MEDS ORDERED: DICYCLOMINE HCL 10 MG CAPSULE PO PRN (19:41)
[2022-08-16] MEDS ORDERED: diazePAM 5 MG TABLET PO PRN (19:41)
[2022-08-16] MEDS ORDERED: MAG HYDROX/AL HYDROX/SIMETH 30 ML UNIT-DOSE CUP PO PRN (19:41)
[2022-08-16] MEDS ORDERED: IBUPROFEN 400 MG TABLET (FP) PO PRN (19:41)
[2022-08-16] MEDS ORDERED: NALOXONE HCL (KLOXXADO) 8 MG SPRAY NS PRN (19:41)
[2022-08-16] MEDS ORDERED: IBUPROFEN 600 MG TABLET (FP) PO PRN (19:41)
[2022-08-16] MEDS ORDERED: diazePAM 5 MG TABLET ONE (21:17)
[2022-08-16] MEDS: PRENATAL VITAMINS W/ FOLIC ACID TABLET (FP) PO SCH (21:22)
[2022-08-16] MEDS: MELATONIN 5 MG TABLETS PO SCH (23:42)
[2022-08-16] MEDS: THIAMINE HCL 100 MG TABLET (FP) PO SCH (23:43)
[2022-08-16] MEDS: diazePAM 5 MG TABLET PO SCH (23:43)
[2022-08-17] MEDS: diazePAM 5 MG TABLET PO SCH ×4 (06:18→22:49)
[2022-08-17] MEDS: METHOCARBAMOL 500 MG TABLET PO PRN ×2 (11:06→22:50)
[2022-08-17] MEDS: hydrOXYzine PAMOATE 25 MG CAPSULE (FP) PO PRN ×2 (11:06→22:50)
[2022-08-17] MEDS: PRENATAL VITAMINS W/ FOLIC ACID TABLET (FP) PO SCH (11:06)
[2022-08-17 11:42] LABS: HEMATOCRIT 40.8 % (35.4-49); HEMOGLOBIN 13.2 GM/dL (11.7-16.9); MCH 30.3 pg (25.7-33.7); MCHC 32.4 g/dl (32.0-35.9); MEAN CELL VOLUME 93.5 fl (80-96); MEAN PLT VOLUME 9.2 fl (7.5-11.1); PLATELET COUNT 240 10^3/uL (134-434); RBC 4.37 M/mm3 (4.00-5.60); RDW 14.7 % (11.9-15.9); WHITE BLOOD COUNT 5.5 K/mm3 (4.0-10.0)
[2022-08-17 12:25] LABS: CALCIUM 8.2 mg/dL (8.5-10.1)
[2022-08-17 12:26] LABS: ALBUMIN 3.2 g/dl (3.4-5.0)
[2022-08-17 12:29] LABS: CREATININE 0.7 mg/dL (0.55-1.3)
[2022-08-17 12:31] LABS: BILIRUBIN,TOTAL 0.2 mg/dL (0.2-1); TOT PROT 6.7 g/dl (6.4-8.2)
[2022-08-17 12:34] LABS: BLOOD UREA NITROGEN 7.4 mg/dL (7-18)
[2022-08-17 13:01] LABS: HIV INTERPRETATION NEGATIVE (NEGATIVE)
[2022-08-17] MEDS: methaDONE HCL 40 MG DISPERSABLE TABLET PO SCH (13:23)
[2022-08-17] MEDS: THIAMINE HCL 100 MG TABLET (FP) PO SCH (22:49)
[2022-08-17] MEDS: MELATONIN 5 MG TABLETS PO SCH (22:49)
[2022-08-18] MEDS: methaDONE HCL 40 MG DISPERSABLE TABLET PO SCH (06:03)
[2022-08-18] MEDS: diazePAM 5 MG TABLET PO SCH ×3 (06:04→22:53)
[2022-08-18] MEDS: PRENATAL VITAMINS W/ FOLIC ACID TABLET (FP) PO SCH (10:58)
[2022-08-18] MEDS: hydrOXYzine PAMOATE 25 MG CAPSULE (FP) PO PRN ×2 (10:58→22:53)
[2022-08-18] MEDS: METHOCARBAMOL 500 MG TABLET PO PRN ×2 (10:58→22:53)
[2022-08-18] MEDS: THIAMINE HCL 100 MG TABLET (FP) PO SCH (22:52)
[2022-08-18] MEDS: MELATONIN 5 MG TABLETS PO SCH (22:53)
[2022-08-19] MEDS: methaDONE HCL 40 MG DISPERSABLE TABLET PO SCH (06:13)
[2022-08-19] MEDS: diazePAM 5 MG TABLET PO SCH ×2 (06:25→18:02)
[2022-08-19] MEDS: METHOCARBAMOL 500 MG TABLET PO PRN ×2 (10:35→21:56)
[2022-08-19] MEDS: hydrOXYzine PAMOATE 25 MG CAPSULE (FP) PO PRN ×2 (10:35→21:57)
[2022-08-19] MEDS: PRENATAL VITAMINS W/ FOLIC ACID TABLET (FP) PO SCH (10:35)
[2022-08-19] MEDS ORDERED: HALOPERIDOL DECANOATE 100 MG/ML IM ONE (11:47)
[2022-08-19] MEDS: BENZTROPINE MESYLATE 1 MG TABLET PO SCH ×2 (13:23→21:57)
[2022-08-19] MEDS: GABAPENTIN 100 MG CAPSULE PO SCH ×2 (13:49→21:57)
[2022-08-19] MEDS ORDERED: NICOTINE POLACRILEX 2 MG GUM BUC PRN (18:11)
[2022-08-19] MEDS: THIAMINE HCL 100 MG TABLET (FP) PO SCH (21:56)
[2022-08-19] MEDS: MELATONIN 5 MG TABLETS PO SCH (21:57)
[2022-08-20] MEDS: methaDONE HCL 40 MG DISPERSABLE TABLET PO SCH (05:50)
[2022-08-20] MEDS: GABAPENTIN 100 MG CAPSULE PO SCH ×3 (05:50→22:35)
[2022-08-20] MEDS ORDERED: diazePAM 5 MG TABLET PO ONE (06:00)
[2022-08-20] MEDS: METHOCARBAMOL 500 MG TABLET PO PRN ×2 (10:29→17:35)
[2022-08-20] MEDS: hydrOXYzine PAMOATE 25 MG CAPSULE (FP) PO PRN (10:29)
[2022-08-20] MEDS: PRENATAL VITAMINS W/ FOLIC ACID TABLET (FP) PO SCH (10:29)
[2022-08-20] MEDS: BENZTROPINE MESYLATE 1 MG TABLET PO SCH ×2 (10:29→22:36)
[2022-08-20] MEDS: THIAMINE HCL 100 MG TABLET (FP) PO SCH (22:35)
[2022-08-20] MEDS: MELATONIN 5 MG TABLETS PO SCH (22:36)
[2022-08-21] MEDS: methaDONE HCL 40 MG DISPERSABLE TABLET PO SCH (05:28)
[2022-08-21] MEDS: GABAPENTIN 100 MG CAPSULE PO SCH (05:29)
[2022-08-21] MEDS ORDERED: diazePAM 5 MG TABLET PO ONE (06:00)
[2022-08-21 09:05] VITALS: BP 106/71; PULSE 121; RESP 18; TEMP 98.1
[2022-08-21] MEDS ORDERED: ALBUTEROL SO4 HFA INHALER IH PRN (09:08)
[2022-08-21] MEDS: METHOCARBAMOL 500 MG TABLET PO PRN (09:41)
[2022-08-21] MEDS: PRENATAL VITAMINS W/ FOLIC ACID TABLET (FP) PO SCH (09:41)
[2022-08-21] MEDS: BENZTROPINE MESYLATE 1 MG TABLET PO SCH (09:41)
== END 2022-08-21 10:17 | disposition home or self-care (01) | DRG 896 ==
LOC: YASAS 15:25 → Y6N 21:00
PROVIDERS: ADMIT Allergy & Immunology; ATTEND Surgery
PROC: HZ2ZZZZ Detoxification Services for Substance Abuse Treatment (ICD-10-PCS; principal; 2022-08-16)
DX: F10.230 Alcohol dependence with withdrawal, uncomplicated (principal); U07.1 COVID-19; F11.20 Opioid dependence, uncomplicated; F14.20 Cocaine dependence, uncomplicated; F19.282 Other psychoactive substance dependence with psychoactive substance-induced sleep disorder; F13.230 Sedative, hypnotic or anxiolytic dependence with withdrawal, uncomplicated; F12.20 Cannabis dependence, uncomplicated; F17.213 Nicotine dependence, cigarettes, with withdrawal; F25.1 Schizoaffective disorder, depressive type; J45.20 Mild intermittent asthma, uncomplicated; G40.909 Epilepsy, unspecified, not intractable, without status epilepticus; G89.29 Other chronic pain; Z62.810 Personal history of physical and sexual abuse in childhood; Z56.0 Unemployment, unspecified
CPT/HCPCS: 36415; 80053; 83036; 85027; 86780; 87389; 87811; C9803-CS; U0003; U0005

== ENCOUNTER 2022-09-10 11:32 | Inpatient (IN) | payer OTHER ==
[2022-09-10 12:05] VITALS: BMI 22.4
[2022-09-10] MEDS ORDERED: BENZOCAINE/MENTHOL (CHLORASEPTIC ) LOZENGE MM PRN (13:12)
[2022-09-10] MEDS ORDERED: hydrOXYzine PAMOATE 25 MG CAPSULE (FP) PO PRN (13:12)
[2022-09-10] MEDS ORDERED: POLYETHYLENE GLYCOL (HEALTHYLAX) 3350 17 GM PACKET PO PRN (13:12)
[2022-09-10] MEDS ORDERED: LOPERAMIDE HCL 2 MG CAPSULE PO PRN (13:12)
[2022-09-10] MEDS ORDERED: MAG HYDROX/AL HYDROX/SIMETH 30 ML UNIT-DOSE CUP PO PRN (13:12)
[2022-09-10] MEDS ORDERED: MAGNESIUM HYDROX 2400MG/30ML ORAL SUSPENSION 30 ML CUP PO PRN (13:12)
[2022-09-10] MEDS ORDERED: P-EPHED 60MG/TRIPROLIDI 2.5MG TABLET PO PRN (13:12)
[2022-09-10] MEDS ORDERED: guaiFENesin 200 MG/10 ML 10 ML UNIT-DOSE CUPS PO PRN (13:12)
[2022-09-10] MEDS ORDERED: NALOXONE HCL (KLOXXADO) 8 MG SPRAY NS PRN (13:12)
[2022-09-10] MEDS: NICOTINE 21 MG/24 HOURS TOPICAL PATCH TD SCH (18:41)
[2022-09-10] MEDS: PRENATAL VITAMINS W/ FOLIC ACID TABLET (FP) PO SCH (18:41)
[2022-09-10 18:56] LABS: HEMATOCRIT 42.9 % (35.4-49); HEMOGLOBIN 13.9 GM/dL (11.7-16.9); MCH 30.2 pg (25.7-33.7); MCHC 32.4 g/dl (32.0-35.9); MEAN CELL VOLUME 93.1 fl (80-96); MEAN PLT VOLUME 8.7 fl (7.5-11.1); PLATELET COUNT 289 10^3/uL (134-434); RBC 4.61 M/mm3 (4.00-5.60); RDW 14.7 % (11.9-15.9); WHITE BLOOD COUNT 5.9 K/mm3 (4.0-10.0)
[2022-09-10 19:01] LABS: CALCIUM 9.2 mg/dL (8.5-10.1)
[2022-09-10 19:02] LABS: BLOOD UREA NITROGEN 17.8 mg/dL (7-18)
[2022-09-10 19:05] LABS: CREATININE 0.9 mg/dL (0.55-1.3)
[2022-09-10 19:07] LABS: BILIRUBIN,TOTAL 0.3 mg/dL (0.2-1); TOT PROT 7.9 g/dl (6.4-8.2)
[2022-09-10 19:29] LABS: SYPHILIS W/ RPR CONF NON-REACTIVE (NONREACTIVE)
[2022-09-10] MEDS: MELATONIN 5 MG TABLETS PO SCH (21:29)
[2022-09-10] MEDS: THIAMINE HCL 100 MG TABLET (FP) PO SCH (21:29)
[2022-09-11 00:31] LABS: PH,URINE 8.5 (5.0-8.0); URINE APPEARANCE CLEAR; URINE BILIRUBIN NEGATIVE (NEGATIVE); URINE COLOR YELLOW; URINE GLUCOSE (UA) NEGATIVE (NEGATIVE); URINE KETONE NEGATIVE (NEGATIVE); URINE LEUK ESTERASE NEGATIVE (NEGATIVE); URINE NITRITE NEGATIVE (NEGATIVE); URINE PROTEIN NEGATIVE (NEGATIVE); URINE UROBILINOGEN 0.2 mg/dL (0.2-1.0)
[2022-09-11] MEDS ORDERED: methaDONE HCL 10 MG TABLET PO SCH (07:15)
[2022-09-11] MEDS: NICOTINE 21 MG/24 HOURS TOPICAL PATCH TD SCH (10:04)
[2022-09-11] MEDS: BENZTROPINE MESYLATE 1 MG TABLET PO SCH ×2 (10:04→21:09)
[2022-09-11] MEDS: PRENATAL VITAMINS W/ FOLIC ACID TABLET (FP) PO SCH (10:04)
[2022-09-11] MEDS ORDERED: NICOTINE 21 MG/24 HOURS TOPICAL PATCH TD PRN (12:19)
[2022-09-11] MEDS ORDERED: NICOTINE 10 MG CARTRIDGE (INHALER) IH SCH (12:30)
[2022-09-11] MEDS ORDERED: ALBUTEROL SO4 HFA INHALER IH PRN (13:13)
[2022-09-11] MEDS: GABAPENTIN 300 MG CAPSULE PO SCH ×2 (13:54→21:09)
[2022-09-11] MEDS: MELATONIN 5 MG TABLETS PO SCH (21:09)
[2022-09-11] MEDS: THIAMINE HCL 100 MG TABLET (FP) PO SCH (21:09)
[2022-09-11] MEDS: OXcarbazepine 300 MG TABLET (UD) PO SCH (21:10)
[2022-09-11] MEDS: BUDESONIDE/FORMETEROL FUMARATE 160/4.5 mcg INHALER IH SCH (21:11)
[2022-09-12] MEDS: GABAPENTIN 300 MG CAPSULE PO SCH ×3 (06:13→21:10)
[2022-09-12] MEDS: DULoxetine HCL 30 MG CAPSULE.DR PO SCH ×2 (09:29→21:11)
[2022-09-12] MEDS: BENZTROPINE MESYLATE 1 MG TABLET PO SCH ×2 (09:29→21:10)
[2022-09-12] MEDS: BUDESONIDE/FORMETEROL FUMARATE 160/4.5 mcg INHALER IH SCH ×2 (09:30→21:10)
[2022-09-12] MEDS: PRENATAL VITAMINS W/ FOLIC ACID TABLET (FP) PO SCH (09:30)
[2022-09-12] MEDS: OXcarbazepine 300 MG TABLET (UD) PO SCH ×2 (09:30→21:10)
[2022-09-12] MEDS: NICOTINE POLACRILEX 2 MG GUM BUC PRN ×2 (09:31→13:45)
[2022-09-12] MEDS: MELATONIN 5 MG TABLETS PO SCH (21:10)
[2022-09-12] MEDS: THIAMINE HCL 100 MG TABLET (FP) PO SCH (21:10)
[2022-09-13] MEDS: GABAPENTIN 300 MG CAPSULE PO SCH ×3 (06:34→21:16)
[2022-09-13] MEDS: NICOTINE POLACRILEX 2 MG GUM BUC PRN ×2 (06:36→12:57)
[2022-09-13] MEDS: BUDESONIDE/FORMETEROL FUMARATE 160/4.5 mcg INHALER IH SCH ×2 (09:50→22:02)
[2022-09-13] MEDS: DULoxetine HCL 30 MG CAPSULE.DR PO SCH ×2 (09:50→21:16)
[2022-09-13] MEDS: BENZTROPINE MESYLATE 1 MG TABLET PO SCH ×2 (09:50→21:16)
[2022-09-13] MEDS: OXcarbazepine 300 MG TABLET (UD) PO SCH ×2 (09:51→22:02)
[2022-09-13] MEDS: PRENATAL VITAMINS W/ FOLIC ACID TABLET (FP) PO SCH (09:51)
[2022-09-13] MEDS: IBUPROFEN 400 MG TABLET (FP) PO PRN ×2 (12:57→21:18)
[2022-09-13] MEDS: MELATONIN 5 MG TABLETS PO SCH (21:16)
[2022-09-13] MEDS: THIAMINE HCL 100 MG TABLET (FP) PO SCH (21:16)
[2022-09-14] MEDS: GABAPENTIN 300 MG CAPSULE PO SCH ×3 (06:24→21:02)
[2022-09-14] MEDS: NICOTINE 10 MG CARTRIDGE (INHALER) IH PRN (06:25)
[2022-09-14] MEDS: PRENATAL VITAMINS W/ FOLIC ACID TABLET (FP) PO SCH (09:53)
[2022-09-14] MEDS: BENZTROPINE MESYLATE 1 MG TABLET PO SCH ×2 (09:53→21:02)
[2022-09-14] MEDS: DULoxetine HCL 30 MG CAPSULE.DR PO SCH ×2 (09:53→21:02)
[2022-09-14] MEDS: BUDESONIDE/FORMETEROL FUMARATE 160/4.5 mcg INHALER IH SCH ×2 (09:53→21:02)
[2022-09-14] MEDS: OXcarbazepine 300 MG TABLET (UD) PO SCH ×2 (09:53→21:02)
[2022-09-14] MEDS: NICOTINE POLACRILEX 2 MG GUM BUC PRN ×3 (09:55→21:03)
[2022-09-14] MEDS: hydrOXYzine PAMOATE 25 MG CAPSULE (FP) PO PRN (14:31)
[2022-09-14] MEDS: MELATONIN 5 MG TABLETS PO SCH (21:02)
[2022-09-14] MEDS: THIAMINE HCL 100 MG TABLET (FP) PO SCH (21:02)
[2022-09-15] MEDS: GABAPENTIN 300 MG CAPSULE PO SCH ×3 (06:06→21:17)
[2022-09-15] MEDS: NICOTINE POLACRILEX 2 MG GUM BUC PRN ×4 (06:08→21:18)
[2022-09-15] MEDS: OXcarbazepine 300 MG TABLET (UD) PO SCH ×2 (09:24→21:17)
[2022-09-15] MEDS: BENZTROPINE MESYLATE 1 MG TABLET PO SCH ×2 (09:24→21:17)
[2022-09-15] MEDS: BUDESONIDE/FORMETEROL FUMARATE 160/4.5 mcg INHALER IH SCH ×2 (09:24→21:16)
[2022-09-15] MEDS: DULoxetine HCL 30 MG CAPSULE.DR PO SCH ×2 (09:24→21:17)
[2022-09-15] MEDS: PRENATAL VITAMINS W/ FOLIC ACID TABLET (FP) PO SCH (09:24)
[2022-09-15] MEDS: IBUPROFEN 400 MG TABLET (FP) PO PRN (09:25)
[2022-09-15] MEDS: THIAMINE HCL 100 MG TABLET (FP) PO SCH (21:16)
[2022-09-15] MEDS: hydrOXYzine PAMOATE 25 MG CAPSULE (FP) PO PRN (21:17)
[2022-09-16] MEDS: ACETAMINOPHEN 325 MG TABLET (FP) PO PRN ×2 (01:26→18:40)
[2022-09-16] MEDS: GABAPENTIN 300 MG CAPSULE PO SCH ×3 (06:05→21:03)
[2022-09-16] MEDS: NICOTINE POLACRILEX 2 MG GUM BUC PRN (06:06)
[2022-09-16] MEDS: BUDESONIDE/FORMETEROL FUMARATE 160/4.5 mcg INHALER IH SCH ×2 (09:51→21:02)
[2022-09-16] MEDS: BENZTROPINE MESYLATE 1 MG TABLET PO SCH ×2 (09:51→21:03)
[2022-09-16] MEDS: OXcarbazepine 300 MG TABLET (UD) PO SCH ×2 (09:51→21:03)
[2022-09-16] MEDS: DULoxetine HCL 30 MG CAPSULE.DR PO SCH ×2 (09:52→21:03)
[2022-09-16] MEDS: PRENATAL VITAMINS W/ FOLIC ACID TABLET (FP) PO SCH (09:52)
[2022-09-16] MEDS ORDERED: HALOPERIDOL DECANOATE 100 MG/ML IM ONE (10:00)
[2022-09-16] MEDS: IBUPROFEN 400 MG TABLET (FP) PO PRN (14:07)
[2022-09-16] MEDS: THIAMINE HCL 100 MG TABLET (FP) PO SCH (21:02)
[2022-09-16] MEDS: SUVOREXANT 10 MG TABLET PO PRN (21:03)
[2022-09-17] MEDS: GABAPENTIN 300 MG CAPSULE PO SCH ×3 (06:31→21:20)
[2022-09-17] MEDS: PRENATAL VITAMINS W/ FOLIC ACID TABLET (FP) PO SCH (09:53)
[2022-09-17] MEDS: DULoxetine HCL 30 MG CAPSULE.DR PO SCH ×2 (09:53→21:20)
[2022-09-17] MEDS: BENZTROPINE MESYLATE 1 MG TABLET PO SCH ×2 (09:53→21:20)
[2022-09-17] MEDS: BUDESONIDE/FORMETEROL FUMARATE 160/4.5 mcg INHALER IH SCH ×2 (09:54→21:20)
[2022-09-17] MEDS: NICOTINE POLACRILEX 2 MG GUM BUC PRN ×3 (09:54→21:23)
[2022-09-17] MEDS: OXcarbazepine 300 MG TABLET (UD) PO SCH ×2 (09:54→21:20)
[2022-09-17] MEDS: IBUPROFEN 400 MG TABLET (FP) PO PRN (11:13)
[2022-09-17] MEDS: ACETAMINOPHEN 325 MG TABLET (FP) PO PRN (17:35)
[2022-09-17] MEDS: hydrOXYzine PAMOATE 25 MG CAPSULE (FP) PO PRN (17:36)
[2022-09-17] MEDS: THIAMINE HCL 100 MG TABLET (FP) PO SCH (21:20)
[2022-09-17] MEDS: SUVOREXANT 10 MG TABLET PO PRN (21:20)
[2022-09-17] MEDS: NICOTINE 10 MG CARTRIDGE (INHALER) IH PRN (21:22)
[2022-09-18] MEDS: NICOTINE POLACRILEX 2 MG GUM BUC PRN ×3 (06:08→13:02)
[2022-09-18] MEDS: hydrOXYzine PAMOATE 25 MG CAPSULE (FP) PO PRN (06:08)
[2022-09-18] MEDS: GABAPENTIN 300 MG CAPSULE PO SCH ×3 (06:08→21:24)
[2022-09-18] MEDS: BENZTROPINE MESYLATE 1 MG TABLET PO SCH ×2 (09:36→21:24)
[2022-09-18] MEDS: BUDESONIDE/FORMETEROL FUMARATE 160/4.5 mcg INHALER IH SCH ×2 (09:36→21:24)
[2022-09-18] MEDS: DULoxetine HCL 30 MG CAPSULE.DR PO SCH ×2 (09:36→21:24)
[2022-09-18] MEDS: PRENATAL VITAMINS W/ FOLIC ACID TABLET (FP) PO SCH (09:36)
[2022-09-18] MEDS: OXcarbazepine 300 MG TABLET (UD) PO SCH ×2 (09:36→21:24)
[2022-09-18] MEDS: IBUPROFEN 400 MG TABLET (FP) PO PRN (13:00)
[2022-09-18] MEDS: ACETAMINOPHEN 325 MG TABLET (FP) PO PRN (16:31)
[2022-09-18] MEDS: SUVOREXANT 10 MG TABLET PO PRN (21:26)
[2022-09-18] MEDS: THIAMINE HCL 100 MG TABLET (FP) PO SCH (21:31)
[2022-09-19] MEDS: GABAPENTIN 300 MG CAPSULE PO SCH ×3 (06:16→21:10)
[2022-09-19] MEDS: DULoxetine HCL 30 MG CAPSULE.DR PO SCH ×2 (09:09→21:10)
[2022-09-19] MEDS: BUDESONIDE/FORMETEROL FUMARATE 160/4.5 mcg INHALER IH SCH ×2 (09:09→21:11)
[2022-09-19] MEDS: OXcarbazepine 300 MG TABLET (UD) PO SCH ×2 (09:09→21:11)
[2022-09-19] MEDS: PRENATAL VITAMINS W/ FOLIC ACID TABLET (FP) PO SCH (09:09)
[2022-09-19] MEDS: BENZTROPINE MESYLATE 1 MG TABLET PO SCH ×2 (09:10→21:10)
[2022-09-19] MEDS: ACETAMINOPHEN 325 MG TABLET (FP) PO PRN (09:35)
[2022-09-19] MEDS: NICOTINE POLACRILEX 2 MG GUM BUC PRN (13:33)
[2022-09-19] MEDS: THIAMINE HCL 100 MG TABLET (FP) PO SCH (21:10)
[2022-09-19] MEDS: SUVOREXANT 10 MG TABLET PO PRN (21:11)
[2022-09-20] MEDS: GABAPENTIN 300 MG CAPSULE PO SCH (06:13)
[2022-09-20 07:01] VITALS: BP 91/63; PULSE 78; RESP 17; TEMP 97
[2022-09-20] MEDS: BENZTROPINE MESYLATE 1 MG TABLET PO SCH (09:03)
[2022-09-20] MEDS: PRENATAL VITAMINS W/ FOLIC ACID TABLET (FP) PO SCH (09:03)
[2022-09-20] MEDS: OXcarbazepine 300 MG TABLET (UD) PO SCH (09:03)
[2022-09-20] MEDS: DULoxetine HCL 30 MG CAPSULE.DR PO SCH (09:03)
[2022-09-20] MEDS: BUDESONIDE/FORMETEROL FUMARATE 160/4.5 mcg INHALER IH SCH (09:04)
[2022-09-20] MEDS: NICOTINE POLACRILEX 2 MG GUM BUC PRN (09:05)
== END 2022-09-20 09:07 | disposition home or self-care (01) | DRG 895 ==
LOC: YASAS 11:32 → Y3E 18:26
PROVIDERS: ADMIT Allergy & Immunology; ATTEND Psychiatry & Neurology Pain Medicine
PROC: HZ42ZZZ Group Counseling for Substance Abuse Treatment, Cognitive-Behavioral (ICD-10-PCS; principal; 2022-09-10)
DX: F11.20 Opioid dependence, uncomplicated (principal); F14.20 Cocaine dependence, uncomplicated; F15.20 Other stimulant dependence, uncomplicated; F13.20 Sedative, hypnotic or anxiolytic dependence, uncomplicated; F10.20 Alcohol dependence, uncomplicated; F17.210 Nicotine dependence, cigarettes, uncomplicated; F25.1 Schizoaffective disorder, depressive type; F41.9 Anxiety disorder, unspecified; F32.A Depression, unspecified; G40.909 Epilepsy, unspecified, not intractable, without status epilepticus; J45.20 Mild intermittent asthma, uncomplicated; M54.50 Low back pain, unspecified; G89.29 Other chronic pain; Z62.810 Personal history of physical and sexual abuse in childhood; Z86.2 Personal history of diseases of the blood and blood-forming organs and certain disorders involving the immune mechanism
CPT/HCPCS: 36415; 80053; 81003; 85027; 86780; 86803; C9803-CS; U0003; U0005

== ENCOUNTER 2022-10-14 11:35 | Inpatient (IN) | payer OTHER ==
[2022-10-14 14:35] VITALS: BMI 22.1
[2022-10-14] MEDS ORDERED: NICOTINE 10 MG CARTRIDGE (INHALER) IH PRN (16:44)
[2022-10-14] MEDS ORDERED: BENZOCAINE/MENTHOL (CHLORASEPTIC ) LOZENGE MM PRN (16:44)
[2022-10-14] MEDS ORDERED: BISMUTH SUBSALICYLATE 524 MG/30 ML PO PRN (16:44)
[2022-10-14] MEDS ORDERED: MAGNESIUM HYDROX 2400MG/30ML ORAL SUSPENSION 30 ML CUP PO PRN (16:44)
[2022-10-14] MEDS ORDERED: POLYETHYLENE GLYCOL (HEALTHYLAX) 3350 17 GM PACKET PO PRN (16:44)
[2022-10-14] MEDS ORDERED: LOPERAMIDE HCL 2 MG CAPSULE PO PRN (16:44)
[2022-10-14] MEDS ORDERED: IBUPROFEN 400 MG TABLET (FP) PO PRN (16:44)
[2022-10-14] MEDS ORDERED: NALOXONE HCL (KLOXXADO) 8 MG SPRAY NS PRN (16:44)
[2022-10-14] MEDS ORDERED: ONDANSETRON *ODT* 4 MG TABLET SL PRN (16:44)
[2022-10-14] MEDS ORDERED: DICYCLOMINE HCL 10 MG CAPSULE PO PRN (16:44)
[2022-10-14] MEDS ORDERED: ACETAMINOPHEN 325 MG TABLET (FP) PO PRN (16:44)
[2022-10-14] MEDS ORDERED: MAG HYDROX/AL HYDROX/SIMETH 30 ML UNIT-DOSE CUP PO PRN (16:44)
[2022-10-14] MEDS ORDERED: IBUPROFEN 600 MG TABLET (FP) PO PRN (16:44)
[2022-10-14] MEDS: THIAMINE HCL 100 MG TABLET (FP) PO SCH (22:08)
[2022-10-14] MEDS: MELATONIN 5 MG TABLETS PO SCH (22:08)
[2022-10-15] MEDS: PRENATAL VITAMINS W/ FOLIC ACID TABLET (FP) PO SCH (10:18)
[2022-10-15] MEDS: chlordiazePOXIDE HCL 25 MG CAPSULE PO SCH ×3 (10:18→22:41)
[2022-10-15] MEDS ORDERED: methaDONE HCL 10 MG TABLET PO SCH (11:45)
[2022-10-15] MEDS: BENZTROPINE MESYLATE 1 MG TABLET PO SCH ×2 (12:11→22:41)
[2022-10-15] MEDS ORDERED: ALBUTEROL SO4 HFA INHALER IH PRN (13:54)
[2022-10-15] MEDS: GABAPENTIN 300 MG CAPSULE PO SCH ×2 (14:26→22:41)
[2022-10-15] MEDS: BUDESONIDE/FORMETEROL FUMARATE 160/4.5 mcg INHALER IH SCH ×2 (14:26→22:42)
[2022-10-15] MEDS ORDERED: HALOPERIDOL DECANOATE 100 MG/ML IM ONE (15:15)
[2022-10-15] MEDS: HALOPERIDOL DECANOATE 100 MG/ML IM ONE ×2 (15:26→15:56)
[2022-10-15] MEDS: MELATONIN 5 MG TABLETS PO SCH (22:41)
[2022-10-15] MEDS: THIAMINE HCL 100 MG TABLET (FP) PO SCH (22:41)
[2022-10-16] MEDS: chlordiazePOXIDE HCL 25 MG CAPSULE PO SCH ×4 (05:18→22:43)
[2022-10-16] MEDS: GABAPENTIN 300 MG CAPSULE PO SCH ×3 (05:18→22:43)
[2022-10-16] MEDS: NICOTINE POLACRILEX 2 MG GUM BUC PRN ×3 (05:20→22:46)
[2022-10-16] MEDS ORDERED: methaDONE HCL 40 MG DISPERSABLE TABLET PO SCH (08:27)
[2022-10-16] MEDS: PRENATAL VITAMINS W/ FOLIC ACID TABLET (FP) PO SCH (10:34)
[2022-10-16] MEDS: BUDESONIDE/FORMETEROL FUMARATE 160/4.5 mcg INHALER IH SCH ×2 (10:34→22:43)
[2022-10-16] MEDS: BENZTROPINE MESYLATE 1 MG TABLET PO SCH ×2 (10:34→22:42)
[2022-10-16] MEDS: THIAMINE HCL 100 MG TABLET (FP) PO SCH (22:41)
[2022-10-16] MEDS: MELATONIN 5 MG TABLETS PO SCH (22:41)
[2022-10-17] MEDS: chlordiazePOXIDE HCL 25 MG CAPSULE PO SCH ×4 (05:25→22:36)
[2022-10-17] MEDS: GABAPENTIN 300 MG CAPSULE PO SCH ×3 (05:25→22:36)
[2022-10-17] MEDS: PRENATAL VITAMINS W/ FOLIC ACID TABLET (FP) PO SCH (10:26)
[2022-10-17] MEDS: BUDESONIDE/FORMETEROL FUMARATE 160/4.5 mcg INHALER IH SCH ×2 (10:26→22:37)
[2022-10-17] MEDS: BENZTROPINE MESYLATE 1 MG TABLET PO SCH ×2 (10:27→22:36)
[2022-10-17] MEDS: hydrOXYzine PAMOATE 25 MG CAPSULE (FP) PO PRN (15:16)
[2022-10-17] MEDS: METHOCARBAMOL 500 MG TABLET PO PRN (15:16)
[2022-10-17] MEDS: NICOTINE POLACRILEX 2 MG GUM BUC PRN ×2 (15:18→22:38)
[2022-10-17] MEDS: THIAMINE HCL 100 MG TABLET (FP) PO SCH (22:36)
[2022-10-17] MEDS: MELATONIN 5 MG TABLETS PO SCH (22:37)
[2022-10-18] MEDS: chlordiazePOXIDE HCL 10 MG CAPSULE PO SCH ×4 (06:06→22:28)
[2022-10-18] MEDS: GABAPENTIN 300 MG CAPSULE PO SCH ×3 (06:06→22:28)
[2022-10-18] MEDS: BENZTROPINE MESYLATE 1 MG TABLET PO SCH ×2 (10:10→22:28)
[2022-10-18] MEDS: BUDESONIDE/FORMETEROL FUMARATE 160/4.5 mcg INHALER IH SCH ×2 (10:10→22:29)
[2022-10-18] MEDS: PRENATAL VITAMINS W/ FOLIC ACID TABLET (FP) PO SCH (10:10)
[2022-10-18] MEDS: NICOTINE POLACRILEX 2 MG GUM BUC PRN ×2 (13:58→22:31)
[2022-10-18] MEDS: MELATONIN 5 MG TABLETS PO SCH (22:28)
[2022-10-18] MEDS: THIAMINE HCL 100 MG TABLET (FP) PO SCH (22:28)
[2022-10-18] MEDS: METHOCARBAMOL 500 MG TABLET PO PRN (22:28)
[2022-10-18] MEDS: hydrOXYzine PAMOATE 25 MG CAPSULE (FP) PO PRN (23:41)
[2022-10-18] MEDS: ACETAMINOPHEN 325 MG TABLET (FP) PO PRN (23:41)
[2022-10-19] MEDS: GABAPENTIN 300 MG CAPSULE PO SCH ×3 (05:37→21:18)
[2022-10-19] MEDS: chlordiazePOXIDE HCL 10 MG CAPSULE PO SCH ×2 (05:38→17:17)
[2022-10-19] MEDS: BENZTROPINE MESYLATE 1 MG TABLET PO SCH ×2 (10:21→21:18)
[2022-10-19] MEDS: PRENATAL VITAMINS W/ FOLIC ACID TABLET (FP) PO SCH (10:21)
[2022-10-19] MEDS: BUDESONIDE/FORMETEROL FUMARATE 160/4.5 mcg INHALER IH SCH ×2 (10:21→21:19)
[2022-10-19] MEDS: NICOTINE POLACRILEX 2 MG GUM BUC PRN ×4 (10:24→21:21)
[2022-10-19] MEDS: hydrOXYzine PAMOATE 25 MG CAPSULE (FP) PO PRN ×2 (11:39→19:51)
[2022-10-19] MEDS: METHOCARBAMOL 500 MG TABLET PO PRN (14:30)
[2022-10-19] MEDS: MELATONIN 5 MG TABLETS PO SCH (21:18)
[2022-10-19] MEDS: THIAMINE HCL 100 MG TABLET (FP) PO SCH (21:18)
[2022-10-20] MEDS: NICOTINE POLACRILEX 2 MG GUM BUC PRN (03:46)
[2022-10-20] MEDS ORDERED: chlordiazePOXIDE HCL 10 MG CAPSULE PO ONE (05:00)
[2022-10-20] MEDS: GABAPENTIN 300 MG CAPSULE PO SCH (05:17)
[2022-10-20] MEDS: BUDESONIDE/FORMETEROL FUMARATE 160/4.5 mcg INHALER IH SCH (09:35)
[2022-10-20] MEDS: hydrOXYzine PAMOATE 25 MG CAPSULE (FP) PO PRN (09:36)
[2022-10-20] MEDS: ACETAMINOPHEN 325 MG TABLET (FP) PO PRN (09:37)
[2022-10-20] MEDS: PRENATAL VITAMINS W/ FOLIC ACID TABLET (FP) PO SCH (09:37)
[2022-10-20] MEDS: BENZTROPINE MESYLATE 1 MG TABLET PO SCH (09:37)
[2022-10-20 09:54] VITALS: BP 130/72; PULSE 100; RESP 20; TEMP 98
== END 2022-10-20 10:14 | disposition home or self-care (01) | DRG 897 ==
LOC: YASAS 11:35 → UNDOADMIN 16:56 → Y6N 16:56 → UNDODISIN 10-15 03:24
PROVIDERS: ADMIT Allergy & Immunology; ATTEND Surgery
PROC: HZ2ZZZZ Detoxification Services for Substance Abuse Treatment (ICD-10-PCS; principal; 2022-10-14)
DX: F10.230 Alcohol dependence with withdrawal, uncomplicated (principal); F11.20 Opioid dependence, uncomplicated; F13.20 Sedative, hypnotic or anxiolytic dependence, uncomplicated; F14.20 Cocaine dependence, uncomplicated; F19.282 Other psychoactive substance dependence with psychoactive substance-induced sleep disorder; F12.20 Cannabis dependence, uncomplicated; F17.210 Nicotine dependence, cigarettes, uncomplicated; F25.0 Schizoaffective disorder, bipolar type; G40.909 Epilepsy, unspecified, not intractable, without status epilepticus; J45.20 Mild intermittent asthma, uncomplicated; M54.50 Low back pain, unspecified; G89.29 Other chronic pain; Z62.810 Personal history of physical and sexual abuse in childhood; Z86.2 Personal history of diseases of the blood and blood-forming organs and certain disorders involving the immune mechanism
CPT/HCPCS: C9803-CS; U0003; U0005

== ENCOUNTER 2022-11-12 13:03 | Inpatient (IN) | payer OTHER ==
[2022-11-12 14:02] VITALS: BMI 22.8
[2022-11-12] MEDS ORDERED: NALOXONE HCL (KLOXXADO) 8 MG SPRAY NS PRN (14:43)
[2022-11-12] MEDS ORDERED: MAGNESIUM HYDROX 2400MG/30ML ORAL SUSPENSION 30 ML CUP PO PRN (14:43)
[2022-11-12] MEDS ORDERED: ACETAMINOPHEN 325 MG TABLET (FP) PO PRN (14:43)
[2022-11-12] MEDS ORDERED: MAG HYDROX/AL HYDROX/SIMETH 30 ML UNIT-DOSE CUP PO PRN (14:43)
[2022-11-12] MEDS ORDERED: ONDANSETRON *ODT* 4 MG TABLET SL PRN (14:43)
[2022-11-12] MEDS ORDERED: IBUPROFEN 400 MG TABLET (FP) PO PRN (14:43)
[2022-11-12] MEDS ORDERED: BENZOCAINE/MENTHOL (CHLORASEPTIC ) LOZENGE MM PRN (14:43)
[2022-11-12] MEDS ORDERED: DICYCLOMINE HCL 10 MG CAPSULE PO PRN (14:43)
[2022-11-12] MEDS ORDERED: BISMUTH SUBSALICYLATE 262 MG/15 ML BTL PO PRN (14:43)
[2022-11-12] MEDS ORDERED: POLYETHYLENE GLYCOL (HEALTHYLAX) 3350 17 GM PACKET PO PRN (14:43)
[2022-11-12] MEDS ORDERED: LOPERAMIDE HCL 2 MG CAPSULE PO PRN (14:43)
[2022-11-12] MEDS ORDERED: chlordiazePOXIDE HCL 25 MG CAPSULE PO PRN (14:43)
[2022-11-12] MEDS ORDERED: ALBUTEROL SO4 HFA INHALER IH PRN (14:46)
[2022-11-12] MEDS: PRENATAL VITAMINS W/ FOLIC ACID TABLET (FP) PO SCH (15:50)
[2022-11-12] MEDS: chlordiazePOXIDE HCL 25 MG CAPSULE PO SCH ×2 (18:21→22:34)
[2022-11-12] MEDS: GABAPENTIN 300 MG CAPSULE PO SCH (22:34)
[2022-11-12] MEDS: BENZTROPINE MESYLATE 1 MG TABLET PO SCH (22:34)
[2022-11-12] MEDS: THIAMINE HCL 100 MG TABLET (FP) PO SCH (22:34)
[2022-11-12] MEDS: BUDESONIDE/FORMETEROL FUMARATE 160/4.5 mcg INHALER IH SCH (22:34)
[2022-11-12] MEDS: MELATONIN 5 MG TABLETS PO SCH (22:34)
[2022-11-13] MEDS: OXcarbazepine 300 MG TABLET (UD) PO SCH ×3 (01:53→22:17)
[2022-11-13] MEDS: GABAPENTIN 300 MG CAPSULE PO SCH ×3 (05:48→22:16)
[2022-11-13] MEDS: chlordiazePOXIDE HCL 25 MG CAPSULE PO SCH ×4 (05:48→22:16)
[2022-11-13] MEDS: ACETAMINOPHEN 325 MG TABLET (FP) PO PRN (05:49)
[2022-11-13] MEDS: METHOCARBAMOL 500 MG TABLET PO PRN ×3 (05:49→22:20)
[2022-11-13] MEDS ORDERED: methaDONE HCL 40 MG DISPERSABLE TABLET PO SCH (09:45)
[2022-11-13] MEDS: PRENATAL VITAMINS W/ FOLIC ACID TABLET (FP) PO SCH (10:21)
[2022-11-13] MEDS: BUDESONIDE/FORMETEROL FUMARATE 160/4.5 mcg INHALER IH SCH ×2 (10:23→22:17)
[2022-11-13] MEDS: BENZTROPINE MESYLATE 1 MG TABLET PO SCH ×2 (10:23→22:16)
[2022-11-13 11:22] LABS: HEMATOCRIT 37.7 % (35.4-49); HEMOGLOBIN 12.5 GM/dL (11.7-16.9); MCH 29.9 pg (25.7-33.7); MCHC 33.2 g/dl (32.0-35.9); MEAN CELL VOLUME 90.1 fl (80-96); MEAN PLT VOLUME 8.8 fl (7.5-11.1); PLATELET COUNT 208 10^3/uL (134-434); RBC 4.18 M/mm3 (4.00-5.60); RDW 15.4 % (11.9-15.9); WHITE BLOOD COUNT 5.5 K/mm3 (4.0-10.0)
[2022-11-13 11:31] LABS: ALBUMIN 3.5 g/dl (3.4-5.0); BLOOD UREA NITROGEN 7.9 mg/dL (7-18); CALCIUM 8.3 mg/dL (8.5-10.1); CREATININE 0.7 mg/dL (0.55-1.3)
[2022-11-13 11:33] LABS: BILIRUBIN,TOTAL 0.2 mg/dL (0.2-1)
[2022-11-13] MEDS: NICOTINE 10 MG CARTRIDGE (INHALER) IH PRN (14:17)
[2022-11-13] MEDS: hydrOXYzine PAMOATE 25 MG CAPSULE (FP) PO PRN ×2 (14:20→22:20)
[2022-11-13] MEDS: MELATONIN 5 MG TABLETS PO SCH (22:17)
[2022-11-13] MEDS: THIAMINE HCL 100 MG TABLET (FP) PO SCH (22:17)
[2022-11-14] MEDS: IBUPROFEN 600 MG TABLET (FP) PO PRN ×2 (01:08→17:17)
[2022-11-14] MEDS: GABAPENTIN 300 MG CAPSULE PO SCH ×3 (05:38→22:12)
[2022-11-14] MEDS: chlordiazePOXIDE HCL 25 MG CAPSULE PO SCH ×4 (05:38→22:12)
[2022-11-14] MEDS: OXcarbazepine 300 MG TABLET (UD) PO SCH ×2 (10:14→22:13)
[2022-11-14] MEDS: DULoxetine HCL 30 MG CAPSULE.DR PO SCH (10:14)
[2022-11-14] MEDS: PRENATAL VITAMINS W/ FOLIC ACID TABLET (FP) PO SCH (10:14)
[2022-11-14] MEDS: BUDESONIDE/FORMETEROL FUMARATE 160/4.5 mcg INHALER IH SCH ×2 (10:14→22:12)
[2022-11-14] MEDS: BENZTROPINE MESYLATE 1 MG TABLET PO SCH ×2 (10:15→22:12)
[2022-11-14] MEDS: METHOCARBAMOL 500 MG TABLET PO PRN ×2 (13:52→20:37)
[2022-11-14] MEDS: hydrOXYzine PAMOATE 25 MG CAPSULE (FP) PO PRN (14:18)
[2022-11-14] MEDS: NICOTINE 10 MG CARTRIDGE (INHALER) IH PRN (14:20)
[2022-11-14] MEDS: NICOTINE POLACRILEX 2 MG GUM BUC PRN ×2 (20:38→22:38)
[2022-11-14] MEDS ORDERED: HALOPERIDOL 5 MG TABLET PO SCH (22:00)
[2022-11-14] MEDS: MELATONIN 5 MG TABLETS PO SCH (22:12)
[2022-11-14] MEDS: THIAMINE HCL 100 MG TABLET (FP) PO SCH (22:13)
[2022-11-15] MEDS ORDERED: chlordiazePOXIDE HCL 10 MG CAPSULE PO PRN
[2022-11-15] MEDS: hydrOXYzine PAMOATE 25 MG CAPSULE (FP) PO PRN ×2 (02:26→13:29)
[2022-11-15] MEDS: GABAPENTIN 300 MG CAPSULE PO SCH ×3 (05:25→22:22)
[2022-11-15] MEDS: chlordiazePOXIDE HCL 10 MG CAPSULE PO SCH ×4 (05:27→22:22)
[2022-11-15] MEDS: PRENATAL VITAMINS W/ FOLIC ACID TABLET (FP) PO SCH (10:23)
[2022-11-15] MEDS: OXcarbazepine 300 MG TABLET (UD) PO SCH ×2 (10:23→22:22)
[2022-11-15] MEDS: BENZTROPINE MESYLATE 1 MG TABLET PO SCH ×2 (10:23→22:22)
[2022-11-15] MEDS: DULoxetine HCL 30 MG CAPSULE.DR PO SCH (10:24)
[2022-11-15] MEDS: BUDESONIDE/FORMETEROL FUMARATE 160/4.5 mcg INHALER IH SCH ×2 (10:24→22:22)
[2022-11-15] MEDS: NICOTINE POLACRILEX 2 MG GUM BUC PRN ×3 (10:26→17:35)
[2022-11-15] MEDS: METHOCARBAMOL 500 MG TABLET PO PRN (13:29)
[2022-11-15] MEDS: IBUPROFEN 600 MG TABLET (FP) PO PRN (17:34)
[2022-11-15] MEDS: ACETAMINOPHEN 325 MG TABLET (FP) PO PRN (19:11)
[2022-11-15] MEDS: THIAMINE HCL 100 MG TABLET (FP) PO SCH (22:22)
[2022-11-15] MEDS: MELATONIN 5 MG TABLETS PO SCH (22:22)
[2022-11-16] MEDS: chlordiazePOXIDE HCL 10 MG CAPSULE PO SCH ×2 (05:37→18:25)
[2022-11-16] MEDS: GABAPENTIN 300 MG CAPSULE PO SCH ×3 (05:38→21:51)
[2022-11-16] MEDS: NICOTINE POLACRILEX 2 MG GUM BUC PRN ×5 (05:38→21:53)
[2022-11-16] MEDS: PRENATAL VITAMINS W/ FOLIC ACID TABLET (FP) PO SCH (10:28)
[2022-11-16] MEDS: DULoxetine HCL 30 MG CAPSULE.DR PO SCH (10:28)
[2022-11-16] MEDS: BENZTROPINE MESYLATE 1 MG TABLET PO SCH ×2 (10:29→21:51)
[2022-11-16] MEDS: BUDESONIDE/FORMETEROL FUMARATE 160/4.5 mcg INHALER IH SCH ×2 (10:30→22:52)
[2022-11-16] MEDS: OXcarbazepine 300 MG TABLET (UD) PO SCH ×3 (10:30→23:42)
[2022-11-16] MEDS: hydrOXYzine PAMOATE 25 MG CAPSULE (FP) PO PRN (10:33)
[2022-11-16] MEDS: METHOCARBAMOL 500 MG TABLET PO PRN (10:33)
[2022-11-16 12:10] VITALS: RESP 18
[2022-11-16] MEDS: ACETAMINOPHEN 325 MG TABLET (FP) PO PRN (12:54)
[2022-11-16] MEDS ORDERED: HALOPERIDOL DECANOATE 100 MG/ML IM ONE (15:00)
[2022-11-16] MEDS: MELATONIN 5 MG TABLETS PO SCH (21:51)
[2022-11-16] MEDS: THIAMINE HCL 100 MG TABLET (FP) PO SCH (21:52)
[2022-11-17] MEDS ORDERED: chlordiazePOXIDE HCL 10 MG CAPSULE PO ONE (05:00)
[2022-11-17] MEDS: GABAPENTIN 300 MG CAPSULE PO SCH (05:04)
[2022-11-17 09:13] VITALS: BP 109/75; PULSE 97; TEMP 97.8
[2022-11-17] MEDS: OXcarbazepine 300 MG TABLET (UD) PO SCH (09:17)
[2022-11-17] MEDS: DULoxetine HCL 30 MG CAPSULE.DR PO SCH (09:18)
[2022-11-17] MEDS: PRENATAL VITAMINS W/ FOLIC ACID TABLET (FP) PO SCH (09:18)
[2022-11-17] MEDS: BUDESONIDE/FORMETEROL FUMARATE 160/4.5 mcg INHALER IH SCH (09:18)
== END 2022-11-17 09:28 | disposition home or self-care (01) | DRG 897 ==
LOC: YASAS 13:03 → Y3N 15:13
PROVIDERS: ADMIT Allergy & Immunology; ATTEND Surgery
PROC: HZ2ZZZZ Detoxification Services for Substance Abuse Treatment (ICD-10-PCS; principal; 2022-11-12)
DX: F10.230 Alcohol dependence with withdrawal, uncomplicated (principal); F11.20 Opioid dependence, uncomplicated; F14.20 Cocaine dependence, uncomplicated; F12.20 Cannabis dependence, uncomplicated; F17.210 Nicotine dependence, cigarettes, uncomplicated; F25.0 Schizoaffective disorder, bipolar type; G40.909 Epilepsy, unspecified, not intractable, without status epilepticus; J45.20 Mild intermittent asthma, uncomplicated; R73.9 Hyperglycemia, unspecified
CPT/HCPCS: 36415; 80053; 83036; 85027; 86780; C9803-CS; U0003; U0005

== ENCOUNTER 2022-12-03 11:59 | Inpatient (IN) | payer OTHER ==
[2022-12-03 12:12] VITALS: BMI 21.5
[2022-12-03] MEDS ORDERED: IBUPROFEN 400 MG TABLET (FP) PO PRN (12:29)
[2022-12-03] MEDS ORDERED: BENZONATATE 200 MG CAPSULE PO PRN (12:29)
[2022-12-03] MEDS ORDERED: NICOTINE 10 MG CARTRIDGE (INHALER) IH PRN (12:29)
[2022-12-03] MEDS ORDERED: guaiFENesin 600 MG TABLET.ER (FP) PO PRN (12:29)
[2022-12-03] MEDS ORDERED: BISMUTH SUBSALICYLATE 262 MG/15 ML BTL PO PRN (12:29)
[2022-12-03] MEDS ORDERED: NALOXONE HCL 0.4 MG/ML VIAL IM PRN (12:29)
[2022-12-03] MEDS ORDERED: IBUPROFEN 600 MG TABLET (FP) PO PRN (12:29)
[2022-12-03] MEDS ORDERED: NALOXONE HCL (KLOXXADO) 8 MG SPRAY NS PRN (12:29)
[2022-12-03] MEDS ORDERED: MAGNESIUM HYDROX 2400MG/30ML ORAL SUSPENSION 30 ML CUP PO PRN (12:29)
[2022-12-03] MEDS ORDERED: ONDANSETRON *ODT* 4 MG TABLET SL PRN (12:29)
[2022-12-03] MEDS ORDERED: LOPERAMIDE HCL 2 MG CAPSULE PO PRN (12:29)
[2022-12-03] MEDS ORDERED: DICYCLOMINE HCL 10 MG CAPSULE PO PRN (12:29)
[2022-12-03] MEDS ORDERED: MAG HYDROX/AL HYDROX/SIMETH 30 ML UNIT-DOSE CUP PO PRN (12:29)
[2022-12-03] MEDS ORDERED: BENZOCAINE/MENTHOL (CHLORASEPTIC ) LOZENGE MM PRN (12:29)
[2022-12-03] MEDS ORDERED: chlordiazePOXIDE HCL 25 MG CAPSULE PO ONE (12:29)
[2022-12-03] MEDS ORDERED: chlordiazePOXIDE HCL 25 MG CAPSULE PO PRN (12:29)
[2022-12-03] MEDS ORDERED: ACETAMINOPHEN 325 MG TABLET (FP) PO PRN (12:29)
[2022-12-03] MEDS ORDERED: hydrOXYzine PAMOATE 25 MG CAPSULE (FP) PO PRN (12:29)
[2022-12-03] MEDS ORDERED: POLYETHYLENE GLYCOL (HEALTHYLAX) 3350 17 GM PACKET PO PRN (12:29)
[2022-12-03] MEDS ORDERED: NICOTINE 21 MG/24 HOURS TOPICAL PATCH ONE (13:41)
[2022-12-03] MEDS ORDERED: chlordiazePOXIDE HCL 25 MG CAPSULE ONE (13:41)
[2022-12-03] MEDS ORDERED: PRENATAL VITAMINS W/ FOLIC ACID TABLET (FP) PO ONE (13:41)
[2022-12-03] MEDS: PRENATAL VITAMINS W/ FOLIC ACID TABLET (FP) PO SCH (13:50)
[2022-12-03] MEDS: NICOTINE 21 MG/24 HOURS TOPICAL PATCH TD SCH (13:54)
[2022-12-03] MEDS: METHOCARBAMOL 500 MG TABLET PO PRN (15:08)
[2022-12-03] MEDS ORDERED: BENZTROPINE MESYLATE 1 MG TABLET PO ONE (15:45)
[2022-12-03 17:10] LABS: HEMATOCRIT 37.8 % (35.4-49); HEMOGLOBIN 12.8 GM/dL (11.7-16.9); MCH 30.4 pg (25.7-33.7); MCHC 33.9 g/dl (32.0-35.9); MEAN CELL VOLUME 89.5 fl (80-96); PLATELET COUNT 345 10^3/uL (134-434); RBC 4.22 M/mm3 (4.00-5.60); RDW 15.4 % (11.9-15.9)
[2022-12-03] MEDS: chlordiazePOXIDE HCL 25 MG CAPSULE PO SCH ×2 (17:13→22:03)
[2022-12-03] MEDS: NICOTINE POLACRILEX 2 MG GUM BUC PRN ×2 (17:14→22:03)
[2022-12-03 17:19] LABS: CALCIUM 8.6 mg/dL (8.5-10.1)
[2022-12-03 17:20] LABS: BLOOD UREA NITROGEN 12.6 mg/dL (7-18)
[2022-12-03 17:23] LABS: CREATININE 0.8 mg/dL (0.55-1.3)
[2022-12-03 17:24] LABS: BILIRUBIN,TOTAL 0.4 mg/dL (0.2-1); TOT PROT 7.8 g/dl (6.4-8.2)
[2022-12-03] MEDS ORDERED: ALBUTEROL SO4 HFA INHALER IH PRN (19:06)
[2022-12-03] MEDS: GABAPENTIN 300 MG CAPSULE PO SCH (22:02)
[2022-12-03] MEDS: MELATONIN 5 MG TABLETS PO SCH (22:02)
[2022-12-03] MEDS: THIAMINE HCL 100 MG TABLET (FP) PO SCH (22:02)
[2022-12-03] MEDS: BENZTROPINE MESYLATE 1 MG TABLET PO SCH (22:02)
[2022-12-03] MEDS: DULoxetine HCL 30 MG CAPSULE.DR PO SCH (22:03)
[2022-12-03] MEDS: BUDESONIDE/FORMETEROL FUMARATE 160/4.5 mcg INHALER IH SCH (22:04)
[2022-12-03] MEDS: OXcarbazepine 300 MG TABLET (UD) PO SCH (23:27)
[2022-12-04] MEDS: chlordiazePOXIDE HCL 25 MG CAPSULE PO SCH ×4 (05:41→22:35)
[2022-12-04] MEDS: GABAPENTIN 300 MG CAPSULE PO SCH ×3 (05:41→22:35)
[2022-12-04] MEDS: NICOTINE POLACRILEX 2 MG GUM BUC PRN ×4 (05:47→22:42)
[2022-12-04] MEDS ORDERED: methaDONE HCL 40 MG DISPERSABLE TABLET PO SCH (06:00)
[2022-12-04] MEDS ORDERED: DULoxetine HCL 30 MG CAPSULE.DR PO SCH (10:00)
[2022-12-04] MEDS: PRENATAL VITAMINS W/ FOLIC ACID TABLET (FP) PO SCH (10:31)
[2022-12-04] MEDS: OXcarbazepine 300 MG TABLET (UD) PO SCH ×2 (10:32→22:35)
[2022-12-04] MEDS: DULoxetine HCL 30 MG CAPSULE.DR PO SCH ×2 (10:32→22:35)
[2022-12-04] MEDS: METHOCARBAMOL 500 MG TABLET PO PRN ×2 (10:32→17:14)
[2022-12-04] MEDS: BENZTROPINE MESYLATE 1 MG TABLET PO SCH ×2 (10:32→22:35)
[2022-12-04] MEDS: NICOTINE 21 MG/24 HOURS TOPICAL PATCH TD SCH (10:33)
[2022-12-04] MEDS: BUDESONIDE/FORMETEROL FUMARATE 160/4.5 mcg INHALER IH SCH ×2 (10:33→22:38)
[2022-12-04 13:03] LABS: HIV INTERPRETATION NEGATIVE (NEGATIVE)
[2022-12-04] MEDS: THIAMINE HCL 100 MG TABLET (FP) PO SCH (22:35)
[2022-12-04] MEDS: MELATONIN 5 MG TABLETS PO SCH (22:37)
[2022-12-05] MEDS: chlordiazePOXIDE HCL 25 MG CAPSULE PO SCH ×4 (05:25→23:09)
[2022-12-05] MEDS: GABAPENTIN 300 MG CAPSULE PO SCH ×3 (05:25→23:09)
[2022-12-05] MEDS: NICOTINE POLACRILEX 2 MG GUM BUC PRN ×4 (05:27→23:23)
[2022-12-05] MEDS: PRENATAL VITAMINS W/ FOLIC ACID TABLET (FP) PO SCH (10:50)
[2022-12-05] MEDS: DULoxetine HCL 30 MG CAPSULE.DR PO SCH ×2 (10:51→23:12)
[2022-12-05] MEDS: OXcarbazepine 300 MG TABLET (UD) PO SCH ×2 (10:51→23:13)
[2022-12-05] MEDS: BUDESONIDE/FORMETEROL FUMARATE 160/4.5 mcg INHALER IH SCH ×2 (10:51→23:13)
[2022-12-05] MEDS: BENZTROPINE MESYLATE 1 MG TABLET PO SCH ×2 (10:51→23:10)
[2022-12-05] MEDS: NICOTINE 21 MG/24 HOURS TOPICAL PATCH TD SCH (10:52)
[2022-12-05] MEDS: THIAMINE HCL 100 MG TABLET (FP) PO SCH (23:08)
[2022-12-05] MEDS: MELATONIN 5 MG TABLETS PO SCH (23:16)
[2022-12-06] MEDS ORDERED: chlordiazePOXIDE HCL 10 MG CAPSULE PO PRN
[2022-12-06] MEDS: GABAPENTIN 300 MG CAPSULE PO SCH ×3 (05:26→22:42)
[2022-12-06] MEDS: chlordiazePOXIDE HCL 10 MG CAPSULE PO SCH ×4 (05:26→22:42)
[2022-12-06] MEDS: OXcarbazepine 300 MG TABLET (UD) PO SCH ×2 (10:50→22:42)
[2022-12-06] MEDS: PRENATAL VITAMINS W/ FOLIC ACID TABLET (FP) PO SCH (10:51)
[2022-12-06] MEDS: BENZTROPINE MESYLATE 1 MG TABLET PO SCH ×2 (10:51→22:42)
[2022-12-06] MEDS: DULoxetine HCL 30 MG CAPSULE.DR PO SCH ×2 (10:51→22:43)
[2022-12-06] MEDS: NICOTINE 21 MG/24 HOURS TOPICAL PATCH TD SCH (10:52)
[2022-12-06] MEDS: BUDESONIDE/FORMETEROL FUMARATE 160/4.5 mcg INHALER IH SCH ×2 (10:52→22:45)
[2022-12-06] MEDS: THIAMINE HCL 100 MG TABLET (FP) PO SCH (22:42)
[2022-12-06] MEDS: NICOTINE POLACRILEX 2 MG GUM BUC PRN (22:45)
[2022-12-06] MEDS: MELATONIN 5 MG TABLETS PO SCH (22:48)
[2022-12-07] MEDS: GABAPENTIN 300 MG CAPSULE PO SCH ×3 (05:44→22:29)
[2022-12-07] MEDS: chlordiazePOXIDE HCL 10 MG CAPSULE PO SCH ×2 (05:44→17:42)
[2022-12-07] MEDS: NICOTINE POLACRILEX 2 MG GUM BUC PRN ×3 (05:48→22:32)
[2022-12-07] MEDS: PRENATAL VITAMINS W/ FOLIC ACID TABLET (FP) PO SCH (10:06)
[2022-12-07] MEDS: DULoxetine HCL 30 MG CAPSULE.DR PO SCH ×2 (10:06→22:29)
[2022-12-07] MEDS: BENZTROPINE MESYLATE 1 MG TABLET PO SCH ×2 (10:06→22:29)
[2022-12-07] MEDS: METHOCARBAMOL 500 MG TABLET PO PRN (10:07)
[2022-12-07] MEDS: NICOTINE 21 MG/24 HOURS TOPICAL PATCH TD SCH (10:07)
[2022-12-07] MEDS: OXcarbazepine 300 MG TABLET (UD) PO SCH ×2 (10:07→22:30)
[2022-12-07] MEDS: BUDESONIDE/FORMETEROL FUMARATE 160/4.5 mcg INHALER IH SCH ×2 (10:07→22:30)
[2022-12-07] MEDS: LACTULOSE 20 GM/30 ML UDC (FOR ORAL USE ONLY) PO SCH ×2 (13:26→22:29)
[2022-12-07] MEDS: MELATONIN 5 MG TABLETS PO SCH (22:29)
[2022-12-07] MEDS: THIAMINE HCL 100 MG TABLET (FP) PO SCH (22:29)
[2022-12-08] MEDS ORDERED: chlordiazePOXIDE HCL 10 MG CAPSULE PO ONE (05:00)
[2022-12-08] MEDS: LACTULOSE 20 GM/30 ML UDC (FOR ORAL USE ONLY) PO SCH (05:16)
[2022-12-08] MEDS: NICOTINE POLACRILEX 2 MG GUM BUC PRN (05:18)
[2022-12-08] MEDS: GABAPENTIN 300 MG CAPSULE PO SCH (05:18)
[2022-12-08 10:10] VITALS: BP 112/62; PULSE 99; RESP 18; TEMP 97.4
[2022-12-08] MEDS: BENZTROPINE MESYLATE 1 MG TABLET PO SCH (10:43)
[2022-12-08] MEDS: DULoxetine HCL 30 MG CAPSULE.DR PO SCH (10:43)
[2022-12-08] MEDS: OXcarbazepine 300 MG TABLET (UD) PO SCH (10:44)
[2022-12-08] MEDS: BUDESONIDE/FORMETEROL FUMARATE 160/4.5 mcg INHALER IH SCH (10:44)
[2022-12-08] MEDS: PRENATAL VITAMINS W/ FOLIC ACID TABLET (FP) PO SCH (10:44)
[2022-12-08] MEDS: NICOTINE 21 MG/24 HOURS TOPICAL PATCH TD SCH (10:44)
== END 2022-12-08 10:15 | disposition home or self-care (01) | DRG 897 ==
LOC: YASAS 11:59 → Y6N 12:38
PROVIDERS: ADMIT Allergy & Immunology; ATTEND Surgery
PROC: HZ2ZZZZ Detoxification Services for Substance Abuse Treatment (ICD-10-PCS; principal; 2022-12-03)
DX: F10.230 Alcohol dependence with withdrawal, uncomplicated (principal); F11.20 Opioid dependence, uncomplicated; F14.20 Cocaine dependence, uncomplicated; F15.20 Other stimulant dependence, uncomplicated; F12.20 Cannabis dependence, uncomplicated; F17.210 Nicotine dependence, cigarettes, uncomplicated; F25.0 Schizoaffective disorder, bipolar type; G40.909 Epilepsy, unspecified, not intractable, without status epilepticus; J45.20 Mild intermittent asthma, uncomplicated; R79.89 Other specified abnormal findings of blood chemistry
CPT/HCPCS: 36415; 80053; 82140; 85027; 86780; 87389; 87811; C9803-CS; U0003; U0005

== ENCOUNTER 2022-12-24 13:20 | Inpatient (IN) | payer OTHER ==
[2022-12-24 14:10] VITALS: BMI 22.8
[2022-12-24] MEDS ORDERED: ALBUTEROL SO4 HFA INHALER IH PRN (18:14)
[2022-12-24] MEDS ORDERED: BISMUTH SUBSALICYLATE 524 MG/30 ML PO PRN (18:35)
[2022-12-24] MEDS ORDERED: LOPERAMIDE HCL 2 MG CAPSULE PO PRN (18:35)
[2022-12-24] MEDS ORDERED: BENZOCAINE/MENTHOL (CHLORASEPTIC ) LOZENGE MM PRN (18:35)
[2022-12-24] MEDS ORDERED: BENZONATATE 200 MG CAPSULE PO PRN (18:35)
[2022-12-24] MEDS ORDERED: NALOXONE HCL (KLOXXADO) 8 MG SPRAY NS PRN (18:35)
[2022-12-24] MEDS ORDERED: ONDANSETRON *ODT* 4 MG TABLET SL PRN (18:35)
[2022-12-24] MEDS ORDERED: MAG HYDROX/AL HYDROX/SIMETH 30 ML UNIT-DOSE CUP PO PRN (18:35)
[2022-12-24] MEDS ORDERED: NICOTINE 10 MG CARTRIDGE (INHALER) IH PRN (18:35)
[2022-12-24] MEDS ORDERED: IBUPROFEN 600 MG TABLET (FP) PO PRN (18:35)
[2022-12-24] MEDS ORDERED: DICYCLOMINE HCL 10 MG CAPSULE PO PRN (18:35)
[2022-12-24] MEDS ORDERED: POLYETHYLENE GLYCOL (HEALTHYLAX) 3350 17 GM PACKET PO PRN (18:35)
[2022-12-24] MEDS ORDERED: NALOXONE HCL 0.4 MG/ML VIAL IM PRN (18:35)
[2022-12-24] MEDS ORDERED: MAGNESIUM HYDROX 2400MG/30ML ORAL SUSPENSION 30 ML CUP PO PRN (18:35)
[2022-12-24] MEDS ORDERED: IBUPROFEN 400 MG TABLET (FP) PO PRN (18:35)
[2022-12-24] MEDS ORDERED: guaiFENesin 600 MG TABLET.ER (FP) PO PRN (18:35)
[2022-12-24] MEDS ORDERED: P-EPHED 60MG/TRIPROLIDI 2.5MG TABLET PO PRN (18:35)
[2022-12-24] MEDS: THIAMINE HCL 100 MG TABLET (FP) PO SCH ×2 (22:25→22:30)
[2022-12-24] MEDS: MELATONIN 5 MG TABLETS PO PRN (22:28)
[2022-12-25] MEDS: PRENATAL VITAMINS W/ FOLIC ACID TABLET (FP) PO SCH (10:17)
[2022-12-25] MEDS ORDERED: methaDONE HCL 10 MG TABLET PO SCH (10:30)
[2022-12-25] MEDS: diazePAM 5 MG TABLET PO SCH ×3 (11:40→22:24)
[2022-12-25] MEDS: NICOTINE POLACRILEX 2 MG GUM BUC PRN ×3 (15:24→22:25)
[2022-12-25] MEDS: hydrOXYzine PAMOATE 25 MG CAPSULE (FP) PO PRN (15:24)
[2022-12-25] MEDS: diazePAM 5 MG TABLET PO PRN (20:08)
[2022-12-25] MEDS: MELATONIN 5 MG TABLETS PO PRN (22:23)
[2022-12-25] MEDS: THIAMINE HCL 100 MG TABLET (FP) PO SCH (22:23)
[2022-12-26] MEDS: diazePAM 5 MG TABLET PO SCH ×4 (05:22→22:19)
[2022-12-26] MEDS: NICOTINE POLACRILEX 2 MG GUM BUC PRN ×5 (05:28→22:20)
[2022-12-26] MEDS: PRENATAL VITAMINS W/ FOLIC ACID TABLET (FP) PO SCH (10:52)
[2022-12-26] MEDS: METHOCARBAMOL 500 MG TABLET PO PRN ×2 (15:17→22:19)
[2022-12-26] MEDS: hydrOXYzine PAMOATE 25 MG CAPSULE (FP) PO PRN (15:17)
[2022-12-26] MEDS: ACETAMINOPHEN 325 MG TABLET (FP) PO PRN (20:00)
[2022-12-26] MEDS: MELATONIN 5 MG TABLETS PO PRN (22:19)
[2022-12-26] MEDS: THIAMINE HCL 100 MG TABLET (FP) PO SCH (22:19)
[2022-12-27] MEDS: diazePAM 5 MG TABLET PO SCH ×3 (05:31→22:22)
[2022-12-27] MEDS: NICOTINE POLACRILEX 2 MG GUM BUC PRN ×5 (05:35→22:23)
[2022-12-27] MEDS: METHOCARBAMOL 500 MG TABLET PO PRN ×3 (07:27→22:22)
[2022-12-27] MEDS: PRENATAL VITAMINS W/ FOLIC ACID TABLET (FP) PO SCH (10:16)
[2022-12-27] MEDS: diazePAM 5 MG TABLET PO PRN ×2 (10:16→17:30)
[2022-12-27] MEDS: hydrOXYzine PAMOATE 25 MG CAPSULE (FP) PO PRN (17:28)
[2022-12-27] MEDS: ACETAMINOPHEN 325 MG TABLET (FP) PO PRN (18:15)
[2022-12-27] MEDS ORDERED: BENZTROPINE MESYLATE 1 MG TABLET PO SCH (22:00)
[2022-12-27] MEDS ORDERED: DULoxetine HCL 30 MG CAPSULE.DR PO SCH (22:00)
[2022-12-27] MEDS: THIAMINE HCL 100 MG TABLET (FP) PO SCH (22:22)
[2022-12-27] MEDS: MELATONIN 5 MG TABLETS PO PRN (22:22)
[2022-12-27] MEDS: BENZTROPINE MESYLATE 0.5 MG TABLET (FP) PO SCH (22:22)
[2022-12-27] MEDS: GABAPENTIN 300 MG CAPSULE PO SCH (22:22)
[2022-12-28] MEDS: GABAPENTIN 300 MG CAPSULE PO SCH ×3 (05:40→22:16)
[2022-12-28] MEDS: diazePAM 5 MG TABLET PO SCH ×2 (05:40→17:34)
[2022-12-28] MEDS: NICOTINE POLACRILEX 2 MG GUM BUC PRN ×5 (05:44→22:17)
[2022-12-28] MEDS: BENZTROPINE MESYLATE 0.5 MG TABLET (FP) PO SCH ×2 (10:17→22:16)
[2022-12-28] MEDS: DULoxetine HCL 30 MG CAPSULE.DR PO SCH (10:17)
[2022-12-28] MEDS: diazePAM 5 MG TABLET PO PRN (10:17)
[2022-12-28] MEDS: PRENATAL VITAMINS W/ FOLIC ACID TABLET (FP) PO SCH (10:17)
[2022-12-28] MEDS: ACETAMINOPHEN 325 MG TABLET (FP) PO PRN (16:00)
[2022-12-28] MEDS: hydrOXYzine PAMOATE 25 MG CAPSULE (FP) PO PRN (16:01)
[2022-12-28] MEDS: METHOCARBAMOL 500 MG TABLET PO PRN (17:36)
[2022-12-28] MEDS: THIAMINE HCL 100 MG TABLET (FP) PO SCH (22:16)
[2022-12-28] MEDS: MELATONIN 5 MG TABLETS PO PRN (22:16)
[2022-12-29] MEDS: GABAPENTIN 300 MG CAPSULE PO SCH (05:34)
[2022-12-29] MEDS: NICOTINE POLACRILEX 2 MG GUM BUC PRN (05:38)
[2022-12-29] MEDS ORDERED: diazePAM 5 MG TABLET PO ONE (06:00)
[2022-12-29 09:45] VITALS: BP 102/68; PULSE 84; RESP 18; TEMP 98.6
[2022-12-29] MEDS: DULoxetine HCL 30 MG CAPSULE.DR PO SCH (10:59)
[2022-12-29] MEDS: BENZTROPINE MESYLATE 0.5 MG TABLET (FP) PO SCH (10:59)
[2022-12-29] MEDS: PRENATAL VITAMINS W/ FOLIC ACID TABLET (FP) PO SCH (10:59)
== END 2022-12-29 08:58 | disposition home or self-care (01) | DRG 897 ==
LOC: YASAS 13:20 → Y3N 19:07
PROVIDERS: ADMIT Allergy & Immunology; ATTEND Surgery
PROC: HZ2ZZZZ Detoxification Services for Substance Abuse Treatment (ICD-10-PCS; principal; 2022-12-24)
DX: F11.23 Opioid dependence with withdrawal (principal); F14.20 Cocaine dependence, uncomplicated; F15.20 Other stimulant dependence, uncomplicated; F10.230 Alcohol dependence with withdrawal, uncomplicated; F12.20 Cannabis dependence, uncomplicated; F17.210 Nicotine dependence, cigarettes, uncomplicated; F20.9 Schizophrenia, unspecified; G40.909 Epilepsy, unspecified, not intractable, without status epilepticus; M54.50 Low back pain, unspecified; G89.29 Other chronic pain; Z87.09 Personal history of other diseases of the respiratory system; Z91.199 Patient's noncompliance with other medical treatment and regimen due to unspecified reason
CPT/HCPCS: C9803-CS; U0003; U0005

== ENCOUNTER 2023-01-10 13:06 | Inpatient (IN) | payer OTHER ==
[2023-01-10 13:47] VITALS: BMI 20.9
[2023-01-10] MEDS ORDERED: NALOXONE HCL (KLOXXADO) 8 MG SPRAY NS PRN (14:41)
[2023-01-10] MEDS ORDERED: POLYETHYLENE GLYCOL (HEALTHYLAX) 3350 17 GM PACKET PO PRN (14:41)
[2023-01-10] MEDS ORDERED: BENZOCAINE/MENTHOL (CHLORASEPTIC ) LOZENGE MM PRN (14:41)
[2023-01-10] MEDS ORDERED: BISMUTH SUBSALICYLATE 262 MG/15 ML BTL PO PRN (14:41)
[2023-01-10] MEDS ORDERED: guaiFENesin 600 MG TABLET.ER (FP) PO PRN (14:41)
[2023-01-10] MEDS ORDERED: NICOTINE 10 MG CARTRIDGE (INHALER) IH PRN (14:41)
[2023-01-10] MEDS ORDERED: BENZONATATE 200 MG CAPSULE PO PRN (14:41)
[2023-01-10] MEDS ORDERED: NALOXONE HCL 0.4 MG/ML VIAL IM PRN (14:41)
[2023-01-10] MEDS ORDERED: DICYCLOMINE HCL 10 MG CAPSULE PO PRN (14:41)
[2023-01-10] MEDS ORDERED: LOPERAMIDE HCL 2 MG CAPSULE PO PRN (14:41)
[2023-01-10] MEDS ORDERED: ONDANSETRON *ODT* 4 MG TABLET SL PRN (14:41)
[2023-01-10] MEDS ORDERED: MAGNESIUM HYDROX 2400MG/30ML ORAL SUSPENSION 30 ML CUP PO PRN (14:41)
[2023-01-10] MEDS ORDERED: MAG HYDROX/AL HYDROX/SIMETH 30 ML UNIT-DOSE CUP PO PRN (14:41)
[2023-01-10] MEDS ORDERED: IBUPROFEN 400 MG TABLET (FP) PO PRN (14:41)
[2023-01-10] MEDS ORDERED: ALBUTEROL SO4 HFA INHALER IH PRN (14:45)
[2023-01-10 16:32] LABS: HEMATOCRIT 36.4 % (35.4-49); HEMOGLOBIN 12.7 GM/dL (11.7-16.9); MCH 31.3 pg (25.7-33.7); MCHC 34.8 g/dl (32.0-35.9); PLATELET COUNT 251 10^3/uL (134-434); RBC 4.05 M/mm3 (4.00-5.60); RDW 14.4 % (11.9-15.9); WHITE BLOOD COUNT 6.8 K/mm3 (4.0-10.0)
[2023-01-10 16:37] LABS: POTASSIUM 4.3 mmol/L (3.5-5.1)
[2023-01-10 16:41] LABS: CALCIUM 8.5 mg/dL (8.5-10.1)
[2023-01-10 16:42] LABS: ALBUMIN 3.8 g/dl (3.4-5.0); BLOOD UREA NITROGEN 12.1 mg/dL (7-18)
[2023-01-10 16:45] LABS: CREATININE 0.9 mg/dL (0.55-1.3)
[2023-01-10 16:46] LABS: BILIRUBIN,TOTAL 0.6 mg/dL (0.2-1); TOT PROT 7.4 g/dl (6.4-8.2)
[2023-01-10 17:31] LABS: HIV INTERPRETATION NEGATIVE (NEGATIVE)
[2023-01-10] MEDS: NICOTINE POLACRILEX 2 MG GUM BUC PRN ×3 (17:41→22:27)
[2023-01-10] MEDS: hydrOXYzine PAMOATE 25 MG CAPSULE (FP) PO PRN (17:42)
[2023-01-10] MEDS: THIAMINE HCL 100 MG TABLET (FP) PO SCH (22:25)
[2023-01-10] MEDS: MELATONIN 5 MG TABLETS PO SCH (22:26)
[2023-01-10] MEDS: IBUPROFEN 600 MG TABLET (FP) PO PRN (22:27)
[2023-01-11] MEDS: ACETAMINOPHEN 325 MG TABLET (FP) PO PRN ×2 (02:02→18:43)
[2023-01-11] MEDS: PRENATAL VITAMINS W/ FOLIC ACID TABLET (FP) PO SCH (10:16)
[2023-01-11] MEDS ORDERED: methaDONE HCL 40 MG DISPERSABLE TABLET PO SCH (13:30)
[2023-01-11] MEDS: NICOTINE POLACRILEX 2 MG GUM BUC PRN ×2 (13:37→18:04)
[2023-01-11] MEDS: GABAPENTIN 300 MG CAPSULE PO SCH ×2 (13:56→22:09)
[2023-01-11] MEDS: hydrOXYzine PAMOATE 25 MG CAPSULE (FP) PO PRN (18:01)
[2023-01-11] MEDS: BENZTROPINE MESYLATE 0.5 MG TABLET (FP) PO SCH (22:09)
[2023-01-11] MEDS: THIAMINE HCL 100 MG TABLET (FP) PO SCH (22:09)
[2023-01-11] MEDS: MELATONIN 5 MG TABLETS PO SCH (22:10)
[2023-01-12] MEDS: GABAPENTIN 300 MG CAPSULE PO SCH ×3 (05:26→22:33)
[2023-01-12] MEDS: NICOTINE POLACRILEX 2 MG GUM BUC PRN ×6 (05:28→22:36)
[2023-01-12] MEDS: BENZTROPINE MESYLATE 0.5 MG TABLET (FP) PO SCH ×2 (10:13→22:34)
[2023-01-12] MEDS: DULoxetine HCL 30 MG CAPSULE.DR PO SCH (10:13)
[2023-01-12] MEDS: PRENATAL VITAMINS W/ FOLIC ACID TABLET (FP) PO SCH (10:13)
[2023-01-12] MEDS: hydrOXYzine PAMOATE 25 MG CAPSULE (FP) PO PRN (13:15)
[2023-01-12] MEDS ORDERED: chlordiazePOXIDE HCL 25 MG CAPSULE PO ONE (13:30)
[2023-01-12] MEDS: chlordiazePOXIDE HCL 25 MG CAPSULE PO SCH ×2 (17:25→22:33)
[2023-01-12] MEDS ORDERED: chlordiazePOXIDE HCL 10 MG CAPSULE PO PRN (19:00)
[2023-01-12] MEDS: THIAMINE HCL 100 MG TABLET (FP) PO SCH (22:33)
[2023-01-12] MEDS: MELATONIN 5 MG TABLETS PO SCH (22:34)
[2023-01-12 23:46] LABS: URINE APPEARANCE CLEAR; URINE BILIRUBIN NEGATIVE (NEGATIVE); URINE COLOR YELLOW; URINE GLUCOSE (UA) NEGATIVE (NEGATIVE); URINE KETONE NEGATIVE (NEGATIVE); URINE LEUK ESTERASE NEGATIVE (NEGATIVE); URINE NITRITE NEGATIVE (NEGATIVE); URINE PROTEIN NEGATIVE (NEGATIVE); URINE UROBILINOGEN 0.2 mg/dL (0.2-1.0)
[2023-01-13] MEDS: GABAPENTIN 300 MG CAPSULE PO SCH ×3 (05:26→22:10)
[2023-01-13] MEDS: chlordiazePOXIDE HCL 25 MG CAPSULE PO SCH (05:26)
[2023-01-13] MEDS: NICOTINE POLACRILEX 2 MG GUM BUC PRN ×5 (05:31→20:28)
[2023-01-13] MEDS: PRENATAL VITAMINS W/ FOLIC ACID TABLET (FP) PO SCH (09:29)
[2023-01-13] MEDS: ACETAMINOPHEN 325 MG TABLET (FP) PO PRN (09:29)
[2023-01-13] MEDS: BENZTROPINE MESYLATE 0.5 MG TABLET (FP) PO SCH ×2 (10:08→22:10)
[2023-01-13] MEDS: DULoxetine HCL 30 MG CAPSULE.DR PO SCH (10:08)
[2023-01-13] MEDS: chlordiazePOXIDE HCL 10 MG CAPSULE PO SCH ×3 (10:09→22:10)
[2023-01-13] MEDS: hydrOXYzine PAMOATE 25 MG CAPSULE (FP) PO PRN (20:28)
[2023-01-13] MEDS: MELATONIN 5 MG TABLETS PO SCH (22:10)
[2023-01-13] MEDS: THIAMINE HCL 100 MG TABLET (FP) PO SCH (22:10)
[2023-01-14] MEDS: IBUPROFEN 600 MG TABLET (FP) PO PRN (02:24)
[2023-01-14] MEDS: NICOTINE POLACRILEX 2 MG GUM BUC PRN ×4 (02:27→10:15)
[2023-01-14] MEDS: GABAPENTIN 300 MG CAPSULE PO SCH ×3 (05:33→22:23)
[2023-01-14] MEDS: chlordiazePOXIDE HCL 10 MG CAPSULE PO SCH ×3 (05:33→22:24)
[2023-01-14] MEDS: hydrOXYzine PAMOATE 25 MG CAPSULE (FP) PO PRN ×2 (07:32→18:10)
[2023-01-14] MEDS: DULoxetine HCL 30 MG CAPSULE.DR PO SCH (10:11)
[2023-01-14] MEDS: BENZTROPINE MESYLATE 0.5 MG TABLET (FP) PO SCH ×2 (10:11→22:23)
[2023-01-14] MEDS: PRENATAL VITAMINS W/ FOLIC ACID TABLET (FP) PO SCH (10:12)
[2023-01-14] MEDS: MELATONIN 5 MG TABLETS PO SCH (22:23)
[2023-01-14] MEDS: THIAMINE HCL 100 MG TABLET (FP) PO SCH (22:23)
[2023-01-15] MEDS ORDERED: chlordiazePOXIDE HCL 10 MG CAPSULE PO ONE (05:00)
[2023-01-15] MEDS: GABAPENTIN 300 MG CAPSULE PO SCH (05:25)
[2023-01-15] MEDS: NICOTINE POLACRILEX 2 MG GUM BUC PRN (05:30)
[2023-01-15 05:56] VITALS: BP 108/56; PULSE 59; RESP 20; TEMP 96.1
== END 2023-01-15 08:56 | disposition home or self-care (01) | DRG 897 ==
LOC: YASAS 13:06 → Y6N 14:42 → UNDOADMIN 15:17 → Y6N 15:17
PROVIDERS: ADMIT Allergy & Immunology; ATTEND Surgery
PROC: HZ2ZZZZ Detoxification Services for Substance Abuse Treatment (ICD-10-PCS; principal; 2023-01-10)
DX: F10.230 Alcohol dependence with withdrawal, uncomplicated (principal); F11.20 Opioid dependence, uncomplicated; F14.20 Cocaine dependence, uncomplicated; F15.20 Other stimulant dependence, uncomplicated; F12.20 Cannabis dependence, uncomplicated; F17.210 Nicotine dependence, cigarettes, uncomplicated; F25.0 Schizoaffective disorder, bipolar type; R79.89 Other specified abnormal findings of blood chemistry; Z86.69 Personal history of other diseases of the nervous system and sense organs
CPT/HCPCS: 36415; 80053; 81003; 85027; 86780; 86803; 87389; 93005; 93010; C9803-CS; U0003; U0005

== ENCOUNTER 2023-05-01 14:36 | Inpatient (IN) | payer OTHER ==
[2023-05-01 15:43] VITALS: BMI 18.4
[2023-05-01] MEDS ORDERED: ONDANSETRON *ODT* 4 MG TABLET SL PRN (18:19)
[2023-05-01] MEDS ORDERED: IBUPROFEN 600 MG TABLET (FP) PO PRN (18:19)
[2023-05-01] MEDS ORDERED: BISMUTH SUBSALICYLATE 524 MG/30 ML PO PRN (18:19)
[2023-05-01] MEDS ORDERED: BENZOCAINE/MENTHOL (CHLORASEPTIC ) LOZENGE MM PRN (18:19)
[2023-05-01] MEDS ORDERED: DICYCLOMINE HCL 10 MG CAPSULE PO PRN (18:19)
[2023-05-01] MEDS ORDERED: NALOXONE HCL 0.4 MG/ML VIAL IM PRN (18:19)
[2023-05-01] MEDS ORDERED: IBUPROFEN 400 MG TABLET (FP) PO PRN (18:19)
[2023-05-01] MEDS ORDERED: ACETAMINOPHEN 325 MG TABLET (FP) PO PRN (18:19)
[2023-05-01] MEDS ORDERED: MAGNESIUM HYDROX 2400MG/30ML ORAL SUSPENSION 30 ML CUP PO PRN (18:19)
[2023-05-01] MEDS ORDERED: MAG HYDROX/AL HYDROX/SIMETH 30 ML UNIT-DOSE CUP PO PRN (18:19)
[2023-05-01] MEDS ORDERED: LOPERAMIDE HCL 2 MG CAPSULE PO PRN (18:19)
[2023-05-01] MEDS ORDERED: BENZONATATE 200 MG CAPSULE PO PRN (18:19)
[2023-05-01] MEDS ORDERED: guaiFENesin 600 MG TABLET.ER (FP) PO PRN (18:19)
[2023-05-01] MEDS ORDERED: POLYETHYLENE GLYCOL (HEALTHYLAX) 3350 17 GM PACKET PO PRN (18:19)
[2023-05-01] MEDS ORDERED: hydrOXYzine PAMOATE 25 MG CAPSULE (FP) PO PRN (18:19)
[2023-05-01] MEDS ORDERED: NALOXONE HCL (KLOXXADO) 8 MG SPRAY NS PRN (18:19)
[2023-05-01] MEDS ORDERED: ALBUTEROL SO4 HFA INHALER IH PRN (19:36)
[2023-05-01] MEDS: diazePAM 5 MG TABLET PO SCH (22:15)
[2023-05-01] MEDS: THIAMINE HCL 100 MG TABLET (FP) PO SCH (22:15)
[2023-05-01] MEDS: MELATONIN 5 MG TABLETS PO SCH (22:15)
[2023-05-02] MEDS: diazePAM 5 MG TABLET PO SCH ×4 (05:49→22:07)
[2023-05-02] MEDS: PRENATAL VITAMINS W/ FOLIC ACID TABLET (FP) PO SCH (10:23)
[2023-05-02 11:03] LABS: POTASSIUM 4.3 mmol/L (3.5-5.1)
[2023-05-02 11:04] LABS: HEMATOCRIT 36.6 % (35.4-49); MCH 29.7 pg (25.7-33.7); MCHC 32.8 g/dl (32.0-35.9); MEAN CELL VOLUME 90.3 fl (80-96); MEAN PLT VOLUME 8.4 fl (7.5-11.1); PLATELET COUNT 288 10^3/uL (134-434); RBC 4.05 M/mm3 (4.00-5.60); RDW 15.4 % (11.9-15.9); WHITE BLOOD COUNT 7.2 K/mm3 (4.0-10.0)
[2023-05-02 11:06] LABS: CALCIUM 8.7 mg/dL (8.5-10.1)
[2023-05-02 11:07] LABS: ALBUMIN 3.2 g/dl (3.4-5.0); BLOOD UREA NITROGEN 9.8 mg/dL (7-18)
[2023-05-02 11:10] LABS: CREATININE 0.6 mg/dL (0.55-1.3)
[2023-05-02 11:11] LABS: BILIRUBIN,TOTAL 0.3 mg/dL (0.2-1); TOT PROT 6.8 g/dl (6.4-8.2)
[2023-05-02] MEDS: methaDONE HCL 40 MG DISPERSABLE TABLET PO SCH (12:12)
[2023-05-02] MEDS: THIAMINE HCL 100 MG TABLET (FP) PO SCH (22:06)
[2023-05-02] MEDS: MELATONIN 5 MG TABLETS PO SCH (22:07)
[2023-05-03] MEDS: diazePAM 5 MG TABLET PO SCH ×3 (05:23→22:05)
[2023-05-03] MEDS: methaDONE HCL 40 MG DISPERSABLE TABLET PO SCH (05:23)
[2023-05-03] MEDS: PRENATAL VITAMINS W/ FOLIC ACID TABLET (FP) PO SCH (10:05)
[2023-05-03] MEDS: diazePAM 5 MG TABLET PO PRN (10:06)
[2023-05-03] MEDS: NICOTINE POLACRILEX 4 MG GUM BUC PRN (20:24)
[2023-05-03] MEDS: NICOTINE 21 MG/24 HOURS TOPICAL PATCH TD SCH (20:43)
[2023-05-03] MEDS: THIAMINE HCL 100 MG TABLET (FP) PO SCH (22:04)
[2023-05-03] MEDS: MELATONIN 5 MG TABLETS PO SCH (22:04)
[2023-05-04] MEDS: methaDONE HCL 40 MG DISPERSABLE TABLET PO SCH (05:23)
[2023-05-04] MEDS: diazePAM 5 MG TABLET PO SCH ×2 (05:23→17:07)
[2023-05-04] MEDS: NICOTINE POLACRILEX 4 MG GUM BUC PRN ×4 (05:26→21:14)
[2023-05-04] MEDS: diazePAM 5 MG TABLET PO PRN ×2 (09:13→14:56)
[2023-05-04] MEDS: PRENATAL VITAMINS W/ FOLIC ACID TABLET (FP) PO SCH (09:13)
[2023-05-04] MEDS: NICOTINE 21 MG/24 HOURS TOPICAL PATCH TD SCH (09:15)
[2023-05-04] MEDS: METHOCARBAMOL 500 MG TABLET PO PRN ×2 (14:56→21:14)
[2023-05-04] MEDS: MELATONIN 5 MG TABLETS PO SCH (21:14)
[2023-05-04] MEDS: THIAMINE HCL 100 MG TABLET (FP) PO SCH (21:14)
[2023-05-05] MEDS: methaDONE HCL 40 MG DISPERSABLE TABLET PO SCH (05:29)
[2023-05-05] MEDS ORDERED: diazePAM 5 MG TABLET PO ONE (06:00)
[2023-05-05 09:05] VITALS: BP 100/61; PULSE 74; RESP 16; TEMP 98.1
== END 2023-05-05 09:07 | disposition home or self-care (01) | DRG 897 ==
LOC: YASAS 14:36 → Y3N 18:38
PROVIDERS: ADMIT Allergy & Immunology; ATTEND Surgery
PROC: HZ2ZZZZ Detoxification Services for Substance Abuse Treatment (ICD-10-PCS; principal; 2023-05-01)
DX: F13.230 Sedative, hypnotic or anxiolytic dependence with withdrawal, uncomplicated (principal); F11.20 Opioid dependence, uncomplicated; F14.20 Cocaine dependence, uncomplicated; F15.10 Other stimulant abuse, uncomplicated; F12.20 Cannabis dependence, uncomplicated; F17.210 Nicotine dependence, cigarettes, uncomplicated; F25.0 Schizoaffective disorder, bipolar type; F31.9 Bipolar disorder, unspecified; J45.909 Unspecified asthma, uncomplicated
CPT/HCPCS: 36415; 80053; 85027; 86780; 87635; 87811

== ENCOUNTER 2023-06-17 14:28 | Inpatient (IN) | payer OTHER ==
[2023-06-17 15:52] VITALS: BMI 20.5
[2023-06-17] MEDS ORDERED: NALOXONE HCL (KLOXXADO) 8 MG SPRAY NS PRN (23:20)
[2023-06-17] MEDS ORDERED: MAG HYDROX/AL HYDROX/SIMETH 30 ML UNIT-DOSE CUP PO PRN (23:20)
[2023-06-17] MEDS ORDERED: IBUPROFEN 400 MG TABLET (FP) PO PRN (23:20)
[2023-06-17] MEDS ORDERED: POLYETHYLENE GLYCOL (HEALTHYLAX) 3350 17 GM PACKET PO PRN (23:20)
[2023-06-17] MEDS ORDERED: guaiFENesin 600 MG TABLET.ER (FP) PO PRN (23:20)
[2023-06-17] MEDS ORDERED: P-EPHED 60MG/TRIPROLIDI 2.5MG TABLET PO PRN (23:20)
[2023-06-17] MEDS ORDERED: COLLOIDAL OATMEAL 1 BAR EACH TP PRN (23:20)
[2023-06-17] MEDS ORDERED: MAGNESIUM HYDROX 2400MG/30ML ORAL SUSPENSION 30 ML CUP PO PRN (23:20)
[2023-06-17] MEDS ORDERED: LOPERAMIDE HCL 2 MG CAPSULE PO PRN (23:20)
[2023-06-17] MEDS ORDERED: BENZOCAINE/MENTHOL (CHLORASEPTIC ) LOZENGE MM PRN (23:20)
[2023-06-17] MEDS ORDERED: BENZONATATE 200 MG CAPSULE PO PRN (23:20)
[2023-06-17] MEDS ORDERED: NALOXONE HCL 0.4 MG/ML VIAL IM PRN (23:20)
[2023-06-18] MEDS: MELATONIN 5 MG TABLETS PO SCH ×2 (06:38→21:12)
[2023-06-18 08:54] LABS: POTASSIUM 4.3 mmol/L (3.5-5.1)
[2023-06-18 08:57] LABS: HEMATOCRIT 36.7 % (35.4-49); HEMOGLOBIN 12.7 GM/dL (11.7-16.9); MCH 30.6 pg (25.7-33.7); MCHC 34.6 g/dl (32.0-35.9); MEAN CELL VOLUME 88.3 fl (80-96); MEAN PLT VOLUME 7.9 fl (7.5-11.1); PLATELET COUNT 255 10^3/uL (134-434); RBC 4.16 M/mm3 (4.00-5.60); RDW 15.5 % (11.9-15.9); WHITE BLOOD COUNT 4.5 K/mm3 (4.0-10.0)
[2023-06-18 09:01] LABS: CALCIUM 8.6 mg/dL (8.5-10.1)
[2023-06-18 09:02] LABS: ALBUMIN 3.3 g/dl (3.4-5.0); BLOOD UREA NITROGEN 15.5 mg/dL (7-18)
[2023-06-18 09:05] LABS: CREATININE 0.7 mg/dL (0.55-1.3)
[2023-06-18 09:06] LABS: BILIRUBIN,TOTAL 0.4 mg/dL (0.2-1)
[2023-06-18] MEDS: methaDONE HCL 40 MG DISPERSABLE TABLET PO SCH (09:12)
[2023-06-18] MEDS: PRENATAL VITAMINS W/ FOLIC ACID TABLET (FP) PO SCH (09:15)
[2023-06-18] MEDS: NICOTINE POLACRILEX 2 MG GUM BUC PRN ×3 (09:15→21:13)
[2023-06-18] MEDS ORDERED: GABAPENTIN 300 MG CAPSULE PO SCH (14:00)
[2023-06-18] MEDS ORDERED: GABAPENTIN 300 MG CAPSULE PO ONE (15:15)
[2023-06-18] MEDS: HALOPERIDOL 5 MG TABLET PO SCH (21:11)
[2023-06-18] MEDS: THIAMINE HCL 100 MG TABLET (FP) PO SCH (21:12)
[2023-06-18] MEDS: BENZTROPINE MESYLATE 1 MG TABLET PO SCH (21:12)
[2023-06-18] MEDS: GABAPENTIN 300 MG CAPSULE PO SCH (21:12)
[2023-06-19] MEDS: GABAPENTIN 300 MG CAPSULE PO SCH ×3 (06:26→21:11)
[2023-06-19] MEDS: methaDONE HCL 40 MG DISPERSABLE TABLET PO SCH (06:27)
[2023-06-19] MEDS: NICOTINE POLACRILEX 2 MG GUM BUC PRN ×3 (08:26→21:12)
[2023-06-19] MEDS: BENZTROPINE MESYLATE 1 MG TABLET PO SCH ×2 (09:51→21:11)
[2023-06-19] MEDS: PRENATAL VITAMINS W/ FOLIC ACID TABLET (FP) PO SCH (09:52)
[2023-06-19] MEDS: DULoxetine HCL 30 MG CAPSULE.DR PO SCH (09:52)
[2023-06-19] MEDS: ACETAMINOPHEN 325 MG TABLET (FP) PO PRN (09:53)
[2023-06-19] MEDS: THIAMINE HCL 100 MG TABLET (FP) PO SCH (21:11)
[2023-06-19] MEDS: MELATONIN 5 MG TABLETS PO SCH (21:11)
[2023-06-19] MEDS: HALOPERIDOL 5 MG TABLET PO SCH (21:11)
[2023-06-20] MEDS: GABAPENTIN 300 MG CAPSULE PO SCH ×3 (05:46→21:36)
[2023-06-20] MEDS: methaDONE HCL 40 MG DISPERSABLE TABLET PO SCH (05:46)
[2023-06-20] MEDS: PRENATAL VITAMINS W/ FOLIC ACID TABLET (FP) PO SCH (09:42)
[2023-06-20] MEDS: DULoxetine HCL 30 MG CAPSULE.DR PO SCH (09:43)
[2023-06-20] MEDS: BENZTROPINE MESYLATE 1 MG TABLET PO SCH ×2 (09:43→23:42)
[2023-06-20] MEDS: IBUPROFEN 600 MG TABLET (FP) PO PRN (09:44)
[2023-06-20] MEDS: NICOTINE POLACRILEX 2 MG GUM BUC PRN ×2 (09:45→13:31)
[2023-06-20 11:03] LABS: PH,URINE 7.5 (5.0-8.0); URINE APPEARANCE CLEAR; URINE BILIRUBIN NEGATIVE (NEGATIVE); URINE COLOR YELLOW; URINE GLUCOSE (UA) NEGATIVE (NEGATIVE); URINE KETONE NEGATIVE (NEGATIVE); URINE LEUK ESTERASE NEGATIVE (NEGATIVE); URINE NITRITE NEGATIVE (NEGATIVE); URINE PROTEIN NEGATIVE (NEGATIVE); URINE UROBILINOGEN 0.2 mg/dL (0.2-1.0)
[2023-06-20] MEDS: THIAMINE HCL 100 MG TABLET (FP) PO SCH (21:33)
[2023-06-20] MEDS: MELATONIN 5 MG TABLETS PO SCH (21:33)
[2023-06-20] MEDS: ACETAMINOPHEN 325 MG TABLET (FP) PO PRN (21:35)
[2023-06-20] MEDS: hydrOXYzine PAMOATE 25 MG CAPSULE (FP) PO PRN (21:35)
[2023-06-20] MEDS: HALOPERIDOL 5 MG TABLET PO SCH (21:36)
[2023-06-21] MEDS: GABAPENTIN 300 MG CAPSULE PO SCH ×3 (06:01→21:58)
[2023-06-21] MEDS: NICOTINE POLACRILEX 2 MG GUM BUC PRN ×3 (06:02→13:43)
[2023-06-21] MEDS: methaDONE HCL 40 MG DISPERSABLE TABLET PO SCH (06:02)
[2023-06-21] MEDS: BENZTROPINE MESYLATE 1 MG TABLET PO SCH ×2 (10:28→21:58)
[2023-06-21] MEDS: PRENATAL VITAMINS W/ FOLIC ACID TABLET (FP) PO SCH (10:28)
[2023-06-21] MEDS: DULoxetine HCL 30 MG CAPSULE.DR PO SCH (10:29)
[2023-06-21] MEDS: IBUPROFEN 600 MG TABLET (FP) PO PRN (10:31)
[2023-06-21] MEDS: hydrOXYzine PAMOATE 25 MG CAPSULE (FP) PO PRN (21:57)
[2023-06-21] MEDS: MELATONIN 5 MG TABLETS PO SCH (21:58)
[2023-06-21] MEDS: THIAMINE HCL 100 MG TABLET (FP) PO SCH (21:58)
[2023-06-21] MEDS: HALOPERIDOL 5 MG TABLET PO SCH (22:35)
[2023-06-22] MEDS: methaDONE HCL 40 MG DISPERSABLE TABLET PO SCH (06:14)
[2023-06-22] MEDS: GABAPENTIN 300 MG CAPSULE PO SCH ×3 (06:15→21:29)
[2023-06-22] MEDS: NICOTINE POLACRILEX 2 MG GUM BUC PRN ×2 (06:18→13:49)
[2023-06-22] MEDS: hydrOXYzine PAMOATE 25 MG CAPSULE (FP) PO PRN (06:18)
[2023-06-22] MEDS: PRENATAL VITAMINS W/ FOLIC ACID TABLET (FP) PO SCH (09:39)
[2023-06-22] MEDS: DULoxetine HCL 30 MG CAPSULE.DR PO SCH (09:40)
[2023-06-22] MEDS: BENZTROPINE MESYLATE 1 MG TABLET PO SCH ×2 (09:40→21:29)
[2023-06-22] MEDS: IBUPROFEN 600 MG TABLET (FP) PO PRN (13:46)
[2023-06-22] MEDS: MELATONIN 5 MG TABLETS PO SCH (21:29)
[2023-06-22] MEDS: THIAMINE HCL 100 MG TABLET (FP) PO SCH (21:29)
[2023-06-22] MEDS: HALOPERIDOL 5 MG TABLET PO SCH (21:29)
[2023-06-23] MEDS: IBUPROFEN 600 MG TABLET (FP) PO PRN (00:53)
[2023-06-23] MEDS: GABAPENTIN 300 MG CAPSULE PO SCH ×3 (06:14→21:26)
[2023-06-23] MEDS: methaDONE HCL 40 MG DISPERSABLE TABLET PO SCH (06:14)
[2023-06-23] MEDS: PRENATAL VITAMINS W/ FOLIC ACID TABLET (FP) PO SCH (09:55)
[2023-06-23] MEDS: BENZTROPINE MESYLATE 1 MG TABLET PO SCH ×2 (09:55→21:26)
[2023-06-23] MEDS: DULoxetine HCL 30 MG CAPSULE.DR PO SCH (09:55)
[2023-06-23] MEDS: NICOTINE POLACRILEX 2 MG GUM BUC PRN ×4 (09:57→21:29)
[2023-06-23] MEDS: MELATONIN 5 MG TABLETS PO SCH (21:26)
[2023-06-23] MEDS: HALOPERIDOL 5 MG TABLET PO SCH (21:26)
[2023-06-23] MEDS: ACETAMINOPHEN 325 MG TABLET (FP) PO PRN (21:27)
[2023-06-23] MEDS: THIAMINE HCL 100 MG TABLET (FP) PO SCH (21:27)
[2023-06-24] MEDS: methaDONE HCL 40 MG DISPERSABLE TABLET PO SCH (07:10)
[2023-06-24] MEDS: GABAPENTIN 300 MG CAPSULE PO SCH ×3 (07:10→21:34)
[2023-06-24] MEDS: PRENATAL VITAMINS W/ FOLIC ACID TABLET (FP) PO SCH (10:20)
[2023-06-24] MEDS: BENZTROPINE MESYLATE 1 MG TABLET PO SCH ×2 (10:21→21:34)
[2023-06-24] MEDS: DULoxetine HCL 30 MG CAPSULE.DR PO SCH (10:21)
[2023-06-24] MEDS ORDERED: FLU VACCINE (FLULAVAL) PF 60 MCG/0.5 ML SYRINGE 2023-2024 IM ONE (10:55)
[2023-06-24] MEDS: IBUPROFEN 600 MG TABLET (FP) PO PRN (11:39)
[2023-06-24] MEDS: NICOTINE POLACRILEX 2 MG GUM BUC PRN ×4 (12:35→21:34)
[2023-06-24] MEDS: ACETAMINOPHEN 325 MG TABLET (FP) PO PRN (18:56)
[2023-06-24] MEDS: hydrOXYzine PAMOATE 25 MG CAPSULE (FP) PO PRN (21:33)
[2023-06-24] MEDS: THIAMINE HCL 100 MG TABLET (FP) PO SCH (21:34)
[2023-06-24] MEDS: HALOPERIDOL 5 MG TABLET PO SCH (21:34)
[2023-06-24] MEDS: MELATONIN 5 MG TABLETS PO SCH (21:35)
[2023-06-25] MEDS: methaDONE HCL 40 MG DISPERSABLE TABLET PO SCH (06:34)
[2023-06-25] MEDS: GABAPENTIN 300 MG CAPSULE PO SCH ×3 (06:34→21:27)
[2023-06-25] MEDS: BENZTROPINE MESYLATE 1 MG TABLET PO SCH ×2 (10:07→21:11)
[2023-06-25] MEDS: PRENATAL VITAMINS W/ FOLIC ACID TABLET (FP) PO SCH (10:07)
[2023-06-25] MEDS: DULoxetine HCL 30 MG CAPSULE.DR PO SCH (10:08)
[2023-06-25] MEDS: NICOTINE POLACRILEX 2 MG GUM BUC PRN ×4 (10:09→19:06)
[2023-06-25] MEDS: IBUPROFEN 600 MG TABLET (FP) PO PRN ×2 (10:09→21:13)
[2023-06-25] MEDS: ACETAMINOPHEN 325 MG TABLET (FP) PO PRN (19:06)
[2023-06-25] MEDS: MELATONIN 5 MG TABLETS PO SCH (21:11)
[2023-06-25] MEDS: THIAMINE HCL 100 MG TABLET (FP) PO SCH (21:11)
[2023-06-25] MEDS: HALOPERIDOL 5 MG TABLET PO SCH (21:12)
[2023-06-25] MEDS: METHOCARBAMOL 500 MG TABLET PO SCH (21:12)
[2023-06-26] MEDS: METHOCARBAMOL 500 MG TABLET PO SCH ×3 (06:19→21:37)
[2023-06-26] MEDS: methaDONE HCL 40 MG DISPERSABLE TABLET PO SCH (06:19)
[2023-06-26] MEDS: GABAPENTIN 300 MG CAPSULE PO SCH ×3 (06:19→21:37)
[2023-06-26] MEDS: NICOTINE POLACRILEX 2 MG GUM BUC PRN ×4 (08:07→21:40)
[2023-06-26] MEDS: BENZTROPINE MESYLATE 1 MG TABLET PO SCH ×2 (09:33→21:38)
[2023-06-26] MEDS: PRENATAL VITAMINS W/ FOLIC ACID TABLET (FP) PO SCH (09:33)
[2023-06-26] MEDS: DULoxetine HCL 30 MG CAPSULE.DR PO SCH (09:35)
[2023-06-26] MEDS: hydrOXYzine PAMOATE 25 MG CAPSULE (FP) PO PRN (09:36)
[2023-06-26] MEDS: ACETAMINOPHEN 325 MG TABLET (FP) PO PRN (09:36)
[2023-06-26] MEDS: HALOPERIDOL 5 MG TABLET PO SCH (21:37)
[2023-06-26] MEDS: MELATONIN 5 MG TABLETS PO SCH (21:37)
[2023-06-26] MEDS: THIAMINE HCL 100 MG TABLET (FP) PO SCH (21:37)
[2023-06-27] MEDS: METHOCARBAMOL 500 MG TABLET PO SCH (06:40)
[2023-06-27] MEDS: methaDONE HCL 40 MG DISPERSABLE TABLET PO SCH (06:40)
[2023-06-27] MEDS: GABAPENTIN 300 MG CAPSULE PO SCH (06:40)
[2023-06-27] MEDS: NICOTINE POLACRILEX 2 MG GUM BUC PRN ×2 (06:42→08:48)
[2023-06-27 07:17] VITALS: RESP 18; TEMP 97.6
[2023-06-27] MEDS: PRENATAL VITAMINS W/ FOLIC ACID TABLET (FP) PO SCH (09:37)
[2023-06-27] MEDS: BENZTROPINE MESYLATE 1 MG TABLET PO SCH (09:38)
[2023-06-27] MEDS: DULoxetine HCL 30 MG CAPSULE.DR PO SCH (09:38)
[2023-06-27 11:10] VITALS: BP 105/62; PULSE 89
== END 2023-06-27 09:42 | disposition home or self-care (01) | DRG 895 ==
LOC: YASAS 14:28 → Y5N 06-18 03:55
PROVIDERS: ADMIT Allergy & Immunology; ATTEND Psychiatry & Neurology Pain Medicine
PROC: HZ42ZZZ Group Counseling for Substance Abuse Treatment, Cognitive-Behavioral (ICD-10-PCS; principal; 2023-06-18)
DX: F14.20 Cocaine dependence, uncomplicated (principal); F11.20 Opioid dependence, uncomplicated; F15.20 Other stimulant dependence, uncomplicated; F12.20 Cannabis dependence, uncomplicated; F17.210 Nicotine dependence, cigarettes, uncomplicated; F20.9 Schizophrenia, unspecified; F41.9 Anxiety disorder, unspecified; F32.A Depression, unspecified; M54.50 Low back pain, unspecified; G89.29 Other chronic pain
CPT/HCPCS: 36415; 80053; 81003; 85027; 86780; 87635; 87811; 90686; G0008

== ENCOUNTER 2023-07-17 13:05 | Inpatient (IN) | payer OTHER ==
[2023-07-17 14:02] VITALS: BMI 21.2
[2023-07-17] MEDS ORDERED: ALBUTEROL SO4 HFA INHALER IH PRN (15:39)
[2023-07-17] MEDS ORDERED: MAGNESIUM HYDROX 2400MG/30ML ORAL SUSPENSION 30 ML CUP PO PRN (19:41)
[2023-07-17] MEDS ORDERED: METHOCARBAMOL 500 MG TABLET PO PRN (19:41)
[2023-07-17] MEDS ORDERED: NALOXONE HCL 0.4 MG/ML VIAL IVPUSH PRN (19:41)
[2023-07-17] MEDS ORDERED: IBUPROFEN 400 MG TABLET (FP) PO PRN (19:41)
[2023-07-17] MEDS ORDERED: BENZOCAINE/MENTHOL (CHLORASEPTIC ) LOZENGE MM PRN (19:41)
[2023-07-17] MEDS ORDERED: guaiFENesin 600 MG TABLET.ER (FP) PO PRN (19:41)
[2023-07-17] MEDS ORDERED: MAG HYDROX/AL HYDROX/SIMETH 30 ML UNIT-DOSE CUP PO PRN (19:41)
[2023-07-17] MEDS ORDERED: POLYETHYLENE GLYCOL (HEALTHYLAX) 3350 17 GM PACKET PO PRN (19:41)
[2023-07-17] MEDS ORDERED: IBUPROFEN 600 MG TABLET (FP) PO PRN (19:41)
[2023-07-17] MEDS ORDERED: LOPERAMIDE HCL 2 MG CAPSULE PO PRN (19:41)
[2023-07-17] MEDS ORDERED: NALOXONE HCL (KLOXXADO) 8 MG SPRAY NS PRN (19:41)
[2023-07-17] MEDS ORDERED: BENZONATATE 200 MG CAPSULE PO PRN (19:41)
[2023-07-17] MEDS ORDERED: COLLOIDAL OATMEAL 1 BAR EACH TP PRN (19:41)
[2023-07-17] MEDS ORDERED: P-EPHED 60MG/TRIPROLIDI 2.5MG TABLET PO PRN (19:41)
[2023-07-17] MEDS: MELATONIN 5 MG TABLETS PO SCH (21:29)
[2023-07-17] MEDS: THIAMINE HCL 100 MG TABLET (FP) PO SCH (21:29)
[2023-07-17] MEDS: NICOTINE POLACRILEX 4 MG GUM BUC PRN (21:29)
[2023-07-18] MEDS: NICOTINE POLACRILEX 4 MG GUM BUC PRN ×5 (01:30→21:56)
[2023-07-18] MEDS ORDERED: methaDONE HCL 40 MG DISPERSABLE TABLET PO ONE (08:30)
[2023-07-18] MEDS: PRENATAL VITAMINS W/ FOLIC ACID TABLET (FP) PO SCH (09:31)
[2023-07-18] MEDS: CLINDAMYCIN PHOSPHATE 1% TOPICAL GEL 30 GM TUBE TP SCH (21:53)
[2023-07-18] MEDS: BENZTROPINE MESYLATE 0.5 MG TABLET (FP) PO SCH (21:54)
[2023-07-18] MEDS: THIAMINE HCL 100 MG TABLET (FP) PO SCH (21:54)
[2023-07-18] MEDS: GABAPENTIN 300 MG CAPSULE PO SCH (21:54)
[2023-07-18] MEDS: MELATONIN 5 MG TABLETS PO SCH (21:54)
[2023-07-18] MEDS: HALOPERIDOL 5 MG TABLET PO SCH (21:54)
[2023-07-19] MEDS: GABAPENTIN 300 MG CAPSULE PO SCH ×3 (06:42→21:17)
[2023-07-19] MEDS: methaDONE HCL 40 MG DISPERSABLE TABLET PO SCH (06:42)
[2023-07-19] MEDS: NICOTINE POLACRILEX 4 MG GUM BUC PRN ×4 (06:43→21:18)
[2023-07-19] MEDS: BENZTROPINE MESYLATE 0.5 MG TABLET (FP) PO SCH ×2 (09:15→21:17)
[2023-07-19] MEDS: PRENATAL VITAMINS W/ FOLIC ACID TABLET (FP) PO SCH (09:15)
[2023-07-19] MEDS: CLINDAMYCIN PHOSPHATE 1% TOPICAL GEL 30 GM TUBE TP SCH ×2 (09:15→21:17)
[2023-07-19] MEDS: DULoxetine HCL 30 MG CAPSULE.DR PO SCH (09:15)
[2023-07-19] MEDS: ACETAMINOPHEN 325 MG TABLET (FP) PO PRN (12:02)
[2023-07-19] MEDS: MELATONIN 5 MG TABLETS PO SCH (21:17)
[2023-07-19] MEDS: THIAMINE HCL 100 MG TABLET (FP) PO SCH (21:17)
[2023-07-19] MEDS: HALOPERIDOL 5 MG TABLET PO SCH (21:17)
[2023-07-20] MEDS: methaDONE HCL 40 MG DISPERSABLE TABLET PO SCH (06:05)
[2023-07-20] MEDS: GABAPENTIN 300 MG CAPSULE PO SCH ×3 (06:05→21:22)
[2023-07-20] MEDS: NICOTINE POLACRILEX 4 MG GUM BUC PRN ×3 (06:07→13:10)
[2023-07-20] MEDS: CLINDAMYCIN PHOSPHATE 1% TOPICAL GEL 30 GM TUBE TP SCH ×2 (09:16→21:23)
[2023-07-20] MEDS: BENZTROPINE MESYLATE 0.5 MG TABLET (FP) PO SCH ×2 (09:16→21:22)
[2023-07-20] MEDS: DULoxetine HCL 30 MG CAPSULE.DR PO SCH (09:16)
[2023-07-20] MEDS: PRENATAL VITAMINS W/ FOLIC ACID TABLET (FP) PO SCH (09:16)
[2023-07-20] MEDS: ACETAMINOPHEN 325 MG TABLET (FP) PO PRN (13:10)
[2023-07-20] MEDS: MELATONIN 5 MG TABLETS PO SCH (21:22)
[2023-07-20] MEDS: HALOPERIDOL 5 MG TABLET PO SCH (21:22)
[2023-07-20] MEDS: THIAMINE HCL 100 MG TABLET (FP) PO SCH (21:22)
[2023-07-20] MEDS: hydrOXYzine PAMOATE 25 MG CAPSULE (FP) PO PRN (21:22)
[2023-07-21] MEDS: methaDONE HCL 40 MG DISPERSABLE TABLET PO SCH (06:33)
[2023-07-21] MEDS: GABAPENTIN 300 MG CAPSULE PO SCH ×3 (06:34→21:16)
[2023-07-21] MEDS: PRENATAL VITAMINS W/ FOLIC ACID TABLET (FP) PO SCH (10:06)
[2023-07-21] MEDS: BENZTROPINE MESYLATE 0.5 MG TABLET (FP) PO SCH ×2 (10:06→21:16)
[2023-07-21] MEDS: DULoxetine HCL 30 MG CAPSULE.DR PO SCH (10:06)
[2023-07-21] MEDS: CLINDAMYCIN PHOSPHATE 1% TOPICAL GEL 30 GM TUBE TP SCH ×2 (10:06→21:16)
[2023-07-21] MEDS: hydrOXYzine PAMOATE 25 MG CAPSULE (FP) PO PRN (13:36)
[2023-07-21] MEDS: NICOTINE POLACRILEX 4 MG GUM BUC PRN ×2 (13:36→21:18)
[2023-07-21] MEDS: MELATONIN 5 MG TABLETS PO SCH (21:16)
[2023-07-21] MEDS: THIAMINE HCL 100 MG TABLET (FP) PO SCH (21:16)
[2023-07-21] MEDS: HALOPERIDOL 5 MG TABLET PO SCH (21:16)
[2023-07-21] MEDS: ACETAMINOPHEN 325 MG TABLET (FP) PO PRN (21:17)
[2023-07-22] MEDS: methaDONE HCL 40 MG DISPERSABLE TABLET PO SCH (06:25)
[2023-07-22] MEDS: GABAPENTIN 300 MG CAPSULE PO SCH ×3 (06:25→21:46)
[2023-07-22] MEDS: NICOTINE POLACRILEX 4 MG GUM BUC PRN ×3 (06:26→17:24)
[2023-07-22] MEDS: PRENATAL VITAMINS W/ FOLIC ACID TABLET (FP) PO SCH (09:35)
[2023-07-22] MEDS: DULoxetine HCL 30 MG CAPSULE.DR PO SCH (09:35)
[2023-07-22] MEDS: BENZTROPINE MESYLATE 0.5 MG TABLET (FP) PO SCH (09:35)
[2023-07-22] MEDS: CLINDAMYCIN PHOSPHATE 1% TOPICAL GEL 30 GM TUBE TP SCH ×2 (09:36→21:46)
[2023-07-22] MEDS ORDERED: BENZTROPINE MESYLATE 1 MG TABLET PO SCH (11:13)
[2023-07-22] MEDS: MELATONIN 5 MG TABLETS PO SCH (21:46)
[2023-07-22] MEDS: THIAMINE HCL 100 MG TABLET (FP) PO SCH (21:46)
[2023-07-22] MEDS: BENZTROPINE MESYLATE 1 MG TABLET PO SCH (21:46)
[2023-07-22] MEDS: HALOPERIDOL 5 MG TABLET PO SCH (21:46)
[2023-07-22] MEDS: ACETAMINOPHEN 325 MG TABLET (FP) PO PRN (21:47)
[2023-07-23] MEDS: hydrOXYzine PAMOATE 25 MG CAPSULE (FP) PO PRN ×2 (06:17→17:01)
[2023-07-23] MEDS: NICOTINE POLACRILEX 4 MG GUM BUC PRN ×3 (06:17→17:02)
[2023-07-23] MEDS: GABAPENTIN 300 MG CAPSULE PO SCH ×3 (06:17→21:15)
[2023-07-23] MEDS: methaDONE HCL 40 MG DISPERSABLE TABLET PO SCH (06:17)
[2023-07-23] MEDS: DULoxetine HCL 30 MG CAPSULE.DR PO SCH (10:17)
[2023-07-23] MEDS: CLINDAMYCIN PHOSPHATE 1% TOPICAL GEL 30 GM TUBE TP SCH ×2 (10:18→21:15)
[2023-07-23] MEDS: BENZTROPINE MESYLATE 1 MG TABLET PO SCH ×2 (10:18→21:15)
[2023-07-23] MEDS: PRENATAL VITAMINS W/ FOLIC ACID TABLET (FP) PO SCH (10:18)
[2023-07-23] MEDS: ACETAMINOPHEN 325 MG TABLET (FP) PO PRN (19:51)
[2023-07-23] MEDS: THIAMINE HCL 100 MG TABLET (FP) PO SCH (21:15)
[2023-07-23] MEDS: HALOPERIDOL 5 MG TABLET PO SCH (21:15)
[2023-07-23] MEDS: MELATONIN 5 MG TABLETS PO SCH (21:15)
[2023-07-24] MEDS: GABAPENTIN 300 MG CAPSULE PO SCH ×2 (06:13→13:51)
[2023-07-24] MEDS: hydrOXYzine PAMOATE 25 MG CAPSULE (FP) PO PRN (06:13)
[2023-07-24] MEDS: methaDONE HCL 40 MG DISPERSABLE TABLET PO SCH (06:13)
[2023-07-24] MEDS: NICOTINE POLACRILEX 4 MG GUM BUC PRN ×2 (06:13→13:52)
[2023-07-24 06:52] VITALS: BP 112/80; PULSE 80; RESP 16; TEMP 98
[2023-07-24] MEDS: BENZTROPINE MESYLATE 1 MG TABLET PO SCH (09:41)
[2023-07-24] MEDS: PRENATAL VITAMINS W/ FOLIC ACID TABLET (FP) PO SCH (09:41)
[2023-07-24] MEDS: DULoxetine HCL 30 MG CAPSULE.DR PO SCH (09:41)
[2023-07-24] MEDS: ACETAMINOPHEN 325 MG TABLET (FP) PO PRN (09:42)
[2023-07-24] MEDS: CLINDAMYCIN PHOSPHATE 1% TOPICAL GEL 30 GM TUBE TP SCH (09:42)
== END 2023-07-24 16:30 | disposition home or self-care (01) | DRG 895 ==
LOC: YASAS 13:05 → Y3E 18:30
PROVIDERS: ADMIT Allergy & Immunology; ATTEND Psychiatry & Neurology Pain Medicine
PROC: HZ42ZZZ Group Counseling for Substance Abuse Treatment, Cognitive-Behavioral (ICD-10-PCS; principal; 2023-07-17)
DX: F11.20 Opioid dependence, uncomplicated (principal); F15.20 Other stimulant dependence, uncomplicated; F10.20 Alcohol dependence, uncomplicated; F17.210 Nicotine dependence, cigarettes, uncomplicated; F25.0 Schizoaffective disorder, bipolar type; F32.A Depression, unspecified; F41.9 Anxiety disorder, unspecified; L73.8 Other specified follicular disorders; M54.50 Low back pain, unspecified; G89.29 Other chronic pain; Z86.69 Personal history of other diseases of the nervous system and sense organs
CPT/HCPCS: 87635

== ENCOUNTER 2023-08-07 14:21 | Inpatient (IN) | payer OTHER ==
[2023-08-07 15:31] VITALS: BMI 18.4
[2023-08-07] MEDS ORDERED: COLLOIDAL OATMEAL 1 BAR EACH TP PRN (19:09)
[2023-08-07] MEDS ORDERED: BENZONATATE 200 MG CAPSULE PO PRN (19:09)
[2023-08-07] MEDS ORDERED: NALOXONE HCL (KLOXXADO) 8 MG SPRAY NS PRN (19:09)
[2023-08-07] MEDS ORDERED: METHOCARBAMOL 500 MG TABLET PO PRN (19:09)
[2023-08-07] MEDS ORDERED: IBUPROFEN 400 MG TABLET (FP) PO PRN (19:09)
[2023-08-07] MEDS ORDERED: LOPERAMIDE HCL 2 MG CAPSULE PO PRN (19:09)
[2023-08-07] MEDS ORDERED: BENZOCAINE/MENTHOL (CHLORASEPTIC ) LOZENGE MM PRN (19:09)
[2023-08-07] MEDS ORDERED: NALOXONE HCL 0.4 MG/ML VIAL IVPUSH PRN (19:09)
[2023-08-07] MEDS ORDERED: guaiFENesin 600 MG TABLET.ER (FP) PO PRN (19:09)
[2023-08-07] MEDS ORDERED: MAGNESIUM HYDROX 2400MG/30ML ORAL SUSPENSION 30 ML CUP PO PRN (19:09)
[2023-08-07] MEDS ORDERED: MAG HYDROX/AL HYDROX/SIMETH 30 ML UNIT-DOSE CUP PO PRN (19:09)
[2023-08-07] MEDS ORDERED: POLYETHYLENE GLYCOL (HEALTHYLAX) 3350 17 GM PACKET PO PRN (19:09)
[2023-08-07] MEDS ORDERED: P-EPHED 60MG/TRIPROLIDI 2.5MG TABLET PO PRN (19:09)
[2023-08-07] MEDS: THIAMINE HCL 100 MG TABLET (FP) PO SCH (22:32)
[2023-08-07] MEDS: MELATONIN 5 MG TABLETS PO SCH (22:32)
[2023-08-07] MEDS: NICOTINE POLACRILEX 2 MG GUM BUC PRN (22:33)
[2023-08-08] MEDS: PRENATAL VITAMINS W/ FOLIC ACID TABLET (FP) PO SCH (10:42)
[2023-08-08] MEDS: methaDONE HCL 40 MG DISPERSABLE TABLET PO SCH (10:42)
[2023-08-08] MEDS: GABAPENTIN 300 MG CAPSULE PO SCH ×2 (13:09→21:21)
[2023-08-08] MEDS: DULoxetine HCL 30 MG CAPSULE.DR PO SCH (13:10)
[2023-08-08] MEDS: NICOTINE POLACRILEX 2 MG GUM BUC PRN ×3 (13:11→21:22)
[2023-08-08] MEDS: IBUPROFEN 600 MG TABLET (FP) PO PRN (19:13)
[2023-08-08] MEDS: THIAMINE HCL 100 MG TABLET (FP) PO SCH (21:21)
[2023-08-08] MEDS: MELATONIN 5 MG TABLETS PO SCH (21:21)
[2023-08-08] MEDS: HALOPERIDOL 5 MG TABLET PO SCH (21:22)
[2023-08-09] MEDS: GABAPENTIN 300 MG CAPSULE PO SCH ×3 (06:44→21:09)
[2023-08-09] MEDS: methaDONE HCL 40 MG DISPERSABLE TABLET PO SCH (06:44)
[2023-08-09] MEDS: DULoxetine HCL 30 MG CAPSULE.DR PO SCH (10:22)
[2023-08-09] MEDS: NICOTINE POLACRILEX 2 MG GUM BUC PRN ×3 (10:22→21:10)
[2023-08-09] MEDS: PRENATAL VITAMINS W/ FOLIC ACID TABLET (FP) PO SCH (10:22)
[2023-08-09] MEDS ORDERED: ALBUTEROL SO4 HFA INHALER IH PRN (11:42)
[2023-08-09] MEDS: BUDESONIDE/FORMETEROL FUMARATE 80/4.5 mcg INHALER IH SCH ×2 (12:11→21:09)
[2023-08-09] MEDS: HALOPERIDOL 5 MG TABLET PO SCH (21:09)
[2023-08-09] MEDS: THIAMINE HCL 100 MG TABLET (FP) PO SCH (21:09)
[2023-08-09] MEDS: MELATONIN 5 MG TABLETS PO SCH (21:09)
[2023-08-10] MEDS: GABAPENTIN 300 MG CAPSULE PO SCH ×3 (06:22→21:30)
[2023-08-10] MEDS: methaDONE HCL 40 MG DISPERSABLE TABLET PO SCH (06:22)
[2023-08-10] MEDS: NICOTINE POLACRILEX 2 MG GUM BUC PRN ×4 (06:25→21:32)
[2023-08-10] MEDS: PRENATAL VITAMINS W/ FOLIC ACID TABLET (FP) PO SCH (09:52)
[2023-08-10] MEDS: BUDESONIDE/FORMETEROL FUMARATE 80/4.5 mcg INHALER IH SCH ×2 (09:52→21:30)
[2023-08-10] MEDS: DULoxetine HCL 30 MG CAPSULE.DR PO SCH (09:52)
[2023-08-10] MEDS: ACETAMINOPHEN 325 MG TABLET (FP) PO PRN (11:54)
[2023-08-10] MEDS: HALOPERIDOL 5 MG TABLET PO SCH (21:30)
[2023-08-10] MEDS: MELATONIN 5 MG TABLETS PO SCH (21:30)
[2023-08-10] MEDS: THIAMINE HCL 100 MG TABLET (FP) PO SCH (21:30)
[2023-08-11] MEDS: GABAPENTIN 300 MG CAPSULE PO SCH ×3 (06:34→21:01)
[2023-08-11] MEDS: methaDONE HCL 40 MG DISPERSABLE TABLET PO SCH (06:34)
[2023-08-11] MEDS: NICOTINE POLACRILEX 2 MG GUM BUC PRN ×3 (06:36→14:10)
[2023-08-11] MEDS: BUDESONIDE/FORMETEROL FUMARATE 80/4.5 mcg INHALER IH SCH ×2 (10:19→21:02)
[2023-08-11] MEDS: PRENATAL VITAMINS W/ FOLIC ACID TABLET (FP) PO SCH (10:20)
[2023-08-11] MEDS: DULoxetine HCL 30 MG CAPSULE.DR PO SCH (10:20)
[2023-08-11] MEDS ORDERED: ALBUTEROL SO4 HFA INHALER IH PRN (13:28)
[2023-08-11] MEDS: HALOPERIDOL 5 MG TABLET PO SCH (21:01)
[2023-08-11] MEDS: THIAMINE HCL 100 MG TABLET (FP) PO SCH (21:01)
[2023-08-11] MEDS: MELATONIN 5 MG TABLETS PO SCH (21:01)
[2023-08-11] MEDS: ACETAMINOPHEN 325 MG TABLET (FP) PO PRN (21:02)
[2023-08-12] MEDS: methaDONE HCL 40 MG DISPERSABLE TABLET PO SCH (06:25)
[2023-08-12] MEDS: GABAPENTIN 300 MG CAPSULE PO SCH ×3 (06:25→21:05)
[2023-08-12] MEDS: NICOTINE POLACRILEX 2 MG GUM BUC PRN ×4 (06:27→21:06)
[2023-08-12] MEDS: BUDESONIDE/FORMETEROL FUMARATE 80/4.5 mcg INHALER IH SCH ×2 (09:45→21:05)
[2023-08-12] MEDS: PRENATAL VITAMINS W/ FOLIC ACID TABLET (FP) PO SCH (09:45)
[2023-08-12] MEDS: DULoxetine HCL 30 MG CAPSULE.DR PO SCH (09:46)
[2023-08-12] MEDS: IBUPROFEN 600 MG TABLET (FP) PO PRN (18:15)
[2023-08-12] MEDS: MELATONIN 5 MG TABLETS PO SCH (21:05)
[2023-08-12] MEDS: HALOPERIDOL 5 MG TABLET PO SCH (21:05)
[2023-08-12] MEDS: THIAMINE HCL 100 MG TABLET (FP) PO SCH (21:05)
[2023-08-13] MEDS: methaDONE HCL 40 MG DISPERSABLE TABLET PO SCH (06:22)
[2023-08-13] MEDS: GABAPENTIN 300 MG CAPSULE PO SCH (06:23)
[2023-08-13 07:19] VITALS: BP 103/67; PULSE 80; RESP 18; TEMP 97.5
[2023-08-13] MEDS: PRENATAL VITAMINS W/ FOLIC ACID TABLET (FP) PO SCH (09:36)
[2023-08-13] MEDS: BUDESONIDE/FORMETEROL FUMARATE 80/4.5 mcg INHALER IH SCH (09:36)
[2023-08-13] MEDS: DULoxetine HCL 30 MG CAPSULE.DR PO SCH (09:36)
[2023-08-13] MEDS: NICOTINE POLACRILEX 2 MG GUM BUC PRN (09:37)
== END 2023-08-13 10:30 | disposition left against medical advice (07) | DRG 894 ==
LOC: YASAS 14:21 → Y3W 19:18
PROVIDERS: ADMIT Allergy & Immunology; ATTEND Psychiatry & Neurology Pain Medicine
PROC: HZ42ZZZ Group Counseling for Substance Abuse Treatment, Cognitive-Behavioral (ICD-10-PCS; principal; 2023-08-07)
DX: F11.20 Opioid dependence, uncomplicated (principal); F13.20 Sedative, hypnotic or anxiolytic dependence, uncomplicated; F14.20 Cocaine dependence, uncomplicated; F15.20 Other stimulant dependence, uncomplicated; F12.20 Cannabis dependence, uncomplicated; F17.210 Nicotine dependence, cigarettes, uncomplicated; F25.0 Schizoaffective disorder, bipolar type; F31.9 Bipolar disorder, unspecified; F41.9 Anxiety disorder, unspecified; G40.909 Epilepsy, unspecified, not intractable, without status epilepticus; J45.909 Unspecified asthma, uncomplicated; M54.50 Low back pain, unspecified; G89.29 Other chronic pain; Z86.2 Personal history of diseases of the blood and blood-forming organs and certain disorders involving the immune mechanism; Z62.810 Personal history of physical and sexual abuse in childhood
CPT/HCPCS: 87635; 87811

== ENCOUNTER 2023-08-26 14:33 | Inpatient (IN) | payer OTHER ==
[2023-08-26 14:59] VITALS: BMI 19.5
[2023-08-26] MEDS ORDERED: METHOCARBAMOL 500 MG TABLET PO PRN (16:39)
[2023-08-26] MEDS ORDERED: ONDANSETRON *ODT* 4 MG TABLET SL PRN (16:39)
[2023-08-26] MEDS ORDERED: BENZOCAINE/MENTHOL (CHLORASEPTIC ) LOZENGE MM PRN (16:39)
[2023-08-26] MEDS ORDERED: POLYETHYLENE GLYCOL (HEALTHYLAX) 3350 17 GM PACKET PO PRN (16:39)
[2023-08-26] MEDS ORDERED: BISMUTH SUBSALICYLATE 524 MG/30 ML PO PRN (16:39)
[2023-08-26] MEDS ORDERED: guaiFENesin 600 MG TABLET.ER (FP) PO PRN (16:39)
[2023-08-26] MEDS ORDERED: LOPERAMIDE HCL 2 MG CAPSULE PO PRN (16:39)
[2023-08-26] MEDS ORDERED: ACETAMINOPHEN 325 MG TABLET (FP) PO PRN (16:39)
[2023-08-26] MEDS ORDERED: NALOXONE HCL (KLOXXADO) 8 MG SPRAY NS PRN (16:39)
[2023-08-26] MEDS ORDERED: DICYCLOMINE HCL 10 MG CAPSULE PO PRN (16:39)
[2023-08-26] MEDS ORDERED: BENZONATATE 200 MG CAPSULE PO PRN (16:39)
[2023-08-26] MEDS ORDERED: IBUPROFEN 400 MG TABLET (FP) PO PRN (16:39)
[2023-08-26] MEDS ORDERED: MAG HYDROX/AL HYDROX/SIMETH 30 ML UNIT-DOSE CUP PO PRN (16:39)
[2023-08-26] MEDS ORDERED: MAGNESIUM HYDROX 2400MG/30ML ORAL SUSPENSION 30 ML CUP PO PRN (16:39)
[2023-08-26] MEDS ORDERED: NALOXONE HCL 0.4 MG/ML VIAL IM PRN (16:39)
[2023-08-26] MEDS ORDERED: hydrOXYzine PAMOATE 25 MG CAPSULE (FP) PO PRN (16:39)
[2023-08-26] MEDS: NICOTINE 21 MG/24 HOURS TOPICAL PATCH TD SCH (17:34)
[2023-08-26] MEDS: PRENATAL VITAMINS W/ FOLIC ACID TABLET (FP) PO SCH (17:35)
[2023-08-26] MEDS ORDERED: MELATONIN 5 MG TABLETS PO SCH (22:00)
[2023-08-26] MEDS ORDERED: THIAMINE HCL 100 MG TABLET (FP) PO SCH (22:00)
[2023-08-27] MEDS: IBUPROFEN 600 MG TABLET (FP) PO PRN ×2 (02:29→14:23)
[2023-08-27] MEDS ORDERED: methaDONE HCL 10 MG TABLET PO SCH (10:15)
[2023-08-27] MEDS: NICOTINE 21 MG/24 HOURS TOPICAL PATCH TD SCH (10:21)
[2023-08-27] MEDS: PRENATAL VITAMINS W/ FOLIC ACID TABLET (FP) PO SCH (10:21)
[2023-08-27] MEDS: NICOTINE POLACRILEX 2 MG GUM BUC PRN ×2 (10:33→14:25)
[2023-08-27 13:30] LABS: HEMATOCRIT 38.6 % (35.4-49); HEMOGLOBIN 12.8 GM/dL (11.7-16.9); MCHC 33.1 g/dl (32.0-35.9); MEAN CELL VOLUME 90.8 fl (80-96); MEAN PLT VOLUME 8.5 fl (7.5-11.1); PLATELET COUNT 270 10^3/uL (134-434); RBC 4.25 M/mm3 (4.00-5.60); RDW 14.3 % (11.9-15.9); WHITE BLOOD COUNT 5.2 K/mm3 (4.0-10.0)
[2023-08-27 13:49] LABS: CHLORIDE 106 mmol/L (98-107); POTASSIUM 4.3 mmol/L (3.5-5.1); SODIUM 139 mmol/L (136-145)
[2023-08-27 13:50] VITALS: BP 110/63; PULSE 73; RESP 17; TEMP 98.3
[2023-08-27] MEDS ORDERED: GABAPENTIN 300 MG CAPSULE PO SCH (14:00)
[2023-08-27 14:06] LABS: CALCIUM 8.7 mg/dL (8.5-10.1)
[2023-08-27 14:07] LABS: ALBUMIN 3.2 g/dl (3.4-5.0); ANION GAP 4 mmol/L (4-13); BLOOD UREA NITROGEN 14.2 mg/dL (7-18); CO2 29 mmol/L (21-32); GLUCOSE,RANDOM 96 mg/dL (74-106)
[2023-08-27 14:10] LABS: CREATININE 0.7 mg/dL (0.55-1.3); SGOT/AST 19 U/L (15-37)
[2023-08-27 14:11] LABS: BILIRUBIN,TOTAL 0.1 mg/dL (0.2-1); SGPT/ALT 21 U/L (13-61)
[2023-08-27 14:12] LABS: TOT PROT 6.7 g/dl (6.4-8.2)
[2023-08-27 14:14] LABS: ALK PHOS 80 U/L (45-117)
[2023-08-27] MEDS ORDERED: BENZTROPINE MESYLATE 1 MG TABLET PO SCH (22:00)
[2023-08-27] MEDS ORDERED: HALOPERIDOL 5 MG TABLET PO SCH (22:00)
[2023-08-27] MEDS ORDERED: OXcarbazepine 300 MG TABLET (UD) PO SCH (22:00)
[2023-08-28] MEDS ORDERED: DULoxetine HCL 30 MG CAPSULE.DR PO SCH (10:00)
== END 2023-08-27 14:35 | disposition home or self-care (01) | DRG 897 ==
LOC: YASAS 14:33 → Y3N 16:43
PROVIDERS: ADMIT Allergy & Immunology; ATTEND Surgery
PROC: HZ2ZZZZ Detoxification Services for Substance Abuse Treatment (ICD-10-PCS; principal; 2023-08-26)
DX: F11.20 Opioid dependence, uncomplicated (principal); F14.20 Cocaine dependence, uncomplicated; F15.20 Other stimulant dependence, uncomplicated; F12.20 Cannabis dependence, uncomplicated; F17.210 Nicotine dependence, cigarettes, uncomplicated; J45.909 Unspecified asthma, uncomplicated; M54.50 Low back pain, unspecified; G89.29 Other chronic pain
CPT/HCPCS: 36415; 80053; 80307; 82140; 85027; 86780; 87635; 93005; 93010

== ENCOUNTER 2023-11-12 13:45 | Inpatient (IN) | payer OTHER ==
[2023-11-12 15:35] VITALS: BMI 18.7
[2023-11-12] MEDS ORDERED: BENZONATATE 200 MG CAPSULE PO PRN (17:37)
[2023-11-12] MEDS ORDERED: POLYETHYLENE GLYCOL (HEALTHYLAX) 3350 17 GM PACKET PO PRN (17:37)
[2023-11-12] MEDS ORDERED: MAG HYDROX/AL HYDROX/SIMETH 30 ML UNIT-DOSE CUP PO PRN (17:37)
[2023-11-12] MEDS ORDERED: NALOXONE HCL 0.4 MG/ML VIAL IM PRN (17:37)
[2023-11-12] MEDS ORDERED: MAGNESIUM HYDROX 2400MG/30ML ORAL SUSPENSION 30 ML CUP PO PRN (17:37)
[2023-11-12] MEDS ORDERED: NALOXONE HCL (KLOXXADO) 8 MG SPRAY NS PRN (17:37)
[2023-11-12] MEDS ORDERED: guaiFENesin 600 MG TABLET.ER (FP) PO PRN (17:37)
[2023-11-12] MEDS ORDERED: LOPERAMIDE HCL 2 MG CAPSULE PO PRN (17:37)
[2023-11-12] MEDS ORDERED: P-EPHED 60MG/TRIPROLIDI 2.5MG TABLET PO PRN (17:37)
[2023-11-12] MEDS ORDERED: IBUPROFEN 400 MG TABLET (FP) PO PRN (17:37)
[2023-11-12] MEDS ORDERED: MELATONIN 5 MG TABLETS ONE (21:26)
[2023-11-12] MEDS: THIAMINE HCL 100 MG TABLET (FP) PO SCH (21:27)
[2023-11-12] MEDS: MELATONIN 5 MG TABLETS PO SCH (21:27)
[2023-11-13] MEDS: NICOTINE POLACRILEX 2 MG GUM BUC PRN (06:36)
[2023-11-13] MEDS ORDERED: methaDONE HCL 10 MG TABLET PO SCH (08:45)
[2023-11-13] MEDS: PRENATAL VITAMINS W/ FOLIC ACID TABLET (FP) PO SCH (10:17)
[2023-11-13 11:47] LABS: PH,URINE 7.5 (5.0-8.0); URINE APPEARANCE CLEAR; URINE BILIRUBIN NEGATIVE (NEGATIVE); URINE COLOR YELLOW; URINE GLUCOSE (UA) NEGATIVE (NEGATIVE); URINE KETONE NEGATIVE (NEGATIVE); URINE LEUK ESTERASE NEGATIVE (NEGATIVE); URINE NITRITE NEGATIVE (NEGATIVE); URINE PROTEIN NEGATIVE (NEGATIVE); URINE UROBILINOGEN 0.2 mg/dL (0.2-1.0)
[2023-11-13 11:49] LABS: HEMATOCRIT 37.8 % (35.4-49); HEMOGLOBIN 12.7 GM/dL (11.7-16.9); MCH 30.8 pg (25.7-33.7); MCHC 33.7 g/dl (32.0-35.9); MEAN CELL VOLUME 91.5 fl (80-96); MEAN PLT VOLUME 8.8 fl (7.5-11.1); PLATELET COUNT 243 10^3/uL (134-434); RBC 4.12 M/mm3 (4.00-5.60); RDW 14.4 % (11.9-15.9); WHITE BLOOD COUNT 4.9 K/mm3 (4.0-10.0)
[2023-11-13 11:53] LABS: CHLORIDE 106 mmol/L (98-107); POTASSIUM 4.1 mmol/L (3.5-5.1); SODIUM 139 mmol/L (136-145)
[2023-11-13 12:04] LABS: ANION GAP 7 mmol/L (4-13); CALCIUM 8.2 mg/dL (8.5-10.1); CO2 27 mmol/L (21-32)
[2023-11-13 12:05] LABS: BLOOD UREA NITROGEN 19.3 mg/dL (7-18); GLUCOSE,RANDOM 158 mg/dL (74-106)
[2023-11-13 12:07] LABS: CREATININE 0.7 mg/dL (0.55-1.3)
[2023-11-13 12:08] LABS: SGOT/AST 31 U/L (15-37); SGPT/ALT 50 U/L (13-61)
[2023-11-13 12:09] LABS: BILIRUBIN,TOTAL 0.2 mg/dL (0.2-1); TOT PROT 6.4 g/dl (6.4-8.2)
[2023-11-13 12:10] LABS: ALK PHOS 76 U/L (45-117)
[2023-11-13] MEDS: GABAPENTIN 300 MG CAPSULE PO SCH (14:23)
[2023-11-13] MEDS: IBUPROFEN 600 MG TABLET (FP) PO PRN (15:49)
[2023-11-13] MEDS: HALOPERIDOL 5 MG TABLET PO SCH (21:34)
[2023-11-13] MEDS: BENZTROPINE MESYLATE 1 MG TABLET PO SCH (21:34)
[2023-11-14] MEDS: DULoxetine HCL 30 MG CAPSULE.DR PO SCH (09:46)
[2023-11-14] MEDS: hydrOXYzine PAMOATE 25 MG CAPSULE (FP) PO PRN (11:15)
[2023-11-14] MEDS: NICOTINE 21 MG/24 HOURS TOPICAL PATCH TD SCH (12:37)
[2023-11-14] MEDS: BACLOFEN 10 MG TABLET (FP) PO SCH (14:52)
[2023-11-14] MEDS: NICOTINE POLACRILEX 4 MG GUM BUC PRN (14:53)
[2023-11-14] MEDS: PENICILLIN G BENZATHINE 2,400,000 UNIT/4 ML PFS IM ONE (15:56)
[2023-11-15] MEDS: ACETAMINOPHEN 325 MG TABLET (FP) PO PRN (11:18)
[2023-11-15] MEDS: BENZOCAINE/MENTHOL (CHLORASEPTIC ) LOZENGE MM PRN (11:20)
[2023-11-15] MEDS ORDERED: ALBUTEROL SO4 HFA INHALER IH PRN (13:43)
[2023-11-18] MEDS ORDERED: TUBERCULIN PPD 5 TU/0.1ML VIAL ID ONE ×2 (12:18→12:56)
[2023-11-18] MEDS: TUBERCULIN PPD 5 TU/0.1ML VIAL ID ONE (12:38)
[2023-11-21] MEDS: PENICILLIN G BENZATHINE 2,400,000 UNIT/4 ML PFS IM ONE (10:51)
[2023-11-23 07:09] VITALS: RESP 18
[2023-11-26 07:01] VITALS: BP 103/69; PULSE 79; TEMP 97.2
[2023-11-28] MEDS ORDERED: PENICILLIN G BENZATHINE 2,400,000 UNIT/4 ML PFS IM ONE (10:00)
== END 2023-11-26 10:15 | disposition home or self-care (01) | DRG 895 ==
LOC: YASAS 13:45 → Y5N 21:04
PROVIDERS: ADMIT Allergy & Immunology; ATTEND Psychiatry & Neurology Pain Medicine
PROC: HZ42ZZZ Group Counseling for Substance Abuse Treatment, Cognitive-Behavioral (ICD-10-PCS; principal; 2023-11-12)
DX: F14.20 Cocaine dependence, uncomplicated (principal); F11.20 Opioid dependence, uncomplicated; F17.210 Nicotine dependence, cigarettes, uncomplicated; F20.9 Schizophrenia, unspecified; F31.9 Bipolar disorder, unspecified; F41.8 Other specified anxiety disorders; A53.9 Syphilis, unspecified; M54.50 Low back pain, unspecified; G89.29 Other chronic pain
CPT/HCPCS: 36415; 80053; 80305; 80307; 81003; 82962; 83036; 85027; 86593; 86780; 87491; 87536; 87591; 87635; 87661; 87811; J0475

== ENCOUNTER 2024-01-14 13:05 | Inpatient (IN) | payer OTHER ==
[2024-01-14 14:12] VITALS: BMI 18.6
[2024-01-14] MEDS ORDERED: BENZOCAINE/MENTHOL (CHLORASEPTIC ) LOZENGE MM PRN (16:16)
[2024-01-14] MEDS ORDERED: NALOXONE HCL (KLOXXADO) 8 MG SPRAY NS PRN (16:16)
[2024-01-14] MEDS ORDERED: DOCUSATE SODIUM 100 MG CAPSULE (FP) PO PRN (16:16)
[2024-01-14] MEDS ORDERED: MAG HYDROX/AL HYDROX/SIMETH 30 ML UNIT-DOSE CUP PO PRN (16:16)
[2024-01-14] MEDS ORDERED: LOPERAMIDE HCL 2 MG CAPSULE PO PRN (16:16)
[2024-01-14] MEDS ORDERED: MAGNESIUM HYDROX 2400MG/30ML ORAL SUSPENSION 30 ML CUP PO PRN (16:16)
[2024-01-14] MEDS ORDERED: IBUPROFEN 600 MG TABLET (FP) PO PRN (16:16)
[2024-01-14] MEDS ORDERED: BENZONATATE 200 MG CAPSULE PO PRN (16:16)
[2024-01-14] MEDS ORDERED: guaiFENesin 600 MG TABLET.ER (FP) PO PRN (16:16)
[2024-01-14] MEDS ORDERED: ACETAMINOPHEN 325 MG TABLET (FP) PO PRN (16:16)
[2024-01-14] MEDS ORDERED: NALOXONE HCL 0.4 MG/ML VIAL IM PRN (16:16)
[2024-01-14] MEDS ORDERED: IBUPROFEN 400 MG TABLET (FP) PO PRN (16:16)
[2024-01-14] MEDS ORDERED: POLYETHYLENE GLYCOL (HEALTHYLAX) 3350 17 GM PACKET PO PRN (16:16)
[2024-01-14] MEDS ORDERED: P-EPHED 60MG/TRIPROLIDI 2.5MG TABLET PO PRN (16:16)
[2024-01-14] MEDS ORDERED: ALBUTEROL SO4 HFA INHALER IH PRN (16:30)
[2024-01-14] MEDS: MELATONIN 5 MG TABLETS PO SCH (22:33)
[2024-01-14] MEDS: THIAMINE 100 MG TABLET PO SCH (22:33)
[2024-01-15] MEDS ORDERED: methaDONE HCL 10 MG TABLET PO SCH (09:45)
[2024-01-15] MEDS: methaDONE 240 MG, methaDONE 30 MG PO SCH ×2 (09:53→16:43)
[2024-01-15] MEDS: PRENATAL VITAMINS W/ FOLIC ACID TABLET (FP) PO SCH (10:58)
[2024-01-15 11:33] LABS: CHLORIDE 103 mmol/L (98-107); POTASSIUM 4.8 mmol/L (3.5-5.1); SODIUM 135 mmol/L (136-145)
[2024-01-15 11:35] LABS: CALCIUM 8.6 mg/dL (8.5-10.1)
[2024-01-15 11:37] LABS: ALBUMIN 3.2 g/dl (3.4-5.0); ANION GAP 0 mmol/L (4-13); CO2 32 mmol/L (21-32); GLUCOSE,RANDOM 71 mg/dL (74-106)
[2024-01-15 11:39] LABS: CREATININE 0.6 mg/dL (0.55-1.3)
[2024-01-15 11:40] LABS: SGOT/AST 388 U/L (15-37); SGPT/ALT 547 U/L (13-61)
[2024-01-15 11:41] LABS: BILIRUBIN,TOTAL 0.7 mg/dL (0.2-1); TOT PROT 6.4 g/dl (6.4-8.2)
[2024-01-15 11:43] LABS: ALK PHOS 129 U/L (45-117)
[2024-01-15 11:48] LABS: HEMATOCRIT 38.8 % (35.4-49); HEMOGLOBIN 13.2 GM/dL (11.7-16.9); MCH 31.2 pg (25.7-33.7); MCHC 34.1 g/dl (32.0-35.9); MEAN CELL VOLUME 91.2 fl (80-96); MEAN PLT VOLUME 9.7 fl (7.5-11.1); PLATELET COUNT 230 10^3/uL (134-434); RBC 4.25 M/mm3 (4.00-5.60); WHITE BLOOD COUNT 5.2 K/mm3 (4.0-10.0)
[2024-01-15 15:10] LABS: EPI CELLS 2 /uL (0-25.1); HYALINE CASTS 0 /uL (0-3.1); PH,URINE 6.5 (5.0-8.0); URINE APPEARANCE CLEAR; URINE BACTERIA 12 /uL (0-1359); URINE BILIRUBIN NEGATIVE (NEGATIVE); URINE COLOR DK YELLOW; URINE GLUCOSE (UA) NEGATIVE (NEGATIVE); URINE KETONE NEGATIVE (NEGATIVE); URINE LEUK ESTERASE TRACE (NEGATIVE); URINE NITRITE NEGATIVE (NEGATIVE); URINE PROTEIN NEGATIVE (NEGATIVE); URINE RBC 25 /uL (0-23.9); URINE WBC 5 /uL (0-25.8)
[2024-01-15] MEDS: OXcarbazepine 300 MG TABLET (UD) PO SCH (15:26)
[2024-01-15] MEDS: GABAPENTIN 300 MG CAPSULE PO SCH ×2 (15:30→21:38)
[2024-01-15] MEDS: NICOTINE POLACRILEX 2 MG GUM BUC PRN (16:43)
[2024-01-15] MEDS: QUEtiapine FUMARATE 100 MG TABLET (FP) PO SCH (21:38)
[2024-01-15] MEDS ORDERED: QUEtiapine FUMARATE 100 MG TABLET (FP) PO SCH (22:00)
[2024-01-16] MEDS ORDERED: DULoxetine HCL 20 MG CAPSULE.DR PO SCH (10:00)
[2024-01-16] MEDS: DULoxetine HCL 30 MG CAPSULE.DR PO SCH (10:09)
[2024-01-16] MEDS: ARIPiprazole 10 MG TABLET PO SCH (10:10)
[2024-01-16] MEDS: NICOTINE POLACRILEX 2 MG LOZENGE BC PRN (12:09)
[2024-01-16 17:40] LABS: INR 0.98 (0.83-1.09); PROTHROMBIN TIME (PATIENT) 11.1 SEC (9.7-13.0)
[2024-01-17] MEDS: methaDONE HCL 40 MG DISPERSABLE TABLET PO SCH (05:43)
[2024-01-19 13:20] LABS: HIV INTERPRETATION NEGATIVE (NEGATIVE)
[2024-01-22] MEDS: PENICILLIN G BENZATHINE 2,400,000 UNIT/4 ML PFS IM ONE (15:18)
[2024-01-22] MEDS: valACYclovir HCL 500 MG TABLET (FP) PO SCH (17:12)
[2024-01-23 06:56] VITALS: BP 102/62; PULSE 83; RESP 20; TEMP 96.9
== END 2024-01-23 09:13 | disposition home or self-care (01) | DRG 895 ==
LOC: YASAS 13:05 → Y3NR 17:50 → Y3W 01-15 14:18
PROVIDERS: ADMIT Allergy & Immunology; ATTEND Psychiatry & Neurology Pain Medicine
PROC: HZ42ZZZ Group Counseling for Substance Abuse Treatment, Cognitive-Behavioral (ICD-10-PCS; principal; 2024-01-14)
DX: F14.20 Cocaine dependence, uncomplicated (principal); F11.20 Opioid dependence, uncomplicated; Z68.1 Body mass index [BMI] 19.9 or less, adult; F17.210 Nicotine dependence, cigarettes, uncomplicated; F25.9 Schizoaffective disorder, unspecified; F41.9 Anxiety disorder, unspecified; F32.A Depression, unspecified; A53.9 Syphilis, unspecified; B00.9 Herpesviral infection, unspecified; B18.2 Chronic viral hepatitis C; R79.89 Other specified abnormal findings of blood chemistry; R63.4 Abnormal weight loss
CPT/HCPCS: 36415; 80053; 80305; 80307; 81003; 82140; 83735; 85027; 85610; 86593; 86695; 86696; 86705; 86707; 86780; 86803; 87350; 87380; 87389; 87517; 87522; 87811; 93005; 93010

== ENCOUNTER 2024-02-26 13:18 | Inpatient (IN) | payer OTHER ==
[2024-02-26 14:02] VITALS: BMI 18.0
[2024-02-26] MEDS ORDERED: guaiFENesin 600 MG TABLET.ER (FP) PO PRN (15:44)
[2024-02-26] MEDS ORDERED: BENZOCAINE/MENTHOL (CHLORASEPTIC ) LOZENGE MM PRN (15:44)
[2024-02-26] MEDS ORDERED: IBUPROFEN 400 MG TABLET (FP) PO PRN (15:44)
[2024-02-26] MEDS ORDERED: DICYCLOMINE HCL 10 MG CAPSULE PO PRN (15:44)
[2024-02-26] MEDS ORDERED: NALOXONE (NARCAN) HCL 4 MG/0.1 ML SPRAY NS PRN (15:44)
[2024-02-26] MEDS ORDERED: POLYETHYLENE GLYCOL (HEALTHYLAX) 3350 17 GM PACKET PO PRN (15:44)
[2024-02-26] MEDS ORDERED: LOPERAMIDE HCL 2 MG CAPSULE PO PRN (15:44)
[2024-02-26] MEDS ORDERED: hydrOXYzine PAMOATE 25 MG CAPSULE (FP) PO PRN (15:44)
[2024-02-26] MEDS ORDERED: MAGNESIUM HYDROX 2400MG/30ML ORAL SUSPENSION 30 ML CUP PO PRN (15:44)
[2024-02-26] MEDS ORDERED: NALOXONE HCL 0.4 MG/ML VIAL IM PRN (15:44)
[2024-02-26] MEDS ORDERED: BISMUTH SUBSALICYLATE 524 MG/30 ML PO PRN (15:44)
[2024-02-26] MEDS ORDERED: MAG HYDROX/AL HYDROX/SIMETH 30 ML UNIT-DOSE CUP PO PRN (15:44)
[2024-02-26] MEDS ORDERED: BENZONATATE 200 MG CAPSULE PO PRN (15:44)
[2024-02-26] MEDS ORDERED: ONDANSETRON *ODT* 4 MG TABLET SL PRN (15:44)
[2024-02-26] MEDS ORDERED: ALBUTEROL SO4 HFA INHALER IH PRN (15:46)
[2024-02-26] MEDS: PRENATAL VITAMINS W/ FOLIC ACID TABLET (FP) PO SCH (17:45)
[2024-02-26] MEDS: CLINDAMYCIN PHOSPHATE 1% TOPICAL GEL 30 GM TUBE TP SCH (22:13)
[2024-02-26] MEDS: BACLOFEN 10 MG TABLET (FP) PO SCH (22:14)
[2024-02-26] MEDS: THIAMINE 100 MG TABLET PO SCH (22:14)
[2024-02-26] MEDS: MELATONIN 5 MG TABLETS PO SCH (22:14)
[2024-02-27] MEDS: valACYclovir HCL 500 MG TABLET (FP) PO SCH (08:50)
[2024-02-27] MEDS ORDERED: methaDONE HCL 40 MG DISPERSABLE TABLET PO SCH (10:00)
[2024-02-27] MEDS: NICOTINE POLACRILEX 2 MG GUM BUC PRN (10:27)
[2024-02-27] MEDS: OXcarbazepine 300 MG TABLET (UD) PO SCH (10:31)
[2024-02-27] MEDS ORDERED: diazePAM 5 MG TABLET PO SCH (11:00)
[2024-02-27] MEDS: ARIPiprazole 10 MG TABLET PO SCH (11:19)
[2024-02-27] MEDS: DULoxetine HCL 30 MG CAPSULE.DR PO SCH (11:19)
[2024-02-27 11:47] LABS: HEMATOCRIT 38.6 % (35.4-49); HEMOGLOBIN 12.7 GM/dL (11.7-16.9); MCH 30.8 pg (25.7-33.7); MCHC 32.9 g/dl (32.0-35.9); MEAN CELL VOLUME 93.8 fl (80-96); MEAN PLT VOLUME 8.5 fl (7.5-11.1); PLATELET COUNT 325 10^3/uL (134-434); RBC 4.12 M/mm3 (4.00-5.60); RDW 15.9 % (11.9-15.9); WHITE BLOOD COUNT 5.5 K/mm3 (4.0-10.0)
[2024-02-27 11:53] LABS: CHLORIDE 106 mmol/L (98-107); POTASSIUM 4.3 mmol/L (3.5-5.1); SODIUM 139 mmol/L (136-145)
[2024-02-27 11:59] LABS: ANION GAP 3 mmol/L (4-13); BLOOD UREA NITROGEN 9.9 mg/dL (7-18); CALCIUM 8.6 mg/dL (8.5-10.1); CO2 30 mmol/L (21-32); GLUCOSE,RANDOM 84 mg/dL (74-106)
[2024-02-27 12:00] LABS: CREATININE 0.5 mg/dL (0.55-1.3); SGOT/AST 26 U/L (15-37); SGPT/ALT 58 U/L (13-61)
[2024-02-27 12:01] LABS: TOT PROT 6.6 g/dl (6.4-8.2)
[2024-02-27 12:02] LABS: BILIRUBIN,TOTAL 0.2 mg/dL (0.2-1)
[2024-02-27 12:03] LABS: ALK PHOS 94 U/L (45-117)
[2024-02-27] MEDS ORDERED: diazePAM 5 MG TABLET PO PRN (12:16)
[2024-02-27] MEDS: diazePAM 5 MG TABLET PO SCH (13:32)
[2024-02-27] MEDS: ACETAMINOPHEN 325 MG TABLET (FP) PO PRN (17:28)
[2024-02-27] MEDS: QUEtiapine FUMARATE 100 MG TABLET (FP) PO SCH (22:15)
[2024-02-28] MEDS: METHOCARBAMOL 500 MG TABLET PO PRN (22:17)
[2024-02-29] MEDS ORDERED: diazePAM 5 MG TABLET PO SCH (06:00)
[2024-02-29] MEDS: IBUPROFEN 600 MG TABLET (FP) PO PRN (16:35)
[2024-03-01] MEDS ORDERED: diazePAM 5 MG TABLET PO SCH (06:00)
[2024-03-02] MEDS ORDERED: diazePAM 5 MG TABLET PO ONE (06:00)
[2024-03-02 20:55] VITALS: RESP 16
[2024-03-03 09:52] VITALS: BP 101/71; PULSE 90; TEMP 96.9
== END 2024-03-03 10:18 | disposition home or self-care (01) | DRG 897 ==
LOC: YASAS 13:18 → Y3N 16:44
PROVIDERS: ADMIT Allergy & Immunology; ATTEND Surgery
PROC: HZ2ZZZZ Detoxification Services for Substance Abuse Treatment (ICD-10-PCS; principal; 2024-02-26)
DX: F11.23 Opioid dependence with withdrawal (principal); F13.20 Sedative, hypnotic or anxiolytic dependence, uncomplicated; F14.20 Cocaine dependence, uncomplicated; F15.10 Other stimulant abuse, uncomplicated; F25.0 Schizoaffective disorder, bipolar type; F41.8 Other specified anxiety disorders; G40.909 Epilepsy, unspecified, not intractable, without status epilepticus; J45.909 Unspecified asthma, uncomplicated
CPT/HCPCS: 36415; 80053; 80183; 80305; 80307; 85027; 86593; 86780; J0475

== ENCOUNTER 2024-03-15 12:36 | Inpatient (IN) | payer OTHER ==
[2024-03-15 13:24] VITALS: BMI 18.7
[2024-03-15] MEDS ORDERED: NALOXONE (NARCAN) HCL 4 MG/0.1 ML SPRAY NS PRN (14:00)
[2024-03-15] MEDS ORDERED: MAGNESIUM HYDROX 2400MG/30ML ORAL SUSPENSION 30 ML CUP PO PRN (14:00)
[2024-03-15] MEDS ORDERED: MAG HYDROX/AL HYDROX/SIMETH 30 ML UNIT-DOSE CUP PO PRN (14:00)
[2024-03-15] MEDS ORDERED: BENZOCAINE/MENTHOL (CHLORASEPTIC ) LOZENGE MM PRN (14:00)
[2024-03-15] MEDS ORDERED: ACETAMINOPHEN 325 MG TABLET (FP) PO PRN (14:00)
[2024-03-15] MEDS ORDERED: IBUPROFEN 400 MG TABLET (FP) PO PRN (14:00)
[2024-03-15] MEDS ORDERED: BENZONATATE 200 MG CAPSULE PO PRN (14:00)
[2024-03-15] MEDS ORDERED: POLYETHYLENE GLYCOL (HEALTHYLAX) 3350 17 GM PACKET PO PRN (14:00)
[2024-03-15] MEDS ORDERED: guaiFENesin 600 MG TABLET.ER (FP) PO PRN (14:00)
[2024-03-15] MEDS ORDERED: LOPERAMIDE HCL 2 MG CAPSULE PO PRN (14:00)
[2024-03-15] MEDS ORDERED: NALOXONE HCL 0.4 MG/ML VIAL IVPUSH PRN (14:00)
[2024-03-15] MEDS ORDERED: P-EPHED 60MG/TRIPROLIDI 2.5MG TABLET PO PRN (14:00)
[2024-03-15] MEDS: NICOTINE POLACRILEX 2 MG GUM BUC PRN (15:59)
[2024-03-15] MEDS: MELATONIN 5 MG TABLETS PO SCH (21:51)
[2024-03-15] MEDS: METHOCARBAMOL 500 MG TABLET PO PRN (21:51)
[2024-03-15] MEDS: THIAMINE 100 MG TABLET PO SCH (21:51)
[2024-03-15] MEDS: hydrOXYzine PAMOATE 25 MG CAPSULE (FP) PO PRN (21:51)
[2024-03-16] MEDS: PRENATAL VITAMINS W/ FOLIC ACID TABLET (FP) PO SCH (09:59)
[2024-03-16] MEDS: DULoxetine HCL 30 MG CAPSULE.DR PO SCH (12:00)
[2024-03-16] MEDS: ARIPiprazole 10 MG TABLET PO SCH (12:00)
[2024-03-16] MEDS: methaDONE HCL 10 MG TABLET PO ONE (20:18)
[2024-03-16] MEDS: QUEtiapine FUMARATE 100 MG TABLET (FP) PO SCH (21:10)
[2024-03-17 06:38] VITALS: RESP 18
[2024-03-17] MEDS ORDERED: methaDONE HCL 10 MG TABLET PO SCH (10:30)
[2024-03-17] MEDS: methaDONE HCL 10 MG TABLET PO SCH (10:36)
[2024-03-17 16:18] LABS: HIV INTERPRETATION NEGATIVE (NEGATIVE)
[2024-03-17] MEDS ORDERED: ALBUTEROL SO4 HFA INHALER IH PRN (17:00)
[2024-03-17] MEDS: valACYclovir HCL 500 MG TABLET (FP) PO SCH (18:30)
[2024-03-17] MEDS: GABAPENTIN 300 MG CAPSULE PO SCH (21:14)
[2024-03-17] MEDS: OXcarbazepine 300 MG TABLET (UD) PO SCH (22:10)
[2024-03-18] MEDS: IBUPROFEN 600 MG TABLET (FP) PO PRN (10:48)
[2024-03-18] MEDS: QUEtiapine FUMARATE 300 MG TABLET PO SCH (21:19)
[2024-03-19] MEDS: NICOTINE POLACRILEX 2 MG LOZENGE BC PRN (17:21)
[2024-03-21] MEDS ORDERED: ARIPiprazole 5 MG TABLET ONE (08:37)
[2024-03-22 06:57] VITALS: BP 107/65; PULSE 92; TEMP 97.7
== END 2024-03-22 09:43 | disposition home or self-care (01) | DRG 895 ==
LOC: YASAS 12:36 → Y3NR 15:19 → Y5N 03-16 17:56
PROVIDERS: ADMIT Allergy & Immunology; ATTEND Psychiatry & Neurology Pain Medicine
PROC: HZ42ZZZ Group Counseling for Substance Abuse Treatment, Cognitive-Behavioral (ICD-10-PCS; principal; 2024-03-15)
DX: F14.20 Cocaine dependence, uncomplicated (principal); F11.20 Opioid dependence, uncomplicated; F10.20 Alcohol dependence, uncomplicated; F17.210 Nicotine dependence, cigarettes, uncomplicated; F25.0 Schizoaffective disorder, bipolar type; F31.9 Bipolar disorder, unspecified; F41.9 Anxiety disorder, unspecified
CPT/HCPCS: 36415; 80305; 80307; 86803; 87389; 87522; 87811

== ENCOUNTER 2024-04-26 14:25 | Inpatient (IN) | payer OTHER ==
[2024-04-26] MEDS ORDERED: IBUPROFEN 600 MG TABLET (FP) PO PRN (19:05)
[2024-04-26] MEDS ORDERED: POLYETHYLENE GLYCOL (HEALTHYLAX) 3350 17 GM PACKET PO PRN (19:05)
[2024-04-26] MEDS ORDERED: LOPERAMIDE HCL 2 MG CAPSULE PO PRN (19:05)
[2024-04-26] MEDS ORDERED: NALOXONE HCL 0.4 MG/ML VIAL IM PRN (19:05)
[2024-04-26] MEDS ORDERED: DOCUSATE SODIUM 100 MG CAPSULE (FP) PO PRN (19:05)
[2024-04-26] MEDS ORDERED: BENZOCAINE/MENTHOL (CHLORASEPTIC ) LOZENGE MM PRN (19:05)
[2024-04-26] MEDS ORDERED: NICOTINE POLACRILEX 2 MG LOZENGE BC PRN (19:05)
[2024-04-26] MEDS ORDERED: BISACODYL 5 MG TABLET.DR (FP) PO PRN (19:05)
[2024-04-26] MEDS ORDERED: BENZONATATE 200 MG CAPSULE PO PRN (19:05)
[2024-04-26] MEDS ORDERED: P-EPHED 60MG/TRIPROLIDI 2.5MG TABLET PO PRN (19:05)
[2024-04-26] MEDS ORDERED: guaiFENesin 600 MG TABLET.ER (FP) PO PRN (19:05)
[2024-04-26] MEDS ORDERED: IBUPROFEN 400 MG TABLET (FP) PO PRN (19:05)
[2024-04-26] MEDS ORDERED: NALOXONE (NARCAN) HCL 4 MG/0.1 ML SPRAY NS PRN (19:05)
[2024-04-26] MEDS ORDERED: MAG HYDROX/AL HYDROX/SIMETH 30 ML UNIT-DOSE CUP PO PRN (19:05)
[2024-04-26] MEDS ORDERED: ACETAMINOPHEN 325 MG TABLET (FP) PO PRN (19:05)
[2024-04-26] MEDS ORDERED: MAGNESIUM HYDROX 2400MG/30ML ORAL SUSPENSION 30 ML CUP PO PRN (19:05)
[2024-04-26] MEDS: OXcarbazepine 300 MG TABLET (UD) PO SCH (21:54)
[2024-04-26] MEDS: MELATONIN 5 MG TABLETS PO SCH (21:54)
[2024-04-26] MEDS: THIAMINE 100 MG TABLET PO SCH (21:54)
[2024-04-26] MEDS: NICOTINE POLACRILEX 2 MG GUM BUC PRN (21:55)
[2024-04-27 06:04] VITALS: RESP 16
[2024-04-27] MEDS ORDERED: methaDONE HCL 10 MG TABLET PO SCH (08:15)
[2024-04-27] MEDS: PRENATAL VITAMINS W/ FOLIC ACID TABLET (FP) PO SCH (10:11)
[2024-04-27 10:26] LABS: HEMATOCRIT 36.6 % (35.4-49); HEMOGLOBIN 12.2 GM/dL (11.7-16.9); MCHC 33.5 g/dl (32.0-35.9); MEAN CELL VOLUME 95.7 fl (80-96); MEAN PLT VOLUME 7.4 fl (7.5-11.1); PLATELET COUNT 405 10^3/uL (134-434); RBC 3.82 M/mm3 (4.00-5.60); RDW 14.1 % (11.9-15.9)
[2024-04-27 10:48] LABS: POTASSIUM 4.9 mmol/L (3.5-5.1)
[2024-04-27 10:49] LABS: ALBUMIN 2.7 g/dl (3.4-5.0); CALCIUM 8.6 mg/dL (8.5-10.1)
[2024-04-27 10:51] LABS: BLOOD UREA NITROGEN 11.1 mg/dL (7-18)
[2024-04-27 10:53] LABS: CREATININE 0.6 mg/dL (0.55-1.3)
[2024-04-27 10:54] LABS: BILIRUBIN,TOTAL 0.2 mg/dL (0.2-1); TOT PROT 6.9 g/dl (6.4-8.2)
[2024-04-27] MEDS: DULoxetine HCL 30 MG CAPSULE.DR PO SCH (11:20)
[2024-04-27] MEDS: ARIPiprazole 10 MG TABLET PO SCH (11:20)
[2024-04-27] MEDS: QUEtiapine FUMARATE 100 MG TABLET (FP) PO SCH (21:28)
[2024-04-28 00:18] LABS: PH,URINE 7.5 (5.0-8.0); URINE APPEARANCE CLEAR; URINE BILIRUBIN NEGATIVE (NEGATIVE); URINE COLOR YELLOW; URINE GLUCOSE (UA) NEGATIVE (NEGATIVE); URINE KETONE NEGATIVE (NEGATIVE); URINE LEUK ESTERASE NEGATIVE (NEGATIVE); URINE NITRITE NEGATIVE (NEGATIVE); URINE PROTEIN NEGATIVE (NEGATIVE)
[2024-04-28 09:28] VITALS: BP 99/64; PULSE 70; TEMP 97.3
[2024-04-28] MEDS: ALBUTEROL SO4 HFA INHALER IH PRN (09:38)
== END 2024-04-28 14:53 | disposition left against medical advice (07) | DRG 894 ==
LOC: YASAS 14:25 → Y3NR 20:16
PROVIDERS: ADMIT Allergy & Immunology; ATTEND Psychiatry & Neurology Pain Medicine
PROC: HZ42ZZZ Group Counseling for Substance Abuse Treatment, Cognitive-Behavioral (ICD-10-PCS; principal; 2024-04-26)
DX: F14.20 Cocaine dependence, uncomplicated (principal); F11.20 Opioid dependence, uncomplicated; F12.20 Cannabis dependence, uncomplicated; F17.210 Nicotine dependence, cigarettes, uncomplicated; F25.0 Schizoaffective disorder, bipolar type; M54.59 Other low back pain; G89.29 Other chronic pain; J45.909 Unspecified asthma, uncomplicated; B18.2 Chronic viral hepatitis C; G40.909 Epilepsy, unspecified, not intractable, without status epilepticus; Z86.19 Personal history of other infectious and parasitic diseases; Z56.0 Unemployment, unspecified
CPT/HCPCS: 36415; 80053; 80305; 80307; 81003; 85027; 87811

== ENCOUNTER 2024-05-11 17:00 | Inpatient (IN) | payer OTHER ==
[2024-05-11 17:26] VITALS: BMI 20.7
[2024-05-11] MEDS ORDERED: ALBUTEROL SO4 HFA INHALER IH PRN (19:14)
[2024-05-11] MEDS ORDERED: POLYETHYLENE GLYCOL (HEALTHYLAX) 3350 17 GM PACKET PO PRN (19:15)
[2024-05-11] MEDS ORDERED: BENZOCAINE/MENTHOL (CHLORASEPTIC ) LOZENGE MM PRN (19:15)
[2024-05-11] MEDS ORDERED: MAG HYDROX/AL HYDROX/SIMETH 30 ML UNIT-DOSE CUP PO PRN (19:15)
[2024-05-11] MEDS ORDERED: ONDANSETRON *ODT* 4 MG TABLET SL PRN (19:15)
[2024-05-11] MEDS ORDERED: NALOXONE (NARCAN) HCL 4 MG/0.1 ML SPRAY NS PRN (19:15)
[2024-05-11] MEDS ORDERED: LOPERAMIDE HCL 2 MG CAPSULE PO PRN (19:15)
[2024-05-11] MEDS ORDERED: P-EPHED 60MG/TRIPROLIDI 2.5MG TABLET PO PRN (19:15)
[2024-05-11] MEDS ORDERED: ACETAMINOPHEN 325 MG TABLET (FP) PO PRN (19:15)
[2024-05-11] MEDS ORDERED: BISMUTH SUBSALICYLATE 524 MG/30 ML PO PRN (19:15)
[2024-05-11] MEDS ORDERED: MAGNESIUM HYDROX 2400MG/30ML ORAL SUSPENSION 30 ML CUP PO PRN (19:15)
[2024-05-11] MEDS ORDERED: BENZONATATE 200 MG CAPSULE PO PRN (19:15)
[2024-05-11] MEDS ORDERED: NALOXONE HCL 0.4 MG/ML VIAL IM PRN (19:15)
[2024-05-11] MEDS ORDERED: IBUPROFEN 400 MG TABLET (FP) PO PRN (19:15)
[2024-05-11] MEDS ORDERED: DICYCLOMINE HCL 10 MG CAPSULE PO PRN (19:15)
[2024-05-11] MEDS ORDERED: guaiFENesin 600 MG TABLET.ER (FP) PO PRN (19:15)
[2024-05-11] MEDS: NICOTINE POLACRILEX 2 MG LOZENGE BC PRN (20:31)
[2024-05-11] MEDS: NICOTINE POLACRILEX 2 MG GUM BUC PRN (20:31)
[2024-05-11] MEDS: OXcarbazepine 300 MG TABLET (UD) PO SCH (22:29)
[2024-05-11] MEDS: THIAMINE 100 MG TABLET PO SCH (22:29)
[2024-05-11] MEDS: MELATONIN 5 MG TABLETS PO SCH (22:29)
[2024-05-11] MEDS: METHOCARBAMOL 500 MG TABLET PO PRN (22:29)
[2024-05-12] MEDS ORDERED: diazePAM 5 MG TABLET PO PRN (09:24)
[2024-05-12] MEDS ORDERED: methaDONE HCL 40 MG DISPERSABLE TABLET PO SCH (09:30)
[2024-05-12] MEDS: PRENATAL VITAMINS W/ FOLIC ACID TABLET (FP) PO SCH (10:03)
[2024-05-12] MEDS: diazePAM 5 MG TABLET PO SCH (10:04)
[2024-05-12] MEDS: ARIPiprazole 10 MG TABLET PO SCH (15:07)
[2024-05-12] MEDS: QUEtiapine FUMARATE 300 MG TABLET PO SCH (22:33)
[2024-05-12] MEDS: DULoxetine HCL 30 MG CAPSULE.DR PO SCH (22:59)
[2024-05-14] MEDS: diazePAM 5 MG TABLET PO SCH (05:49)
[2024-05-14 14:34] LABS: HEMATOCRIT 39.7 % (35.4-49); HEMOGLOBIN 13.4 GM/dL (11.7-16.9); MCH 31.9 pg (25.7-33.7); MCHC 33.9 g/dl (32.0-35.9); MEAN CELL VOLUME 94.2 fl (80-96); MEAN PLT VOLUME 9.3 fl (7.5-11.1); PLATELET COUNT 340 10^3/uL (134-434); POTASSIUM 4.2 mmol/L (3.5-5.1); RBC 4.21 M/mm3 (4.00-5.60); WHITE BLOOD COUNT 4.4 K/mm3 (4.0-10.0)
[2024-05-14 14:42] LABS: CALCIUM 8.7 mg/dL (8.5-10.1)
[2024-05-14 14:43] LABS: BLOOD UREA NITROGEN 13.3 mg/dL (7-18)
[2024-05-14 14:46] LABS: CREATININE 0.7 mg/dL (0.55-1.3)
[2024-05-14 14:47] LABS: BILIRUBIN,TOTAL 0.2 mg/dL (0.2-1); TOT PROT 6.9 g/dl (6.4-8.2)
[2024-05-15] MEDS: diazePAM 5 MG TABLET PO SCH (05:35)
[2024-05-16] MEDS: diazePAM 5 MG TABLET PO ONE (05:37)
[2024-05-16] MEDS: IBUPROFEN 600 MG TABLET (FP) PO PRN (17:37)
[2024-05-17 06:52] VITALS: RESP 16
[2024-05-17 09:26] VITALS: BP 107/75; PULSE 91; TEMP 96.9
== END 2024-05-17 09:32 | disposition home or self-care (01) | DRG 897 ==
LOC: YASAS 17:00 → Y6N 20:04
PROVIDERS: ADMIT Allergy & Immunology; ATTEND Family Medicine Addiction Medicine
PROC: HZ2ZZZZ Detoxification Services for Substance Abuse Treatment (ICD-10-PCS; principal; 2024-05-11)
DX: F13.230 Sedative, hypnotic or anxiolytic dependence with withdrawal, uncomplicated (principal); F14.20 Cocaine dependence, uncomplicated; F11.20 Opioid dependence, uncomplicated; F17.210 Nicotine dependence, cigarettes, uncomplicated; F25.0 Schizoaffective disorder, bipolar type; F41.9 Anxiety disorder, unspecified; F32.A Depression, unspecified; G40.909 Epilepsy, unspecified, not intractable, without status epilepticus; J45.909 Unspecified asthma, uncomplicated; M54.50 Low back pain, unspecified; G89.29 Other chronic pain; Z62.810 Personal history of physical and sexual abuse in childhood; Z63.8 Other specified problems related to primary support group; Z86.2 Personal history of diseases of the blood and blood-forming organs and certain disorders involving the immune mechanism; Z86.19 Personal history of other infectious and parasitic diseases
CPT/HCPCS: 36415; 80053; 80305; 80307; 85027; 86593; 86780

== ENCOUNTER 2024-06-11 13:35 | Inpatient (IN) | payer OTHER ==
[2024-06-11 14:31] VITALS: BMI 21.2
[2024-06-11] MEDS ORDERED: BISACODYL 5 MG TABLET.DR (FP) PO PRN (15:00)
[2024-06-11] MEDS ORDERED: IBUPROFEN 400 MG TABLET (FP) PO PRN (15:00)
[2024-06-11] MEDS ORDERED: NICOTINE POLACRILEX 2 MG LOZENGE BC PRN (15:00)
[2024-06-11] MEDS ORDERED: DOCUSATE SODIUM 100 MG CAPSULE (FP) PO PRN (15:00)
[2024-06-11] MEDS ORDERED: LOPERAMIDE HCL 2 MG CAPSULE PO PRN (15:00)
[2024-06-11] MEDS ORDERED: P-EPHED 60MG/TRIPROLIDI 2.5MG TABLET PO PRN (15:00)
[2024-06-11] MEDS ORDERED: BENZOCAINE/MENTHOL (CHLORASEPTIC ) LOZENGE MM PRN (15:00)
[2024-06-11] MEDS ORDERED: BENZONATATE 200 MG CAPSULE PO PRN (15:00)
[2024-06-11] MEDS ORDERED: MAGNESIUM HYDROX 2400MG/30ML ORAL SUSPENSION 30 ML CUP PO PRN (15:00)
[2024-06-11] MEDS ORDERED: MAG HYDROX/AL HYDROX/SIMETH 30 ML UNIT-DOSE CUP PO PRN (15:00)
[2024-06-11] MEDS ORDERED: POLYETHYLENE GLYCOL (HEALTHYLAX) 3350 17 GM PACKET PO PRN (15:00)
[2024-06-11] MEDS ORDERED: guaiFENesin 600 MG TABLET.ER (FP) PO PRN (15:00)
[2024-06-11] MEDS ORDERED: ALBUTEROL SO4 HFA INHALER IH PRN (19:31)
[2024-06-11] MEDS: OXcarbazepine 300 MG TABLET (UD) PO SCH (21:56)
[2024-06-11] MEDS: THIAMINE 100 MG TABLET PO SCH (21:56)
[2024-06-11] MEDS: MELATONIN 5 MG TABLETS PO SCH (21:56)
[2024-06-11] MEDS: NICOTINE POLACRILEX 2 MG GUM BUC PRN (21:57)
[2024-06-12] MEDS: methaDONE HCL 10 MG TABLET PO SCH (09:30)
[2024-06-12] MEDS: PRENATAL VITAMINS W/ FOLIC ACID TABLET (FP) PO SCH (09:53)
[2024-06-12] MEDS: QUEtiapine FUMARATE 300 MG TABLET PO SCH (22:10)
[2024-06-13 10:21] LABS: BASO % 0.9 % (0-2.0); EOS % 6.4 % (0-4.5); HEMATOCRIT 41.7 % (35.4-49); HEMOGLOBIN 13.5 GM/dL (11.7-16.9); MCH 31.1 pg (25.7-33.7); MCHC 32.4 g/dl (32.0-35.9); MEAN CELL VOLUME 95.9 fl (80-96); MEAN PLT VOLUME 8.4 fl (7.5-11.1); MONO % 10.2 % (3.8-10.2); NEUT % 43.5 % (42.8-82.8); PLATELET COUNT 304 10^3/uL (134-434); RBC 4.35 M/mm3 (4.00-5.60); RDW 15.1 % (11.9-15.9); WHITE BLOOD COUNT 6.3 K/mm3 (4.0-10.0)
[2024-06-13] MEDS: DULoxetine HCL 30 MG CAPSULE.DR PO SCH (10:45)
[2024-06-13 11:27] LABS: POTASSIUM 4.4 mmol/L (3.5-5.1)
[2024-06-13 11:36] LABS: BLOOD UREA NITROGEN 17.4 mg/dL (7-18)
[2024-06-13 11:39] LABS: ALBUMIN 3.3 g/dl (3.4-5.0); CREATININE 0.6 mg/dL (0.55-1.3)
[2024-06-13 11:41] LABS: BILIRUBIN,TOTAL 0.4 mg/dL (0.2-1)
[2024-06-13] MEDS ORDERED: QUEtiapine FUMARATE 100 MG TABLET (FP) ONE (21:41)
[2024-06-14] MEDS ORDERED: CALMINE 3% AND PRAMOXINE 1% 118 ML BOTTLE TP SCH (14:30)
[2024-06-14] MEDS ORDERED: QUEtiapine FUMARATE 100 MG TABLET (FP) ONE (21:05)
[2024-06-14] MEDS: CALAMINE 8% TOPICAL LOTION 177 ML BOTTLE TP SCH (21:07)
[2024-06-14] MEDS: ACETAMINOPHEN 325 MG TABLET (FP) PO PRN (22:34)
[2024-06-15 14:56] LABS: PH,URINE 6.5 (5.0-8.0); URINE APPEARANCE CLEAR; URINE BILIRUBIN NEGATIVE (NEGATIVE); URINE COLOR YELLOW; URINE GLUCOSE (UA) NEGATIVE (NEGATIVE); URINE KETONE NEGATIVE (NEGATIVE); URINE LEUK ESTERASE NEGATIVE (NEGATIVE); URINE NITRITE NEGATIVE (NEGATIVE); URINE PROTEIN NEGATIVE (NEGATIVE); URINE UROBILINOGEN 0.2 mg/dL (0.2-1.0)
[2024-06-15] MEDS: IBUPROFEN 600 MG TABLET (FP) PO PRN (16:47)
[2024-06-15 17:45] VITALS: BP 121/78; PULSE 77; RESP 18; TEMP 97.7
== END 2024-06-15 18:14 | disposition home or self-care (01) | DRG 895 ==
LOC: YASAS 13:35 → Y3NR 16:26 → Y3W 06-13 09:01
PROVIDERS: ADMIT Psychiatry & Neurology Pain Medicine; ATTEND Psychiatry & Neurology Pain Medicine
PROC: HZ42ZZZ Group Counseling for Substance Abuse Treatment, Cognitive-Behavioral (ICD-10-PCS; principal; 2024-06-11)
DX: F11.20 Opioid dependence, uncomplicated (principal); F14.20 Cocaine dependence, uncomplicated; F13.20 Sedative, hypnotic or anxiolytic dependence, uncomplicated; F12.20 Cannabis dependence, uncomplicated; F17.210 Nicotine dependence, cigarettes, uncomplicated; F20.9 Schizophrenia, unspecified
CPT/HCPCS: 36415; 80053; 80305; 81003; 85025; 86593; 86780; 87811; 93005; 93010; G0480

== ENCOUNTER 2024-09-20 16:17 | Inpatient (IN) | payer OTHER ==
[2024-09-20 16:50] VITALS: BMI 22.5
[2024-09-20] MEDS ORDERED: ALBUTEROL SO4 HFA INHALER IH PRN (18:01)
[2024-09-20] MEDS ORDERED: BENZONATATE 200 MG CAPSULE PO PRN (18:03)
[2024-09-20] MEDS ORDERED: LOPERAMIDE HCL 2 MG CAPSULE PO PRN (18:03)
[2024-09-20] MEDS ORDERED: NALOXONE (NARCAN) HCL 4 MG/0.1 ML SPRAY NS PRN (18:03)
[2024-09-20] MEDS ORDERED: POLYETHYLENE GLYCOL (HEALTHYLAX) 3350 17 GM PACKET PO PRN (18:03)
[2024-09-20] MEDS ORDERED: BENZOCAINE/MENTHOL (CHLORASEPTIC ) LOZENGE MM PRN (18:03)
[2024-09-20] MEDS ORDERED: MAGNESIUM HYDROX 2400MG/30ML ORAL SUSPENSION 30 ML CUP PO PRN (18:03)
[2024-09-20] MEDS ORDERED: guaiFENesin 600 MG TABLET.ER (FP) PO PRN (18:03)
[2024-09-20] MEDS ORDERED: hydrOXYzine PAMOATE 25 MG CAPSULE (FP) PO PRN (18:03)
[2024-09-20] MEDS ORDERED: P-EPHED 60MG/TRIPROLIDI 2.5MG TABLET PO PRN (18:03)
[2024-09-20] MEDS ORDERED: IBUPROFEN 400 MG TABLET (FP) PO PRN (18:03)
[2024-09-20] MEDS ORDERED: MAG HYDROX/AL HYDROX/SIMETH 30 ML UNIT-DOSE CUP PO PRN (18:03)
[2024-09-20] MEDS ORDERED: BISMUTH SUBSALICYLATE 524 MG/30 ML PO PRN (18:03)
[2024-09-20] MEDS ORDERED: NICOTINE POLACRILEX 2 MG LOZENGE BC PRN (18:03)
[2024-09-20] MEDS ORDERED: DICYCLOMINE HCL 10 MG CAPSULE PO PRN (18:03)
[2024-09-20] MEDS ORDERED: METHOCARBAMOL 500 MG TABLET PO PRN (18:03)
[2024-09-20] MEDS ORDERED: ONDANSETRON *ODT* 4 MG TABLET SL PRN (18:03)
[2024-09-20] MEDS ORDERED: IBUPROFEN 600 MG TABLET (FP) PO PRN (18:03)
[2024-09-20] MEDS ORDERED: ACETAMINOPHEN 325 MG TABLET (FP) PO PRN (18:03)
[2024-09-20] MEDS: OXcarbazepine 300 MG TABLET (UD) PO SCH (21:50)
[2024-09-20] MEDS: THIAMINE 100 MG TABLET PO SCH (21:50)
[2024-09-20] MEDS: NICOTINE POLACRILEX 2 MG GUM BUC PRN (21:52)
[2024-09-21] MEDS ORDERED: methaDONE HCL 40 MG DISPERSABLE TABLET PO SCH (07:45)
[2024-09-21] MEDS: PRENATAL VITAMINS W/ FOLIC ACID TABLET (FP) PO SCH (10:00)
[2024-09-21] MEDS: DULoxetine HCL 30 MG CAPSULE.DR PO SCH (10:01)
[2024-09-21] MEDS: MELATONIN 5 MG TABLETS PO PRN (22:37)
[2024-09-21] MEDS: QUEtiapine FUMARATE 200 MG TABLET PO SCH (22:38)
[2024-09-22 09:35] VITALS: BP 107/61; PULSE 65; RESP 16; TEMP 97.6
[2024-09-22] MEDS: NALOXONE (NYS OPIOID OVERDOSE PROGRAM) 4 MG/0.1 ML SPRAY NS SCH (11:06)
== END 2024-09-22 10:47 | disposition home or self-care (01) | DRG 897 ==
LOC: YASAS 16:17 → Y3N 20:25
PROVIDERS: ADMIT Allergy & Immunology; ATTEND Allergy & Immunology
PROC: HZ2ZZZZ Detoxification Services for Substance Abuse Treatment (ICD-10-PCS; principal; 2024-09-20)
DX: F14.20 Cocaine dependence, uncomplicated (principal); F11.20 Opioid dependence, uncomplicated; F17.210 Nicotine dependence, cigarettes, uncomplicated; G40.909 Epilepsy, unspecified, not intractable, without status epilepticus; Z86.59 Personal history of other mental and behavioral disorders
CPT/HCPCS: 80305

== ENCOUNTER 2024-11-16 13:08 | Inpatient (IN) | payer OTHER ==
[2024-11-16 15:00] VITALS: BMI 21.5
[2024-11-16] MEDS ORDERED: BENZONATATE 200 MG CAPSULE PO PRN (15:29)
[2024-11-16] MEDS ORDERED: NALOXONE (NARCAN) HCL 4 MG/0.1 ML SPRAY NS PRN (15:29)
[2024-11-16] MEDS ORDERED: MAG HYDROX/AL HYDROX/SIMETH 30 ML UNIT-DOSE CUP PO PRN (15:29)
[2024-11-16] MEDS ORDERED: IBUPROFEN 600 MG TABLET (FP) PO PRN (15:29)
[2024-11-16] MEDS ORDERED: BISMUTH SUBSALICYLATE 524 MG/30 ML PO PRN (15:29)
[2024-11-16] MEDS ORDERED: ACETAMINOPHEN 325 MG TABLET (FP) PO PRN (15:29)
[2024-11-16] MEDS ORDERED: DICYCLOMINE HCL 10 MG CAPSULE PO PRN (15:29)
[2024-11-16] MEDS ORDERED: IBUPROFEN 400 MG TABLET (FP) PO PRN (15:29)
[2024-11-16] MEDS ORDERED: BENZOCAINE/MENTHOL (CHLORASEPTIC ) LOZENGE MM PRN (15:29)
[2024-11-16] MEDS ORDERED: POLYETHYLENE GLYCOL (HEALTHYLAX) 3350 17 GM PACKET PO PRN (15:29)
[2024-11-16] MEDS ORDERED: MAGNESIUM HYDROX 2400MG/30ML ORAL SUSPENSION 30 ML CUP PO PRN (15:29)
[2024-11-16] MEDS ORDERED: guaiFENesin 600 MG TABLET.ER (FP) PO PRN (15:29)
[2024-11-16] MEDS ORDERED: ONDANSETRON *ODT* 4 MG TABLET SL PRN (15:29)
[2024-11-16] MEDS ORDERED: LOPERAMIDE HCL 2 MG CAPSULE PO PRN (15:29)
[2024-11-16] MEDS: THIAMINE 100 MG TABLET PO SCH (22:36)
[2024-11-16] MEDS: METHOCARBAMOL 500 MG TABLET PO PRN (22:36)
[2024-11-16] MEDS: NICOTINE POLACRILEX 2 MG GUM BUC PRN (22:37)
[2024-11-16] MEDS: MELATONIN 5 MG TABLETS PO SCH (22:37)
[2024-11-17] MEDS ORDERED: methaDONE HCL 10 MG TABLET PO ONE (09:28)
[2024-11-17] MEDS ORDERED: ALBUTEROL SO4 HFA INHALER IH PRN (09:28)
[2024-11-17] MEDS: PRENATAL VITAMINS W/ FOLIC ACID TABLET (FP) PO SCH (10:44)
[2024-11-17] MEDS: diazePAM 5 MG TABLET PO SCH (10:44)
[2024-11-17] MEDS: NICOTINE 21 MG/24 HOURS TOPICAL PATCH TD SCH (10:44)
[2024-11-17 11:21] LABS: HEMATOCRIT 39.4 % (35.4-49); HEMOGLOBIN 13.3 GM/dL (11.7-16.9); MCHC 33.8 g/dl (32.0-35.9); MEAN CELL VOLUME 91.6 fl (80-96); MEAN PLT VOLUME 8.3 fl (7.5-11.1); PLATELET COUNT 260 10^3/uL (134-434); RDW 14.5 % (11.9-15.9); WHITE BLOOD COUNT 6.9 K/mm3 (4.0-10.0)
[2024-11-17 11:23] LABS: POTASSIUM 4.3 mmol/L (3.5-5.1)
[2024-11-17 11:24] LABS: CALCIUM 8.7 mg/dL (8.5-10.1)
[2024-11-17 11:25] LABS: ALBUMIN 3.3 g/dl (3.4-5.0)
[2024-11-17 11:28] LABS: CREATININE 0.7 mg/dL (0.55-1.3)
[2024-11-17 11:30] LABS: BILIRUBIN,TOTAL 0.3 mg/dL (0.2-1)
[2024-11-17] MEDS: QUEtiapine FUMARATE 200 MG TABLET PO SCH (22:41)
[2024-11-18] MEDS: diazePAM 5 MG TABLET PO SCH (06:06)
[2024-11-18] MEDS: DULoxetine HCL 30 MG CAPSULE.DR PO SCH (10:10)
[2024-11-18] MEDS: diazePAM 5 MG TABLET PO PRN (10:11)
[2024-11-19] MEDS: diazePAM 5 MG TABLET PO SCH (06:37)
[2024-11-19] MEDS: methaDONE 40 MG, methaDONE 30 MG PO SCH (07:40)
[2024-11-19] MEDS ORDERED: methaDONE HCL 10 MG TABLET PO ONE (07:53)
[2024-11-20] MEDS ORDERED: methaDONE HCL 10 MG TABLET PO SCH (06:00)
[2024-11-20] MEDS: diazePAM 5 MG TABLET PO ONE (06:03)
[2024-11-20] MEDS: hydrOXYzine PAMOATE 25 MG CAPSULE (FP) PO PRN (19:33)
[2024-11-21 09:03] VITALS: BP 103/60; PULSE 78; RESP 16; TEMP 98.1
== END 2024-11-21 10:50 | disposition home or self-care (01) | DRG 897 ==
LOC: YASAS 13:08 → Y6N 18:06
PROVIDERS: ADMIT Allergy & Immunology; ATTEND Allergy & Immunology
PROC: HZ2ZZZZ Detoxification Services for Substance Abuse Treatment (ICD-10-PCS; principal; 2024-11-16)
DX: F10.230 Alcohol dependence with withdrawal, uncomplicated (principal); F11.20 Opioid dependence, uncomplicated; F14.20 Cocaine dependence, uncomplicated; F15.20 Other stimulant dependence, uncomplicated; F12.20 Cannabis dependence, uncomplicated; F17.210 Nicotine dependence, cigarettes, uncomplicated; F25.1 Schizoaffective disorder, depressive type; G40.909 Epilepsy, unspecified, not intractable, without status epilepticus; J45.20 Mild intermittent asthma, uncomplicated; M54.50 Low back pain, unspecified; G89.29 Other chronic pain; Z20.2 Contact with and (suspected) exposure to infections with a predominantly sexual mode of transmission
CPT/HCPCS: 36415; 80053; 80305; 80307; 85027; 86593; 86780; 93005; 93010